=== PATIENT | female | born 1960 | race Caucasian/White ===

== ENCOUNTER → 2017-10-28 14:46 | Outpatient (CLI) | payer OTHER, SELFPAY ==
[2017-10-28 16:28] LABS: Amphetamine Urine VISTA NEGATIVE (<1000 ng/mL); Barbiturate Urine VISTA NEGATIVE (< 200 ng/mL); Benzodiazepine Urine VISTA POSITIVE (< 200 ng/mL); Cocaine Urine VISTA NEGATIVE (< 300 ng/mL); Ecstacy Urine VISTA NEGATIVE (< 500 ng/mL); Methadone Urine VISTA NEGATIVE (< 300 ng/mL); PCP Urine VISTA NEGATIVE (< 25 ng/mL); THC Urine VISTA NEGATIVE (< 50 ng/mL); Vista UDS pH Range 6
== END ==
PROVIDERS: Family Provider Family Medicine; PCP Family Medicine; Visit Provider Anesthesiology Pain Medicine
DX: F11.20 Opioid dependence, uncomplicated (principal)
CPT/HCPCS: 80307

== ENCOUNTER → 2017-12-11 11:01 | Outpatient (CLI) | payer OTHER, SELFPAY ==
[2017-12-11 11:47] LABS: Absolute Lymphocyte Count 2.85 X10^3/ul (0.83-4.51); Absolute Neutrophil Count 4.4 X10^3/uL (2.0-7.7); Basophil# 0.02 X10^3/uL; Basophil% 0.3 % (0-1); Eosinophil# 0.07 X10^3/uL; Eosinophils% 0.9 % (0-5); Hematocrit 42.9 % (37-47); Hemoglobin 13.2 g/dl (12.0-15.0); Lymphocyte # 2.85 X10^3/ul (4.0); Lymphocyte % 35.9 % (19-41); Mean Corp Hgb Conc 30.8 g/gl (32-36); Mean Corpuscular Hgb 29.9 pg (27.0-32.0); Mean Corpuscular Volume 97.3 fL (81-99); Mean Platelet Vol. 10.3 fl (6.2-12.0); Monocyte# 0.64 X10^3/uL; Monocyte% 8.1 % (0-10); Neutrophil # 4.36 X10^3/uL (2.7-7.7); Neutrophil % 54.8 % (47-70); Platelet Count 355 K/mm3 (150-450); RBC Distribution Width CV 13.3 % (11.6-14.6); Red Blood Count 4.41 M/mm3 (4.2-5.4); White Blood Count 7.9 K/mm3 (4.4-11.0)
[2017-12-11 11:48] LABS: POSITIVE COUNT NO; POSITIVE DIFFERENTIAL NO; POSITIVE MORPHOLOGY NO
[2017-12-11 12:17] LABS: ALB/GLOB Ratio 0.9 RATIO (0.9-2.4); AST(SGOT) 12 U/L (15-37); Alanine Aminotransfer ALT/SGPT 21 U/L (13-56); Albumin, Serum 3.7 g/dL (3.2-5.0); Alkaline Phosphatase 64 U/L (45-117); Anion Gap 6 (5-15); BUN 14 mg/dL (7-18); BUN/Creat Ratio 15.5 RATIO (10-20); Calcium,Total 8.8 mg/dL (8.5-10.1); Chloride 104 mmol/L (98-107); EST Glomerular Filtration Rate 68 mL/min (>60); Est Glom Filt Rate - Afr Amer 82 mL/min (>60); Globulin 3.9 g/dL (2.2-4.2); Glucose 112 mg/dL (74-106); Potassium 4.1 mmol/L (3.5-5.1); Protein, Total 7.6 g/dL (6.4-8.2); Sodium Level 140 mmol/L (136-145)
== END ==
PROVIDERS: Family Provider Family Medicine; PCP Family Medicine; Visit Provider Internal Medicine Rheumatology
DX: M06.4 Inflammatory polyarthropathy (principal); M79.7 Fibromyalgia; M17.0 Bilateral primary osteoarthritis of knee; M21.40 Flat foot [pes planus] (acquired), unspecified foot; I10 Essential (primary) hypertension; E78.5 Hyperlipidemia, unspecified; E11.9 Type 2 diabetes mellitus without complications; E03.9 Hypothyroidism, unspecified; Z79.899 Other long term (current) drug therapy
CPT/HCPCS: 36415; 80053; 85025

== ENCOUNTER 2018-01-26 10:53 | Day surgery (SDC) | payer OTHER, SELFPAY ==
[2018-01-20 12:48] LABS: Hematocrit 43.3 % (37-47); Hemoglobin 13.5 g/dl (12.0-15.0); Mean Corp Hgb Conc 31.2 g/gl (32-36); Mean Corpuscular Volume 96.2 fL (81-99); Mean Platelet Vol. 10.7 fl (6.2-12.0); Platelet Count 290 K/mm3 (150-450); RBC Distribution Width CV 13.4 % (11.6-14.6); White Blood Count 5.7 K/mm3 (4.4-11.0)
[2018-01-20 12:50] LABS: Prothrombin Time (Protime)PT. 13.4 SECONDS (11.7-14.9)
[2018-01-20 12:51] LABS: Partial Thromboplast Time 31.1 Seconds (24.1-36.2)
[2018-01-20 12:52] LABS: Scan Indicated on CBC? Y/N NO
[2018-01-26] VITALS (9 sets, daily range): BP systolic 115–135; BP diastolic 59–83; PULSE 64–95; RESP 14–16; TEMP 36.1–37.1; O2SAT 77–100; BMI 38.2
--- NOTE | 2018-01-26 | IMM_PTH ---
PATIENT: TRE SHEPPARD [place] [facility] [id number] AGE/SX: 57/F ROOM: RE01/26/[address]: Dr. She Luna MD : 1960 BED: DIS: 01/26/2018 SPEC #: [id number] RECD: 01/28/18 10:36 STATUS: SHERIN REQ #: [id number] NUNU: 01/26/18 00:[address]: She Luna DEPT: IMMUNOHISTOCHEMISTRY RECD BY: Tonja Stephen ENTERED: 01/28/18 10:37 SP TYPE: IMMUNO OTHR DR: Dr. Brandon Vela MD Tissues: Endometrium, NOS Procedures: SMA (add) DESMIN (add) P53 (add) SMM (add) Vimentin (initial) PHYSICIAN & INSTITUTION [place] [id number] SPECIMEN INFORMATION: Tissue Source: Endometrial curettings Clinical Info: Intrauterine synechiae, postmenopausal bleeding Specimen Number: [id number] CPT code: 11223, 86167 x4 METHODOLOGY: Deparaffinized sections of prefer/formalin-fixed tissue or PAP/DQ stained slides are incubated with monoclonal/polyclonal antibodies/oligonucleotide probes. Localization is made via biotin free immunoperoxidase method. Appropriate controls are performed and reacted as expected. Results on target cell population are indicated in the following table: RESULTS: ANTIBODY / CLONE RESULT Vimentin (V9) negative Actin (1A4) positive Myosin (simms1) positive Desmin (CE-R-11) positive P53 (DO-7) negative These tests were developed and their performance characteristics determined by [facility]. They may not have been cleared or approved by the U.S. Food and Drug Administration. The FDA has determined that such clearance or approval is not necessary. INTERPRETATION: Endometrial curettings: Smooth muscle tissue. AM:arnaud 01/28/18 Comment: A submucosal leiomyoma cannot be ruled out.
[2018-01-26 11:36] LABS: Bedside Glucose 108 mg/dL (70-110)
--- NOTE | 2018-01-26 12:40 | EMB_PTH ---
PATIENT: TRE SHEPPARD LOC: [facility] – [place] U#:[id number] AGE/SX: 57/F ROOM: RE01/26/[address]: Dr. She Luna MD : 1960 BED: DIS: 01/26/2018 SPEC #: [id number] RECD: 01/26/18 15:15 STATUS: SHERIN REUche #: [id number] NUNU: 01/26/18 12:[address]: She Luna DEPT: SURGICAL PATHOLOGY RECD BY: Paxton Stahl ENTERED: 01/27/18 08:20 SP TYPE: ENDOM BX/C OTHR DR: Dr. Brandon Vela MD Tissues: Endometrium, NOS Procedures: Surgery Specimen Level IV HEADER OPERATION: Hysteroscopy, dilation and curettage, Myosure PRE-OP DIAGNOSIS: Intrauterine synechiae, postmenopausal bleeding TISSUE SUBMITTED: Endometrial curettings MICROSCOPIC DIAGNOSIS Endometrium, curettings: Smooth muscle tissue, mature fibrofatty tissue with focal fat necrosis and blood clots. AM:arnaud 01/28/18 COMMENT Clinical correlation is necessary. This case was discussed with Dr. Luna 01/28/18 at 10:00 a.m. MICROSCOPIC DESCRIPTION Slides are reviewed. GROSS DESCRIPTION Received in fixative is one container labeled with the patient's name and designated endometrial curettings. The specimen consists of multiple irregular fragments of nunes-light yellow soft tissue that in aggregate measure 2.5 x 1 x 0.1 cm. The specimen is totally submitted in one cassette. / SJ:arnaud 01/27/18 TC:5 CPT: 82788
--- NOTE | 2018-01-26 13:20 | PCM.DC.D&C ---
Discharge Diet: No Restrictions Discharge Activity: May not drive while taking narcotic pain medications., May Shower, May Take a Tub Bath Return to work on:: 01/31/18 May resume sexual activity in: 1 week - when comfortable Call your doctor if you observe: Fever of 101 or Higher, Using more than one pad per hour, Calf discomfort, Uncontrolled pain Allergies/Adverse Reactions: Allergies Penicillins Allergy (Verified 01/19/18 13:17) Rash tramadol HCl [From Ultracet] Allergy (Verified 01/19/18 13:17) Hives codeine Adverse Reaction (Verified 01/19/18 13:17) Nausea VOLTAREN GEL Allergy (Uncoded 01/19/18 13:18) Hives Medications to take at Discharge Hydroxychloroquine [Plaquenil] 200 mg PO BIDCM 02/09/14 Lisinopril [Zestril] 40 mg PO DAILY 02/09/14 Pravastatin [Pravachol] 40 mg PO DAILY 02/09/14 Gabapentin [Neurontin] 300 mg PO TIDCM 05/27/16 baclofen 10 mg tablet 10 mg PO DAILY 12/26/17 diazepam 2 mg tablet 5 mg PO TID 12/26/17 escitalopram 20 mg tablet 30 mg PO DAILY 12/26/17 levothyroxine 125 mcg tablet 150 mcg PO DAILY 12/26/17 Empagliflozin/Metformin HCl [Synjardy 5-500 mg Tablet] 1 each PO DAILY 01/19/18 Multivitamin [Daily Multiple Vitamin] 1 each PO DAILY 01/19/18 Oxycodone CR [Oxycontin] 15 mg PO Q12H 01/19/18 Primary Care Physician: Brandon Vela MD [Primary Care Provider] - Please Follow Up With: She Luna MD - [phone] When: 1-2 wks for postop appointment Proposed Discharge Date: 01/26/18
--- NOTE | 2018-01-26 13:46 | PCM.IMDPSTOP ---
Immediate Post-Op Note Date of Procedure: 01/26/18 Primary Surgeon/Physician: She Luna laserist: Lizbeth Biggs Pre-Operative Diagnosis: postmenopausal bleeding, thickened endometrial stripe. RV RF uterus, with cervical stenosis Post-Operative Diagnosis: Same. Likely submucous fibroid, atrophic endometrium Surgery/Procedure Performed:: cervical dilatation. endometrial biopsy / polypectomy. No hysteroscopy. Description of Surgical Findings:: Dilation of cervix . Uterus RV, RF. Attempted hysteroscopy but midline anterior perforation of uterus noted. Hysteroscopy abandoned. No Myosure procedure performed. Endometrial polyp forceps advanced along posterior uterine wall to 11 cm depth, and several biopsies obtained of likely submucous fibroid. Pipelle used to sample endometrium at 11 cm depth along endometrial cavity with very minimal tissue noted. No active bleeding. Excellent hemostasis . Tenaculum puncture site at posterior cervix treated with AgNO3. Estimated Blood Loss: minimal Specimen's removed: fragments of likely submucous leiomyoma noted. minimal endometrium Drains: none Type of Anesthesia:: General - Admit VTE Documentation VTE Present on Admission: No VTE Mechan Device Prophylaxis: SCD's VTE Pharm Prophylaxis ordered?: No
--- NOTE | 2018-01-26 13:55 | OP.PN_ITS ---
Immediate Post-Op Note Date of Procedure: 01/26/18 Primary Surgeon/Physician: She Luna ear mold laboratory technician: Lizbeth Biggs Pre-Operative Diagnosis: postmenopausal bleeding, thickened endometrial stripe. RV RF uterus, with cervical stenosis Post-Operative Diagnosis: Same. Likely submucous fibroid, atrophic endometrium Surgery/Procedure Performed:: cervical dilatation. endometrial biopsy / polypectomy. No hysteroscopy. Description of Surgical Findings:: Dilation of cervix . Uterus RV, RF. Attempted hysteroscopy but midline anterior perforation of uterus noted. Hysteroscopy abandoned. No Myosure procedure performed. Endometrial polyp forceps advanced along posterior uterine wall to 11 cm depth , and several biopsies obtained of likely submucous fibroid. Pipelle used to sample endometrium at 11 cm depth along endometrial cavity with very minimal tissue noted. No active bleeding. Excellent hemostasis . Tenaculum puncture site at posterior cervix treated with AgNO3. Estimated Blood Loss: minimal Specimen's removed: fragments of likely submucous leiomyoma noted. minimal endometrium Drains: none Type of Anesthesia:: General - Admit VTE Documentation VTE Present on Admission: No VTE Mechan Device Prophylaxis: SCD's VTE Pharm Prophylaxis ordered?: No
[2018-01-26 15:15] LABS: Bedside Glucose 94 mg/dL (70-110)
--- NOTE | 2018-01-26 21:28 | OP.PCM_ITS ---
Operative Report Date of Procedure: 01/26/18 PROCEDURE: Dilation, endometrial biopsy, biopsy of likely submucous fibroid. Preoperative Diagnosis: Thickened endometrial stripe on pelvic ultrasound Cervical stenosis Retroverted Retroflexed uterus Postmenopausal bleeding Postop diagnosis: Thickened endometrial stripe on pelvic ultrasound Cervical stenosis Retroverted Retroflexed uterus Postmenopausal bleeding Anesthesia: General anesthesia, GRZEGORZ Cruz and Vicente Matos MD Surgeon: She Luna MD EBL: Minimal for case Drains: Red jasso, minimal clear yellow urine Complications: Uterine perforation, anterior midline (hemostatic by quick look with hysteroscope) Fluids: replacement Findings: Atrophic appearing cervix, stenotic Fragments of likely pedunculated submucous fibroid (biopsied). Scant endometrial curettings. Narrative account After the R,B,Alternatives of the procedure were reviewed with the patient and her , informed consent was obtained. The patient was taken to the operating room with an IV running and placed in dorsal supine position on the operating table. She was given general anesthesia and repositioned to the dorsal lithotomy position and prepped and draped in the usual sterile fashion. A graves speculum was placed into the vagina and the cervix was brought into view. The cervix was atrophic appearing and flush with the vaginal wall. It was grasped at the anterior lip. Cervical dilation was begun with small dilators, and initially this went smoothly but perforation was suspected at the anterior midline. The cervix was grasped at the posterior lip then with a single toothed tenaculum and dilators were again used, taking care to maintain retroverted orientation. The uterus was sounded and sounded to 11 cm ( consistent with prior ultrasound measurement) An attempt was made to introduce the hysteroscope into the endometrial cavity but hysteroscopy was immediately abandoned due to the perforation noted. There was no active bleeding noted at the perforation. The polyp forceps were then used to probe the posterior wall of the endometrial cavity and several pieces of an apparent submucous , pedunculated fibroid were removed but the mass within the endometrial cavity could not be removed with the polyp forceps. An endometrial biopsy was then performed with a Pipelle (taking care to remain closely approximated to the posterior endometrial cavity -- where the Pipelle sounded to 11 cm). The biopsy collected was set aside for later pathology review. At this point the procedure was terminated. The tenaculum was removed from the posterior cervix. There was some bleeding noted at the posterior cervix at the tenaculum puncture site on the L side (5:00 position). This was treated with AgNO3, and excellent hemostasis was then noted. A Ray Faraz gauze was used to remove any remaining tissue and blood from the upper vagina and cervix. The speculum was removed. The patient was returned to dorsal supine position and awakened from IV sedation and transferred to her recovery room bed in stable condition after tolerating the procedure well. Sponge, lap, needle and instrument counts were correct x two. For medications given intraoperatively, please see the anesthesia record.
== END 2018-01-26 15:38 | disposition home or self-care (01) ==
LOC: SDC 10:53 → AC 10:55
PROVIDERS: Family Provider Family Medicine; PCP Family Medicine; Visit Provider Obstetrics & Gynecology
PROC: 0UDB8ZZ Extraction of Endometrium, Via Natural or Artificial Opening Endoscopic (ICD-10-PCS; CPT 58558; principal; 2018-01-26 12:30)
DX: M48.02 Spinal stenosis, cervical region (principal); N95.0 Postmenopausal bleeding; N85.4 Malposition of uterus; N85.6 Intrauterine synechiae; N85.8 Other specified noninflammatory disorders of uterus; I10 Essential (primary) hypertension; Z87.891 Personal history of nicotine dependence; M79.7 Fibromyalgia; K21.9 Gastro-esophageal reflux disease without esophagitis; E11.9 Type 2 diabetes mellitus without complications; E03.9 Hypothyroidism, unspecified
CPT/HCPCS: 00940; 58120; 36415; 82962; 85027; 85610; 85730; 86850; 86900; 88305; 88341; 88342; J7120; J2405

== ENCOUNTER → 2018-01-28 14:21 | Outpatient (CLI) | payer OTHER, SELFPAY | PROVIDERS: Family Provider Family Medicine; PCP Family Medicine; Visit Provider Physician Assistant Surgical | DX: J02.9 Acute pharyngitis, unspecified (principal) | CPT/HCPCS: 87081 ==

== ENCOUNTER → 2018-03-08 12:03 | Outpatient (CLI) | payer OTHER, SELFPAY ==
[2018-03-08 14:16] LABS: Absolute Lymphocyte Count 1.69 X10^3/ul (0.83-4.51); Absolute Neutrophil Count 2.9 X10^3/uL (2.0-7.7); Basophil# 0.01 X10^3/uL; Basophil% 0.2 % (0-1); Eosinophil# 0.07 X10^3/uL; Eosinophils% 1.4 % (0-5); Hematocrit 42.8 % (37-47); Hemoglobin 13.6 g/dl (12.0-15.0); Lymphocyte # 1.69 X10^3/ul (4.0); Lymphocyte % 33.1 % (19-41); Mean Corp Hgb Conc 31.8 g/gl (32-36); Mean Corpuscular Hgb 30.6 pg (27.0-32.0); Mean Corpuscular Volume 96.4 fL (81-99); Mean Platelet Vol. 10.9 fl (6.2-12.0); Monocyte# 0.42 X10^3/uL; Monocyte% 8.2 % (0-10); Neutrophil % 56.9 % (47-70); Platelet Count 299 K/mm3 (150-450); RBC Distribution Width CV 13.2 % (11.6-14.6); RBC Distribution Width SD 45.7 fl (35.1-43.9); Red Blood Count 4.44 M/mm3 (4.2-5.4); White Blood Count 5.1 K/mm3 (4.4-11.0)
[2018-03-08 14:17] LABS: POSITIVE COUNT NO; POSITIVE DIFFERENTIAL NO; POSITIVE MORPHOLOGY NO
[2018-03-08 14:28] LABS: AST(SGOT) 15 U/L (15-37); Alanine Aminotransfer ALT/SGPT 24 U/L (13-56); Albumin, Serum 3.8 g/dL (3.2-5.0); Alkaline Phosphatase 63 U/L (45-117); Anion Gap 7 (5-15); BUN 10 mg/dL (7-18); BUN/Creat Ratio 11.6 RATIO (10-20); Calcium,Total 8.8 mg/dL (8.5-10.1); Chloride 105 mmol/L (98-107); Creatinine, Serum 0.86 mg/dL (0.55-1.02); EST Glomerular Filtration Rate 72 mL/min (>60); Est Glom Filt Rate - Afr Amer 87 mL/min (>60); Globulin 3.8 g/dL (2.2-4.2); Glucose 115 mg/dL (74-106); Potassium 4.5 mmol/L (3.5-5.1); Protein, Total 7.6 g/dL (6.4-8.2); Sodium Level 141 mmol/L (136-145)
== END ==
PROVIDERS: Family Provider Family Medicine; PCP Family Medicine; Visit Provider Internal Medicine Rheumatology
DX: M06.4 Inflammatory polyarthropathy (principal); M79.7 Fibromyalgia; M17.0 Bilateral primary osteoarthritis of knee; M21.40 Flat foot [pes planus] (acquired), unspecified foot; I10 Essential (primary) hypertension; E78.5 Hyperlipidemia, unspecified; E11.9 Type 2 diabetes mellitus without complications; E03.9 Hypothyroidism, unspecified; Z79.899 Other long term (current) drug therapy
CPT/HCPCS: 36415; 80053; 85025

== ENCOUNTER → 2018-04-12 12:24 | Outpatient (CLI) | payer OTHER, SELFPAY | PROVIDERS: Family Provider Family Medicine; PCP Family Medicine; Visit Provider Obstetrics & Gynecology | DX: Z12.31 Encounter for screening mammogram for malignant neoplasm of breast (principal) | CPT/HCPCS: 77063; 77067 ==

== ENCOUNTER → 2018-05-17 11:50 | Outpatient (CLI) | payer OTHER, SELFPAY ==
--- NOTE | 2018-05-17 11:54 | RAD_ITS ---
STUDY: X-RAY CHEST REASON FOR EXAM: Female, 58 years old. Cough and fever. TECHNIQUE: PA and lateral views of the chest. COMPARISON: None. FINDINGS: Scattered calcified granulomas. No acute infiltrate is seen. There is no demonstrated pleural abnormality. Normal size heart. Normal mediastinum and yanet. Normal visualized pulmonary arteries. Normal visualized aortic arch and descending thoracic aorta. There is demineralization of the osseous structures. Normal visualized ribs, clavicles, and shoulders. Small hiatal hernia. RAD/Chest PA and Lateral IMPRESSION: No acute abnormality is seen. Electronically Signed: Rufino Pryor MD at 12:26 EDT Tel [phone], Service support ,
== END ==
PROVIDERS: Family Provider Family Medicine; PCP Family Medicine; Visit Provider Physician Assistant Surgical
DX: R09.89 Other specified symptoms and signs involving the circulatory and respiratory systems (principal)
CPT/HCPCS: 71046

== ENCOUNTER → 2018-05-18 10:14 | Outpatient (CLI) | payer OTHER, SELFPAY | PROVIDERS: Family Provider Family Medicine; PCP Family Medicine; Visit Provider Physician Assistant Surgical | DX: J02.9 Acute pharyngitis, unspecified (principal) | CPT/HCPCS: 87081 ==

== ENCOUNTER → 2018-06-08 12:04 | Outpatient (CLI) | payer OTHER, SELFPAY ==
[2018-06-08 13:45] LABS: Amphetamine Urine VISTA NEGATIVE (<1000 ng/mL); Barbiturate Urine VISTA NEGATIVE (< 200 ng/mL); Benzodiazepine Urine VISTA POSITIVE (< 200 ng/mL); Cocaine Urine VISTA NEGATIVE (< 300 ng/mL); Ecstacy Urine VISTA NEGATIVE (< 500 ng/mL); Methadone Urine VISTA NEGATIVE (< 300 ng/mL); PCP Urine VISTA NEGATIVE (< 25 ng/mL); THC Urine VISTA NEGATIVE (< 50 ng/mL); Vista UDS pH Range 5
== END ==
PROVIDERS: Family Provider Family Medicine; PCP Family Medicine; Referring Provider Anesthesiology Pain Medicine; Visit Provider Anesthesiology Pain Medicine
DX: F11.20 Opioid dependence, uncomplicated (principal)
CPT/HCPCS: 80307

== ENCOUNTER → 2018-09-02 13:05 | Outpatient (CLI) | payer OTHER, SELFPAY ==
[2018-05-17 11:31] VITALS: BMI 38.2
[2018-09-02 14:35] LABS: AST(SGOT) 14 U/L (15-37); Alanine Aminotransfer ALT/SGPT 28 U/L (13-56); Albumin, Serum 3.5 g/dL (3.2-5.0); Alkaline Phosphatase 58 U/L (45-117); Anion Gap 9 (5-15); BUN 11 mg/dL (7-18); BUN/Creat Ratio 12.7 RATIO (10-20); Bilirubin, Direct 0.09 mg/dL (0.00-0.30); Calcium,Total 8.9 mg/dL (8.5-10.1); Chloride 107 mmol/L (98-107); Cholesterol 122 mg/dL (200); Creatinine, Serum 0.86 mg/dL (0.55-1.02); EST Glomerular Filtration Rate 71 mL/min (>60); Est Glom Filt Rate - Afr Amer 86 mL/min (>60); Free T3 2.6 pg/mL (2.18-3.98); Globulin 3.6 g/dL (2.2-4.2); Glucose 112 mg/dL (74-106); High Density Lipoprotein 41 mg/dL; Potassium 4.2 mmol/L (3.5-5.1); Protein, Total 7.1 g/dL (6.4-8.2); Sodium Level 143 mmol/L (136-145); T4 Total, Thyroxin 8.4 ug/dL (4.8-13.9); Thyroid Stim Hormone (TSH) 0.24 uIU/mL (0.358-3.74); Triglycerides 171 mg/dL; Very Low Density Lipoprotein 34 mg/dL (5-40)
[2018-09-02 14:40] LABS: Microalbumin,Random Urine 10.1 mg/L (NO RANGE EST.); Microalbumin:Creatinine Ratio 8.3 mg/g CRE (<30 mg/g CRE)
== END ==
PROVIDERS: Family Provider Family Medicine; PCP Family Medicine; Referring Provider Internal Medicine Rheumatology; Visit Provider Internal Medicine Rheumatology
DX: E11.9 Type 2 diabetes mellitus without complications (principal); E03.9 Hypothyroidism, unspecified
CPT/HCPCS: 36415; 80048; 80061; 80076; 82043; 82570; 84436; 84443; 84481

== ENCOUNTER 2018-09-10 04:16 | Emergency (ER) | payer OTHER, MEDICARE, SELFPAY ==
[2018-09-10 04:16] VITALS: BP 166/83; PULSE 108; RESP 18; TEMP 37.2; O2SAT 96; BMI 35.6
[2018-09-10 04:55] VITALS: BP 137/72; PULSE 91; RESP 21; O2SAT 96
[2018-09-10 05:13] LABS: Anion Gap 11 (5-15); BUN 11 mg/dL (7-18); BUN/Creat Ratio 12.5 RATIO (10-20); Chloride 105 mmol/L (98-107); Creatinine, Serum 0.88 mg/dL (0.55-1.02); EST Glomerular Filtration Rate 70 mL/min (>60); Est Glom Filt Rate - Afr Amer 84 mL/min (>60); Estimated Creatinine Clearance 54.44 ml/min; Glucose 104 mg/dL (74-106); Sodium Level 141 mmol/L (136-145)
[2018-09-10] MEDS: oxyCODONE 5 MG Tablet PO (05:27)
[2018-09-10] MEDS: Ondansetron 4 MG/2 ML Vial IV (05:27)
[2018-09-10 05:32] LABS: Absolute Lymphocyte Count 2.77 X10^3/ul (0.83-4.51); Absolute Neutrophil Count 4.6 X10^3/uL (2.0-7.7); Basophil# 0.02 X10^3/uL; Basophil% 0.2 % (0-1); Eosinophil# 0.09 X10^3/uL; Eosinophils% 1.1 % (0-5); Hematocrit 40.5 % (37-47); Hemoglobin 12.6 g/dl (12.0-15.0); Lymphocyte # 2.77 X10^3/ul (4.0); Lymphocyte % 34.4 % (19-41); Mean Corp Hgb Conc 31.1 g/gl (32-36); Mean Corpuscular Hgb 29.8 pg (27.0-32.0); Mean Corpuscular Volume 95.7 fL (81-99); Mean Platelet Vol. 10.1 fl (6.2-12.0); Monocyte# 0.57 X10^3/uL; Monocyte% 7.1 % (0-10); Neutrophil % 57.1 % (47-70); Platelet Count 298 K/mm3 (150-450); RBC Distribution Width CV 12.8 % (11.6-14.6); RBC Distribution Width SD 44.5 fl (35.1-43.9); Red Blood Count 4.23 M/mm3 (4.2-5.4); White Blood Count 8.1 K/mm3 (4.4-11.0)
[2018-09-10 05:33] LABS: Differential Indicated SCAN CRITERIA MET; POSITIVE COUNT NO; POSITIVE DIFFERENTIAL NO; POSITIVE MORPHOLOGY YES
[2018-09-10 05:38] LABS: Prothrombin Time (Protime)PT. 13.6 SECONDS (11.7-14.9)
[2018-09-10 05:39] LABS: Partial Thromboplast Time 32.2 Seconds (24.1-36.2)
--- NOTE | 2018-09-10 05:55 | ED.VISSUMM ---
- ER Visit Summary Date of Service: 09/10/18 Chief Complaint: GI bleeding History of Present Illness: The patient is a 58 F presenting for evaluation secondary to GI bleeding. Patient reports that she has had prior episodes in the past that have been associated with diverticulitis. Patient states that she is not on any sort of anticoagulants. Patient reports that tonight she had a sudden onset of some abdominal cramping. She had an episode of diarrhea. She an hour or 2 later started to have some more episodes of abdominal cramping and then had 2 episodes of bright red blood per rectum. Patient reports that it was a moderate amount. She had nausea with no vomiting. She denies any persistent abdominal pain or fevers associated with this. Patient denies any alcohol use or frequent NSAID use or any history of upper GI bleeds in the past. Review of systems otherwise negative. Physical Examination: Vital signs are within normal limits, patient is afebrile. General: Patient is well-nourished well-developed and in no acute distress. Head: Normocephalic, atraumatic Eyes: Pupils equal round and reactive bilaterally, extra occular motion intact bialterally ENT: Moist mucous membranes Neck: Supple, no lymphadenopathy, no JVD, no meningismus CVS: Heart regular rate and rhythm, no murmurs, rubs or gallops, radial pulses 2+ bilaterally Resp: Respirations nondistressed, lung sounds clear bilaterally Abdomen: Soft, minimal lower abdominal tenderness without localization guarding or rebound, nondistended, no palpable masses, normal bowel sounds, rectal exam shows some skin tags. It is nontender. There were some small streaks of blood on the glove and it was guaiac positive. Back: Nontender Extremities: Nontender, atraumatic, active full range of motion, no peripheral edema Skin: warm, no rashes, no petechia Neuro: Alert and oriented x 4, CN 2-12 intact, no lateralizing neurological defecits Psyc: Normal affect Test Results: CBC shows hemoglobin of 12.6 which is mildly decreased from the patient's prior hemoglobin in February 2013 0.6, chemistry and coags were negative. Emergency Department Course and Treatment: Patient presented secondary to reported GI bleeding. Patient has stable vital signs and the emergency department. She does show evidence of a mild drop in her hemoglobin, but she appears stable and on rectal exam she was not having a significant amount of gross bleeding. I do not believe that she requires admission at this point. I believe that she is a stable lower GI bleed that could be associated with diverticulosis or from a bleeding internal hemorrhoid. Patient understands signs and symptoms for which to return, she will follow-up with her GI physician. Disposition: Discharge Impression: 1. Stable lower GI bleed This note was generated with [employer] dictation software. It may contain incorrect words, spelling, and punctuation that were not noted in review of the chart prior to signing ED Disposition - Plan for ED Patient: Disposition: Home or Assisted Living Chief Complaint: GI Bleed Diagnosis: Lower GI bleed Instructions: ED Hematochezia Stable Referrals: Iban Vaz MD [NON-STAFF] - 1-2 Weeks
[2018-09-10 06:14] VITALS: BP 115/67; PULSE 79; RESP 16; TEMP 37.2; O2SAT 94
[2018-09-10 06:26] LABS: Platelet Estimate ADEQUATE (ADEQ)
[2018-09-10 06:27] LABS: Atypical Lymphocyte RARE %; Differential Comment SCANNED; Reactive Lymphocyte 1+
== END 2018-09-10 06:15 | disposition home or self-care (01) ==
PROVIDERS: Emergency Provider Emergency Medicine; Family Provider Family Medicine; PCP Family Medicine
DX: K92.2 Gastrointestinal hemorrhage, unspecified (principal); Z79.84 Long term (current) use of oral hypoglycemic drugs; Z79.891 Long term (current) use of opiate analgesic; Z79.899 Other long term (current) drug therapy
CPT/HCPCS: 80048; 82274; 85025; 85610; 85730; 86850; 86900; 96374; 99285; A4216; J2405

== ENCOUNTER → 2018-10-11 08:20 | Outpatient (CLI) | payer OTHER, SELFPAY ==
--- NOTE | 2018-10-11 08:25 | RAD_ITS ---
STUDY: X-RAY - ESOPHAGUS (BARIUM SWALLOW) WITH FLUOROSCOPY REASON FOR EXAM: Female, 58 years old. Dysphagia for solids. TECHNIQUE: 20 view(s) of the esophagus were obtained following swallowing of barium. FLUOROSCOPY TIME (if supplied): (0:48) minutes/seconds COMPARISON: None. FINDINGS: There is no demonstrated esophageal foreign body. There is no demonstrated stricture or mucosal abnormality. Moderate sized paraesophageal hernia. The patient ingested a 12 mm tablet of barium. The tablet is trapped at the gastroesophageal junction. Normal visualized aortic arch and descending thoracic aorta. Normal visualized pulmonary parenchyma. Normal visualized osseous structures of the thorax. RAD/Esophagus Only IMPRESSION: Moderate sized paraesophageal hernia. The 12 mm tablet of barium is trapped at the gastroesophageal junction. Electronically Signed: Rufino Pryor MD at 15:37 EST , Service support ,
== END ==
PROVIDERS: Family Provider Family Medicine; PCP Family Medicine; Referring Provider Internal Medicine Gastroenterology; Visit Provider Internal Medicine Gastroenterology
DX: R13.10 Dysphagia, unspecified (principal)
CPT/HCPCS: 74220

== ENCOUNTER → 2018-11-09 12:44 | Outpatient (CLI) | payer OTHER, SELFPAY ==
[2018-11-09 13:40] LABS: Amphetamine Urine VISTA NEGATIVE (<1000 ng/mL); Barbiturate Urine VISTA NEGATIVE (< 200 ng/mL); Benzodiazepine Urine VISTA POSITIVE (< 200 ng/mL); Cocaine Urine VISTA NEGATIVE (< 300 ng/mL); Ecstacy Urine VISTA NEGATIVE (< 500 ng/mL); Methadone Urine VISTA NEGATIVE (< 300 ng/mL); PCP Urine VISTA NEGATIVE (< 25 ng/mL); THC Urine VISTA NEGATIVE (< 50 ng/mL); Vista UDS pH Range 5
== END ==
PROVIDERS: Family Provider Family Medicine; PCP Family Medicine; Referring Provider Anesthesiology Pain Medicine; Visit Provider Anesthesiology Pain Medicine
DX: F11.20 Opioid dependence, uncomplicated (principal)
CPT/HCPCS: 80307

== ENCOUNTER → 2018-12-07 | Outpatient (CLI) | payer OTHER, SELFPAY ==
[2018-12-07 16:32] LABS: Hemoglobin A1c 6.2 % (4.2-6.3)
[2018-12-07 16:44] LABS: Anion Gap 8 (5-15); BUN 9 mg/dL (7-18); BUN/Creat Ratio 11.5 RATIO (10-20); Calcium,Total 8.8 mg/dL (8.5-10.1); Chloride 106 mmol/L (98-107); Cholesterol 132 mg/dL (200); Creatinine, Serum 0.78 mg/dL (0.55-1.02); EST Glomerular Filtration Rate 80 mL/min (>60); Est Glom Filt Rate - Afr Amer 97 mL/min (>60); Free T3 2.7 pg/mL (2.18-3.98); Glucose 108 mg/dL (74-106); High Density Lipoprotein 39 mg/dL; Potassium 4.4 mmol/L (3.5-5.1); Sodium Level 142 mmol/L (136-145); T4 Total, Thyroxin 9.1 ug/dL (4.8-13.9); Triglycerides 181 mg/dL; Very Low Density Lipoprotein 36 mg/dL (5-40)
== END | disposition home or self-care (01) ==
LOC: MFPLAB 11:17
PROVIDERS: Family Provider Family Medicine; PCP Family Medicine; Referring Provider Family Medicine; Visit Provider Family Medicine
DX: E03.9 Hypothyroidism, unspecified (principal); E11.9 Type 2 diabetes mellitus without complications
CPT/HCPCS: 36415; 80048; 80061; 83036; 84436; 84443; 84481

== ENCOUNTER → 2019-01-09 11:53 | Outpatient (CLI) | payer OTHER, SELFPAY ==
[2019-01-09 14:03] LABS: Absolute Neutrophil Count 3.3 X10^3/uL (2.0-7.7); Basophil# 0.02 X10^3/uL; Basophil% 0.3 % (0-1); Eosinophil# 0.11 X10^3/uL; Eosinophils% 1.9 % (0-5); Hematocrit 42.7 % (37-47); Hemoglobin 13.6 g/dl (12.0-15.0); Lymphocyte % 32.3 % (19-41); Mean Corp Hgb Conc 31.9 g/gl (32-36); Mean Corpuscular Hgb 29.8 pg (27.0-32.0); Mean Corpuscular Volume 93.6 fL (81-99); Mean Platelet Vol. 10.8 fl (6.2-12.0); Monocyte# 0.52 X10^3/uL; Monocyte% 8.8 % (0-10); Neutrophil # 3.33 X10^3/uL (2.7-7.7); Neutrophil % 56.5 % (47-70); POSITIVE COUNT NO; POSITIVE DIFFERENTIAL NO; POSITIVE MORPHOLOGY NO; Platelet Count 292 K/mm3 (150-450); RBC Distribution Width CV 13.3 % (11.6-14.6); RBC Distribution Width SD 44.3 fl (35.1-43.9); Red Blood Count 4.56 M/mm3 (4.2-5.4); White Blood Count 5.9 K/mm3 (4.4-11.0)
[2019-01-09 14:18] LABS: AST(SGOT) 16 U/L (15-37); Alanine Aminotransfer ALT/SGPT 24 U/L (13-56); Albumin, Serum 3.7 g/dL (3.2-5.0); Alkaline Phosphatase 65 U/L (45-117); Anion Gap 10 (5-15); BUN 12 mg/dL (7-18); BUN/Creat Ratio 14.5 RATIO (10-20); Calcium,Total 8.9 mg/dL (8.5-10.1); Chloride 107 mmol/L (98-107); Creatinine, Serum 0.83 mg/dL (0.55-1.02); EST Glomerular Filtration Rate 75 mL/min (>60); Est Glom Filt Rate - Afr Amer 90 mL/min (>60); Globulin 3.7 g/dL (2.2-4.2); Glucose 136 mg/dL (74-106); Potassium 3.9 mmol/L (3.5-5.1); Protein, Total 7.4 g/dL (6.4-8.2); Sodium Level 142 mmol/L (136-145)
== END ==
PROVIDERS: Family Provider Family Medicine; PCP Family Medicine; Referring Provider Internal Medicine Rheumatology; Visit Provider Internal Medicine Rheumatology
DX: M06.4 Inflammatory polyarthropathy (principal); M79.7 Fibromyalgia; M17.0 Bilateral primary osteoarthritis of knee; M21.40 Flat foot [pes planus] (acquired), unspecified foot; I10 Essential (primary) hypertension; E78.5 Hyperlipidemia, unspecified; E11.9 Type 2 diabetes mellitus without complications; E03.9 Hypothyroidism, unspecified; Z79.899 Other long term (current) drug therapy
CPT/HCPCS: 36415; 80053; 85025

== ENCOUNTER → 2019-04-08 11:35 | Outpatient (CLI) | payer OTHER, SELFPAY ==
[2019-04-08 12:09] LABS: Absolute Lymphocyte Count 2.69 X10^3/uL (0.83-4.51); Absolute Neutrophil Count 2.8 X10^3/uL (2.0-7.7); Basophil# 0.03 X10^3/uL; Basophil% 0.5 % (0-1); Eosinophils% 1.6 % (0-5); Hematocrit 42.9 % (37-47); Hemoglobin 13.2 g/dL (12.0-15.0); Lymphocyte # 2.69 X10^3/ul (4.0); Lymphocyte % 42.8 % (19-41); Mean Corp Hgb Conc 30.8 g/dL (32-36); Mean Corpuscular Hgb 30.1 pg (27.0-32.0); Mean Corpuscular Volume 97.9 fL (81-99); Mean Platelet Vol. 10.3 fl (6.2-12.0); Monocyte# 0.67 X10^3/uL; Monocyte% 10.7 % (0-10); NRBC Flagged by Analyzer 0 % (0-5); Neutrophil # 2.78 X10^3/uL (2.7-7.7); Neutrophil % 44.2 % (47-70); Platelet Count 292 K/mm3 (150-450); RBC Distribution Width CV 12.9 % (11.6-14.6); RBC Distribution Width SD 46.2 fl (35.1-43.9); Red Blood Count 4.38 M/mm3 (4.2-5.4); White Blood Count 6.3 K/mm3 (4.4-11.0)
[2019-04-08 13:03] LABS: ALB/GLOB Ratio 1.1 RATIO (0.9-2.4); AST(SGOT) 20 U/L (15-37); Alanine Aminotransfer ALT/SGPT 27 U/L (13-56); Albumin, Serum 3.6 g/dL (3.2-5.0); Alkaline Phosphatase 57 U/L (45-117); Anion Gap 7 (5-15); BUN 14 mg/dL (7-18); BUN/Creat Ratio 15.1 RATIO (10-20); Calcium,Total 8.8 mg/dL (8.5-10.1); Chloride 107 mmol/L (98-107); Creatinine, Serum 0.93 mg/dL (0.55-1.02); EST Glomerular Filtration Rate 66 mL/min (>60); Est Glom Filt Rate - Afr Amer 79 mL/min (>60); Globulin 3.4 g/dL (2.2-4.2); Glucose 99 mg/dL (74-106); Potassium 4.4 mmol/L (3.5-5.1); Sodium Level 143 mmol/L (136-145)
== END ==
PROVIDERS: Family Provider Family Medicine; PCP Family Medicine; Referring Provider Internal Medicine Rheumatology; Visit Provider Internal Medicine Rheumatology
DX: M06.4 Inflammatory polyarthropathy (principal); M79.7 Fibromyalgia; M17.0 Bilateral primary osteoarthritis of knee; M21.40 Flat foot [pes planus] (acquired), unspecified foot; I10 Essential (primary) hypertension; E78.5 Hyperlipidemia, unspecified; E11.9 Type 2 diabetes mellitus without complications; E03.9 Hypothyroidism, unspecified; Z79.899 Other long term (current) drug therapy
CPT/HCPCS: 36415; 80053; 85025

== ENCOUNTER → 2019-04-10 14:31 | Outpatient (CLI) | payer OTHER, SELFPAY ==
[2019-04-13 20:07] LABS: Red Blood Cell Count Test/G6PD 4.27 x10E6/uL (3.77-5.28)
[2019-04-14 12:28] LABS: G6PD Quant Test 316 (146-376)
== END ==
PROVIDERS: Family Provider Family Medicine; PCP Family Medicine; Referring Provider Internal Medicine Rheumatology; Visit Provider Internal Medicine Rheumatology
DX: M06.4 Inflammatory polyarthropathy (principal); M79.7 Fibromyalgia; M17.0 Bilateral primary osteoarthritis of knee; M21.40 Flat foot [pes planus] (acquired), unspecified foot; I10 Essential (primary) hypertension; E78.5 Hyperlipidemia, unspecified; E11.9 Type 2 diabetes mellitus without complications; E03.9 Hypothyroidism, unspecified; Z79.899 Other long term (current) drug therapy
CPT/HCPCS: 36415; 82955

== ENCOUNTER → 2019-06-15 | Outpatient (CLI) | payer OTHER, SELFPAY ==
[2019-06-15 17:59] LABS: Absolute Lymphocyte Count 2.59 X10^3/uL (0.83-4.51); Basophil# 0.03 X10^3/uL; Basophil% 0.5 % (0-1); Eosinophils% 1.6 % (0-5); Hematocrit 43.6 % (37-47); Hemoglobin 13.4 g/dL (12.0-15.0); Lymphocyte # 2.59 X10^3/ul (4.0); Lymphocyte % 41.2 % (19-41); Mean Corp Hgb Conc 30.7 g/dL (32-36); Mean Corpuscular Hgb 30.4 pg (27.0-32.0); Mean Corpuscular Volume 98.9 fL (81-99); Mean Platelet Vol. 10.7 fl (6.2-12.0); Monocyte# 0.57 X10^3/uL; Monocyte% 9.1 % (0-10); NRBC Flagged by Analyzer 0 % (0-5); Neutrophil # 2.99 X10^3/uL (2.7-7.7); Neutrophil % 47.4 % (47-70); Platelet Count 333 K/mm3 (150-450); RBC Distribution Width CV 13.5 % (11.6-14.6); RBC Distribution Width SD 49.1 fl (35.1-43.9); Red Blood Count 4.41 M/mm3 (4.2-5.4); White Blood Count 6.3 K/mm3 (4.4-11.0)
[2019-06-15 18:42] LABS: ALB/GLOB Ratio 0.9 RATIO (0.9-2.4); AST(SGOT) 18 U/L (15-37); Alanine Aminotransfer ALT/SGPT 26 U/L (13-56); Albumin, Serum 3.6 g/dL (3.2-5.0); Alkaline Phosphatase 64 U/L (45-117); Anion Gap 6 (5-15); BUN 13 mg/dL (7-18); BUN/Creat Ratio 14.1 RATIO (10-20); Calcium,Total 8.5 mg/dL (8.5-10.1); Chloride 105 mmol/L (98-107); Creatinine, Serum 0.92 mg/dL (0.55-1.02); EST Glomerular Filtration Rate 66 mL/min (>60); Est Glom Filt Rate - Afr Amer 80 mL/min (>60); Globulin 3.8 g/dL (2.2-4.2); Glucose 80 mg/dL (74-106); Protein, Total 7.4 g/dL (6.4-8.2); Sodium Level 140 mmol/L (136-145)
== END | disposition home or self-care (01) ==
LOC: MTLAB 15:02
PROVIDERS: Family Provider Family Medicine; PCP Family Medicine; Referring Provider Internal Medicine Rheumatology; Visit Provider Internal Medicine Rheumatology
DX: M06.4 Inflammatory polyarthropathy (principal); M79.7 Fibromyalgia; M17.0 Bilateral primary osteoarthritis of knee; M21.40 Flat foot [pes planus] (acquired), unspecified foot; I10 Essential (primary) hypertension; E78.5 Hyperlipidemia, unspecified; E11.9 Type 2 diabetes mellitus without complications; E03.9 Hypothyroidism, unspecified; Z79.899 Other long term (current) drug therapy
CPT/HCPCS: 36415; 80053; 85025

== ENCOUNTER → 2019-07-31 09:31 | Outpatient (CLI) | payer OTHER, SELFPAY ==
[2019-07-31 10:55] LABS: Amphetamine Urine VISTA NEGATIVE (<1000 ng/mL); Barbiturate Urine VISTA NEGATIVE (< 200 ng/mL); Benzodiazepine Urine VISTA POSITIVE (< 200 ng/mL); Cocaine Urine VISTA NEGATIVE (< 300 ng/mL); Ecstacy Urine VISTA NEGATIVE (< 500 ng/mL); Methadone Urine VISTA NEGATIVE (< 300 ng/mL); PCP Urine VISTA NEGATIVE (< 25 ng/mL); THC Urine VISTA NEGATIVE (< 50 ng/mL); Vista UDS pH Range 5
== END ==
PROVIDERS: Family Provider Family Medicine; PCP Family Medicine; Referring Provider Anesthesiology Pain Medicine; Visit Provider Anesthesiology Pain Medicine
DX: F11.20 Opioid dependence, uncomplicated (principal)
CPT/HCPCS: 80307

== ENCOUNTER 2019-09-03 13:57 | Emergency (ER) | payer OTHER, SELFPAY ==
[2019-09-03 13:58] VITALS: BP 158/87; PULSE 85; RESP 16; TEMP 36.9; O2SAT 95; BMI 36.2
--- NOTE | 2019-09-03 14:11 | CT_ITS ---
STUDY: CT ABDOMEN AND PELVIS WITH CONTRAST REASON FOR EXAM: Female, 59 years old. BRIGHT RED BLOOD IN STOOL WITH HISTORY OF DIVERTICULITIS. Prior right inguinal hernia repair RADIATION DOSAGE (If Supplied By Facility): CTDIvol = ( 16.98 ) mGy, DLP = ( 1180.20 ) mGycm TECHNIQUE: Transaxial images were obtained from the dome of the diaphragm to the symphysis pubis without oral contrast. IV 100mL Isovue-370 was administered. Sagittal and coronal images were reconstructed. Individualized dose optimization techniques were used for this CT. COMPARISON: December 14, 2016 FINDINGS: The visualized lung bases are unremarkable. The visualized portions of the heart are within normal limits. Normal liver. Normal gallbladder and extrahepatic biliary system. Normal spleen. Normal pancreas. Normal bilateral adrenal glands. Normal right kidney. There is a nonobstructing stable punctate left renal calculus. There is a small to moderate size hiatal hernia. Normal small intestine. There is circumferential wall thickening of the descending colon extending into the proximal sigmoid colon associated with pericolonic stranding. There are scattered diverticula throughout the colon. The appendix is visualized and appears normal. There is diffuse atherosclerotic calcification of the abdominal aorta, without a demonstrated aneurysm. Normal inferior vena cava. Normal retroperitoneum. Normal urinary bladder. There are postsurgical changes of the lower anterior abdominal wall. There are diffuse degenerative changes of the visualized lumbar spine. There is a stable sclerotic focus within the L2 vertebra. CT/Abdomen/Pelvis W IV Cont ONLY IMPRESSION: Circumferential wall thickening of the descending and proximal sigmoid colon with an appearance concerning for ischemic colitis, alternatively this may be secondary to infectious or inflammatory colitis. Colonic diverticulosis. Atherosclerosis. Hiatal hernia. Electronically Signed: May Lozada MD at 15:51 EST Tel , Service support ,
--- NOTE | 2019-09-03 14:12 | ED.VIS.GI ---
History of Present Illness Chief Complaint: Abd Pain Informant: Patient - Abdominal Pain/Flank Pain Onset: Yesterday Context: Gradual Onset Timing: Continuous Quality: Aching Location: - - lower abd Current Severity: Moderate Maximum Severity: Moderate Worsened by: Nothing Relieved by: Nothing - Nausea/Vomiting/Emesis GI Symptom: Nausea. Negative for: Vomiting - Diarrhea/Melena/Hematochezia GI Symptom: Diarrhea, Hematochezia Onset: Yesterday Severity: Moderate - now just blood, no stool Associated Symptoms: Negative for: Dysuria, Frequency, Hematuria, Urgency Narrative: Patient feels like she is having a diverticulitis attack. She is also having bleeding into the toilet. She was having diarrhea with blood but now it is just blood without any stool. She feels lightheaded and weak. No syncope. No thoracic symptoms. She has fibromyalgia and chronic low back and right knee pain for which she takes narcotics chronically. - Past Medical History (1) Type 2 diabetes mellitus Status: Chronic (2) Anxiety Status: Chronic (3) Fibromyalgia Status: Chronic (4) Chronic low back pain Status: Chronic (5) Depression Status: Chronic (6) HTN (hypertension) Status: Chronic (7) Diverticulosis Status: Chronic Past Medical History - Allergies and Home Meds Allergies/Adverse Reactions: Allergies Penicillins Allergy (Verified 09/03/19 13:58) Rash tramadol HCl [From Ultracet] Allergy (Verified 09/03/19 13:58) Hives codeine Adverse Reaction (Verified 09/03/19 13:58) Nausea VOLTAREN GEL Allergy (Uncoded 09/03/19 13:58) Hives Primary Care Physician: Brandon Vela MD [Primary Care Provider] - Surgical History: herniorrhaphy, total knee arthroplasty - right, - - Lives: Spouse/ Significant Other Smoking Status: Never smoker - Family History Maternal Family History: Reports: Diabetes Paternal Family History: Reports: - Review of Systems General: Reports: Malaise - and lightheadedness. Denies: Chills, Fever, Sweats Eyes: Denies: Visual changes - bilaterally, Diplopia ENT: Denies: Rhinorrhea, Sore throat Cardiovascular: Denies: Chest pain, Palpitations Respiratory: Denies: Dyspnea, Cough, Dyspnea on exertion Gastrointestinal: Reports: Abdominal pain, Nausea, Diarrhea, Hematochezia. Denies: Vomiting, Melena Genitourinary: Denies: Dysuria, Hematuria, Frequency Musculoskeletal: Reports: Back pain, Extremity Pain. Denies: Neck pain, Swelling Skin: Denies: Rash, Wounds Neurological: Denies: Headache, Weakness, Numbness Physical Exam Vital Signs/Narrative: Vital Signs Temp Pulse Resp BP Pulse Ox 09/03/19 13:58 98.4 F 85 16 158/87 H 95 Inital Vital Signs reviewed: Yes General: Well nourished, Well developed, Obese, No Acute Distress Head: Normocephalic, Atraumatic Eyes: Perrl, EOMI ENT: Moist mucous membranes, No rhinorrhea Neck: Supple, Nontender Cardiovascular: Regular rate, Regular rhythm, No murmurs Respiratory: No distress, CTA bilaterally, Chest nontender Abdomen: Soft, Nondistended, Normal bowel sounds, No masses, Tender - suprapubic > RLQ. otherwise, NT., Guarding - suprapubic. Negative for: Rebound tenderness, Pulsatile mass Back: Normal Inspection, CVA tenderness - mild right only. none on left, - - FROM Extremities: Nontender, No edema Skin: Normal color, No rash, No Trauma Neurological: Alert, Oriented x3, Cranial nerves II-XII grossly intact, Normal Strength, Normal Sensation, Normal Gait Psychological: Normal Mood, - - a little anxious Diagnostic/Tx/Re-eval Impressions Abdomen/Pelvis CT 09/03/19 14:11 IMPRESSION: Circumferential wall thickening of the descending and proximal sigmoid colon with an appearance concerning for ischemic colitis, alternatively this may be secondary to infectious or inflammatory colitis. Colonic diverticulosis. Atherosclerosis. Hiatal hernia. Electronically Signed: May Lozada MD at 15:51 EST Tel , Service support , 09/03/19 14:11 Abdomen/Pelvis W IV Cont ONLY [CT] Stat Laboratory Results 09/03/19 09/03/19 09/03/19 14:20 14:30 14:30 WBC 9.4 RBC 4.33 Hgb 13.4 Hct 42.0 MCV 97.0 MCH 30.9 MCHC 31.9 L RDW Std Deviation 46.4 H RDW Coeff of Nicholas 13.0 Plt Count 262 MPV 9.7 Immature Gran % (Auto) 0.200 Neut % (Auto) 60.3 Lymph % (Auto) 28.7 Faulkner % (Auto) 9.3 Eos % (Auto) 1.2 Baso % (Auto) 0.3 Absolute Neuts (auto) 5.7 Absolute Lymphs (auto) 2.70 Nucleated RBC % 0 Sodium 137 Potassium 3.7 Chloride 106 Carbon Dioxide 29.0 Anion Gap 2 L BUN 10 Creatinine 0.91 Estim Creat Clear Calc 52.00 Est GFR (MDRD) Af Amer 81 Est GFR (MDRD) Non-Af 67 BUN/Creatinine Ratio 11.0 Glucose 131 H Calcium 8.8 Urine Color Yellow Urine Clarity Sl. Cloudy Urine pH 6.0 Ur Specific [place] 1.025 Urine Protein 15 H Urine Glucose (UA) Normal Urine Ketones 5 H Urine Occult Blood 10 H Urine Nitrite Negative Urine Bilirubin Negative Urine Urobilinogen Normal Ur Leukocyte Esterase 100 H Urine RBC 0 SEEN Urine WBC 5-10 SEEN Ur Squamous Epith Cells 10-25 SEEN Urine Bacteria 0 SEEN Urine Mucus 0 SEEN Blood Type Antibody Screen 09/03/19 14:30 WBC RBC Hgb Hct MCV MCH MCHC RDW Std Deviation RDW Coeff of Nicholas Plt Count MPV Immature Gran % (Auto) Neut % (Auto) Lymph % (Auto) Faulkner % (Auto) Eos % (Auto) Baso % (Auto) Absolute Neuts (auto) Absolute Lymphs (auto) Nucleated RBC % Sodium Potassium Chloride Carbon Dioxide Anion Gap BUN Creatinine Estim Creat Clear Calc Est GFR (MDRD) Af Amer Est GFR (MDRD) Non-Af BUN/Creatinine Ratio Glucose Calcium Urine Color Urine Clarity Urine pH Ur Specific [place] Urine Protein Urine Glucose (UA) Urine Ketones Urine Occult Blood Urine Nitrite Urine Bilirubin Urine Urobilinogen Ur Leukocyte Esterase Urine RBC Urine WBC Ur Squamous Epith Cells Urine Bacteria Urine Mucus Blood Type A POSITIVE Antibody Screen NEGATIVE - Medical Decision Making Work-up shows colitis, however the differential is open as to whether this is ischemic, inflammatory, or infectious. The white blood count is at the high end of normal, and there is no leftward shift or bandemia, which really is not helpful in differentiating these. Given her history of diverticulitis, certainly that is possible and I am treating her empirically with antibiotics. Her pain is well controlled, she was hydrated, and I discussed with both the hospitalist Dr. Woodward and Dr. Schwartz with surgery, they both agree that if the patient's symptoms are under control and she has no life-threatening GI bleeding which she does not at this time and her hemoglobin is stable, that she may follow-up as an outpatient with empiric treatment which is reasonable. Patient is comfortable with that plan. ED Disposition - Plan for ED Patient: Disposition: Home or Assisted Living Diagnosis: Colitis, Lower GI bleeding Instructions: Ischemic Colitis, Diverticulitis Prescriptions: Ciprofloxacin [Cipro] 500 mg PO BID #20 tab Prescription Printed Metronidazole [Flagyl] 500 mg PO BID #20 tab Prescription Printed Referrals: Brandon Vela MD [Primary Care Provider] - Fadia Schwartz MD [STAFF PHYSICIAN] - 1 Week (call for follow-up appt)
[2019-09-03] MEDS: 0.9% Normal Saline 1,000 ML 1000 ML IV (14:38)
[2019-09-03] MEDS: Ondansetron 4 MG/2 ML Vial IV (14:39)
[2019-09-03] MEDS: Morphine 4 MG/ML Syringe IV (14:40)
[2019-09-03 14:41] LABS: Bacteria 0 SEEN /hpf (None Seen); Mucous, Urine 0 SEEN /hpf (<or=2+); Red Blood Cells-Urine 0 SEEN /hpf (0-5)
[2019-09-03 14:43] LABS: Color, Urine Yellow (Yellow); Glucose, Dipstick Normal (Normal); Ketone-Dipstick 5 mg/dl (Negative); Leukocyte Esterase-Dipstick 100 /ul (Negative); Nitrite-Dipstick Negative (Negative); Occult Blood-Urine 10 /ul (Negative); Protein-Dipstick 15 mg/dl (Negative); Specific Gravity, Urine 1.025 (1.002-1.030); Urine Bilirubin Dipstick Negative (Negative); Urine Clarity Sl. Cloudy (Clear); Urine Urobilinogen Normal (Normal)
[2019-09-03 14:46] LABS: Absolute Neutrophil Count 5.7 X10^3/uL (2.0-7.7); Basophil# 0.03 X10^3/uL; Basophil% 0.3 % (0-1); Eosinophil# 0.11 X10^3/uL; Eosinophils% 1.2 % (0-5); Hemoglobin 13.4 g/dL (12.0-15.0); Lymphocyte % 28.7 % (19-41); Mean Corp Hgb Conc 31.9 g/dL (32-36); Mean Corpuscular Hgb 30.9 pg (27.0-32.0); Mean Platelet Vol. 9.7 fl (6.2-12.0); Monocyte# 0.87 X10^3/uL; Monocyte% 9.3 % (0-10); NRBC Flagged by Analyzer 0 % (0-5); Neutrophil # 5.67 X10^3/uL (2.7-7.7); Neutrophil % 60.3 % (47-70); Platelet Count 262 K/mm3 (150-450); RBC Distribution Width SD 46.4 fl (35.1-43.9); Red Blood Count 4.33 M/mm3 (4.2-5.4); White Blood Count 9.4 K/mm3 (4.4-11.0)
[2019-09-03 14:48] LABS: Squamous Epithelial Cells - UA 10-25 SEEN /hpf (5-10); White Blood Cells 5-10 SEEN /hpf (0-5)
[2019-09-03 15:03] LABS: Anion Gap 2 (5-15); BUN 10 mg/dL (7-18); Calcium,Total 8.8 mg/dL (8.5-10.1); Chloride 106 mmol/L (98-107); Creatinine, Serum 0.91 mg/dL (0.55-1.02); EST Glomerular Filtration Rate 67 mL/min (>60); Est Glom Filt Rate - Afr Amer 81 mL/min (>60); Glucose 131 mg/dL (74-106); Potassium 3.7 mmol/L (3.5-5.1); Sodium Level 137 mmol/L (136-145)
[2019-09-03] MEDS: Ciprofloxacin 400 MG/200 ML BAG 200 MG IV (16:25)
[2019-09-03 16:38] LABS: Lactic Acid 0.8 mmol/L (0.4-1.9)
[2019-09-03 16:40] VITALS: BP 144/58; PULSE 68; RESP 16; O2SAT 94
[2019-09-03] MEDS: oxyCODONE 5 MG Tablet PO (17:10)
[2019-09-03] MEDS: metroNIDAZOLE 500 MG/100 ML BAG 100 MG IV (17:32)
[2019-09-03 18:00] VITALS: RESP 16
[2019-09-03 18:54] VITALS: BP 136/74; PULSE 71; RESP 16; O2SAT 97
== END 2019-09-03 18:55 | disposition home or self-care (01) ==
PROVIDERS: Emergency Provider Emergency Medicine; Family Provider Family Medicine; PCP Family Medicine
DX: K52.9 Noninfective gastroenteritis and colitis, unspecified (principal); K92.1 Melena; K57.30 Diverticulosis of large intestine without perforation or abscess without bleeding; K44.9 Diaphragmatic hernia without obstruction or gangrene; I10 Essential (primary) hypertension; E11.9 Type 2 diabetes mellitus without complications; M79.7 Fibromyalgia; F32.9 Major depressive disorder, single episode, unspecified; F41.9 Anxiety disorder, unspecified; M54.5 Low back pain; G89.29 Other chronic pain; E66.9 Obesity, unspecified; Z79.84 Long term (current) use of oral hypoglycemic drugs; Z79.891 Long term (current) use of opiate analgesic; Z79.899 Other long term (current) drug therapy
CPT/HCPCS: 74177; 80048; 81001; 83605; 85025; 86850; 86900; 86901; 96361; 96365; 96367; 96375; 99283; J7030; Q9967; A4216; J0744; J2405

== ENCOUNTER → 2019-11-01 16:10 | Outpatient (CLI) | payer OTHER, SELFPAY ==
[2019-11-01 17:55] LABS: Absolute Lymphocyte Count 2.12 X10^3/uL (0.83-4.51); Absolute Neutrophil Count 3.4 X10^3/uL (2.0-7.7); Basophil# 0.03 X10^3/uL; Basophil% 0.5 % (0-1); Eosinophil# 0.08 X10^3/uL; Eosinophils% 1.3 % (0-5); Hematocrit 44.3 % (37-47); Hemoglobin 13.7 g/dL (12.0-15.0); Lymphocyte # 2.12 X10^3/ul (4.0); Lymphocyte % 34.1 % (19-41); Mean Corp Hgb Conc 30.9 g/dL (32-36); Mean Corpuscular Hgb 30.4 pg (27.0-32.0); Mean Corpuscular Volume 98.4 fL (81-99); Mean Platelet Vol. 10.1 fl (6.2-12.0); Monocyte# 0.55 X10^3/uL; Monocyte% 8.9 % (0-10); NRBC Flagged by Analyzer 0 % (0-5); Neutrophil # 3.42 X10^3/uL (2.7-7.7); Platelet Count 292 K/mm3 (150-450); RBC Distribution Width SD 46.6 fl (35.1-43.9); White Blood Count 6.2 K/mm3 (4.4-11.0)
[2019-11-01 18:22] LABS: AST(SGOT) 22 U/L (15-37); Alanine Aminotransfer ALT/SGPT 30 U/L (13-56); Albumin, Serum 3.6 g/dL (3.2-5.0); Alkaline Phosphatase 59 U/L (45-117); Anion Gap 2 (5-15); BUN 8 mg/dL (7-18); BUN/Creat Ratio 8.9 RATIO (10-20); Calcium,Total 9.2 mg/dL (8.5-10.1); Chloride 105 mmol/L (98-107); EST Glomerular Filtration Rate 68 mL/min (>60); Est Glom Filt Rate - Afr Amer 82 mL/min (>60); Globulin 3.7 g/dL (2.2-4.2); Glucose 116 mg/dL (74-106); Potassium 4.5 mmol/L (3.5-5.1); Protein, Total 7.3 g/dL (6.4-8.2); Sodium Level 139 mmol/L (136-145)
== END ==
PROVIDERS: PCP Family Medicine; Referring Provider Internal Medicine Rheumatology; Visit Provider Internal Medicine Rheumatology
DX: M06.4 Inflammatory polyarthropathy (principal); M79.7 Fibromyalgia; M17.0 Bilateral primary osteoarthritis of knee; M21.40 Flat foot [pes planus] (acquired), unspecified foot; I10 Essential (primary) hypertension; E78.5 Hyperlipidemia, unspecified; E11.9 Type 2 diabetes mellitus without complications; E03.9 Hypothyroidism, unspecified; Z79.899 Other long term (current) drug therapy
CPT/HCPCS: 36415; 80053; 85025

== ENCOUNTER → 2019-11-06 14:20 | Outpatient (CLI) | payer OTHER, SELFPAY ==
[2019-11-06 18:35] LABS: Free T3 3.3 pg/mL (2.18-3.98); Thyroid Stim Hormone (TSH) 0.34 uIU/mL (0.358-3.74)
[2019-11-06 18:37] LABS: Hemoglobin A1c 6.3 % (4.2-6.3)
== END ==
LOC: MFPLAB 14:21
PROVIDERS: PCP Family Medicine; Referring Provider Family Medicine; Visit Provider Family Medicine
DX: E11.9 Type 2 diabetes mellitus without complications (principal); E03.9 Hypothyroidism, unspecified
CPT/HCPCS: 36415; 83036; 84436; 84443; 84481

== ENCOUNTER → 2020-02-12 12:45 | Outpatient (CLI) | payer OTHER, SELFPAY ==
[2020-02-12 13:47] LABS: Absolute Lymphocyte Count 2.26 X10^3/uL (0.83-4.51); Absolute Neutrophil Count 3.9 X10^3/uL (2.0-7.7); Basophil# 0.04 X10^3/uL; Basophil% 0.6 % (0-1); Eosinophil# 0.06 X10^3/uL; Eosinophils% 0.9 % (0-5); Hematocrit 45.8 % (37-47); Hemoglobin 14.3 g/dL (12.0-15.0); Lymphocyte # 2.26 X10^3/ul (4.0); Lymphocyte % 32.8 % (19-41); Mean Corp Hgb Conc 31.2 g/dL (32-36); Mean Corpuscular Hgb 31.6 pg (27.0-32.0); Mean Corpuscular Volume 101.3 fL (81-99); Mean Platelet Vol. 10.5 fl (6.2-12.0); Monocyte# 0.61 X10^3/uL; Monocyte% 8.9 % (0-10); NRBC Flagged by Analyzer 0 % (0-5); Neutrophil # 3.91 X10^3/uL (2.7-7.7); Neutrophil % 56.7 % (47-70); Platelet Count 332 K/mm3 (150-450); Red Blood Count 4.52 M/mm3 (4.2-5.4); White Blood Count 6.9 K/mm3 (4.4-11.0)
[2020-02-12 14:38] LABS: AST(SGOT) 18 U/L (15-37); Alanine Aminotransfer ALT/SGPT 25 U/L (13-56); Albumin, Serum 3.8 g/dL (3.2-5.0); Alkaline Phosphatase 65 U/L (45-117); Anion Gap 5 (5-15); BUN 10 mg/dL (7-18); BUN/Creat Ratio 11.5 RATIO (10-20); Calcium,Total 8.8 mg/dL (8.5-10.1); Chloride 105 mmol/L (98-107); Creatinine, Serum 0.87 mg/dL (0.55-1.02); EST Glomerular Filtration Rate 71 mL/min (>60); Est Glom Filt Rate - Afr Amer 86 mL/min (>60); Globulin 3.9 g/dL (2.2-4.2); Glucose 110 mg/dL (74-106); Potassium 4.7 mmol/L (3.5-5.1); Protein, Total 7.7 g/dL (6.4-8.2); Sodium Level 139 mmol/L (136-145)
== END ==
PROVIDERS: PCP Family Medicine; Referring Provider Internal Medicine Rheumatology; Visit Provider Internal Medicine Rheumatology
DX: M06.4 Inflammatory polyarthropathy (principal); Z79.899 Other long term (current) drug therapy; M79.7 Fibromyalgia; M17.0 Bilateral primary osteoarthritis of knee; M21.40 Flat foot [pes planus] (acquired), unspecified foot; I10 Essential (primary) hypertension; E78.5 Hyperlipidemia, unspecified; E11.9 Type 2 diabetes mellitus without complications; E03.9 Hypothyroidism, unspecified
CPT/HCPCS: 36415; 80053; 85025

== ENCOUNTER → 2020-03-07 12:40 | Outpatient (CLI) | payer OTHER, SELFPAY ==
[2020-03-07 13:26] LABS: Amphetamine Urine VISTA NEGATIVE (<1000 ng/mL); Barbiturate Urine VISTA NEGATIVE (< 200 ng/mL); Benzodiazepine Urine VISTA POSITIVE (< 200 ng/mL); Cocaine Urine VISTA NEGATIVE (< 300 ng/mL); Ecstacy Urine VISTA NEGATIVE (< 500 ng/mL); Methadone Urine VISTA NEGATIVE (< 300 ng/mL); PCP Urine VISTA NEGATIVE (< 25 ng/mL); THC Urine VISTA NEGATIVE (< 50 ng/mL); Vista UDS pH Range 5
== END ==
LOC: LAB 12:40
PROVIDERS: PCP Family Medicine; Referring Provider Anesthesiology Pain Medicine; Visit Provider Anesthesiology Pain Medicine
DX: F11.20 Opioid dependence, uncomplicated (principal)
CPT/HCPCS: 80307

== ENCOUNTER → 2020-05-10 11:32 | Outpatient (CLI) | payer OTHER, SELFPAY ==
[2020-05-10 15:37] LABS: Free T3 2.6 pg/mL (2.18-3.98); T4 Total, Thyroxin 8.8 ug/dL (4.8-13.9); Thyroid Stim Hormone (TSH) 1.61 uIU/mL (0.358-3.74)
== END ==
LOC: MFPLAB 11:33
PROVIDERS: PCP Family Medicine; Referring Provider Family Medicine; Visit Provider Family Medicine
DX: E03.9 Hypothyroidism, unspecified (principal)
CPT/HCPCS: 36415; 84436; 84443; 84481

== ENCOUNTER → 2020-08-09 11:47 | Outpatient (CLI) | payer OTHER, SELFPAY | PROVIDERS: PCP Family Medicine; Referring Provider Family Medicine; Visit Provider Family Medicine | DX: Z20.828 Contact with and (suspected) exposure to other viral communicable diseases (principal) | CPT/HCPCS: 87635; U0003 ==

== ENCOUNTER → 2020-09-26 12:16 | Outpatient (CLI) | payer OTHER, SELFPAY ==
[2020-09-26 12:52] LABS: Absolute Lymphocyte Count 2.21 X10^3/uL (0.83-4.51); Absolute Neutrophil Count 5.4 X10^3/uL (2.0-7.7); Basophil# 0.04 X10^3/uL; Basophil% 0.5 % (0-1); Eosinophil# 0.09 X10^3/uL; Eosinophils% 1.1 % (0-5); Hematocrit 45.4 % (37-47); Hemoglobin 14.2 g/dL (12.0-15.0); Lymphocyte # 2.21 X10^3/ul (4.0); Lymphocyte % 26.2 % (19-41); Mean Corp Hgb Conc 31.3 g/dL (32-36); Mean Corpuscular Volume 99.1 fL (81-99); Mean Platelet Vol. 9.9 fl (6.2-12.0); Monocyte# 0.73 X10^3/uL; Monocyte% 8.6 % (0-10); NRBC Flagged by Analyzer 0 % (0-5); Neutrophil # 5.35 X10^3/uL (2.7-7.7); Neutrophil % 63.2 % (47-70); Platelet Count 351 K/mm3 (150-450); RBC Distribution Width CV 12.6 % (11.6-14.6); RBC Distribution Width SD 46.6 fl (35.1-43.9); Red Blood Count 4.58 M/mm3 (4.2-5.4); White Blood Count 8.5 K/mm3 (4.4-11.0)
[2020-09-26 13:31] LABS: ALB/GLOB Ratio 0.9 RATIO (0.9-2.4); AST(SGOT) 16 U/L (15-37); Alanine Aminotransfer ALT/SGPT 23 U/L (13-56); Albumin, Serum 3.7 g/dL (3.2-5.0); Alkaline Phosphatase 72 U/L (45-117); Anion Gap 7 (5-15); BUN 12 mg/dL (7-18); BUN/Creat Ratio 12.2 RATIO (10-20); Calcium,Total 8.7 mg/dL (8.5-10.1); Chloride 106 mmol/L (98-107); Creatinine, Serum 0.99 mg/dL (0.55-1.02); EST Glomerular Filtration Rate 61 mL/min (>60); Est Glom Filt Rate - Afr Amer 74 mL/min (>60); Glucose 94 mg/dL (74-106); Potassium 4.5 mmol/L (3.5-5.1); Protein, Total 7.7 g/dL (6.4-8.2); Sodium Level 140 mmol/L (136-145)
== END ==
LOC: LAB 12:21
PROVIDERS: PCP Family Medicine; Referring Provider Internal Medicine Rheumatology; Visit Provider Internal Medicine Rheumatology
DX: M06.4 Inflammatory polyarthropathy (principal); M79.7 Fibromyalgia; M17.0 Bilateral primary osteoarthritis of knee; M21.40 Flat foot [pes planus] (acquired), unspecified foot; I10 Essential (primary) hypertension; E78.5 Hyperlipidemia, unspecified; E11.9 Type 2 diabetes mellitus without complications; E03.9 Hypothyroidism, unspecified; Z79.899 Other long term (current) drug therapy
CPT/HCPCS: 36415; 80053; 85025

== ENCOUNTER → 2020-10-29 14:35 | Outpatient (CLI) | payer OTHER, SELFPAY ==
[2020-10-29 17:16] LABS: Amphetamine Urine VISTA NEGATIVE (<1000 ng/mL); Barbiturate Urine VISTA NEGATIVE (< 200 ng/mL); Benzodiazepine Urine VISTA POSITIVE (< 200 ng/mL); Cocaine Urine VISTA NEGATIVE (< 300 ng/mL); Ecstacy Urine VISTA NEGATIVE (< 500 ng/mL); Methadone Urine VISTA NEGATIVE (< 300 ng/mL); PCP Urine VISTA NEGATIVE (< 25 ng/mL); THC Urine VISTA NEGATIVE (< 50 ng/mL); Vista UDS pH Range 6
== END ==
PROVIDERS: PCP Family Medicine; Referring Provider Anesthesiology Pain Medicine; Visit Provider Anesthesiology Pain Medicine
DX: F11.20 Opioid dependence, uncomplicated (principal)
CPT/HCPCS: 80307

== ENCOUNTER 2020-10-31 11:40 | Outpatient (RCR) | payer OTHER, SELFPAY ==
[2020-10-31] MEDS: COVID-19 VACC, MRNA(PFIZER)/PF 30 MCG/0.3 ML SYRINGE IM (12:22)
[2020-11-21] MEDS: COVID-19 VACC, MRNA(PFIZER)/PF 30 MCG/0.3 ML SYRINGE IM (12:21)
== END 2020-10-31 23:59 ==
LOC: IMMUN 11:40
PROVIDERS: PCP Family Medicine; Referring Provider Family Medicine; Visit Provider Family Medicine
DX: Z23 Encounter for immunization (principal)
CPT/HCPCS: 0001A; 0002A

== ENCOUNTER → 2020-11-18 15:33 | Outpatient (CLI) | payer OTHER, SELFPAY ==
[2020-11-18 18:03] LABS: Cholesterol 154 mg/dL (200); Free T3 2.4 pg/mL (2.18-3.98); High Density Lipoprotein 56 mg/dL; T4 Free Direct 1.09 ng/dL (0.76-1.46); Thyroid Stim Hormone (TSH) 0.52 uIU/mL (0.358-3.74); Triglycerides 231 mg/dL; Very Low Density Lipoprotein 46 mg/dL (5-40)
[2020-11-18 18:12] LABS: Microalbumin,Random Urine < 5.0 mg/L (NO RANGE EST.)
== END ==
LOC: MFPLAB 15:34
PROVIDERS: PCP Family Medicine; Visit Provider Family Medicine
DX: E78.5 Hyperlipidemia, unspecified (principal); E03.9 Hypothyroidism, unspecified; E11.9 Type 2 diabetes mellitus without complications
CPT/HCPCS: 36415; 80061; 82043; 82570; 84439; 84443; 84481

== ENCOUNTER → 2020-12-27 13:12 | Outpatient (CLI) | payer OTHER, SELFPAY ==
--- NOTE | 2020-12-27 13:18 | RAD_ITS ---
STUDY: X-RAY CHEST REASON FOR EXAM: Female, 60 years old. [facility] DRUG THERAPY TECHNIQUE: PA and lateral views of the chest. COMPARISON: 05/17/2018 FINDINGS: The lungs are clear and expanded. There is no demonstrated pleural abnormality. Normal size heart. Suspect small hiatal hernia. Normal visualized pulmonary arteries. Normal visualized aortic arch and descending thoracic aorta. Normal visualized thoracic spine. Normal visualized ribs, clavicles, and shoulders. There is no demonstrated abnormality of the visualized soft tissue structures of the upper abdomen. RAD/Chest PA and Lateral IMPRESSION: No active disease. Electronically Signed: Paxton Vallejo MD at 12:07 EDT Tel , Service support ,
[2020-12-31 08:08] LABS: QNTFERON TB Mitogen Value > 10.00 IU/mL (.); QNTFERON TB Nil Value 0.03 IU/mL (.); QNTFERON TB1+ Ag Value 0.06 IU/mL (.); QNTFERON TB2+ Ag Value 0.11 IU/mL (.)
[2020-12-31 10:50] LABS: QNTIFERON TB Positive Criteria Negative (Negative)
== END ==
PROVIDERS: PCP Family Medicine; Referring Provider Internal Medicine Rheumatology; Visit Provider Internal Medicine Rheumatology
DX: M06.09 Rheumatoid arthritis without rheumatoid factor, multiple sites (principal); M79.7 Fibromyalgia; M17.0 Bilateral primary osteoarthritis of knee; M21.40 Flat foot [pes planus] (acquired), unspecified foot; I10 Essential (primary) hypertension; E78.5 Hyperlipidemia, unspecified; E11.9 Type 2 diabetes mellitus without complications; E03.9 Hypothyroidism, unspecified; Z79.899 Other long term (current) drug therapy
CPT/HCPCS: 36415; 71046; 86480

== ENCOUNTER → 2021-04-23 13:17 | Outpatient (CLI) | payer OTHER, SELFPAY ==
[2021-04-23 14:53] LABS: Absolute Lymphocyte Count 2.34 X10^3/uL (0.83-4.51); Basophil# 0.03 X10^3/uL; Basophil% 0.5 % (0-1); Eosinophil# 0.08 X10^3/uL; Eosinophils% 1.3 % (0-5); Hematocrit 44.4 % (37-47); Hemoglobin 13.9 g/dL (12.0-15.0); Lymphocyte # 2.34 X10^3/ul (0.83-4.51); Lymphocyte % 39.2 % (19-41); Mean Corp Hgb Conc 31.3 g/dL (32-36); Mean Corpuscular Hgb 31.1 pg (27.0-32.0); Mean Corpuscular Volume 99.3 fL (81-99); Mean Platelet Vol. 10.3 fl (6.2-12.0); Monocyte# 0.49 X10^3/uL; Monocyte% 8.2 % (0-10); NRBC Flagged by Analyzer 0 % (0-5); Neutrophil # 3.02 X10^3/uL (2.7-7.7); Neutrophil % 50.6 % (47-70); Platelet Count 312 K/mm3 (150-450); RBC Distribution Width CV 12.8 % (11.6-14.6); RBC Distribution Width SD 47.5 fl (35.1-43.9); Red Blood Count 4.47 M/mm3 (4.2-5.4)
[2021-04-23 15:17] LABS: AST(SGOT) 18 U/L (15-37); Alanine Aminotransfer ALT/SGPT 29 U/L (13-56); Albumin, Serum 3.7 g/dL (3.2-5.0); Alkaline Phosphatase 54 U/L (45-117); Anion Gap 4 (5-15); BUN 10 mg/dL (7-18); BUN/Creat Ratio 11.4 RATIO (10-20); Calcium,Total 8.9 mg/dL (8.5-10.1); Chloride 107 mmol/L (98-107); Creatinine, Serum 0.88 mg/dL (0.55-1.02); EST Glomerular Filtration Rate 69 mL/min (>60); Est Glom Filt Rate - Afr Amer 84 mL/min (>60); Globulin 3.7 g/dL (2.2-4.2); Glucose 80 mg/dL (74-106); Potassium 4.1 mmol/L (3.5-5.1); Protein, Total 7.4 g/dL (6.4-8.2); Sodium Level 142 mmol/L (136-145)
== END ==
LOC: MTLAB 13:20
PROVIDERS: PCP Family Medicine; Referring Provider Internal Medicine Rheumatology; Visit Provider Internal Medicine Rheumatology
DX: M06.09 Rheumatoid arthritis without rheumatoid factor, multiple sites (principal); M79.7 Fibromyalgia; M17.0 Bilateral primary osteoarthritis of knee; M21.40 Flat foot [pes planus] (acquired), unspecified foot; I10 Essential (primary) hypertension; E78.5 Hyperlipidemia, unspecified; E11.9 Type 2 diabetes mellitus without complications; E03.9 Hypothyroidism, unspecified; Z79.899 Other long term (current) drug therapy
CPT/HCPCS: 36415; 80053; 85025

== ENCOUNTER → 2021-05-27 13:42 | Outpatient (CLI) | payer OTHER, SELFPAY | PROVIDERS: PCP Family Medicine; Referring Provider Family Medicine; Visit Provider Registered Nurse | DX: R10.9 Unspecified abdominal pain (principal) | CPT/HCPCS: 87086; 87088 ==

== ENCOUNTER → 2021-07-25 10:59 | Outpatient (CLI) | payer OTHER, SELFPAY ==
[2021-07-25 11:58] LABS: Absolute Lymphocyte Count 2.84 X10^3/uL (0.83-4.51); Absolute Neutrophil Count 2.7 X10^3/uL (2.0-7.7); Basophil# 0.04 X10^3/uL; Basophil% 0.6 % (0-1); Eosinophil# 0.18 X10^3/uL; Eosinophils% 2.8 % (0-5); Hematocrit 44.8 % (37-47); Hemoglobin 14.1 g/dL (12.0-15.0); Lymphocyte # 2.84 X10^3/ul (0.83-4.51); Lymphocyte % 43.8 % (19-41); Mean Corp Hgb Conc 31.5 g/dL (32-36); Mean Corpuscular Hgb 31.1 pg (27.0-32.0); Mean Corpuscular Volume 98.9 fL (81-99); Mean Platelet Vol. 9.8 fl (6.2-12.0); Monocyte# 0.73 X10^3/uL; Monocyte% 11.3 % (0-10); NRBC Flagged by Analyzer 0 % (0-5); Neutrophil # 2.67 X10^3/uL (2.7-7.7); Neutrophil % 41.2 % (47-70); Platelet Count 294 K/mm3 (150-450); RBC Distribution Width CV 12.7 % (11.6-14.6); RBC Distribution Width SD 45.8 fl (35.1-43.9); Red Blood Count 4.53 M/mm3 (4.2-5.4); White Blood Count 6.5 K/mm3 (4.4-11.0)
[2021-07-25 12:08] LABS: Erythrocyte Sedimentation Rate 16 mm/hr (0-30)
[2021-07-25 12:21] LABS: ALB/GLOB Ratio 0.9 RATIO (0.9-2.4); AST(SGOT) 22 U/L (15-37); Alanine Aminotransfer ALT/SGPT 34 U/L (13-56); Albumin, Serum 3.5 g/dL (3.2-5.0); Alkaline Phosphatase 54 U/L (45-117); Anion Gap 6 (5-15); BUN 14 mg/dL (7-18); BUN/Creat Ratio 14.6 RATIO (10-20); CRP < 2.90 mg/L (0.0-3.0); Calcium,Total 8.9 mg/dL (8.5-10.1); Chloride 105 mmol/L (98-107); Creatinine, Serum 0.96 mg/dL (0.55-1.02); EST Glomerular Filtration Rate 62 mL/min (>60); Est Glom Filt Rate - Afr Amer 76 mL/min (>60); Globulin 3.8 g/dL (2.2-4.2); Glucose 118 mg/dL (74-106); Potassium 4.1 mmol/L (3.5-5.1); Protein, Total 7.3 g/dL (6.4-8.2); Sodium Level 140 mmol/L (136-145)
== END ==
LOC: MTLAB 11:01
PROVIDERS: PCP Family Medicine; Referring Provider Internal Medicine Rheumatology; Visit Provider Internal Medicine Rheumatology
DX: M06.09 Rheumatoid arthritis without rheumatoid factor, multiple sites (principal); M79.7 Fibromyalgia; M17.0 Bilateral primary osteoarthritis of knee; M21.40 Flat foot [pes planus] (acquired), unspecified foot; I10 Essential (primary) hypertension; E78.5 Hyperlipidemia, unspecified; E11.9 Type 2 diabetes mellitus without complications; E03.9 Hypothyroidism, unspecified; Z79.899 Other long term (current) drug therapy
CPT/HCPCS: 36415; 80053; 85025; 85652; 86140

== ENCOUNTER → 2021-08-20 16:10 | Outpatient (CLI) | payer OTHER, SELFPAY ==
[2021-08-20 17:03] LABS: Amphetamine Urine VISTA NEGATIVE (<1000 ng/mL); Barbiturate Urine VISTA NEGATIVE (< 200 ng/mL); Benzodiazepine Urine VISTA POSITIVE (< 200 ng/mL); Cocaine Urine VISTA NEGATIVE (< 300 ng/mL); Ecstacy Urine VISTA NEGATIVE (< 500 ng/mL); Methadone Urine VISTA NEGATIVE (< 300 ng/mL); PCP Urine VISTA NEGATIVE (< 25 ng/mL); THC Urine VISTA NEGATIVE (< 50 ng/mL); Vista UDS pH Range 5
== END ==
LOC: LAB 16:11
PROVIDERS: PCP Family Medicine; Referring Provider Anesthesiology Pain Medicine; Visit Provider Anesthesiology Pain Medicine
DX: F11.20 Opioid dependence, uncomplicated (principal)
CPT/HCPCS: 80307

== ENCOUNTER 2021-09-10 17:12 | Outpatient (CLI) | payer OTHER, SELFPAY | END 2021-09-10 23:59 | disposition short-term general hospital (02) | PROVIDERS: PCP Family Medicine; Referring Provider Family Medicine; Visit Provider Family Medicine | DX: U07.1 COVID-19 (principal) | CPT/HCPCS: 87635; U0003; U0005 ==

== ENCOUNTER 2021-10-23 09:39 | Outpatient (CLI) | payer OTHER, SELFPAY ==
[2021-10-23 12:11] LABS: Absolute Lymphocyte Count 4.44 X10^3/uL (0.83-4.51); Basophil# 0.05 X10^3/uL; Basophil% 0.5 % (0-1); Eosinophil# 0.06 X10^3/uL; Eosinophils% 0.6 % (0-5); Hematocrit 45.7 % (37-47); Hemoglobin 14.3 g/dL (12.0-15.0); Lymphocyte # 4.44 X10^3/ul (0.83-4.51); Lymphocyte % 47.7 % (19-41); Mean Corp Hgb Conc 31.3 g/dL (32-36); Mean Corpuscular Volume 98.9 fL (81-99); Mean Platelet Vol. 10.6 fl (6.2-12.0); Monocyte# 0.74 X10^3/uL; Monocyte% 7.9 % (0-10); NRBC Flagged by Analyzer 0 % (0-5); Neutrophil % 43.1 % (47-70); Platelet Count 329 K/mm3 (150-450); Red Blood Count 4.62 M/mm3 (4.2-5.4); White Blood Count 9.3 K/mm3 (4.4-11.0)
[2021-10-23 12:38] LABS: AST(SGOT) 15 U/L (15-37); Alanine Aminotransfer ALT/SGPT 21 U/L (13-56); Albumin, Serum 3.8 g/dL (3.2-5.0); Alkaline Phosphatase 59 U/L (45-117); Anion Gap 5 (5-15); BUN 13 mg/dL (7-18); BUN/Creat Ratio 14.2 RATIO (10-20); Calcium,Total 9.3 mg/dL (8.5-10.1); Chloride 104 mmol/L (98-107); Creatinine, Serum 0.92 mg/dL (0.55-1.02); EST Glomerular Filtration Rate 66 mL/min (>60); Est Glom Filt Rate - Afr Amer 80 mL/min (>60); Globulin 3.7 g/dL (2.2-4.2); Glucose 113 mg/dL (74-106); Potassium 3.5 mmol/L (3.5-5.1); Protein, Total 7.5 g/dL (6.4-8.2); Sodium Level 139 mmol/L (136-145)
== END 2021-10-23 23:59 | disposition home or self-care (01) ==
LOC: MTLAB 09:41
PROVIDERS: PCP Family Medicine; Referring Provider Internal Medicine Rheumatology; Visit Provider Internal Medicine Rheumatology
DX: M06.09 Rheumatoid arthritis without rheumatoid factor, multiple sites (principal); E11.9 Type 2 diabetes mellitus without complications; M79.7 Fibromyalgia; M17.0 Bilateral primary osteoarthritis of knee; M21.40 Flat foot [pes planus] (acquired), unspecified foot; I10 Essential (primary) hypertension; E78.5 Hyperlipidemia, unspecified; E03.9 Hypothyroidism, unspecified; Z79.899 Other long term (current) drug therapy
CPT/HCPCS: 36415; 80053; 85025

== ENCOUNTER → 2022-01-22 | Outpatient (CLI) | payer OTHER, SELFPAY ==
[2022-01-22 15:05] LABS: Absolute Lymphocyte Count 2.26 X10^3/uL (0.83-4.51); Absolute Neutrophil Count 4.7 X10^3/uL (2.0-7.7); Basophil# 0.04 X10^3/uL; Basophil% 0.5 % (0-1); Eosinophil# 0.08 X10^3/uL; Hematocrit 43.7 % (37-47); Hemoglobin 13.8 g/dL (12.0-15.0); Lymphocyte # 2.26 X10^3/ul (0.83-4.51); Lymphocyte % 29.1 % (19-41); Mean Corp Hgb Conc 31.6 g/dL (32-36); Mean Corpuscular Hgb 31.4 pg (27.0-32.0); Mean Corpuscular Volume 99.5 fL (81-99); Mean Platelet Vol. 10.3 fl (6.2-12.0); Monocyte# 0.68 X10^3/uL; Monocyte% 8.8 % (0-10); NRBC Flagged by Analyzer 0 % (0-5); Neutrophil % 60.5 % (47-70); Platelet Count 322 K/mm3 (150-450); RBC Distribution Width CV 13.2 % (11.6-14.6); Red Blood Count 4.39 M/mm3 (4.2-5.4); White Blood Count 7.8 K/mm3 (4.4-11.0)
[2022-01-22 15:37] LABS: ALB/GLOB Ratio 0.9 RATIO (0.9-2.4); AST(SGOT) 15 U/L (15-37); Alanine Aminotransfer ALT/SGPT 23 U/L (13-56); Albumin, Serum 3.6 g/dL (3.2-5.0); Alkaline Phosphatase 55 U/L (45-117); Anion Gap 6 (5-15); BUN 15 mg/dL (7-18); BUN/Creat Ratio 14.6 RATIO (10-20); Calcium,Total 9.1 mg/dL (8.5-10.1); Chloride 105 mmol/L (98-107); Creatinine, Serum 1.03 mg/dL (0.55-1.02); EST Glomerular Filtration Rate 58 mL/min (>60); Est Glom Filt Rate - Afr Amer 70 mL/min (>60); Globulin 3.8 g/dL (2.2-4.2); Glucose 90 mg/dL (74-106); Potassium 4.5 mmol/L (3.5-5.1); Protein, Total 7.4 g/dL (6.4-8.2); Sodium Level 139 mmol/L (136-145)
== END | disposition home or self-care (01) ==
LOC: MTLAB 11:10
PROVIDERS: PCP Family Medicine; Referring Provider Internal Medicine Rheumatology; Visit Provider Internal Medicine Rheumatology
DX: M06.09 Rheumatoid arthritis without rheumatoid factor, multiple sites (principal); E11.9 Type 2 diabetes mellitus without complications; M79.7 Fibromyalgia; M17.0 Bilateral primary osteoarthritis of knee; M21.40 Flat foot [pes planus] (acquired), unspecified foot; I10 Essential (primary) hypertension; E78.5 Hyperlipidemia, unspecified; E03.9 Hypothyroidism, unspecified; Z79.899 Other long term (current) drug therapy
CPT/HCPCS: 36415; 80053; 85025

== ENCOUNTER → 2022-01-30 | Outpatient (CLI) | payer OTHER, SELFPAY ==
--- NOTE | 2022-01-30 13:42 | RAD_ITS ---
STUDY: X-RAY - SACRUM/COCCYX REASON FOR EXAM: Female, 61 years old. PAIN TECHNIQUE: 3 view(s) of the sacrum and coccyx were obtained. COMPARISON: None. FINDINGS: There is degenerative arthrosis of the bilateral sacroiliac joints. Normal visualized sacral ala and fused sacral bodies. Normal sacrococcygeal junction with a normal angulation. Normal coccygeal segments. Moderate amount of fecal material is seen in the colon. RAD/Sacrum-Coccyx min 2 Views IMPRESSION: Arthrosis of the sacroiliac joints bilaterally. Electronically Signed: Rufino Pryor MD at 16:21 EDT ,
== END | disposition home or self-care (01) ==
LOC: MTRAD 13:39
PROVIDERS: PCP Family Medicine; Referring Provider Anesthesiology Pain Medicine; Visit Provider Anesthesiology Pain Medicine
DX: M46.1 Sacroiliitis, not elsewhere classified (principal)
CPT/HCPCS: 72220

== ENCOUNTER → 2022-03-16 | Outpatient (CLI) | payer OTHER, SELFPAY ==
[2022-03-16 13:24] LABS: Absolute Lymphocyte Count 2.31 X10^3/uL (0.83-4.51); Absolute Neutrophil Count 3.3 X10^3/uL (2.0-7.7); Basophil# 0.03 X10^3/uL; Basophil% 0.5 % (0-1); Eosinophil# 0.06 X10^3/uL; Hematocrit 42.6 % (37-47); Hemoglobin 13.8 g/dL (12.0-15.0); Lymphocyte # 2.31 X10^3/ul (0.83-4.51); Lymphocyte % 37.7 % (19-41); Mean Corp Hgb Conc 32.4 g/dL (32-36); Mean Corpuscular Hgb 31.7 pg (27.0-32.0); Mean Corpuscular Volume 97.7 fL (81-99); Mean Platelet Vol. 9.9 fl (6.2-12.0); Monocyte# 0.43 X10^3/uL; NRBC Flagged by Analyzer 0 % (0-5); Neutrophil # 3.29 X10^3/uL (2.7-7.7); Neutrophil % 53.6 % (47-70); Platelet Count 304 K/mm3 (150-450); RBC Distribution Width CV 12.5 % (11.6-14.6); RBC Distribution Width SD 45.1 fl (35.1-43.9); Red Blood Count 4.36 M/mm3 (4.2-5.4); White Blood Count 6.1 K/mm3 (4.4-11.0)
[2022-03-16 13:55] LABS: AST(SGOT) 25 U/L (15-37); Alanine Aminotransfer ALT/SGPT 29 U/L (13-56); Albumin, Serum 3.6 g/dL (3.2-5.0); Alkaline Phosphatase 52 U/L (45-117); Anion Gap 5 (5-15); BUN 11 mg/dL (7-18); BUN/Creat Ratio 12.5 RATIO (10-20); Chloride 103 mmol/L (98-107); Cholesterol 155 mg/dL (200); Creatinine, Serum 0.88 mg/dL (0.55-1.02); EST Glomerular Filtration Rate 69 mL/min (>60); Est Glom Filt Rate - Afr Amer 83 mL/min (>60); Globulin 3.7 g/dL (2.2-4.2); Glucose 121 mg/dL (74-106); High Density Lipoprotein 58 mg/dL; Potassium 4.1 mmol/L (3.5-5.1); Protein, Total 7.3 g/dL (6.4-8.2); Sodium Level 139 mmol/L (136-145); Triglycerides 135 mg/dL; Very Low Density Lipoprotein 27 mg/dL (5-40)
[2022-03-19 10:08] LABS: QNTFERON TB Mitogen Value > 10.00 IU/mL (.); QNTFERON TB Nil Value 0.03 IU/mL (.); QNTFERON TB1+ Ag Value 0.04 IU/mL (.)
[2022-03-19 12:03] LABS: QNTIFERON TB Positive Criteria Negative (Negative)
== END | disposition home or self-care (01) ==
LOC: LAB 12:49
PROVIDERS: PCP Family Medicine; Referring Provider Internal Medicine Rheumatology; Visit Provider Internal Medicine Rheumatology
DX: M06.09 Rheumatoid arthritis without rheumatoid factor, multiple sites (principal); E11.9 Type 2 diabetes mellitus without complications; M79.7 Fibromyalgia; M17.0 Bilateral primary osteoarthritis of knee; M21.40 Flat foot [pes planus] (acquired), unspecified foot; I10 Essential (primary) hypertension; E78.5 Hyperlipidemia, unspecified; E03.9 Hypothyroidism, unspecified; Z79.899 Other long term (current) drug therapy
CPT/HCPCS: 36415; 80053; 80061; 85025; 86480

== ENCOUNTER → 2022-04-16 | Outpatient (CLI) | payer OTHER, SELFPAY ==
[2022-04-16 12:46] LABS: Free T3 2.6 pg/mL (2.18-3.98); T4 Free Direct 1.38 ng/dL (0.76-1.46); Thyroid Stim Hormone (TSH) 0.32 uIU/mL (0.358-3.74); Vitamin B12 385 pg/mL (211-911); Vitamin D,25 Hydroxy 21.3 ng/mL
[2022-04-16 12:48] LABS: Microalbumin,Random Urine < 5.0 mg/L (NO RANGE EST.)
== END | disposition home or self-care (01) ==
LOC: MFPLAB 10:01
PROVIDERS: PCP Family Medicine; Referring Provider Family Medicine; Visit Provider Family Medicine
DX: E03.9 Hypothyroidism, unspecified (principal); E11.9 Type 2 diabetes mellitus without complications; E55.9 Vitamin D deficiency, unspecified; E53.9 Vitamin B deficiency, unspecified
CPT/HCPCS: 36415; 82043; 82306; 82570; 82607; 84439; 84443; 84481

== ENCOUNTER → 2022-06-09 | Outpatient (CLI) | payer OTHER, SELFPAY ==
[2022-06-09 15:05] LABS: Absolute Lymphocyte Count 2.32 X10^3/uL (0.83-4.51); Basophil# 0.02 X10^3/uL; Basophil% 0.3 % (0-1); Eosinophil# 0.03 X10^3/uL; Eosinophils% 0.5 % (0-5); Hematocrit 43.8 % (37-47); Hemoglobin 13.9 g/dL (12.0-15.0); Lymphocyte # 2.32 X10^3/ul (0.83-4.51); Lymphocyte % 39.7 % (19-41); Mean Corp Hgb Conc 31.7 g/dL (32-36); Mean Corpuscular Volume 97.8 fL (81-99); Monocyte# 0.52 X10^3/uL; Monocyte% 8.9 % (0-10); NRBC Flagged by Analyzer 0 % (0-5); Neutrophil # 2.95 X10^3/uL (2.7-7.7); Neutrophil % 50.4 % (47-70); Platelet Count 343 K/mm3 (150-450); RBC Distribution Width CV 12.9 % (11.6-14.6); RBC Distribution Width SD 46.2 fl (35.1-43.9); Red Blood Count 4.48 M/mm3 (4.2-5.4); White Blood Count 5.9 K/mm3 (4.4-11.0)
[2022-06-09 15:34] LABS: AST(SGOT) 24 U/L (15-37); Alanine Aminotransfer ALT/SGPT 39 U/L (13-56); Albumin, Serum 3.7 g/dL (3.2-5.0); Alkaline Phosphatase 46 U/L (45-117); Anion Gap 6 (5-15); BUN 13 mg/dL (7-18); BUN/Creat Ratio 14.9 RATIO (10-20); Calcium,Total 9.1 mg/dL (8.5-10.1); Chloride 103 mmol/L (98-107); Cholesterol 167 mg/dL (200); Creatinine, Serum 0.87 mg/dL (0.55-1.02); EST Glomerular Filtration Rate 70 mL/min (>60); Est Glom Filt Rate - Afr Amer 85 mL/min (>60); Globulin 3.7 g/dL (2.2-4.2); Glucose 100 mg/dL (74-106); High Density Lipoprotein 62 mg/dL; Potassium 3.9 mmol/L (3.5-5.1); Protein, Total 7.4 g/dL (6.4-8.2); Sodium Level 138 mmol/L (136-145); Triglycerides 143 mg/dL; Very Low Density Lipoprotein 29 mg/dL (5-40)
== END | disposition home or self-care (01) ==
LOC: MTLAB 11:31
PROVIDERS: PCP Family Medicine; Referring Provider Internal Medicine Rheumatology; Visit Provider Internal Medicine Rheumatology
DX: M06.09 Rheumatoid arthritis without rheumatoid factor, multiple sites (principal); E11.9 Type 2 diabetes mellitus without complications; M79.7 Fibromyalgia; M17.0 Bilateral primary osteoarthritis of knee; M21.40 Flat foot [pes planus] (acquired), unspecified foot; I10 Essential (primary) hypertension; E78.5 Hyperlipidemia, unspecified; E03.9 Hypothyroidism, unspecified; Z79.899 Other long term (current) drug therapy
CPT/HCPCS: 36415; 80053; 80061; 85025

== ENCOUNTER → 2022-06-12 | Outpatient (CLI) | payer OTHER, SELFPAY ==
[2022-06-12 16:32] LABS: Free T3 2.9 pg/mL (2.18-3.98); T4 Free Direct 1.17 ng/dL (0.76-1.46); Thyroid Stim Hormone (TSH) 0.05 uIU/mL (0.358-3.74)
== END | disposition home or self-care (01) ==
LOC: MFPLAB 12:18
PROVIDERS: PCP Family Medicine; Referring Provider Family Medicine; Visit Provider Family Medicine
DX: E03.9 Hypothyroidism, unspecified (principal)
CPT/HCPCS: 36415; 84439; 84443; 84481

== ENCOUNTER → 2022-06-30 | Outpatient (CLI) | payer OTHER, SELFPAY ==
[2022-06-30 12:27] LABS: Amphetamine Urine VISTA NEGATIVE (<1000 ng/mL); Barbiturate Urine VISTA NEGATIVE (< 200 ng/mL); Benzodiazepine Urine VISTA POSITIVE (< 200 ng/mL); Cocaine Urine VISTA NEGATIVE (< 300 ng/mL); Ecstacy Urine VISTA NEGATIVE (< 500 ng/mL); Methadone Urine VISTA NEGATIVE (< 300 ng/mL); PCP Urine VISTA NEGATIVE (< 25 ng/mL); THC Urine VISTA NEGATIVE (< 50 ng/mL); Vista UDS pH Range 5
== END | disposition home or self-care (01) ==
PROVIDERS: PCP Family Medicine; Referring Provider Anesthesiology Pain Medicine; Visit Provider Anesthesiology Pain Medicine
DX: F11.20 Opioid dependence, uncomplicated (principal)
CPT/HCPCS: 80307

== ENCOUNTER → 2022-07-17 | Outpatient (CLI) | payer OTHER, SELFPAY | END | disposition home or self-care (01) | LOC: MTLAB 11:30 | PROVIDERS: PCP Family Medicine; Referring Provider Family Medicine; Visit Provider Family Medicine | DX: E03.9 Hypothyroidism, unspecified (principal) | CPT/HCPCS: 36415; 84443 ==

== ENCOUNTER → 2022-10-27 | Outpatient (CLI) | payer OTHER, SELFPAY ==
[2022-10-27 15:31] LABS: Absolute Lymphocyte Count 1.71 X10^3/uL (0.83-4.51); Absolute Neutrophil Count 5.1 X10^3/uL (2.0-7.7); Basophil# 0.03 X10^3/uL; Basophil% 0.4 % (0-1); Eosinophil# 0.08 X10^3/uL; Eosinophils% 1.1 % (0-5); Hematocrit 43.9 % (37-47); Hemoglobin 13.6 g/dL (12.0-15.0); Lymphocyte # 1.71 X10^3/ul (0.83-4.51); Lymphocyte % 23.1 % (19-41); Mean Corpuscular Hgb 30.6 pg (27.0-32.0); Mean Corpuscular Volume 98.9 fL (81-99); Mean Platelet Vol. 9.4 fl (6.2-12.0); Monocyte# 0.48 X10^3/uL; Monocyte% 6.5 % (0-10); NRBC Flagged by Analyzer 0 % (0-5); Neutrophil # 5.06 X10^3/uL (2.7-7.7); Neutrophil % 68.4 % (47-70); Platelet Count 376 K/mm3 (150-450); RBC Distribution Width CV 13.1 % (11.6-14.6); RBC Distribution Width SD 47.4 fl (35.1-43.9); Red Blood Count 4.44 M/mm3 (4.2-5.4); White Blood Count 7.4 K/mm3 (4.4-11.0)
[2022-10-27 16:27] LABS: Hemoglobin A1c 6.1 % (3.8-5.6)
[2022-10-27 16:30] LABS: ALB/GLOB Ratio 0.9 RATIO (0.9-2.4); AST(SGOT) 18 U/L (15-37); Alanine Aminotransfer ALT/SGPT 22 U/L (13-56); Albumin, Serum 3.7 g/dL (3.2-5.0); Alkaline Phosphatase 57 U/L (45-117); Anion Gap 7 (5-15); BUN 10 mg/dL (7-18); BUN/Creat Ratio 10.8 RATIO (10-20); Calcium,Total 9.6 mg/dL (8.5-10.1); Chloride 102 mmol/L (98-107); Cholesterol 150 mg/dL (200); Creatinine, Serum 0.92 mg/dL (0.55-1.02); EST Glomerular Filtration Rate 65 mL/min (>60); Est Glom Filt Rate - Afr Amer 79 mL/min (>60); Free T3 2.6 pg/mL (2.18-3.98); Globulin 4.3 g/dL (2.2-4.2); Glucose 145 mg/dL (74-106); High Density Lipoprotein 58 mg/dL; Potassium 4.2 mmol/L (3.5-5.1); Sodium Level 138 mmol/L (136-145); T4 Free Direct 1.28 ng/dL (0.76-1.46); Thyroid Stim Hormone (TSH) 0.63 uIU/mL (0.358-3.74); Triglycerides 170 mg/dL; Very Low Density Lipoprotein 34 mg/dL (5-40)
== END | disposition home or self-care (01) ==
LOC: MTLAB 14:16
PROVIDERS: PCP Family Medicine; Referring Provider Family Medicine; Visit Provider Family Medicine
DX: E11.9 Type 2 diabetes mellitus without complications (principal); M06.09 Rheumatoid arthritis without rheumatoid factor, multiple sites; E03.9 Hypothyroidism, unspecified; Z79.899 Other long term (current) drug therapy
CPT/HCPCS: 36415; 80053; 80061; 83036; 84439; 84443; 84481; 85025

== ENCOUNTER → 2022-11-19 | Outpatient (CLI) | payer OTHER, SELFPAY ==
[2022-11-21 15:07] LABS: QNTFERON TB Mitogen Value > 10.00 IU/mL (.); QNTFERON TB Nil Value 0.05 IU/mL (.); QNTFERON TB1+ Ag Value 0.06 IU/mL (.); QNTFERON TB2+ Ag Value 0.05 IU/mL (.)
[2022-11-21 16:07] LABS: QNTIFERON TB Positive Criteria Negative (Negative)
== END | disposition home or self-care (01) ==
LOC: MTLAB 13:43
PROVIDERS: PCP Family Medicine; Referring Provider Internal Medicine Rheumatology; Visit Provider Internal Medicine Rheumatology
DX: M06.09 Rheumatoid arthritis without rheumatoid factor, multiple sites (principal); E11.9 Type 2 diabetes mellitus without complications; M79.7 Fibromyalgia; M17.0 Bilateral primary osteoarthritis of knee; M21.40 Flat foot [pes planus] (acquired), unspecified foot; I10 Essential (primary) hypertension; E78.5 Hyperlipidemia, unspecified; E03.9 Hypothyroidism, unspecified; Z79.899 Other long term (current) drug therapy
CPT/HCPCS: 36415; 86480

== ENCOUNTER → 2023-04-23 | Outpatient (CLI) | payer OTHER, SELFPAY ==
[2023-04-23 15:21] LABS: Absolute Lymphocyte Count 1.45 X10^3/uL (0.83-4.51); Absolute Neutrophil Count 3.5 X10^3/uL (2.0-7.7); Basophil# 0.02 X10^3/uL; Basophil% 0.4 % (0-1); Eosinophil# 0.06 X10^3/uL; Eosinophils% 1.1 % (0-5); Hemoglobin 13.1 g/dL (12.0-15.0); Lymphocyte # 1.45 X10^3/ul (0.83-4.51); Lymphocyte % 26.2 % (19-41); Mean Corp Hgb Conc 30.5 g/dL (32-36); Mean Corpuscular Hgb 29.9 pg (27.0-32.0); Mean Corpuscular Volume 98.2 fL (81-99); Mean Platelet Vol. 10.1 fl (6.2-12.0); Monocyte# 0.46 X10^3/uL; Monocyte% 8.3 % (0-10); NRBC Flagged by Analyzer 0 % (0-5); Neutrophil # 3.54 X10^3/uL (2.7-7.7); Neutrophil % 63.8 % (47-70); Platelet Count 349 K/mm3 (150-450); RBC Distribution Width CV 12.8 % (11.6-14.6); RBC Distribution Width SD 46.2 fl (35.1-43.9); Red Blood Count 4.38 M/mm3 (4.2-5.4); White Blood Count 5.5 K/mm3 (4.4-11.0)
[2023-04-23 15:49] LABS: ALB/GLOB Ratio 0.9 RATIO (0.9-2.4); AST(SGOT) 14 U/L (15-37); Alanine Aminotransfer ALT/SGPT 21 U/L (13-56); Albumin, Serum 3.5 g/dL (3.2-5.0); Alkaline Phosphatase 61 U/L (45-117); Anion Gap 4 (5-15); BUN 11 mg/dL (7-18); BUN/Creat Ratio 11.4 RATIO (10-20); Calcium,Total 8.8 mg/dL (8.5-10.1); Chloride 102 mmol/L (98-107); Creatinine, Serum 0.96 mg/dL (0.55-1.02); EST Glomerular Filtration Rate 62 mL/min (>60); Est Glom Filt Rate - Afr Amer 75 mL/min (>60); Globulin 3.7 g/dL (2.2-4.2); Glucose 221 mg/dL (74-106); Potassium 4.1 mmol/L (3.5-5.1); Protein, Total 7.2 g/dL (6.4-8.2); Sodium Level 136 mmol/L (136-145)
== END | disposition home or self-care (01) ==
LOC: MTLAB 13:45
PROVIDERS: PCP Family Medicine; Referring Provider Internal Medicine Rheumatology; Visit Provider Internal Medicine Rheumatology
DX: M06.09 Rheumatoid arthritis without rheumatoid factor, multiple sites (principal); M79.7 Fibromyalgia; M17.0 Bilateral primary osteoarthritis of knee; Z79.899 Other long term (current) drug therapy
CPT/HCPCS: 36415; 80053; 85025

== ENCOUNTER → 2023-07-16 | Outpatient (CLI) | payer OTHER, SELFPAY ==
[2023-07-16 14:57] LABS: ALB/GLOB Ratio 0.9 RATIO (0.9-2.4); AST(SGOT) 15 U/L (15-37); Alanine Aminotransfer ALT/SGPT 21 U/L (13-56); Albumin, Serum 3.5 g/dL (3.2-5.0); Alkaline Phosphatase 63 U/L (45-117); Anion Gap 6 (5-15); BUN 9 mg/dL (7-18); BUN/Creat Ratio 8.7 RATIO (10-20); Chloride 105 mmol/L (98-107); Creatinine, Serum 1.04 mg/dL (0.55-1.02); EST Glomerular Filtration Rate 57 mL/min (>60); Est Glom Filt Rate - Afr Amer 69 mL/min (>60); Globulin 3.8 g/dL (2.2-4.2); Glucose 154 mg/dL (74-106); Potassium 4.1 mmol/L (3.5-5.1); Protein, Total 7.3 g/dL (6.4-8.2); Sodium Level 138 mmol/L (136-145)
== END | disposition home or self-care (01) ==
LOC: LAB 13:53
PROVIDERS: PCP Family Medicine; Referring Provider Internal Medicine Rheumatology; Visit Provider Internal Medicine Rheumatology
DX: M06.09 Rheumatoid arthritis without rheumatoid factor, multiple sites (principal); M79.7 Fibromyalgia; M17.0 Bilateral primary osteoarthritis of knee; Z79.899 Other long term (current) drug therapy
CPT/HCPCS: 36415; 80053

== ENCOUNTER → 2023-10-23 | Outpatient (CLI) | payer OTHER, SELFPAY ==
--- OUTSIDE RECORDS SUMMARY | 2023-10-23 10:49 | XMS RPT_ITS | CCD ---
Author Name Unknown Address [address] [facility] [address] [place] [address] Organization [facility] Care Team Providers Care Mustanger Name Role Phone Miladys Velazquez Unavailable Miladys Velazquez Unavailable Miladys Velazquez N Unavailable Tobias Monterroso Unavailable Miladys Velazquez Unavailable SANJUANITA ROMERO Primary Care Unavailable Allergies Allergy Classification Reported Allergen(s) Allergy Type Date of Onset Reaction(s) Facility (1 source) Diclofenac; Translations: [DICLOFENAC] Drug Allergy 7 [facility] Repository (1 source) Penicillins; Translations: [PENICILLINS] Propensity to adverse reactions to drug (disorder) 7 [facility] Repository (1 source) TRAMADOL-ACETAMI NOPHEN; Translations: [TRAMADOL-ACETAM INOPHEN] Propensity to adverse reactions to drug (disorder) 7 [facility] Repository Medications Completed/Discontinued Medications Medication Drug Class(es) Dates Sig (Normalized) Sig (Original) acetaminophen 325 mg / oxyCODONE hydrochloride 7.5 mg oral tablet (6 sources) Opioid Agonist Start: 6 PERCOCET 7.5-325 MG TABS four times a day OXYCODONE-ACETAMINOPH EN [id number] Tobias Monterroso aspirin 81 mg delayed release oral tablet (6 sources) Nonsteroidal Anti-inflammatory Drug Start: 6 ASPIRIN 81 MG TBEC daily ASPIRIN [id number] Tobias Monterroso cholecalciferol 38013 unt oral tablet (6 sources) Vitamin D Start: 6 VITAMIN D3 67058 UNIT TABS weekly CHOLECALCIFEROL [id number] Tobias Monterroso diazePAM 5 mg oral tablet (6 sources) Benzodiazepine Start: 6 VALIUM 5 MG TABS daily DIAZEPAM [id number] Tobias Monterroso escitalopram 20 mg oral tablet (6 sources) Serotonin Reuptake Inhibitor Start: 6 LEXAPRO 20 MG TABS ESCITALOPRAM OXALATE 37218414057 Tobias Monterroso hydroxychloroquine sulfate 200 mg oral tablet (6 sources) Antirheumatic Agent Start: 6 PLAQUENIL 200 MG TABS daily HYDROXYCHLOROQUINE SULFATE 75578653669 Tobias Monterroso lisinopril 40 mg oral tablet (6 sources) Angiotensin Converting Enzyme Inhibitor Start: 6 LISINOPRIL 40 MG TABS daily LISINOPRIL [id number] Tobias Cristian Monterroso 12 hr oxyCODONE 13.5 mg extended release oral capsule (6 sources) Opioid Agonist Start: 6 XTAMPZA ER 13.5 MG C12A OXYCODONE 55249060263 Safdar Iban Fischer pravastatin sodium 40 mg oral tablet (6 sources) HMG-CoA Reductase Inhibitor Start: 6 PRAVASTATIN SODIUM 40 MG TABS daily PRAVASTATIN SODIUM 24122679943 Tobias Monterroso levothyroxine sodium 0.175 mg oral tablet (6 sources) l-Thyroxine Start: 6 LEVOTHYROXINE SODIUM 175 MCG TABS daily LEVOTHYROXINE SODIUM [id number] Tobias Monterroso Problems Active Problems Problem Classification Problem Date Documented Date Episodic/Chronic Osteoarthritis (11 sources) Osteoarthritis of knee; Translations: [Localized, primary osteoarthritis] Onset: 01-22-2016 06-29-2017 Chronic Spondylosis; intervertebral disc disorders; other back problems (6 sources) Lumbosacral spondylosis with radiculopathy; Translations: [Other spondylosis with radiculopathy, lumbar region] Onset: 03-30-2016 03-30-2016 Chronic Unclassified (6 sources) Postoperative physical examination; Translations: [Encounter for other specified surgical aftercare] Onset: 06-15-2016 06-15-2016 Past or Other Problems Problem Classification Problem Date Documented Da te Episodic/Chronic Other non-traumatic joint disorders (11 sources) Pain in left knee; Translations: [Knee pain] Onset: 01-22-2016 06-29-2017 Episodic Spondylosis; intervertebral disc disorders; other back problems (2 sources) Backache; Translations: [Dorsalgia, unspecified] Onset: 07-27-2017 07-29-2017 Episodic Results Test Name Value Interpretation Reference Range Facil ity Vital Signs Date Time Vital Sign Value Performing Clinician Jeane ricksy 01-22-2016 13:56-0400 BMI (Body Mass Index) 37.31 kg/m2 [facility] Work Phone: 01-22-2016 13:56-0400 Height 157.48 cm [facility] Work Phone: 01-22-2016 13:56-0405 Weight 92.53 kg [facility] Work Phone: Encounters Encounter Date Encounter Type Care Provider Facility Start: 08-13-2023 End: 08-13-2023 ambulatory SANJUANITA ROMERO Facility:[facility] Procedures Date Procedure Procedure Detail Performing Clinician Start: 01-22-2016 End: 05-27-2016 Radiologic exam knee complete 4/more views Tobias Monterroso Work Phone: Plan of Treatment Date Care Activity Detail Author Start: 07-27-2017 End: 07-27-2017 Radex spine lumbscrl compl w/bending views min 6 X-Ray, Spine, Lumbar, complete with bending views [facility] Work Phone: Start: 07-27-2017 End: 07-27-2017 Appointment Appointment [facility] Work Phone: Start: 06-16-2017 End: 06-16-2017 Radiologic exam knee complete 4/more views X-Ray, Knee [facility] Work Phone: Start: 06-16-2017 End: 06-16-2017 Appointment Appointment [facility] Work Phone: Start: 11-27-2016 End: 11-27-2016 Radiologic exam knee complete 4/more views X-Ray, Knee [facility] Work Phone: Start: 09-02-2016 End: 09-02-2016 Physical Therapy General Physical Therapy [facility], [address] [place] [address], [id number] [facility] Work Phone: Start: 07-15-2016 End: 07-15-2016 Radiologic exam knee complete 4/more views X-Ray, Knee [facility] Work Phone: Start: 01-22-2016 End: 05-27-2016 Radiologic exam knee complete 4/more views X-Ray, Knee [facility] Work Phone: Patient Education JOINT%20REPLAC EMENT%20S URGERY [facility] Work Phone: Payers Date Payer Category Payer Unknown [id number] Progress note 08-13-2023 Note Date & Type Note Facility 08-13-2023 Note HNO ID: [id number] Author: Jailene Padron APRN.[employer] Service: ? Author Type: Nurse Practitioner Type: Progress Notes Filed: 08/13/2023 7:47 AM Note Text: Subjective HPI Tre Ames is a 63 year old female who presents with right hand middle finger painful and red and swollen for the past 5 days. She has a very small hangnail on the side of the finger. She states the area is very painful . Denies injury. Has been soaking in warm water with epsom salt. Review of Systems Constitutional: Negative for chills and fever. Musculoskeletal: Positive for joint pain. Negative for falls. See HPI Skin: Negative for itching and rash. BP 128/70 Pulse 110 Temp 36.8 ?C (98.3 ?F) Resp 21 Wt 95.8 kg (211 lb 3.2 oz) SpO2 99% PAST MEDICAL HISTORY Diagnosis Date Anxiety disorder in conditions classified elsewhere Diaphragmatic hernia without mention of obstruction or gangrene Diverticulosis of colon (without mention of hemorrhage) Dysphagia Esophagitis, unspecified Hiatal hernia Other and unspecified hyperlipidemia Unspecified hypothyroidism PAST SURGICAL HISTORY Procedure Laterality Date DELIVERY ONLY , low cervical COLONOSCOPY FLX DX W/COLLJ SPEC WHEN PFRMD 05/13/2012 Colonoscopy ESOPHAGOGASTRODUODENOSCOPY TRANSORAL DIAGNOSTIC EGD Dr. Seo, office ESOPHAGOGASTRODUODENOSCOPY TRANSORAL DIAGNOSTIC 1998 EGD [facility] ESOPHAGOGASTRODUODENOSCOPY TRANSORAL DIAGNOSTIC 05/13/2012 EGD HEMORRHOIDECTOMY INTERNAL RUBBER BAND LIGATIONS Hemorrhoidectomy RPR UMBILICAL HRNA 5 YRS/> REDUCIBLE ALLERGIES Penicillins, Ultracet [Tramadol-Acetaminophen], and Voltaren [Diclofenac] MEDICATIONS oxyCODONE-acetaminophen (PERCOCET) 5-325 mg tablet Take 1 tablet by mouth every 4 hours as needed. pravastatin (PRAVACHOL) 40 mg tablet Take 40 mg by mouth once daily. dapagliflozin-metformin 10-1,000 mg TBph Take 1 tablet by mouth once daily. hydroxychloroquine (PLAQUENIL) 200 mg tablet Take by mouth twice daily. gabapentin (NEURONTIN) 300 mg capsule Take 300 mg by mouth three times daily. aspirin, enteric coated (ECOTRIN LOW STRENGTH) 81 mg EC tablet Take 1 tablet by mouth once daily. lisinopril 20 mg ORAL tablet Take 1 tablet by mouth once daily. (Patient taking differently: Take 40 mg by mouth once daily.) escitalopram 10 mg ORAL tablet Take by mouth. blood sugar diagnostic (FREESTYLE LITE STRIPS) Misc test strip Check BS 3-4 times daily lancets(FREESTYLE LANCETS) Use as directed. amitriptyline (ELAVIL) 50 mg tablet amLODIPine (NORVASC) 5 mg tablet baclofen 10 mg tablet cephALEXin (KEFLEX) 500 mg capsule Take 1 capsule by mouth two times a day for 10 days. fentaNYL (DURAGESIC) 50 mcg/hr Apply 1 Patch as directed every 72 hours. (Patient not taking: Reported on 08/13/2023) Promethazine-DM (PHENERGAN-DM) 6.25-15 mg/5 mL syrup Take 5 mL by mouth four times daily as needed. (Patient not taking: Reported on 08/13/2023) diazepam (VALIUM) 5 mg tablet Take 5 mg by mouth twice daily. (Patient not taking: Reported on 08/13/2023) HYDROcodone-acetaminophen (NORCO) 5-325 mg per tablet Take 1 tablet by mouth three times daily as needed. (Patient not taking: Reported on 08/13/2023) buprenorphine 20 mcg/hour ptwk Apply 1 Patch as directed once each week. (Patient not taking: Reported on 08/13/2023) pantoprazole (PROTONIX) 40 mg tablet Take 1 tablet by mouth once daily. (may use generic) Benzonatate (TESSALON) 200 mg capsule Take 200 mg by mouth three times daily as needed for Cough. benzonatate 100 mg capsule Take 1 capsule by mouth three times daily as needed for Cough. rosuvastatin (CRESTOR) 20 mg ORAL tablet Take 1 tablet by mouth once daily. metFORMIN (GLUCOPHAGE) 500 mg ORAL tablet Take by mouth. Take two tablets at breakfast and supper and one at lunch levothyroxine (LEVOXYL) 112 mcg ORAL tablet Take 1 tablet by mouth once daily. (Patient taking differently: Take 150 mcg by mouth once daily.) hydrocodone bit/acetaminophen(VICODIN 5 MG-500 MG TAB) Take one tablet four times daily as needed lorazepam(ATIVAN 0.5 MG TAB) as necessary FAMILY HISTORY Problem Relation Age of Onset Diabetes Maternal Grandmother Heart Father kidney disease Social History Tobacco Use Smoking status: Former Packs/day: 0.50 Years: 15.00 Additional pack years: 0.00 Total pack years: 7.50 Types: Cigarettes Quit date: 12/28/2000 Years since quittin.6 Smokeless tobacco: Never Substance Use Topics Alcohol use: Yes Comment: socially Objective Physical Exam Vitals and nursing note reviewed. Constitutional: Appearance: Normal appearance. Musculoskeletal: General: Swelling and tenderness present. No signs of injury. Hands: Skin: General: Skin is warm and dry. Findings: Erythema present. No bruising or rash. Neurological: Mental Status: She is alert. Right middle finger was cleaned with Hibiclens and sterile water. (more content not included)... [facility] Summary Purpose Family History No Family History Records Found Advance Directives No Advanced Directives Records Found Additional Source Comments INFORMATION SOURCE (unrecogn ized section and content) FOR RECORDS PERTAINING TO PATIENTS WHO ARE OR HAVE BEEN ENROLLED IN A CHEMICAL DEPENDENCY/SUBSTANCEABUSE PROGRAM, SOME INFORMATION MAY BE OMITTED. This clinical summary was aggregated from multiple sources. Caution should be exercised in using it in the provision of clinical care. This summary normalizes information from multiple sources, and as a consequence, information in this document may materially change the coding, format and clinical context of patient data. In addition, data may be omitted in some cases. CLINICAL DECISIONS SHOULD BE BASED ON THE PRIMARY CLINICAL RECORDS. [facility] [employer], [facility]. provides no warranty or guarantee of the accuracy or completeness of information in this document.
[2023-10-23 11:42] LABS: Absolute Lymphocyte Count 2.39 X10^3/uL (0.83-4.51); Absolute Neutrophil Count 3.9 X10^3/uL (2.0-7.7); Basophil# 0.03 X10^3/uL; Basophil% 0.4 % (0-1); Eosinophil# 0.08 X10^3/uL; Eosinophils% 1.1 % (0-5); Hematocrit 43.9 % (37-47); Hemoglobin 13.5 g/dL (12.0-15.0); Lymphocyte # 2.39 X10^3/ul (0.83-4.51); Lymphocyte % 34.1 % (19-41); Mean Corp Hgb Conc 30.8 g/dL (32-36); Mean Corpuscular Hgb 30.1 pg (27.0-32.0); Mean Corpuscular Volume 97.8 fL (81-99); Mean Platelet Vol. 9.7 fl (6.2-12.0); Monocyte# 0.56 X10^3/uL; NRBC Flagged by Analyzer 0 % (0-5); Neutrophil # 3.93 X10^3/uL (2.7-7.7); Neutrophil % 56.3 % (47-70); Platelet Count 353 K/mm3 (150-450); RBC Distribution Width SD 46.6 fl (35.1-43.9); Red Blood Count 4.49 M/mm3 (4.2-5.4)
[2023-10-23 12:46] LABS: ALB/GLOB Ratio 0.9 RATIO (0.9-2.4); AST(SGOT) 15 U/L (15-37); Alanine Aminotransfer ALT/SGPT 17 U/L (13-56); Albumin, Serum 3.6 g/dL (3.2-5.0); Alkaline Phosphatase 67 U/L (45-117); Anion Gap 3 (5-15); BUN 11 mg/dL (7-18); BUN/Creat Ratio 12.4 RATIO (10-20); Calcium,Total 9.4 mg/dL (8.5-10.1); Chloride 104 mmol/L (98-107); Creatinine, Serum 0.89 mg/dL (0.55-1.02); EST Glomerular Filtration Rate 68 mL/min (>60); Est Glom Filt Rate - Afr Amer 82 mL/min (>60); Globulin 3.8 g/dL (2.2-4.2); Glucose 89 mg/dL (74-106); Potassium 4.1 mmol/L (3.5-5.1); Protein, Total 7.4 g/dL (6.4-8.2); Sodium Level 138 mmol/L (136-145)
== END | disposition home or self-care (01) ==
LOC: LAB 10:47
PROVIDERS: PCP Family Medicine; Referring Provider Internal Medicine Rheumatology; Visit Provider Internal Medicine Rheumatology
DX: M06.09 Rheumatoid arthritis without rheumatoid factor, multiple sites (principal); M79.7 Fibromyalgia; Z79.899 Other long term (current) drug therapy
CPT/HCPCS: 36415; 80053; 85025

== ENCOUNTER → 2023-10-30 | Outpatient (CLI) | payer OTHER, SELFPAY ==
--- OUTSIDE RECORDS SUMMARY | 2023-10-30 08:21 | XMS RPT_ITS | CCD ---
Author Name Unknown Address [email or web address] [facility] [id number] [place] [address] Organization [facility] Care Team Providers Care Production Pattern Maker Name Role Phone Miladys Velazquez Unavailable Miladys Velazquez Unavailable Miladys Velazquez Unavailable Tobias Monterroso Unavailable Miladys Velazquez Unavailable SANJUANITA ROMERO Primary Care Unavailable Allergies Allergy Classification Reported Allergen(s) Allergy Type Date of Onset Reaction(s) Facility (1 source) Diclofenac; Translations: [DICLOFENAC] Drug Allergy 7 [facility] Repository (1 source) Penicillins; Translations: [PENICILLINS] Propensity to adverse reactions to drug (disorder) 7 [facility] Repository (1 source) TRAMADOL-ACETAMI NOPHEN; Translations: [TRAMADOL-ACETAM INOPHEN] Propensity to adverse reactions to drug (disorder) 7 [facility] Repository Medications Completed/Discontinued Medications Medication Drug Class(es) Dates Sig (Normalized) Sig (Original) acetaminophen 325 mg / oxyCODONE hydrochloride 7.5 mg oral tablet (6 sources) Opioid Agonist Start: 6 PERCOCET 7.5-325 MG TABS four times a day OXYCODONE-ACETAMINOPH EN [id number] Tobias Monterroso aspirin 81 mg delayed release oral tablet (6 sources) Nonsteroidal Anti-inflammatory Drug Start: 6 ASPIRIN 81 MG TBEC daily ASPIRIN 84851027591 Tobias Monterroso cholecalciferol 17934 unt oral tablet (6 sources) Vitamin D Start: 6 VITAMIN D3 78925 UNIT TABS weekly CHOLECALCIFEROL [id number] Tobias Monterroso diazePAM 5 mg oral tablet (6 sources) Benzodiazepine Start: 6 VALIUM 5 MG TABS daily DIAZEPAM [id number] Tobias Monterroso escitalopram 20 mg oral tablet (6 sources) Serotonin Reuptake Inhibitor Start: 6 LEXAPRO 20 MG TABS ESCITALOPRAM OXALATE 73613081708 Tobias Monterroso hydroxychloroquine sulfate 200 mg oral tablet (6 sources) Antirheumatic Agent Start: 6 PLAQUENIL 200 MG TABS daily HYDROXYCHLOROQUINE SULFATE 62110494482 Tobias Monterroso lisinopril 40 mg oral tablet (6 sources) Angiotensin Converting Enzyme Inhibitor Start: 6 LISINOPRIL 40 MG TABS daily LISINOPRIL 22063158162 Tobais Cristian Monterroso 12 hr oxyCODONE 13.5 mg extended release oral capsule (6 sources) Opioid Agonist Start: 6 XTAMPZA ER 13.5 MG C12A OXYCODONE 34254522253 Safdar Iban Fischer pravastatin sodium 40 mg oral tablet (6 sources) HMG-CoA Reductase Inhibitor Start: 6 PRAVASTATIN SODIUM 40 MG TABS daily PRAVASTATIN SODIUM 00845309990 Tobias Monterroso levothyroxine sodium 0.175 mg oral tablet (6 sources) l-Thyroxine Start: 6 LEVOTHYROXINE SODIUM 175 MCG TABS daily LEVOTHYROXINE SODIUM 34182016114 Tobias Monterroso Problems Active Problems Problem Classification [...] 13:56-0400 BMI (Body Mass Index) 37.31 kg/m2 [facility] Work Phone: 01-22-2016 13:56-0400 Height 157.48 cm [facility] Work Phone: 01-22-2016 13:56-0406 Weight 92.53 kg [facility] Work Phone: Encounters Encounter Date Encounter Type Care Provider Facility Start: 08-13-2023 End: 08-13-2023 ambulatory SANJUANITA ROMERO Facility:[facility] Procedures Date Procedure Procedure Detail Performing Clinician Start: 01-22-2016 End: 05-27-2016 Radiologic exam knee complete 4/more views Tobias Monterroso Work Phone: Plan of Treatment Date Care Activity Detail Author Start: 07-27-2017 End: 07-27-2017 Radex spine lumbscrl compl w/bending views min 6 X-Ray, Spine, Lumbar, complete with bending views [facility] Work Phone: Start: 07-27-2017 End: 07-27-2017 Appointment Appointment [facility] Work Phone: Start: 06-16-2017 End: 06-16-2017 Radiologic exam knee complete 4/more views X-Ray, Knee [facility] Work Phone: Start: 06-16-2017 End: 06-16-2017 Appointment Appointment [facility] Work Phone: Start: 11-27-2016 End: 11-27-2016 Radiologic exam knee complete 4/more views X-Ray, Knee [facility] Work Phone: Start: 09-02-2016 End: 09-02-2016 Physical Therapy General Physical Therapy [facility], [address] [place] [address], [id number] [facility] Work Phone: Start: 07-15-2016 End: 07-15-2016 Radiologic exam knee complete 4/more views X-Ray, Knee [facility] Work Phone: Start: 01-22-2016 End: 05-27-2016 Radiologic exam knee complete 4/more views X-Ray, Knee [facility] Work Phone: Patient Education JOINT%20REPLAC EMENT%20S URGERY [facility] Work Phone: Payers Date Payer Category Payer Unknown [id number] Progress note 08-13-2023 Note Date & Type Note Facility 08-13-2023 Note HNO ID: [id number] Author: Jailene Padron APRN.SINGING MESSENGER Service: ? Author Type: Nurse Practitioner Type: [...] [place], office ESOPHAGOGASTRODUODENOSCOPY TRANSORAL DIAGNOSTIC 1998 EGD [facility] ESOPHAGOGASTRODUODENOSCOPY TRANSORAL DIAGNOSTIC 05/13/2012 EGD HEMORRHOIDECTOMY INTERNAL [...] and sterile water. (more content not included)... [facility] Summary Purpose Family History No Family History [...] BE BASED ON THE PRIMARY CLINICAL RECORDS. [facility] [employer], [facility]. provides no warranty or guarantee of the accuracy or completeness of information in this document.
[2023-10-30 10:11] LABS: Anion Gap 4 (5-15); BUN 11 mg/dL (7-18); Calcium,Total 9.2 mg/dL (8.5-10.1); Chloride 106 mmol/L (98-107); Cholesterol 147 mg/dL (200); Creatinine, Serum 0.92 mg/dL (0.55-1.02); EST Glomerular Filtration Rate 66 mL/min (>60); Est Glom Filt Rate - Afr Amer 79 mL/min (>60); Free T3 2.4 pg/mL (2.18-3.98); Glucose 127 mg/dL (74-106); High Density Lipoprotein 50 mg/dL; Potassium 4.2 mmol/L (3.5-5.1); Sodium Level 138 mmol/L (136-145); T4 Free Direct 0.93 ng/dL (0.76-1.46); Triglycerides 129 mg/dL; Very Low Density Lipoprotein 26 mg/dL (5-40)
== END | disposition home or self-care (01) ==
LOC: LAB 08:19
PROVIDERS: PCP Family Medicine; Referring Provider Family Medicine; Visit Provider Family Medicine
DX: E03.9 Hypothyroidism, unspecified (principal); E11.9 Type 2 diabetes mellitus without complications
CPT/HCPCS: 36415; 80048; 80061; 84439; 84443; 84481

== ENCOUNTER → 2023-12-06 | Outpatient (CLI) | payer OTHER, SELFPAY ==
[2023-12-06 14:09] LABS: Amphetamine Urine VISTA NEGATIVE (<1000 ng/mL); Barbiturate Urine VISTA NEGATIVE (< 200 ng/mL); Benzodiazepine Urine VISTA NEGATIVE (< 200 ng/mL); Cocaine Urine VISTA NEGATIVE (< 300 ng/mL); Ecstacy Urine VISTA NEGATIVE (< 500 ng/mL); Methadone Urine VISTA NEGATIVE (< 300 ng/mL); PCP Urine VISTA NEGATIVE (< 25 ng/mL); THC Urine VISTA NEGATIVE (< 50 ng/mL); Vista UDS pH Range 5
[2023-12-06 14:14] LABS: Color, Urine Yellow (Yellow); Glucose, Dipstick Normal (Normal); Ketone-Dipstick Negative (Negative); Leukocyte Esterase-Dipstick 25 /ul (Negative); Nitrite-Dipstick Negative (Negative); Occult Blood-Urine 50 /ul (Negative); Protein-Dipstick Negative (Negative); Specific Gravity, Urine 1.015 (1.002-1.030); Urine Bilirubin Dipstick Negative (Negative); Urine Clarity Clear (Clear); Urine Urobilinogen Normal (Normal)
== END | disposition home or self-care (01) ==
LOC: LAB 13:33
PROVIDERS: PCP Family Medicine; Referring Provider Anesthesiology Pain Medicine; Visit Provider Anesthesiology Pain Medicine
DX: F11.20 Opioid dependence, uncomplicated (principal)
CPT/HCPCS: 80307; 81002

== ENCOUNTER → 2024-03-08 | Outpatient (CLI) | payer OTHER, SELFPAY ==
[2024-03-08 21:08] LABS: Bacteria 0 SEEN /hpf (None Seen); Mucous, Urine 0 SEEN /hpf (<or=2+); Red Blood Cells-Urine 0 SEEN /hpf (0-5)
[2024-03-08 21:58] LABS: Color, Urine Yellow (Yellow); Glucose, Dipstick Normal (Normal); Ketone-Dipstick Negative (Negative); Leukocyte Esterase-Dipstick 25 /ul (Negative); Nitrite-Dipstick Negative (Negative); Occult Blood-Urine Negative /ul (Negative); Protein-Dipstick Negative (Negative); Specific Gravity, Urine 1.015 (1.002-1.030); Urine Bilirubin Dipstick Negative (Negative); Urine Clarity Clear (Clear); Urine Urobilinogen Normal (Normal)
[2024-03-08 22:20] LABS: Squamous Epithelial Cells - UA 0-5 SEEN /hpf (5-10); White Blood Cells 0-5 SEEN /hpf (0-5)
== END | disposition home or self-care (01) ==
PROVIDERS: PCP Family Medicine; Referring Provider Family Medicine; Visit Provider Family Medicine
DX: N39.0 Urinary tract infection, site not specified (principal)
CPT/HCPCS: 81001; 87086; 87088

== ENCOUNTER → 2024-04-26 | Outpatient (CLI) | payer OTHER, SELFPAY ==
--- NOTE | 2024-04-26 13:13 | US_ITS ---
STUDY: ULTRASOUND OF THE FEMALE PELVIS - LIMITED REASON FOR EXAM: Female, 64 years old PELVIC PRESSURE TECHNIQUE: Transabdominal and Transvaginal TECHNICAL QUALITY: Adequate. COMPARISON: Comparison is made with prior study dated October 16, 2011. FINDINGS: The uterus is anteverted and is tilted to the left side of the pelvis. The uterus measures 7.3; x 3.7 x 2.9 cm. Normal uterine cervix. The endometrium is thickened and measures 15.4 mm in thickness, and is heterogeneous (striated). There is no demonstrated endometrial mass. There is no demonstrated myometrial mass. The right ovary is not visualized. The left ovary is not visualized. There is no fluid in the cul-de-sac. US/Pelvic (Non ) IMPRESSION: Heterogeneous thickening of the endometrium. Clinical correlation recommended. Electronically Signed: Rufino Pryor MD at 15:26 EDT ,
== END | disposition home or self-care (01) ==
LOC: US 13:10
PROVIDERS: PCP Family Medicine; Referring Provider Urology; Visit Provider Urology
DX: R10.2 Pelvic and perineal pain (principal)
CPT/HCPCS: 76856

== ENCOUNTER → 2024-05-17 | Outpatient (CLI) | payer OTHER, SELFPAY ==
[2024-05-23 08:15] LABS: HPV APTIMA, High Risk Negative (Negative)
== END | disposition home or self-care (01) ==
LOC: LABSPEC 16:27
PROVIDERS: PCP Family Medicine; Referring Provider Nurse Practitioner Family; Visit Provider Nurse Practitioner Family
DX: Z78.0 Asymptomatic menopausal state (principal)
CPT/HCPCS: 87624; 88175; G0145

== ENCOUNTER → 2024-05-23 | Outpatient (CLI) | payer OTHER, SELFPAY ==
[2024-05-23 15:47] LABS: Absolute Lymphocyte Count 2.67 X10^3/uL (0.83-4.51); Basophil# 0.04 X10^3/uL; Basophil% 0.5 % (0-1); Eosinophil# 0.09 X10^3/uL; Eosinophils% 1.1 % (0-5); Hematocrit 42.4 % (37-47); Hemoglobin 13.2 g/dL (12.0-15.0); Lymphocyte # 2.67 X10^3/ul (0.83-4.51); Lymphocyte % 31.8 % (19-41); Mean Corp Hgb Conc 31.1 g/dL (32-36); Mean Corpuscular Hgb 30.7 pg (27.0-32.0); Mean Corpuscular Volume 98.6 fL (81-99); Mean Platelet Vol. 10.2 fl (6.2-12.0); Monocyte# 0.62 X10^3/uL; Monocyte% 7.4 % (0-10); NRBC Flagged by Analyzer 0 % (0-5); Neutrophil # 4.97 X10^3/uL (2.7-7.7); Neutrophil % 59.1 % (47-70); Platelet Count 341 K/mm3 (150-450); RBC Distribution Width CV 14.1 % (11.6-14.6); RBC Distribution Width SD 51.4 fl (35.1-43.9); White Blood Count 8.4 K/mm3 (4.4-11.0)
[2024-05-23 16:41] LABS: AST(SGOT) 13 U/L (15-37); Alanine Aminotransfer ALT/SGPT 16 U/L (13-56); Albumin, Serum 3.5 g/dL (3.2-5.0); Alkaline Phosphatase 51 U/L (45-117); Anion Gap 4 (5-15); BUN 12 mg/dL (7-18); BUN/Creat Ratio 12.3 RATIO (10-20); Calcium,Total 9.2 mg/dL (8.5-10.1); Chloride 106 mmol/L (98-107); Creatinine, Serum 0.97 mg/dL (0.55-1.02); EST Glomerular Filtration Rate 61 mL/min (>60); Est Glom Filt Rate - Afr Amer 74 mL/min (>60); Globulin 3.6 g/dL (2.2-4.2); Glucose 95 mg/dL (74-106); Potassium 4.2 mmol/L (3.5-5.1); Protein, Total 7.1 g/dL (6.4-8.2); Sodium Level 140 mmol/L (136-145)
== END | disposition home or self-care (01) ==
LOC: LAB 14:46
PROVIDERS: PCP Family Medicine; Referring Provider Internal Medicine Rheumatology; Visit Provider Internal Medicine Rheumatology
DX: M06.09 Rheumatoid arthritis without rheumatoid factor, multiple sites (principal); Z79.899 Other long term (current) drug therapy; M17.0 Bilateral primary osteoarthritis of knee
CPT/HCPCS: 36415; 80053; 85025

== ENCOUNTER → 2024-06-09 | Outpatient (CLI) | payer OTHER, SELFPAY ==
--- NOTE | 2024-06-09 15:00 | BI_ITS ---
MAMMOGRAPHY - BILATERAL SCREENING 3-D TOMOSYNTHESIS REASON FOR EXAM: Female, 64 years old. Screening PERTINENT HISTORY: No significant family history. TECHNIQUE: 2-D mammograms and 3-D Tomosynthesis of the breast (s) were performed. CAD was performed. COMPARISON: 04/12/2018 FINDINGS: The breast composition is composed of scattered fibroglandular density. Scattered benign calcifications are seen. No dense spiculated masses or suspicious microcalcifications are identified. No architectural distortion is identified. There is no skin thickening or retraction. There has been no significant change since the prior study. No change in the 3 cm oval circumscribed equal density mass in the upper outer quadrant left breast at mid depth. BI/SCRN MAMM (CAD)W/MICHAEL BILAT IMPRESSION: No mammographic signs of malignancy. Routine yearly mammograms recommended. ASSESSMENT CATEGORY: BIRADS Category 2: Benign. A letter regarding these results will be sent to the patient by the facility within 30 days. FOLLOW UP RECOMMENDATION: Yearly follow up mammogram recommended. (A) Approximately 10% of breast cancers are not detected by mammography. A normal mammogram should not delay biopsy of a clinically suspicious abnormality. Electronically Signed: Paxton Vallejo MD at 8:49 EDT ,
== END | disposition home or self-care (01) ==
LOC: OPBI 15:00
PROVIDERS: PCP Family Medicine; Referring Provider Nurse Practitioner Family; Visit Provider Nurse Practitioner Family
DX: Z12.31 Encounter for screening mammogram for malignant neoplasm of breast (principal)
CPT/HCPCS: 77063; 77067

== ENCOUNTER 2024-06-13 07:57 | Day surgery (SDC) | payer OTHER, SELFPAY ==
--- NOTE | 2024-06-12 08:43 | EKG12_ITS ---
Test Reason : PRE OP Blood Pressure : / mmHG Vent. Rate : 087 BPM Atrial Rate : 087 BPM P-R Int : 144 ms QRS Dur : 084 ms QT Int : 382 ms P-R-T Axes : 054 -33 031 degrees QTc Int : 459 ms Normal sinus rhythm Left axis deviation Abnormal ECG Confirmed by Tobias Estes ([id number]), graphics editor NATHALIA VALENCIA ([id number]) on 06/12/2024 1:30:38 PM Referred By: Arcelia Newman Confirmed By:Tobias Estes
[2024-06-12 09:27] LABS: Hemoglobin 13.7 g/dL (12.0-15.0); Mean Corp Hgb Conc 31.9 g/dL (32-36); Mean Corpuscular Hgb 31.2 pg (27.0-32.0); Mean Corpuscular Volume 97.9 fL (81-99); Platelet Count 342 K/mm3 (150-450); RBC Distribution Width CV 13.8 % (11.6-14.6); RBC Distribution Width SD 50.5 fl (35.1-43.9); Red Blood Count 4.39 M/mm3 (4.2-5.4); White Blood Count 7.3 K/mm3 (4.4-11.0)
[2024-06-12 09:59] LABS: Hemoglobin A1c 5.6 % (3.8-5.6)
[2024-06-12 10:15] LABS: AST(SGOT) 11 U/L (15-37); Alanine Aminotransfer ALT/SGPT 13 U/L (13-56); Albumin, Serum 3.6 g/dL (3.2-5.0); Alkaline Phosphatase 56 U/L (45-117); Anion Gap 5 (5-15); BUN 9 mg/dL (7-18); BUN/Creat Ratio 8.9 RATIO (10-20); Calcium,Total 9.3 mg/dL (8.5-10.1); Chloride 106 mmol/L (98-107); Creatinine, Serum 1.01 mg/dL (0.55-1.02); EST Glomerular Filtration Rate 58 mL/min (>60); Est Glom Filt Rate - Afr Amer 71 mL/min (>60); Globulin 3.6 g/dL (2.2-4.2); Glucose 97 mg/dL (74-106); Protein, Total 7.2 g/dL (6.4-8.2); Sodium Level 139 mmol/L (136-145)
[2024-06-12 10:26] LABS: Cholesterol 141 mg/dL (200); Free T3 2.3 pg/mL (2.18-3.98); High Density Lipoprotein 47 mg/dL; T4 Free Direct 1.07 ng/dL (0.76-1.46); Triglycerides 148 mg/dL; Very Low Density Lipoprotein 30 mg/dL (5-40)
[2024-06-13] VITALS (11 sets, daily range): BP systolic 104–146; BP diastolic 52–100; PULSE 62–87; RESP 14–18; TEMP 36.2–36.9; O2SAT 94–100; BMI 35.5
--- NOTE | 2024-06-13 08:06 | PRE.ANES_ITS ---
ASA Classification* ASA Classification ASA Classification: 2 Assessment & Plan Anesthesia* Anesthesia Assessment Anesthesia Assessment: Discussed sedation and/or anesthesia options, risks, benefits, and alternatives with patient/parents/legal guardian/POA. Questions invited. The patient/parents/legal guardian/POA seems to understand and agrees to proceed with anesthesia plan. Reviewed the physical assessment, medical history, allergy history and patient home medications list prior to surgery/procedure/anesthetic and documented any changes. Performed airway and anesthesia risk assessments. Anesthesia Type Anesthesia Type: MAC (see written pre anesthesia record for full assessment) Anesthesia Focused Assessment* Airway Assessment Mouth opens: >3 cm Mallampati Score: II Focused Labs Anesthesia Preop lab: CBC WBC 7.3 K/mm3 (4.4-11.0) 06/12/24 09:06 RBC 4.39 M/mm3 (4.2-5.4) 06/12/24 09:06 Hgb 13.7 g/dL (12.0-15.0) 06/12/24 09:06 Hct 43.0 % (37-47) 06/12/24 09:06 Plt Count 342 K/mm3 (150-450) 06/12/24 09:06 CHEMISTRY Potassium 4.0 mmol/L (3.5-5.1) 06/12/24 09:06 Sodium 139 mmol/L (136-145) 06/12/24 09:06 BUN 9 mg/dL (7-18) 06/12/24 09:06 Creatinine 1.01 mg/dL (0.55-1.02) 06/12/24 09:06 Glucose 97 mg/dL (74-106) 06/12/24 09:06 POC Glucose 94 mg/dL (70-110) 01/26/18 14:56 TSH 0.480 uIU/mL (0.358-3.740) 06/12/24 09:05 COAG PT 13.6 SECONDS (11.7-14.9) 09/10/18 05:20 Pre-Assessment Diagnosis/Proposed Procedure Planned Operative Procedure(s): Hysteroscopy,D&C Symphion Anesthesia History Anesthesia History - district manager primary care sales: Anesthesia History - district manager primary care sales Hx Hospitalization No 06/05/24 08:34 Any Problems With Anesthesia Yes: NAUSEA WITH REGLAN, PT 06/05/24 08:34 STATES SHE FELT VERY REMOVED AFTER C-SEC. Cholinesterase deficiency No 06/05/24 08:34 You/Your Family Experience No 06/05/24 08:34 fever (hyperthermia) with Relationship Recent Exposure to Contagious No 01/26/18 11:17 Disease Does patient have nerve No 06/05/24 08:34 stimulator Patient instructed to have device shut off --Does patient have Pacemaker or ICD? When Was Last Pacemaker Check QUESTION #4 FULL TEXT: You/Your Family Experience fever (hyperthermia) with Anesthesia Last Oral Intake Last Oral intake: Last Oral Intake NPO since Meds taken in AM with sips of water? Meds patient instructed to take am of surgery PONV PONV - district manager primary care sales: PONV - district manager primary care sales Female Yes 06/05/24 08:34 HX of Motion Sickness No 06/05/24 08:34 HX of N/V After Surgery No 06/05/24 08:34 Non-Smoker Yes 06/05/24 08:34 Duration of Surgery greater No 06/05/24 08:34 than 60 minutes Number of Risk Factors 2 06/05/24 08:34 PONV Score Moderate Risk 06/05/24 08:34 Height & Weight Height & Weight: Anesthesia: Height & Weight Height 5 ft 1 in 05/23/24 13:48 Respiratory Assessment Respiratory Assessment - district manager primary care sales: Respiratory Tract Infection Hx - district manager primary care sales Hx Respiratory Tract Infection No 06/05/24 08:34 STOP Sleep Apnea STOP Sleep Apnea - district manager primary care sales: STOP Sleep Apnea - district manager primary care sales Hx Hypertension Yes: CONTROLLED ON MEDS 06/05/24 08:34 Hx Sleep Apnea No 06/05/24 08:34 CPAP No 06/05/24 08:34 BIPAP No 06/05/24 08:34 Do you snore loudly (louder No 06/05/24 08:34 than talking or can be heard Do you often feel tired/ No 06/05/24 08:34 fatigued/ sleepy during daytime? Has anyone observed you stop No 06/05/24 08:34 breathing during sleep? STOP Results Negative 06/05/24 08:34 QUESTION #5 FULL TEXT : Do you snore loudly (louder than talking or can be heard through closed doors)? Tobacco Use History Tobacco Use History - district manager primary care sales: Tobacco Use History - district manager primary care sales Tobacco Use Smoking Status Current some day smoker 06/05/24 08:34 Hx Tobacco Use No 06/05/24 08:34 Years Smoking Packs Smoked per Day Smoking Cessation Date was No - quit smoking greater 06/05/24 08:34 within the last 15 years than 15 years ago Hx Smoking Cessation Date Hx Smoking Cessation Counseling Hematologic Medial History Hematologic Hx - district manager primary care sales: Hematologic Medical Hx - audio video technician Hx of Blood Transfusion No 06/05/24 08:34 Hx of Transfusion in last 3 No 06/05/24 08:34 Months Date of Last Transfusion (if within last 3 months) Ever experience any problems No 06/05/24 08:34 with transfusion(s)? Specify any problems Hx of Preganancy in last 3 No 06/05/24 08:34 Months Nurse Filling Out Transfusion VCHRISTIN 06/05/24 08:34 & Questions: Date: 06/05/24 06/05/24 08:34 Time: 08:36 06/05/24 08:34 Patient unable to answer at this time (ie. confused, unrespo /Reproduction History /Reproductive History - district manager primary care sales: /Reproductive Hx- district manager primary care sales Hx Now No 06/05/24 08:34 Gestational Age (in weeks): EDC: Hx Hx Para Hx Section SAB No 06/05/24 08:34 [facility] Medical History Wears glasses History of steroid therapy Back pain History of hiatal hernia History of diverticulitis Gastric reflux Former smoker History of endometrial biopsy Acute bronchitis, unspecified Acute conjunctivitis, left eye Acute frontal sinusitis, unspecified Contact with and (suspected) exposure to covid-19 Acute frontal sinusitis, unspecified Hx of one miscarriage Thyroid disease Knee pain Diabetes Arthritis HTN (hypertension) Home Medications ?Medication ?Instructions ?Recorded ?Last Taken ?Type hydroxychloroquine 200 mg tablet 200 mg PO BIDCM 02/09/14 Unknown History lisinopril 20 mg tablet 40 mg PO DAILY 02/09/14 01/26/18 06:30 History 40 MG pravastatin 40 mg tablet 40 mg PO DAILY 02/09/14 Unknown History gabapentin 300 mg capsule 300 mg PO .Q6HR 09/28/16 05/30/18 06:30 History 300 MG baclofen 10 mg tablet 10 mg PO BID 12/26/17 Unknown History levothyroxine 125 mcg tablet 125 mcg PO DAILY 12/26/17 01/26/18 06:30 History 150 MCG amitriptyline 25 mg tablet 25 mg PO QHS 04/20/22 Unknown History clindamycin HCl 300 mg capsule 300 mg PO TID PRN DENTAL PROCEDURES 04/20/22 Unknown History oxycodone 5 mg tablet 5 mg PO BID 04/20/22 Unknown History escitalopram oxalate 5 mg tablet 30 mg PO QDAY 05/17/24 Unknown History (Lexapro) morphine 15 mg tablet,extended 15 mg PO BID 05/17/24 Unknown History release semaglutide 0.25 mg or 0.5 mg (2 0.5 mg subcut QWEEK 05/17/24 06/05/24 History mg/3 mL) subcutaneous pen injector (Ozempic) misoprostol 200 mcg tablet 200 mcg PO .complex #2 tabs 05/23/24 Unknown Rx (Cytotec) vibegron 75 mg tablet (Gemtesa) 75 mg PO .QOD 05/23/24 Unknown History amlodipine 5 mg tablet 5 mg PO DAILY 06/05/24 Unknown History Allergy/AdvReac Type Severity Reaction Status Date / Time diclofenac (From Voltaren) Allergy Hives Verified 06/05/24 08:19 Penicillins Allergy Rash Verified 06/05/24 08:19 tramadol HCl (From Ultracet) Allergy Hives Verified 06/05/24 08:19 codeine AdvReac Nausea Verified 06/05/24 08:19 Family History Grandmother CVA (cerebral vascular accident) Mother Renal failure Surgical History History of total knee replacement (TKR) Hx of hernia repair Hx of section History of hemorrhoidectomy Social History adopted: No household members: spouse number of children: 1 current occupational status: retired sexually active: No Smoking Status: Current some day smoker tobacco type: cigarettes alcohol intake: never substance use type: does not use caffeine: Yes Type: carbonated beverages and coffee eating out: 1-3 times/week during the past year weight has: decreased > 10 lbs what type of physical activity do you participate in: none seatbelt use: always do you feel safe at home: Yes Review of Systems (Anesthesia) ROS Narrative System reviewed and no additional complaints, except as documented.
--- NOTE | 2024-06-13 08:18 | PCM.HP.BLA ---
History and Physical Intake Vital Signs 05/17/2413:37 05/23/2413:48 Height 5 ft 1 in 5 ft 1 in Weight: 192 lb BMI 36.2 BP 130/81 H Intake Visit Reasons: D&C Consult Projection Technician Required: No Is patient in pain?: Yes (pelvic pain when sitting) Allergies diclofenac (From Voltaren) Allergy (Verified 05/23/24 13:51) HivesPenicillins Allergy (Verified 05/23/24 13:51) Rashtramadol HCl (From Ultracet) Allergy (Verified 05/23/24 13:51) Hivescodeine Adverse Reaction (Verified 05/23/24 13:51) Nausea Medications ?Medication ?Instructions ?Recorded ?Confirmed ?Type hydroxychloroquine 200 mg tablet 200 mg PO BIDCM 02/09/14 05/23/24 History lisinopril 20 mg tablet 40 mg PO DAILY 02/09/14 05/23/24 History pravastatin 40 mg tablet 40 mg PO DAILY 02/09/14 05/23/24 History gabapentin 300 mg capsule 300 mg PO TIDCM 05/27/16 05/23/24 History baclofen 10 mg tablet 10 mg PO DAILY 12/26/17 05/23/24 History levothyroxine 125 mcg tablet 150 mcg PO DAILY 12/26/17 05/23/24 History amitriptyline 25 mg tablet 25 mg PO 04/20/22 05/23/24 History clindamycin HCl 300 mg capsule 300 mg PO TID PRN 04/20/22 05/23/24 History oxycodone 5 mg tablet 5 mg PO 04/20/22 05/23/24 History escitalopram oxalate 5 mg tablet 5 mg PO QDAY 05/17/24 05/23/24 History (Lexapro) morphine 15 mg tablet,extended 15 mg PO BID 05/17/24 05/23/24 History release semaglutide 0.25 mg or 0.5 mg (2 0.5 mg subcut QWEEK 05/17/24 05/23/24 History mg/3 mL) subcutaneous pen injector (Ozempic) misoprostol 200 mcg tablet 200 mcg PO .complex #2 tabs 05/23/24 05/23/24 Rx (Cytotec) vibegron 75 mg tablet (Gemtesa) 75 mg PO QDAY 05/23/24 05/23/24 History PFSH Medical History Acute bronchitis, unspecified Acute conjunctivitis, left eye Acute frontal sinusitis, unspecified Contact with and (suspected) exposure to covid-19 Acute frontal sinusitis, unspecified Hx of one miscarriage Thyroid disease Knee pain Diabetes Arthritis HTN (hypertension) Surgical History History of total knee replacement (TKR) Hx of hernia repair Hx of section History of hemorrhoidectomy Family History Grandmother CVA (cerebral vascular accident)Mother Renal failure Social History adopted: No household members: spouse number of children: 1 current occupational status: retired sexually active: No Smoking Status: Current some day smoker alcohol intake: never substance use type: does not use caffeine: Yes Type: carbonated beverages and coffee eating out: 1-3 times/week during the past year weight has: decreased > 10 lbs what type of physical activity do you participate in: none seatbelt use: always do you feel safe at home: Yes HPI D&C Consult Details: TRE SHEPPARD is a 64 year old who presents for thickened endometrium. she had PMB 3 years ago. she sees Dr De for prolapse and had an ultrasound done that showed the thickened lining and she is being treated for OAB with medication. she feels vaginal pressure and pain. she has a follow up scheduled with gayla, hasn't tried a pessary yet. Female Reproductive History Menopausal Symptoms: No night sweats History 4 Elective abortions Hx Para 1 Spontaneous abortions Hx # Term Pregnancies Ectopic pregnancies Hx # Pregnancies Multiple births # of living children 1 Past Pregnancies Del. Date Name GA/Weeks Outcome Route Bth Weight Infant Gen Labor Lgth Anesthesia Del Locatn Provider FOB 01/08/01 Donn Linares Constitutional: Denies fatigue, night sweats, weight gain or weight loss ENT ENT: Reports system reviewed and no additional complaints, except as documented Cardio Card: Denies chest pain Resp Resp: Denies cough or dyspnea GI GI: Reports as per HPI; Denies abdominal pain, constipation, nausea or vomiting : Denies nipple discharge, urinary frequency, urinary incontinence, urinary hesitancy, urinary urgency, vaginal discharge, vaginal dryness, vaginal odor or vaginal pruritus Musc Musc: Denies arthralgias, back pain or muscle weakness Skin Skin/Breast: Denies alopecia, change in hair, dry skin, breast mass, breast pain, breast skin changes or nipple discharge Neuro Neuro: Reports system reviewed and no additional complaints, except as documented Psych Psych: Reports system reviewed and no additional complaints, except as documented Endo Endo: Denies cold intolerance, excessive sweating, heat intolerance or polydipsia Armen/Lymph Hematologic/Lymphatic: Denies easy bleeding, Denies easy bruising and Denies lymphadenopathy Exam Const General: cooperative, healthy appearing, comfortable and no acute distress Orientation: alert HENMT Head: normal to inspection and normocephalic Ears: hearing grossly normal bilaterally and external ears normal Nose: external nose normal and nares normal Face and sinus: normal facial exam Neck Neck: normal visual inspection and no lymphadenopathy Thyroid: thyroid normal Chest Chest palpation & inspection: normal inspection of the chest Resp Effort & Inspection: normal respiratory effort Auscultation: clear to auscultation bilaterally Cardio Rate: regular rate Rhythm: regular rhythm Heart Sounds: S1 normal and S2 normal GI Inspection: normal to inspection and non-distended Palpation: soft and no hepatosplenomegaly Musc Other: gross motor intact no deficits, full bilateral strength Skin General: no rashes or lesions noted Neuro General: patient alert, patient awake, moves all extremities and no focal motor deficits Motor: muscle tone normal throughout Extrem General: normal to inspection and no pedal edema Psych Appearance: grossly normal Mental Status: mental status grossly normal Affect: normal affect Speech and Movement: speech and movement normal Coding Level of Care Code Off vis,est,level 4 Diagnoses Endometrial thickening on ultrasound R93.89 Assessment and Plan Assessment and Plan (1) Endometrial thickening on ultrasound: Status: Acute Comment: PMB 3 yrs ago; no work up completed at that time; Endometrial lining 15.4mm (04/26/24) US. recommend d and c hysterosocpy, cytotec preop Medications: New misoprostol (Cytotec) take the night before and two hours prior to the procedure 2 tabs 1RF Plan After discussing the patient's diagnosis and treatment plan options, patient wishes to proceed with surgical management. I have discussed with the patient the risks, benefits, and alternatives of the procedure which include but are not limited to risks of anesthesia, bleeding, infection, possible damage to bowel, bladder, or surrounding vasculature which could lead to additional surgery to evaluate any complications. Patient agrees to procedure and wishes to proceed. ACOG/uptodate references given for additional information regarding procedure. UPDATE- I have seen the patient and performed any clinically relevant updates to the history and physical exam. Arcelia Newman MD
[2024-06-13 08:47] LABS: Bedside Glucose 105 mg/dL (74-106)
--- NOTE | 2024-06-13 09:11 | DCINST_ITS ---
Discharge Instructions Diet Discharge Diet: No restrictions Activity Discharge Activity: Return to Normal Activity, May Shower and May Take a Tub Bath (after 1 week) May resume sexual activity in: 1-2 weeks Weight Bearing Status: Weight bearing as tolerated Lifting Restrictions: none Dressing / Incision Call your doctor if you observe: Fever of 101 or Higher, Using more than 1 pad per hour, Shortness of breath and Uncontrolled pain Follow Up Care Please Follow Up With: Arcelia Newman MD When: Call [phone] to schedule appointment. Test Results: Test results from this visit will be discussed in further detail at your follow- up appointment, if applicable. Discharge Plan Admission Attending Provider: Arcelia Newman Primary Care Provider: Brandon Vela Instructions Print Language: Icelandic Discharge Orders/Prescriptions Prescriptions: No Action baclofen 10 mg tablet 10 mg PO BID amitriptyline 25 mg tablet 25 mg PO QHS oxycodone 5 mg tablet 5 mg PO BID Patient Comments: TAKE 1 TABLET BY MOUTH 2CTIMES A DAY clindamycin HCl 300 mg capsule 300 mg PO TID PRN (Reason: DENTAL PROCEDURES) morphine 15 mg tablet extended release 15 mg PO BID Ozempic 0.25 mg or 0.5 mg (2 mg/3 mL) pen injector 0.5 mg subcut QWEEK Patient Comments: PT DIABETIC-LAST DOSE 06/05/2024 escitalopram oxalate [Lexapro] 5 mg tablet 30 mg PO QDAY Gemtesa 75 mg tablet 75 mg PO .QOD misoprostol [Cytotec] 200 mcg tablet 200 mcg PO .complex Qty: 2 1RF Rx Instructions: take the night before and two hours prior to the procedure pravastatin 40 MG tablet 40 mg PO DAILY Patient Comments: treat high cholesterol and triglyceride levels. lisinopril 20 MG tablet 40 mg PO DAILY Patient Comments: treat high blood pressure hydroxychloroquine 200 MG tablet 200 mg PO BIDCM Patient Comments: treat arthritis levothyroxine 125 mcg tablet 125 mcg PO DAILY Patient Comments: treat hypothyroidism gabapentin 300 MG capsule 300 mg PO .Q6HR Patient Comments: treat persistant pain and muscle pain amlodipine 5 mg tablet 5 mg PO DAILY Referrals / Follow Up: Brandon Vela MD [Primary Care Provider] - Disposition Disposition (needs filled in before D/C Order can be placed): Home, Self Care
--- NOTE | 2024-06-13 09:11 | PCM.OPRPT ---
Problems Associated Problem List Diagnoses (1) Endometrial thickening on ultrasound: Report of Operation Date of Procedure: 06/13/24 Pre-Operative Diagnosis: see problem list Post-Operative Diagnosis: same Surgery/Procedure Performed:: D&C hysteroscopy symphion polypectomy Description of Surgical Findings:: anterior uterine wall mass Surgeon: Arcelia Newman outsole skiver: None Type of Anesthesia: Local MAC Special Medications: none Specimen's removed: EMC Drains: none Estimated Blood Loss (mL): 50 Fluids Replaced: crystalloid Description of Procedure: Patient was prepped and draped in a normal sterile fashion under MAC anesthesia. A weighted speculum was placed in the vagina and the anterior lip of the cervix was grasped with a single-tooth tenaculum. A paracervical block was placed with 1% lidocaine. Cervix was progressively dilated to allow passage of a 5 mm hysteroscope. The lining was fully visualized and noted to have a thick polyp . Uterine sounded to 10 cm. Curettage was performed and unable to remove the lesion, therefore the symphion scope was used and the entire lining of the uterus was visualized and the polypoid mass was progressively remove dand noted to involve the entire anterior wall of the uterus. tissue was removed , sent to pathology. All instruments were removed from the vagina and excellent hemostasis was noted. Patient was awoken and taken to recovery in stable condition. Grafts/Implants Used: none Procedure Start Time: 09:28 Procedure Stop Time: 09:56 Complications none Admit VTE Documentation VTE Present on Admission: No VTE Mechan Device Prophylaxis: SCD's Multi Select Codes Urinary/Genital Urinary/Genital CPT Codes: 30373 Hysteroscopy,EMC, Polypectomy
[2024-06-13] MEDS: Lidocaine 1% (20 ml mdv) 20 ML Vial (09:51)
--- NOTE | 2024-06-13 10:00 | UTER_PTH ---
PATIENT: TRE SHEPPARD LOC: [facility] [place] U#:[id number] AGE/SX: 64/F ROOM: RE06/13/[address]: Dr. Arcelia Newman MD : 1960 BED: DIS: 06/13/2024 SPEC #: [id number] RECD: 06/13/24 11:29 STATUS: SHERIN ALEGRE #: [id number] NUNU: 06/13/24 10:[address]: Arcelia Newman DEPT: SURGICAL PATHOLOGY RECD BY: Ta Gtz ENTERED: 06/13/24 11:30 SP TYPE: UTERINE CO OTHR DR: Dr. Brandon Vela MD Tissues: Uterine cervix, NOS Procedures: Frozen Section (charge) Surgery Specimen Level IV HEADER OPERATION: Hysteroscopy, D&C, polyp PRE-OP DIAGNOSIS: Endometrial thickening on ultrasound TISSUE SUBMITTED: Endometrial lesion FROZEN SECTION DIAGNOSIS Endometrial lesion, biopsy and curettings: Simple cystic endometrial hyperplasia. Final pending permanent sections. 06/13/2024 MICROSCOPIC DIAGNOSIS Endometrial lesion, endometrial curettings: Simple cystic endometrial hyperplasia without atypia. See comment. 06/14/2024 COMMENT Many of the cystically dilated endometrial glands also show focal calcifications. Clinical correlation and appropriate follow up are necessary. MICROSCOPIC DESCRIPTION Slides are reviewed. GROSS DESCRIPTION Received fresh for frozen section diagnosis labeled with the patient's name is a specimen designated Endometrial lesion. The specimen consists of multiple fragments of nunes-pink soft tissue measuring in aggregate 3.0 x 3.0 x 0.5cm. The entire specimen is submitted in two cassettes for frozen section diagnosis. 06/13/2024 TC:5 CPT:41029,03570,42774
--- NOTE | 2024-06-13 10:20 | PCM.POST.ANE ---
Anesthesia: Postop Eval I Current Vital Signs Temperature: 97.1 F Pulse Rate: 62 Blood Pressure: 135/65 Respiratory Rate: 16 Pulse Ox: 98 Oxygen Delivery Method: Room Air Assessment Airway patent: Yes Spontaneous unlabored respirations: Yes Mental status: Awake and Calm nausea: No Vomiting: No Anesthesia Complication: No Fluid Hydration Crystalloid volume administer (ml): 50 Total IV fluid infused: 50 Progress Note Anesthesia document: Postop Eval 1 completed: Yes
[2024-06-13] MEDS: HYDROcodone Bitartrate/Apap 5/325 Tablet PO (11:49)
--- NOTE | 2024-06-13 16:52 | POSTOPAN2_ITS ---
Anesthesia Postop Eval I Sum Postop Eval Completion status Anesthesia document: Postop Eval 1 completed: Yes Anesthesia Postop Eval I Summary Anesthesia Postop Eval I Summary: Anesthesia Postop Eval I: Assessment Summary Airway patent Yes 06/13/24 10:20 [email or web address] Spontaneous unlabored Yes 06/13/24 10:20 [email or web address] respirations Mental status Awake,Calm 06/13/24 10:20 [email or web address] nausea No 06/13/24 10:20 [email or web address] Vomiting No 06/13/24 10:20 [email or web address] Anesthesia Postop Eval I: Fluid Summary Crystalloid volume administer 50 06/13/24 10:20 [email or web address] (ml) Colloids volume administered ( ml) Blood Product volume administered (ml) Total IV fluid infused 50 06/13/24 10:20 [email or web address] Anesthesia Postop Eval I: Summary Notes Anesthesia Complication No 06/13/24 10:20 [email or web address] Anesthesia Complication Comment: Post-operative progress note Anesthesia: Postop Eval II Evaluation Mental status: Awake and Calm Pain Level: 1 nausea: No Vomiting: No Complications Anesthesia Complication: No
--- NOTE | 2024-06-13 16:52 | PCM.POSTANE2 ---
Anesthesia Postop Eval I Sum Postop Eval Completion status Anesthesia document: Postop Eval 1 completed: Yes Anesthesia Postop Eval I Summary Anesthesia Postop Eval I Summary: Anesthesia Postop Eval I: Assessment Summary Airway patent Yes 06/13/24 10:20 [email or web address] Spontaneous unlabored Yes 06/13/24 10:20 [email or web address] respirations Mental status Awake,Calm 06/13/24 10:20 [email or web address] nausea No 06/13/24 10:20 [email or web address] Vomiting No 06/13/24 10:20 [email or web address] Anesthesia Postop Eval I: Fluid Summary Crystalloid volume administer 50 06/13/24 10:20 [email or web address] (ml) Colloids volume administered ( ml) Blood Product volume administered (ml) Total IV fluid infused 50 06/13/24 10:20 [email or web address] Anesthesia Postop Eval I: Summary Notes Anesthesia Complication No 06/13/24 10:20 [email or web address] Anesthesia Complication Comment: Post-operative progress note Anesthesia: Postop Eval II Evaluation Mental status: Awake and Calm Pain Level: 1 nausea: No Vomiting: No Complications Anesthesia Complication: No
== END 2024-06-13 12:08 | disposition home or self-care (01) ==
LOC: SDC 07:58 → AC 07:58
PROVIDERS: PCP Family Medicine; Referring Provider Obstetrics & Gynecology; Visit Provider Obstetrics & Gynecology
PROC: 0UB98ZZ Excision of Uterus, Via Natural or Artificial Opening Endoscopic (ICD-10-PCS; CPT 58558; principal; 2024-06-13 09:15)
DX: N85.01 Benign endometrial hyperplasia (principal); M06.9 Rheumatoid arthritis, unspecified; E11.9 Type 2 diabetes mellitus without complications; I10 Essential (primary) hypertension; E07.9 Disorder of thyroid, unspecified; F17.210 Nicotine dependence, cigarettes, uncomplicated; Z88.0 Allergy status to penicillin; Z79.899 Other long term (current) drug therapy; Z79.890 Hormone replacement therapy; Z96.659 Presence of unspecified artificial knee joint
CPT/HCPCS: 58558; 36415; 80053; 80061; 82962; 83036; 84439; 84443; 84481; 85027; 86850; 86900; 86901; 88305; 88331; 93005; A4216; J2405

== ENCOUNTER → 2024-07-05 | Outpatient (CLI) | payer OTHER, SELFPAY ==
--- NOTE | 2024-07-05 15:04 | CT_ITS ---
INDICATION: PELVIC PAIN EXAMINATION: CT ABDOMEN AND PELVIS WITH AND WITHOUT CONTRAST - CT Abdomen And Pelvis WO/W Contrast Injection TECHNIQUE: Helically acquired images were obtained of the abdomen and pelvis both before and after IV contrast. The protocol utilizes one or more of the following dose reduction techniques: automated exposure control, adjustment of mA and/or kV according to patient size,and/or use of iterative reconstruction technique. IV Contrast dosage and agent: 100 cc of Isovue-300 Oral contrast: None. RADIATION DOSAGE (If Supplied By Facility): CTDIvol = ( 21.67 ) mGy, DLP = ( 3307.04 ) mGycm COMPARISON: Prior study dated: 07/16/2017 FINDINGS: LOWER CHEST: Lung bases are clear. No cardiomegaly or pericardial effusion. LIVER: Homogeneous. No focal mass. GALLBLADDER AND BILIARY TREE: No calcified gallstones. No gallbladder distension or wall edema. Mild prominence of the common bile duct probably unchanged. PANCREAS: No focal cystic or solid mass. SPLEEN: Normal size without focal cystic or solid mass. ADRENAL GLANDS: No nodules. KIDNEYS AND URETERS: Normal renal size and position. No hydronephrosis. PERITONEUM: No ascites or free air. No other fluid collection. BOWEL: No evidence of acute appendicitis. Moderate size hiatal hernia. Number diverticulosis without evidence of acute diverticulitis. Nonspecific fluid-filled cecum and ascending colon. No focal inflammatory change. LYMPH NODES: No enlarged mesenteric or retroperitoneal lymph nodes. VESSELS: Aorta is non-dilated. URINARY BLADDER: Not well distended. REPRODUCTIVE ORGANS: No pelvic masses. ABDOMINAL WALL: Very small umbilical hernia containing fat. BONES: Sclerotic lesion in the vertebral body of L2 unchanged likely due to bone island. CT/CT Abd/Pelvis W/WO Contrast IMPRESSION: 1. Diverticulosis without evidence of acute diverticulitis. 2. Moderate size hiatal hernia. 3. Otherwise no focal acute inflammatory process. Electronically Signed: Remy Pardo MD at 13:42 EST ,
== END | disposition home or self-care (01) ==
LOC: CT 15:01
PROVIDERS: PCP Family Medicine; Referring Provider Urology; Visit Provider Urology
DX: R10.2 Pelvic and perineal pain (principal)
CPT/HCPCS: 74178; Q9967

== ENCOUNTER → 2024-09-07 | Outpatient (CLI) | payer OTHER, SELFPAY ==
--- NOTE | 2024-09-07 16:06 | RAD_ITS ---
STUDY: X-RAY - CERVICAL SPINE REASON FOR EXAM: Female, 64 years old. Neck pain. TECHNIQUE: 4 view(s) of the cervical spine were obtained. COMPARISON: None FINDINGS: Osteopenia. Normal anterior atlantoaxial articulation. Normal odontoid process. Reversal of the normal lordosis, likely positional. Diffuse mild uncovertebral and facet sclerosis. Intervertebral disc space narrowing at C4-5, C5-6 and C6-7. Osteophytes most marked at C5-6. Normal soft tissues. RAD/Cerv Spine 2 or 3 Views IMPRESSION: Reversal of the normal lordosis with mild lower cervical spondylosis. Electronically Signed: Saulo May MD at 16:23 EST ,
== END | disposition home or self-care (01) ==
LOC: RAD 16:02
PROVIDERS: PCP Family Medicine; Referring Provider Anesthesiology Pain Medicine; Visit Provider Anesthesiology Pain Medicine
DX: M47.812 Spondylosis without myelopathy or radiculopathy, cervical region (principal)
CPT/HCPCS: 72040

== ENCOUNTER → 2024-09-11 | Outpatient (CLI) | payer OTHER, SELFPAY ==
--- NOTE | 2024-09-11 | EMB_PTH ---
PATIENT: TRE SHEPPARD LOC: [facility] U#:[id number] AGE/SX: 64/F ROOM: RE09/11/[address]: Dr. Arcelia Newman MD : 1960 BED: DIS: 09/11/2024 SPEC #: [id number] RECD: 09/11/24 17:00 STATUS: SHERIN ALEGRE #: [id number] NUNU: 09/11/24 00:[address]: Arcelia Newman DEPT: SURGICAL PATHOLOGY RECD BY: Silvio Castle ENTERED: 09/12/24 07:57 SP TYPE: ENDOM BX/C RODRI DR: Dr. Brandon Vela MD Tissues: Endometrium, NOS Procedures: Surgery Specimen Level IV HEADER OPERATION: Endometrial biopsy PRE-OP DIAGNOSIS: Simple endometrial hyperplasia without atypia TISSUE SUBMITTED: Endometrial tissue MICROSCOPIC DIAGNOSIS Endometrium, biopsy: Scant fragments of benign endometrial epithelium and squamous epithelium. See comment. SJ.mr 09/13/2024 COMMENT Please make reference to previous specimen [id number] endometrial lesion, endometrial curettings with diagnosis of simple cystic endometrial hyperplasia without atypia. MICROSCOPIC DESCRIPTION Slides are reviewed. GROSS DESCRIPTION Received is one container labeled with the patient's name and not further designated. The specimen consists of a scant amount of soft tissue. The specimen is totally submitted for cell block preparation. 09/12/2024 TC:4 CPT:53470
== END | disposition home or self-care (01) ==
LOC: LABSPEC 17:26
PROVIDERS: PCP Family Medicine; Visit Provider Obstetrics & Gynecology
DX: N85.01 Benign endometrial hyperplasia (principal)
CPT/HCPCS: 88305

== ENCOUNTER → 2024-10-16 | Outpatient (CLI) | payer OTHER, SELFPAY | END | disposition home or self-care (01) | LOC: LAB 16:40 | PROVIDERS: PCP Family Medicine; Referring Provider Obstetrics & Gynecology; Visit Provider Obstetrics & Gynecology | DX: R31.9 Hematuria, unspecified (principal) ==

== ENCOUNTER → 2024-11-25 | Outpatient (CLI) | payer OTHER, SELFPAY ==
[2024-11-25 11:41] LABS: Absolute Lymphocyte Count 1.83 X10^3/uL (0.83-4.51); Absolute Neutrophil Count 4.9 X10^3/uL (2.0-7.7); Basophil# 0.04 X10^3/uL; Basophil% 0.5 % (0-1); Eosinophil# 0.11 X10^3/uL; Eosinophils% 1.5 % (0-5); Hematocrit 39.4 % (37-47); Hemoglobin 12.6 g/dL (12.0-15.0); Lymphocyte # 1.83 X10^3/ul (0.83-4.51); Lymphocyte % 24.5 % (19-41); Mean Corpuscular Hgb 31.6 pg (27.0-32.0); Mean Corpuscular Volume 98.7 fL (81-99); Mean Platelet Vol. 9.4 fl (6.2-12.0); Monocyte# 0.61 X10^3/uL; Monocyte% 8.2 % (0-10); NRBC Flagged by Analyzer 0 % (0-5); Neutrophil # 4.87 X10^3/uL (2.7-7.7); Platelet Count 315 K/mm3 (150-450); RBC Distribution Width CV 13.7 % (11.6-14.6); RBC Distribution Width SD 50.7 fl (35.1-43.9); Red Blood Count 3.99 M/mm3 (4.2-5.4); White Blood Count 7.5 K/mm3 (4.4-11.0)
[2024-11-25 13:00] LABS: ALB/GLOB Ratio 1.4 RATIO (0.9-2.4); AST(SGOT) 16 U/L (<=31); Alanine Aminotransfer ALT/SGPT 11 U/L (<=34); Albumin, Serum 3.9 g/dL (3.4-4.8); Alkaline Phosphatase 60 U/L (35-104); Anion Gap 11 (5-15); BUN 18 mg/dL (4-19); BUN/Creat Ratio 14.5 RATIO (10-20); Calcium,Total 9.1 mg/dL (7.6-11.0); Carbon Dioxide 22.8 mmol/L (21.0-32.0); Chloride 105 mmol/L (98-108); Creatinine, Serum 1.21 mg/dL (0.70-1.20); EST Glomerular Filtration Rate 50 (>60); Globulin 2.8 g/dL (2.2-4.2); Glucose 101 mg/dL (70-99); Potassium 4.4 mmol/L (3.3-5.1); Protein, Total 6.6 g/dL (5.9-8.4); Sodium Level 139 mmol/L (133-145); Total Bilirubin 0.18 mg/dL (0.00-1.30)
== END | disposition home or self-care (01) ==
LOC: LAB 11:05
PROVIDERS: PCP Family Medicine; Referring Provider Internal Medicine Rheumatology; Visit Provider Internal Medicine Rheumatology
DX: M06.09 Rheumatoid arthritis without rheumatoid factor, multiple sites (principal); Z79.899 Other long term (current) drug therapy; M79.7 Fibromyalgia; M17.0 Bilateral primary osteoarthritis of knee
CPT/HCPCS: 36415; 80053; 85025

== ENCOUNTER → 2024-12-06 | Outpatient (CLI) | payer OTHER, SELFPAY ==
[2024-12-06 20:24] LABS: Amphetamine Urine NEGATIVE (<1000 ng/mL); Barbiturate Urine NEGATIVE (< 200 ng/mL); Benzodiazepine Urine NEGATIVE (< 200 ng/mL); Buprenorphine Urine NEGATIVE (< 200 ng/mL); Cocaine Urine NEGATIVE (< 300 ng/mL); Fentanyl, Urine NEGATIVE; Methadone Urine NEGATIVE (< 300 ng/mL); Opiates Urine PRESUMPTIVE POSITIVE (< 300 ng/mL); Oxycodone, Urine PRESUMPTIVE POSITIVE (< 100 ng/mL); PCP Urine NEGATIVE (< 25 ng/mL); THC Urine NEGATIVE (< 50 ng/mL)
== END | disposition home or self-care (01) ==
LOC: LAB 15:50
PROVIDERS: PCP Family Medicine; Referring Provider Anesthesiology Pain Medicine; Visit Provider Anesthesiology Pain Medicine
DX: F11.20 Opioid dependence, uncomplicated (principal)
CPT/HCPCS: 80307

== ENCOUNTER → 2025-03-05 | Outpatient (CLI) | payer OTHER, SELFPAY ==
[2025-03-05 13:08] LABS: AST(SGOT) 16 U/L (<=31); Alanine Aminotransfer ALT/SGPT 14 U/L (<=34); Albumin, Serum 3.9 g/dL (3.4-4.8); Alkaline Phosphatase 60 U/L (35-104); Anion Gap 10 (5-15); BUN 12 mg/dL (4-19); BUN/Creat Ratio 10.7 RATIO (10-20); Calcium,Total 8.9 mg/dL (7.6-11.0); Carbon Dioxide 26.3 mmol/L (21.0-32.0); Chloride 103 mmol/L (98-108); Cholesterol 123 mg/dL (<=200); Globulin 2.7 g/dL (2.2-4.2); Glucose 87 mg/dL (70-99); Low Density Lipoprotein Calc. 60 mg/dL; Potassium 4.3 mmol/L (3.3-5.1); Triglycerides 95 mg/dL; Very Low Density Lipoprotein 19 mg/dL (5-40); cholesterol:hdl ratio screen 2.82
== END | disposition home or self-care (01) ==
LOC: MTLAB 09:21
PROVIDERS: PCP Family Medicine; Referring Provider Family Medicine; Visit Provider Family Medicine
DX: E11.9 Type 2 diabetes mellitus without complications (principal); E03.9 Hypothyroidism, unspecified
CPT/HCPCS: 36415; 80053; 80061; 83036; 84443

== ENCOUNTER → 2025-05-19 | Outpatient (CLI) | payer OTHER, SELFPAY ==
--- OUTSIDE RECORDS SUMMARY | 2025-05-19 08:33 | XMS RPT_ITS | CCD ---
Author Organization [facility]iniSyn[facility] Care Team Providers Care Breaker Layer Name Role Phone Miladys Velazquez N Unavailable Miladys Velazquez N Unavailable Velazquez Miladys N Unavailable Tobias Monterroso Unavailable Marcus Miladys N Unavailable Dr. Brandon Romero Primary Care Provider Dr. Brandon Romero Referring Provider MARCIN Cannon Attending Provider Dr. Luis Campa Attending Provider Dr. Jhonathan Mcakay Attending Provider Dr. Brandon Romero Primary Care Provider Dr. Brandon Romero Referring Provider MARCIN Cannon Attending Provider Dr. Luis Campa Attending Provider Dr. Jhonathan Mackay Attending Provider Dr. Brandon Romero Primary Care Provider Dr. Brandon Romero Referring Provider MARCIN Cannon Attending Provider Dr. Brandon Romero Primary Care Provider Dr. Brandon Romero Referring Provider MARCIN Cannon Attending Provider BRANDON ROMERO Primary Care Unavailable Dr. Brandon Romero MD Primary Care Provider Alfa CRANE, Dr. Boateng Attending Provider Alfa CRANE, Dr. Boateng Referring Provider Mirian CRANE, Dr. Taylor Referring Provider Roslyn CRANE, Dr. Paniagua Attending Provider Roslyn CRANE, Dr. Paniagua Referring Provider [phone] Austin CRANE, Dr. Butcher Attending Provider Austin CRANE, Dr. Butcher Referring Provider Roslyn CRANE, Dr. Paniagua Other Provider [phone] Patsy Barber Attending Unavailable Romero, Brandon Primary Care Unavailable Patsy Barber Referring Unavailable Romero, Brandon Referring Unavailable Romero, Brandon Attending Unavailable Romero, Brandon Primary Care Unavailable Romero, Brandon Referring Unavailable Marcanthony, Arcelia Attending Unavailable Romero, Brandon Primary Care Unavailable Marcanthony, Arcelia Referring Unavailable Marcanthony, Arcelai Attending Unavailable Romero, Brandon Primary Care Unavailable Barkturner, Patsy Attending Unavailable Romero, Brandon Primary Care Unavailable BarkPatsy tompkins Referring Unavailable Vellanki, Guadalupe Referring Unavailable Vellanki, Guadalupe Attending Unavailable Romero, Brandon Primary Care Unavailable Marcanthony, Arcelia Attending Unavailable Romero, Brandon Primary Care Unavailable Patsy Barber Attending Unavailable Romero, Brandon Referring Unavailable Romero, Brandon Primary Care Unavailable Wyneski, Penelope Referring Unavailable Wyneski, Penelope Attending Unavailable Romero, Brandon Primary Care Unavailable Marcanthony, Arcelia Attending Unavailable Marcanthony, Arcelia Referring Unavailable Romero, Brandon Primary Care Unavailable Marcanthony, Arcelia Consulting Unavailable Vellanki, Guadalupe Referring Unavailable Romero, Brandon Primary Care Unavailable Vellanki, Guadalupe Attending Unavailable BasaliKilo Referring Unavailable Basali, Kilo Attending Unavailable Romero, Brandon Primary Care Unavailable Romero, Brandon Referring Unavailable Romero, Brandon Attending Unavailable Romero, Brandon Primary Care Unavailable Marcanthony, Arcelia Referring Unavailable Estes, Tobias Attending Unavailable Romero, Brandon Primary Care Unavailable Marcanthony, Arcelia Consulting Unavailable Marcanthony, Arcelia Referring Unavailable Marcanthony, Arcelia Attending Unavailable Romero, Brandon Primary Care Unavailable Romero, Brandon Referring Unavailable Marcanthony, Arcelia Attending Unavailable Romero, Brandon Primary Care Unavailable Romero, Brandon Referring Unavailable Arcelia Newman Attending Unavailable Brandon Romero Primary Care Unavailable Penelope De Referring Unavailable Penelope De Attending Unavailable Brandon Romero Primary Care Unavailable Kilo Grimm Referring Unavailable Kilo Grimm Attending Unavailable Brandon Romero Primary Care Unavailable Mirian CRAEN, Dr. Taylor Primary Care Provider Dr. Kilo Grimm MD Attending Provider Alfa CRANE, Dr. Boateng Referring Provider Dr. Brandon Romero MD Attending Provider Mirian CRANE, Dr. Taylor Referring Provider [phone] Allergies Allergy Classification Reported Allergen(s) Allergy Type Date of Onset Reaction(s) Facility (16 sources) Codeine Drug Allergy 1 [facility] (2 sources) Diclofenac Drug Allergy 1 [facility] Work Phone: (18 sources) Penicillins; Translations: [PENICILLINS] Allergy to substance 7 [facility] (17 sources) traMADol; Translations: [tramadol HCl] Drug Allergy 1 [facility] (15 sources) Diclofenac; Translations: [DICLOFENAC] Drug Allergy 7 [facility] (1 source) TRAMADOL-ACETAMI NOPHEN; Translations: [TRAMADOL-ACETAM INOPHEN] Propensity to adverse reactions to drug (disorder) 7 [facility] (1 source) Codeine Drug Allergy 4 [facility] (1 source) Diclofenac Drug Allergy 4 [facility] Medications Current Medications Medication Drug Class(es) Dates Sig (Normalized) Sig (Original) amitriptyline hydrochloride 25 mg oral tablet (14 sources) Tricyclic Antidepressant Start: 04-20-2022 take 1 tablet by mouth at bedtime Amitriptyline 25 mg tablet Active 25 mg PO AT BEDTIME April 20, 2022 12:00am amLODIPine 5 mg oral tablet (3 sources) Dihydropyridine Calcium Channel Ning Start: 06-05-2024 take 1 tablet by mouth once daily Amlodipine 5 mg tablet Active 5 mg PO DAILY June 05, 2024 12:00am baclofen 10 mg oral tablet (16 sources) gamma-Aminobutyric Acid-ergic Agonist Start: 12-26-2017 take 1 tablet by mouth twice daily Baclofen 10 mg tablet Active 10 mg PO TWICE A DAY December 26, 2017 12:00am Start: 12-26-2017 take 10 mg by mouth once daily Baclofen Active 10 MG PO DAILY December 26, 2017 12:00am 24 hr buPROPion hydrochloride 150 mg extended release oral tablet (3 sources) Aminoketone Start: 09-11-2024 take 1 tablet by mouth once daily in the morning Bupropion Hcl (Wellbutrin Xl) 150 mg tablet extended release 24 hr Active 150 mg PO EVERY MORNING September 11, 2024 1:00am clindamycin 300 mg oral capsule (20 sources) Lincosamide Antibacterial Start: 02-26-2021 End: 04-20-2022 take 1 capsule by mouth three times daily as needed Clindamycin Hcl 300 mg capsule Active 300 mg PO THREE TIMES A DAY as needed for DENTAL PROCEDURES April 20, 2022 1:23pm escitalopram 5 mg oral tablet (20 sources) Serotonin Reuptake Inhibitor Start: 05-17-2024 Escitalopram Oxalate (Lexapro) 5 mg tablet Active 30 mg PO daily May 17, 2024 12:00am Start: 12-26-2017 End: 05-17-2024 Escitalopram Oxalate 20 mg t ablet Discontinued 30 mg PO DAILY December 26, 2017 11:45am May 17, 2024 1:29pm Start: 12-26-2017 take 30 mg by mouth once daily Escitalopram Oxalate Active 30 MG PO DAILY December 26, 2017 11:45am Start: 05-27-2016 End: 12-26-2017 take 1 tablet by mouth at bedtime Escitalopram Oxalate 10 MG tablet Discontinued 10 mg PO AT BEDTIME May 27, 2016 12:00am December 26, 2017 11:47am Start: 02-09-2014 End: 12-26-2017 take 1 tablet by mouth once daily Escitalopram Oxalate 20 MG tablet Discontinued 20 mg PO DAILY February 09, 2014 12:00am December 26, 2017 11:48am gabapentin 300 mg oral capsule (16 sources) Anti-epileptic Agent Start: 05-27-2016 take 1 capsule by mouth every six hours Gabapentin 300 MG capsule Active 300 mg PO .Q6HR May 27, 2016 12:00am Start: 05-27-2016 take 300 mg by mouth three times daily at mealtime Gabapentin Active 300 MG PO 3 TIMES DAILY WITH MEALS May 27, 2016 12:00am megestrol acetate 40 mg oral tablet (3 sources) Progestin Start: 06-29-2024 take 1 tablet by mouth once daily Megestrol 40 mg tablet Active 40 mg PO DAILY 30 June 29, 2024 12:00am morphine sulfate 15 mg extended release oral tablet (16 sources) Opioid Agonist Start: 05-17-2024 take 1 tablet by mouth twice daily Morphine 15 mg tablet extended release Active 15 mg PO TWICE A DAY 0 May 17, 2024 12:00am Start: 09-03-2019 take 15 mg by mouth twice dania y Morphine Active 15 MG PO TWICE A DAY September 03, 2019 1:00am Start: 09-03-2019 take 15 mg by mouth twice dania y Morphine Active 15 MG PO TWICE A DAY September 03, 2019 1:00am oxyCODONE hydrochloride 5 mg oral tablet (20 sources) Opioid Agonist Start: 04-20-2022 take 1 tablet by mouth twice daily Oxycodone 5 mg tablet Active 5 mg PO TWICE A DAY 0 April 20, 2022 12:00am Start: 01-19-2018 End: 04-20-2022 take 1 tablet by mouth every twelve hours Oxycodone 15 MG tablet Discontinued 15 mg PO Q12H January 19, 2018 12:00am April 20, 2022 1:22pm Start: 06-10-2016 End: 12-26-2017 take 3 tablets by mouth every six hours as needed for pain Oxycodone 5 MG tablet Discontinued 15 mg PO EVERY 6 HOURS NEEDED as needed for Severe Pain (6-06/08) 60 0 June 10, 2016 12:00am December 26, 2017 11:48am Start: 06-10-2016 End: 12-26-2017 take 15 mg by mouth every six hours as needed Oxycodone Discontinued 15 MG PO EVERY 6 HOURS NEEDED 60 June 10, 2016 12:00am December 26, 2017 11:48am Start: 03-30-2016 XTAMPZA ER 13. 5 MG C12A OXYCODONE [id number] Noni Fischer pravastatin sodium 40 mg oral tablet (20 sources) HMG-CoA Reductase Inhibitor Start: 02-09-2014 take 1 tablet by mouth once daily Pravastatin 40 MG tablet Active 40 mg PO DAILY February 09, 2014 12:00am Semaglutide (3 sources) Start: 05-17-2024 Semaglutide (Ozempic) 0.25 mg or 0.5 mg (2 mg/3 mL) pen injector Active 0.5 mg SC EVERY WEEK May 17, 2024 12:00am levothyroxine sodium 0.125 mg oral tablet (20 sources) l-Thyroxine Start: 12-26-2017 take 1 tablet by mouth once daily Levothyroxine 125 mcg tablet Active 125 ug PO DAILY December 26, 2017 11:44am Start: 01-22-2016 LEVOTHYROXINE SODIUM 175 MCG TABS daily LEVOTHYROXINE SODIUM [id number] Tobias Monterroso Start: 02-09-2014 End: 12-26-2017 Levothyroxine 125 MCG tablet Discontinued 150 ug PO DAILY February 09, 2014 12:00am December 26, 2017 11:48am Start: 02-09-2014 End: 12-26-2017 take 150 ug by mouth once daily Levothyroxine Active 150 MCG PO DAILY December 26, 2017 11:44am Completed/Discontinued Medications Medication Drug Class(es) Dates Sig (Normalized) Sig (Original) acetaminophen 325 mg / oxyCODONE hydrochloride 5 mg oral tablet (20 sources) Opioid Agonist Start: 06-04-2016 End: 06-10-2016 Oxycodone-Acetamino phen 1 TABLET tablet Discontinued 1 - 2 {tbl} PO EVERY 6 HOURS NEEDED as needed for Pain June 04, 2016 12:00am June 10, 2016 8:01am Start: 06-04-2016 End: 06-10-2016 take 1 tablet by mouth every six hours as needed Oxycodone-Acetaminophen Discontinued 1 - 2 TABLET PO EVERY 6 HOURS NEEDED June 04, 2016 12:00am June 10, 2016 8:01am Start: 01-22-2016 PERCOCET 7.5-3 25 MG TABS four times a day OXYCODONE-ACETAMINOPHEN [id number] Tobias Monterroso 0.4 ml adalimumab 100 mg/ml auto-injector (16 sources) Tumor Necrosis Factor Ning Start: 02-26-2021 End: 04-20-2022 Adalimumab (Humira(Cf) Pen) 40 mg/0.4 mL pen injector kit Discontinued 40 mg SC February 26, 2021 12:00am April 20, 2022 1:18pm amoxicillin 500 mg oral capsule (14 sources) Penicillin-class Antibacterial Start: 03-19-2022 End: 03-29-2022 take 2 capsules by mouth twice daily Amoxicillin 500 mg capsule Discontinued 1000 mg PO TWICE A DAY 40 10 March 19, 2022 12:00am March 28, 2022 12:00am March 29, 2022 12:04am Start: 03-19-2022 End: 03-29-2022 take 1000 mg by mouth twice daily Amoxicillin Discontinued 1000 MG PO TWICE A DAY 40 March 19, 2022 12:00am March 29, 2022 12:04am amoxicillin 875 mg / clavulanate 125 mg oral tablet (10 sources) Penicillin-class Antibacterial Start: 08-10-2022 End: 05-17-2024 Amoxicillin-Pot Clavulanate 875-125 mg tablet Discontinued 1 {tbl} PO TWICE A DAY 20 August 10, 2022 1:00am May 17, 2024 1:28pm Start: 08-10-2022 take 1 tablet by jayda twice daily Amoxicillin-Pot Clavulanate Active 1 TABLET PO TWICE A DAY August 10, 2022 1:00am ascorbic acid 500 mg oral tablet (16 sources) Vitamin C Start: 02-09-2014 End: 12-26-2017 take 1 tablet by mouth once daily Ascorbic Acid (Vitamin C) 500 MG tablet Discontinued 500 mg PO DAILY@08February 09, 2014 12:00am December 26, 2017 11:47am aspirin 81 mg delayed release oral tablet (20 sources) Nonsteroidal Anti-inflammatory Drug Start: 01-22-2016 ASPIRIN 81 MG TBEC daily ASPIRIN [id number] Tobias Monterroso Start: 02-09-2014 End: 12-26-2017 take 1 tablet by mouth once daily Aspirin 81 MG tablet,chewable Discontinued 81 mg PO DAILY@0800 February 09, 2014 12:00am December 26, 2017 11:47am busPIRone hydrochloride 7.5 mg oral tablet (14 sources) Start: 04-20-2022 End: 05-17-2024 Buspirone 7.5 mg tablet Discontinued 7.5 mg PO April 20, 2022 12:00am May 17, 2024 1:29pm cholecalciferol 10035 unt oral tablet (6 sources) Vitamin D Start: 01-22-2016 VITAMIN D3 77042 UNIT TABS weekly CHOLECALCIFEROL [id number] Tobias Monterroso ciprofloxacin 500 mg oral tablet (16 sources) Quinolone Antimicrobial Start: 09-03-2019 End: 02-26-2021 take 1 tablet by mouth twice daily Ciprofloxacin Hcl 500 MG tablet Discontinued 500 mg PO TWICE A DAY September 03, 2019 1:00am February 26, 2021 2:58pm diazePAM 2 mg oral tablet (20 sources) Benzodiazepine Start: 12-26-2017 End: 05-17-2024 take 5 mg by mouth three times daily as needed for anxiety Diazepam (Valium) 2 mg tablet Discontinued 5 mg PO THREE TIMES A DAY as needed for Anxiety December 26, 2017 12:00am May 17, 2024 1:29pm Start: 01-22-2016 VALIUM 5 MG TA BS daily DIAZEPAM [id number] Tobias Cristian Monterroso Start: 02-09-2014 End: 12-26-2017 take 1 tablet by mouth twice daily as needed for anxiety Diazepam 5 MG tablet Discontinued 5 mg PO TWICE DAILY NEEDED as needed for Anxiety February 09, 2014 12:00am December 26, 2017 11:47am docusate sodium 50 mg / sennosides, senior living 8.6 mg oral tablet (16 sources) Start: 06-10-2016 End: 12-26-2017 Sennosides-Docusate Sodium 1 TABLET tablet Discontinued 2 {tbl} PO DAILY 0 June 10, 2016 12:00am December 26, 2017 11:48am Start: 06-10-2016 End: 12-26-2017 take 2 tablets by mouth once daily Sennosides-Docusate Sodium Discontinued 2 TABLET PO DAILY June 10, 2016 12:00am December 26, 2017 11:48am doxycycline hyclate 100 mg oral capsule (16 sources) Tetracycline-class Drug Start: 05-17-2018 End: 05-27-2018 take 1 capsule by mouth twice daily Doxycycline Hyclate 100 mg capsule Discontinued 100 mg PO TWICE A DAY May 17, 2018 12:00am May 26, 2018 12:00am May 27, 2018 12:08am Acute sinusitis, unspecified empagliflozin 5 mg / metFORMIN hydrochloride 500 mg oral tablet (20 sources) Biguanide, Sodium-Glucose Cotransporter 2 Inhibitor Start: 01-19-2018 End: 05-17-2024 Empagliflozin-Met formin 5-500 mg tablet Discontinued 1 {tbl} PO DAILY February 26, 2021 2:58pm May 17, 2024 1:29pm Start: 01-19-2018 End: 02-26-2021 take 1 tablet by mouth once daily Empagliflozin-Metformin Active 1 TABLET PO DAILY February 26, 2021 2:58pm Start: 06-10-2016 End: 12-26-2017 Empagliflozin-Metformin 1 EA CH tablet Discontinued 1 NMA PO DAILY@0800 0 June 10, 2016 12:00am December 26, 2017 11:47am Start: 06-10-2016 End: 12-26-2017 Empagliflozin-Metformin Disc ontinued 1 EACH PO DAILY@0800 June 10, 2016 12:00am December 26, 2017 11:47am Start: 05-27-2016 End: 06-10-2016 take 10-1000 mg by mouth once daily Synjardy 10-1,000 Mg Tablet Discontinued 10 - 1000 MG PO DAILY May 27, 2016 9:06am June 10, 2016 7:57am Start: 05-27-2016 End: 06-10-2016 take 10-1000 mg by mouth once daily Synjardy 10-1,000 Mg Tablet Discontinued 10 - 1000 mg PO DAILY May 27, 2016 12:00am June 10, 2016 7:57am Start: 05-27-2016 End: 06-10-2016 take 10-1000 mg by mouth once daily Synjardy 10-1,000 Mg Tablet Discontinued 10 - 1000 MG PO DAILY May 26, 2016 11:00pm June 10, 2016 6:57am Start: 05-27-2016 End: 06-10-2016 take 10-1000 mg by mouth once daily Synjardy 10-1,000 Mg Tablet Discontinued 10 - 1000 MG PO DAILY May 27, 2016 12:00am June 10, 2016 7:57am 0.3 ml enoxaparin sodium 100 mg/ml prefilled syringe (20 sources) Low Molecular Weight Heparin Start: 06-04-2016 End: 12-26-2017 Enoxaparin 30 MG/0.3 ML syringe Discontinued 30 mg SC DAILY@0600 8 0 June 10, 2016 8:01am December 26, 2017 11:47am 72 hr fentaNYL 0.05 mg/hr transdermal system (16 sources) Opioid Agonist Start: 06-10-2016 End: 12-26-2017 Fentanyl 50 MCG patch Discontinued 50 ug TRANSDERM. Every 3 Days 3 0 June 10, 2016 12:00am December 26, 2017 11:47am hydroxychloroquine sulfate 200 mg oral tablet (20 sources) Antirheumatic Agent Start: 01-22-2016 PLAQUENIL 200 MG TABS daily HYDROXYCHLOROQUINE SULFATE [id number] Tobias Monterroso Start: 02-09-2014 take 1 tablet by jayda twice daily at mealtime Hydroxychloroquine 200 MG tablet Active 200 mg PO TWICE DAILY WITH MEALS February 09, 2014 12:00am lisinopril 40 mg oral tablet (20 sources) Angiotensin Converting Enzyme Inhibitor Start: 01-22-2016 LISINOPRIL 40 MG TAB S daily LISINOPRIL [id number] Tobias Monterroso Start: 02-09-2014 take 2 tablets by [facility] once daily Lisinopril 20 MG tablet Active 40 mg PO DAILY February 09, 2014 12:00am Start: 02-09-2014 take 40 mg by mouth once daily Lisinopril Active 40 MG PO DAILY February 09, 2014 12:00am melatonin 10 mg extended release oral tablet (16 sources) Start: 09-03-2019 End: 02-26-2021 take 1 tablet by mouth at bedtime Melatonin 10 MG tablet Discontinued 10 mg PO AT BEDTIME September 03, 2019 1:00am February 26, 2021 2:58pm metroNIDAZOLE 500 mg oral tablet (16 sources) Nitroimidazole Antimicrobial Start: 09-03-2019 End: 02-26-2021 take 1 tablet by mouth twice daily Metronidazole 500 MG tablet Discontinued 500 mg PO TWICE A DAY 20 0 September 03, 2019 1:00am February 26, 2021 2:57pm miSOPROStol 0.2 mg oral tablet (6 sources) Prostaglandin E1 Analog Start: 05-23-2024 End: 09-11-2024 Misoprostol (Cytotec) 200 mcg tablet Discontinued 200 ug PO .complex 2 1 June 29, 2024 12:00am September 11, 2024 4:00pm take the night before and two hours prior to the procedure Morphine 15 MG tablet,oral only,ext.rel.12 hr (3 sources) Start: 09-03-2019 End: 05-17-2024 take 1 tablet by mouth twice daily Morphine 15 MG tablet,oral only,ext.rel.12 hr Discontinued 15 mg PO TWICE A DAY September 03, 2019 1:00am May 17, 2024 1:29pm Multivitamin With Folic Acid (13 sources) Start: 02-09-2014 End: 12-26-2017 take 1 tablet by mouth once daily Multivitamin With Folic Acid Discontinued 1 TABLET PO DAILY February 09, 2014 2:28pm December 26, 2017 11:48am Start: 02-09-2014 End: 12-26-2017 take 1 tablet by mouth once daily Multivitamin With Folic Acid Discontinued 1 TABLET PO DAILY February 08, 2014 11:00pm December 26, 2017 10:48am Start: 02-09-2014 End: 12-26-2017 take 1 tablet by mouth once daily Multivitamin With Folic Acid Discontinued 1 TABLET PO DAILY February 09, 2014 12:00am December 26, 2017 11:48am Multivitamin With Folic Acid 1 TABLET tablet (3 sources) Start: 02-09-2014 End: 12-26-2017 take 1 tablet by mouth once daily Multivitamin With Folic Acid 1 TABLET tablet Discontinued 1 {tbl} PO DAILY February 09, 2014 12:00am December 26, 2017 11:48am oseltamivir 75 mg oral capsule (16 sources) Neuraminidase Inhibitor Start: 12-26-2017 End: 12-31-2017 take 1 capsule by mouth every twelve hours Oseltamivir (Tamiflu) 75 mg capsule Discontinued 75 mg PO Q12H 10 5 0 December 26, 2017 12:00am December 30, 2017 12:00am December 31, 2017 12:07am tobramycin 3 mg/ml ophthalmic solution (14 sources) Aminoglycoside Antibacterial Start: 03-19-2022 End: 04-20-2022 take 0.3 drop(s) into the eye(s) every two hours Tobramycin 0.3 % drops Discontinued 1 NMA OPHTHALMIC Q2H 5 0 March 19, 2022 12:00am April 20, 2022 1:23pm to left eye while awake for 5 days 24 hr upadacitinib 15 mg extended release oral tablet (14 sources) Start: 04-20-2022 End: 05-17-2024 take 1 tablet by mouth once daily Upadacitinib (Rinvoq) 15 mg tablet extended release 24 hr Discontinued 15 mg PO DAILY April 20, 2022 12:00am May 17, 2024 1:29pm Vibegron (3 sources) Start: 05-23-2024 End: 06-29-2024 take 1 tablet by mouth every other day Vibegron (Gemtesa) 75 mg tablet Discontinued 75 mg PO .QOD May 23, 2024 12:00am June 29, 2024 1:42pm Problems Active Problems Problem Classification Problem Date Documented Da te Episodic/Chronic Abdominal pain (4 sources) Pain in pelvis; Translations: [Pelvic and perineal pain] Onset: 4 05-18-2024 Episodic Acute bronchitis (20 sources) Acute bronchitis; Translations: [Acute bronchitis, unspecified] 05-17-2018 Episodic Anxiety disorders (16 sources) Anxiety; Translations: [Anxiety disorder, unspecified] 09-03-2019 Chronic Diabetes mellitus without complication (20 sources) Diabetes mellitus; Translations: [Type 2 diabetes mellitus without complications] Onset: 4 01-26-2018 Chronic Disorders of lipid metabolism (1 source) Hyperlipidemia, unspecified; Translations: [Hyperlipidemia, unspecified] Onset: 4 Chronic Diverticulosis and diverticulitis (16 sources) Diverticular disease; Translations: [Diverticulosis of intestine, part unspecified, without perforation or abscess without bleeding] 09-03-2019 Chronic Essential hypertension (16 sources) Hypertensive disorder; Translations: [Essential (primary) hypertension] 09-03-2019 Chronic Gastrointestinal hemorrhage (20 sources) Lower gastrointestinal hemorrhage; Translations: [Gastrointestinal hemorrhage, unspecified] 09-11-2018 Episodic Immunizations and screening for infectious disease (18 sources) Contact with or exposure to other viral diseases; Translations: [Contact with or suspected exposure to severe acute respiratory syndrome coronavirus 2] Episodic Inflammation; infection of eye (except that caused by tuberculosis or sexually transmitteddisease) (18 sources) Acute conjunctivitis; Translations: [Unspecified acute conjunctivitis, left eye] Episodic Mood disorders (16 sources) Depressive disorder; Translations: [Depression] 01-26-2018 Chronic Noninfectious gastroenteritis (16 sources) Colitis; Translations: [Noninfective gastroenteritis and colitis, unspecified] 09-04-2019 Episodic Osteoarthritis (11 sources) Osteoarthritis of knee; Translations: [Localized, primary osteoarthritis] Onset: 6 06-29-2017 Chronic Other circulatory disease (16 sources) Pulmonary congestion ; Translations: [Other specified symptoms and signs involving the circulatory and respiratory systems] 05-17-2018 Episodic Other connective tissue disease (20 sources) History of total knee arthroplasty; Translations: [Presence of right artificial knee joint] 01-26-2018 Chronic Other connective tissue disease (4 sources) Presence of unspecified artificial knee joint; Translations: [Knee joint replacement] Chronic Other connective tissue disease (16 sources) Fibromyalgia; Translations: [Fibromyalgia] 09-03-2019 Episodic Other female genital disorders (5 sources) Simple endometrial glandular hyperplasia without atypia; Translations: [Benign endometrial hyperplasia] 09-11-2024 Chronic Comment on above: plan 3 months of cosme rudy and then repeat biopsy, cytotec ordered, may need ativan. stop megace if resolved Other female genital disorders (1 source) Benign endometrial hyperplasia; Translations: [Benign endometrial hyperplasia] Onset: 5 Chronic Other nutritional; endocrine; and metabolic disorders (16 sources) Body mass index 40+ - severely obese; Translations: [Morbid (severe) obesity due to excess calories] 01-26-2018 Chronic Other screening for suspected conditions (not mental disorders or infectious disease) (4 sources) Endometrium thickened; Translations: [Abnormal findings on diagnostic imaging of other specified body structures] Onset: 4 06-29-2024 Chronic Comment on above: PMB 3 yrs ago; no wo rk up completed at that time; Endometrial lining 15.4mm (04/26/24) US. recommend d and c hysterosocpy, cytotec preop Other screening for suspected conditions (not mental disorders or infectious disease) (4 sources) Cancer cervix screening status; Translations: [Encounter for screening for malignant neoplasm of cervix] Onset: 4 05-18-2024 Episodic Other upper respiratory infections (20 sources) Acute frontal sinusitis; Translations: [Acute frontal sinusitis, unspecified] Episodic Rheumatoid arthritis and related disease (19 sources) Rheumatoid arthritis; Translations: [Rheumatoid arthritis, unspecified] Onset: 5 Chronic Spondylosis; intervertebral disc disorders; other back problems (7 sources) Lumbosacral spondylosis with radiculopathy; Translations: [Spondylosis without myelopathy or radiculopathy, cervical region] Onset: 6 03-30-2016 Chronic Spondylosis; intervertebral disc disorders; other back problems (18 sources) Backache; Translations: [Chronic low back pain] Onset: 7 07-29-2017 Episodic Substance-related disorders (1 source) Opioid dependence, uncomplicated; Translations: [Opioid dependence, uncomplicated] Onset: 5 Chronic Thyroid disorders (1 source) Hypothyroidism, unspecified; Translations: [Hypothyroidism, unspecified] Onset: 4 Chronic Unclassified (6 sources) Postoperative physical examination; Translations: [Encounter for other specified surgical aftercare] Onset: 6 06-15-2016 Past or Other Problems Problem Classification Problem Date Documented Da te Episodic/Chronic Genitourinary symptoms and ill-defined conditions (1 source) Hematuria, unspecified; Translations: [Hematuria, unspecified] Onset: 10-28-2024 Episodic Other non-traumatic joint disorders (11 sources) Pain in left knee; Translations: [Knee pain] Onset: 01-22-2016 06-29-2017 Episodic Residual codes; unclassified (1 source) Asymptomatic menopausal state; Translations: [Asymptomatic menopausal state] Onset: 06-07-2024 Episodic Urinary tract infections (1 source) Urinary tract infection, site not specified; Translations: [Urinary tract infection, site not specified] Onset: 03-24-2024 Episodic Results Test Name Value Interpretation Reference Range Facility Anion gap in Serum or Plasma Ordered By: Brandon Romero on 03-05-2025 Anion gap [Moles/Vol] 10 mmol/L 5-15 [facility] BUN/creatinine ratioOrdered By: Brandon Romero on 03-05-2025 Urea nitrogen/Creatinine [Mass ratio] 10.7 mg/mg 10-20 [facility] Bilirubin, totalOrdered By: Brandon Romero on 03-05-2025 Bilirubin [Mass/Vol] 0.32 mg/dL 0.00-1.30 [facility] Calculated very low density lipoprotein (VLDL) cholesterol measurementOrdered By: Brandon Romero on 03-05-2025 Calculated very low density lipoprotein (VLDL) cholesterol measurement 19 mg/dL 5-40 [facility] Carbon dioxide, total [Moles /volume] in Central venous bloodOrdered By: Brandon Romero on 03-05-2025 CO2 [Moles/Vol] 26.3 mmol/L 21.0-32.0 [facility] Chloride assayOrdered By: Marcin Romero on 03-05-2025 Chloride [Moles/Vol] 103 mmol/L 98-108 [facility] Comprehensive Metabolic Prof ilon 03-05-2025 Albumin [Mass/Vol] 3.9 g/dL Normal 3.4-4.8 [facility] Comment on above: Performed By: #### L 500.4050, L100.0500, BTSPAT #### [facility] [address] [place], [address] Albumin/Globulin [Mass ratio] 1.4 {ratio} Normal 0.9-2.4 [facility] Comment on above: Performed By: #### L 500.4050, L100.0500, BTSPAT #### [facility] [address] [place], [address] ALK PHOS 60 U/L Normal 35-104 [facility] Comment on above: Performed By: #### L 500.4050, L100.0500, BTSPAT #### [facility] [address] [place], [address] ALT [Catalytic activity/Vol] 14 U/L Normal <=34 [facility] Comment on above: Performed By: #### L 500.4050, L100.0500, BTSPAT #### [facility] [address] [place], [address] AST [Catalytic activity/Vol] 16 U/L Normal <=31 [facility] Comment on above: Performed By: #### L 500.4050, L100.0500, BTSPAT #### [facility] [address] [place], [address] Bilirubin [Mass/Vol] 0.32 mg/dL Normal 0.00-1.30 [facility] Comment on above: Performed By: #### L 500.4050, L100.0500, BTSPAT #### [facility] [address] [place], [address] BUN/CRE 10.7 RATIO Normal 10-20 [facility] Comment on above: Performed By: #### L 500.4050, L100.0500, BTSPAT #### [facility] [address] [place], [address] Calcium [Mass/Vol] 8.9 mg/dL Normal 7.6-11.0 [facility] Comment on above: Performed By: #### L 500.4050, L100.0500, BTSPAT #### [facility] [address] [place], [address] Chloride [Moles/Vol] 103 mmol/L Normal 98-108 [facility] Comment on above: Performed By: #### L 500.4050, L100.0500, BTSPAT #### [facility] [address] [place], [address] CO2 [Moles/Vol] 26.3 mmol/L Normal 21.0-32.0 [facility] Comment on above: Performed By: #### L 500.4050, L100.0500, BTSPAT #### [facility] [address] [place], [address] Creatinine [Mass/Vol] 1.09 mg/dL Normal 0.70-1.20 [facility] Comment on above: Performed By: #### L 500.4050, L100.0500, BTSPAT #### [facility] [address] [place], [address] GAP 10 Normal 5-15 [facility] Comment on above: Performed By: #### L 500.4050, L100.0500, BTSPAT #### [facility] [address] [place], [address] GFR/1.73 sq M.predicted among non-blacks MDRD (S/P/Bld) [Vol rate/Area] 56 mL/min/{1.73_m2} Low >60 [facility] Comment on above: Result Comment: mL/m in/1.73m2 CKD-EPI Creatinine Equation (2020) Performed By: #### L 500.4050, L100.0500, BTSPAT #### [facility] [address] [place], [address] Globulin (S) [Mass/Vol] 2.7 g/dL Normal 2.2-4.2 [facility] Comment on above: Performed By: #### L 500.4050, L100.0500, BTSPAT #### [facility] [address] [place], [address] Glucose [Mass/Vol] 87 mg/dL Normal 70-99 [facility] Comment on above: Performed By: #### L 500.4050, L100.0500, BTSPAT #### [facility] [address] [place], [address] Potassium [Moles/Vol] 4.3 mmol/L Normal 3.3-5.1 [facility] Comment on above: Performed By: #### L 500.4050, L100.0500, BTSPAT #### [facility] [address] [place], [address] Sodium [Moles/Vol] 139 mmol/L Normal 133-145 [facility] Comment on above: Performed By: #### L 500.4050, L100.0500, BTSPAT #### [facility] [address] [place], [address] T PROT 6.5 g/dL Normal 5.9-8.4 [facility] Comment on above: Performed By: #### L 500.4050, L100.0500, BTSPAT #### [facility] [address] [place], [address] Urea nitrogen [Mass/Vol] 12 mg/dL Normal 4-19 [facility] Comment on above: Performed By: #### L 500.4050, L100.0500, BTSPAT #### [facility] [address] [place], [address] Glomerular filtration rate ( GFR) estimation/1.73 sq m using serum, plasma, or whole bOrdered By: Brandon Romero on 03-05-2025 GFR/1.73 sq M.predicted among non-blacks MDRD (S/P/Bld) [Vol rate/Area] 56 mL/min/{1.73_m2} Low >60 [facility] Comment on above: mL/min/1.73m2 CKD-EP I Creatinine Equation (2020) Hemoglobin A1con 03-05-2025 HbA1c (Bld) [Mass fraction] 5.4 % Normal <=5.6 [facility] Comment on above: Result Comment: Norm al < 5.7 % Prediabetic 5.7 - 6.4 % Diabetic >or= 6.5 % Please note range changes. Performed By: #### L 500.4050, L100.0500, BTSPAT #### [facility] [address] [place], [address] Hemoglobin A1c percentageOrd ered By: Brandon Romero on 03-05-2025 HbA1c (Bld) [Mass fraction] 5.4 % <5.7 [facility] Comment on above: Normal < 5.7 % Predi abetic 5.7 - 6.4 % Diabetic >or= 6.5 % Please note range changes. LDL calc ser/plasOrdered By: Brandon Romero on 03-05-2025 Cholesterol in LDL [Mass/Vol] 60 mg/dL [facility] Comment on above: Cvscaxhwum=259-980 m g/dL & Higher Mqao=752 mg/dL or greater Laboratory - Chemistry and C hemistry - challengeOrdered By: Brandon Romero on 03-05-2025 AST [Catalytic activity/Vol] 16 U/L <32 [facility] Lipid Profileon 03-05-2025 CHOL:HDL 2.82 Normal [facility] Comment on above: Performed By: #### L 500.4050, L100.0500, BTSPAT #### [facility] [address] [place], [address] Cholesterol [Mass/Vol] 123 mg/dL Normal <=200 [facility] Comment on above: Result Comment: Chol esterol level, Desirable <200 mg/dL Borderline high cholesterol 200-239 mg/dL High cholesterol >=240 mg/dL Recommendations of the NCEP Adult Treatment Panel for the following risk-cutoff thresholds for the [place] population. Performed By: #### L 500.4050, L100.0500, BTSPAT #### [facility] [address] [place], [address] Cholesterol in HDL [Mass/Vol] 44 mg/dL Normal [facility] Comment on above: Result Comment: [place] onal Cholesterol Education Program (NCEP) guidelines: <40 mg/dL: Low HDL-cholesterol (major risk factor for CHD) >= 60 mg/dL: High HDL-cholesterol (negative risk factor for CHD) HDL-cholesterol is affected by a number of factors, e.g. smoking, exercise, hormones, sex and age. Performed By: #### L 500.4050, L100.0500, BTSPAT #### [facility] [address] [place], [address] Cholesterol in LDL [Mass/Vol] 60 mg/dL Normal [facility] Comment on above: Result Comment: Bord vdycfx=192-817 mg/dL Higher Khlt=340 mg/dL or greater Performed By: #### L 500.4050, L100.0500, BTSPAT #### [facility] [address] [place], [address] Cholesterol in VLDL [Mass/Vol] 19 mg/dL Normal 5-40 [facility] Comment on above: Performed By: #### L 500.4050, L100.0500, BTSPAT #### [facility] [address] [place], [address] Triglyceride [Mass/Vol] 95 mg/dL Normal [facility] Comment on above: Result Comment: The drugs N-Acetylcysteine and Metamizole may falsely depress this assay. Normal range: <150 mg/dL Borderline High: 150-199 mg/dL High: 200-499 mg/dL Very High: >500 mg/dL Performed By: #### L 500.4050, L100.0500, BTSPAT #### [facility] [address] [place], [address] Potassium measurement (mass/ volume)Ordered By: Brandon Romero on 03-05-2025 Potassium (Unsp spec) [Mass/Vol] 4.3 mmol/L 3.3-5.1 [facility] Screening total cholesterol/ high density lipoprotein (HDL) cholesterol ratioOrdered By: Brandon Romero on 03-05-2025 Cholesterol.total/Cho lesterol in HDL [Mass ratio] 2.82 {ratio} [facility] Serum creatinine measurement (mass/volume)Ordered By: Brandon Romero on 03-05-2025 Creatinine [Mass/Vol] 1.09 mg/dL 0.70-1.20 [facility] Serum globulin measurementOr dered By: Brandon Romero on 03-05-2025 Globulin (S) [Mass/Vol] 2.7 g/dL 2.2-4.2 [facility] Serum glucose measurement (m ass/volume)Ordered By: Brandon Romero on 03-05-2025 Glucose [Mass/Vol] 87 mg/dL 70-99 [facility] Serum or plasma alanine copeland otransferase (ALT) measurementOrdered By: Brandon Romero on 03-05-2025 ALT [Catalytic activity/Vol] 14 U/L <35 [facility] Serum or plasma albumin suraj urement (mass/volume)Ordered By: Brandon Romero on 03-05-2025 Albumin [Mass/Vol] 3.9 g/dL 3.4-4.8 [facility] Serum or plasma albumin/glob ulin mass ratioOrdered By: Brandon Romero on 03-05-2025 Albumin/Globulin [Mass ratio] 1.4 {ratio} 0.9-2.4 [facility] Serum or plasma alkaline heath sphatase measurementOrdered By: Brandon Romero on 03-05-2025 ALP [Catalytic activity/Vol] 60 U/L 35-104 [facility] Serum or plasma calcium suraj urement (mass/volume)Ordered By: Brandon Romero on 03-05-2025 Calcium [Mass/Vol] 8.9 mg/dL 7.6-11.0 [facility] Serum or plasma cholesterol in HDL measurement (mass/volume)Ordered By: Brandon Romero on 03-05-2025 Cholesterol in HDL [Mass/Vol] 44 mg/dL >40 [facility] Comment on above: National Cholesterol Education Program (NCEP) guidelines:<40 mg/dL: Low HDL-cholesterol (major risk factor for CHD)>= 60 mg/dL: High HDL-cholesterol (negative risk factor for CHD)HDL-cholesterol is affected by a number of factors, e.g. smoking, exercise, hormones, sex and age. Serum or plasma cholesterol measurement (mass/volume)Ordered By: Brandon Romero on 03-05-2025 Cholesterol [Mass/Vol] 123 mg/dL <201 [facility] Comment on above: Cholesterol level, D esirable <200 mg/dLBorderline high cholesterol 200-239 mg/dLHigh cholesterol >=240 mg/dLRecommendations of the NCEP Adult Treatment Panel for the following risk-cutoff thresholds for the [place] population. Serum or plasma urea nitroge n measurement (mass/volume)Ordered By: Brandon Romero on 03-05-2025 Urea nitrogen [Mass/Vol] 12 mg/dL 4-19 [facility] Sodium levelOrdered By: Brandon Romero on 03-05-2025 Sodium [Moles/Vol] 139 mmol/L 133-145 [facility] TSH DL <= 0.005 mIU/L QnOrde red By: Brandon Romero on 03-05-2025 TSH Qn 0.934 uIU/mL 0.300-4.20 0 [facility] Thyroid Stim Hormone (TSH)on 03-05-2025 TSH 0.934 uIU/mL Normal 0.300-4.20 0 [facility] Comment on above: Performed By: #### L 500.4050, L100.0500, BTSPAT #### [facility] [address] [place], [address] Total proteinOrdered By: Concepcion Romero on 03-05-2025 Protein [Mass/Vol] 6.5 g/dL 5.9-8.4 [facility] Triglycerides measurementOrd ered By: Brandon Romero on 03-05-2025 Triglyceride [Mass/Vol] 95 mg/dL <199 [facility] Comment on above: The drugs N-Acetylcy steine and Metamizole may falsely depress this assay. Normal range: <150 mg/dLBorderline High: 150-199 mg/dLHigh: 200-499 mg/dLVery High: >500 mg/dL [facility] Misc.on 12-08-2024 [facility] Misc. COMMENT Normal . [facility] Comment on above: Order Comment: TSH,A 1C,FT4,CMP,FT3, LIPID-ROSALIA OTHER TESTS-ROSLYN CMP DUPLICATE Surgery Date: 06/13/24 Reason for Laboratory Test PRE-OP 20240613 No N N S Hysteroscopy,D C Symphion Performed By: #### L 500.4050, L100.0500, BTSPAT #### [facility] [address] [place], [place], [address] Amphetamine detection with 1 000 ng/mL as cutoffOrdered By: Kilo Grimm on 12-06-2024 Amphetamines Screen method >1000 ng/mL Ql (U) Negative < 200 ng/mL [facility] Amphetamines Screen method > 1000 ng/mL Ql (U)Ordered By: Kilo Grimm on 12-06-2024 Amphetamines Ql (U) Negative <1000 ng/mL [facility] Urine Barbiturates Screen Negative < 200 ng/mL [facility] Methadone, urineOrdered By: Kilo Grimm on 12-06-2024 Urine Methadone Screen Negative < 300 ng/mL [facility] No Panel InformationOrdered By: Kilo Grimm on 12-06-2024 Urine Buprenorphine Qualitative Negative < 200 ng/mL [facility] Urine Oxycodone Screen Positive < 100 ng/mL [facility] Comment on above: If confirmation test ing is needed, a separate order will be required to send out testing to the reference laboratory. Quantitative urine opiates m easurementOrdered By: Kilo Grimm on 12-06-2024 Opiates Ql (U) Positive < 300 ng/mL [facility] Comment on above: If confirmation test ing is needed, a separate order will be required to send out testing to the reference laboratory. Screening urine fentanyl mirza surementOrdered By: Kilo Grimm on 12-06-2024 fentaNYL Screen Ql (U) Negative [facility] Urine Drug Screen (VISTA)on 12-06-2024 AMPHETAMINES Negative Normal <1000 ng/mL [facility] Comment on above: Order Comment: TSH,A 1C,FT4,CMP,FT3, LIPID-ROSALIA OTHER TESTS-MARCANTHONY CMP DUPLICATE Surgery Date: 06/13/24 Reason for Laboratory Test PRE-OP 20240613 No N N S Hysteroscopy,D C Symphion Performed By: #### L 500.4050, L100.0500, BTSPAT #### [facility] [address] [place], [address] BARBITIURATES Negative Normal < 200 ng/mL [facility] Comment on above: Order Comment: TSH,A 1C,FT4,CMP,FT3, LIPID-ROSALIA OTHER TESTS-MARCANTHONY CMP DUPLICATE Surgery Date: 06/13/24 Reason for Laboratory Test PRE-OP 20240613 No N N S Hysteroscopy,D C Symphion Performed By: #### L 500.4050, L100.0500, BTSPAT #### [facility] [address] [place], [place], [id number] BENZODIAZIPINE Negative Normal < 200 ng/mL [facility] Comment on above: Order Comment: TSH,A 1C,FT4,CMP,FT3, LIPID-ROSALIA OTHER TESTS-MARCANTHONY CMP DUPLICATE Surgery Date: 06/13/24 Reason for Laboratory Test PRE-OP 20240613 No N N S Hysteroscopy,D C Symphion Performed By: #### L 500.4050, L100.0500, BTSPAT #### [facility] [address] [place], [address] BUP Ur Drug Scr Negative Normal < 200 ng/mL [facility] Comment on above: Order Comment: TSH,A 1C,FT4,CMP,FT3, LIPID-ROSALIA OTHER TESTS-MARCANTHONY CMP DUPLICATE Surgery Date: 06/13/24 Reason for Laboratory Test PRE-OP 20240613 No N N S Hysteroscopy,D C Symphion Performed By: #### L 500.4050, L100.0500, BTSPAT #### [facility] [address] [place], [place], [id number] COCAINE Negative Normal < 300 ng/mL [facility] Comment on above: Order Comment: TSH,A 1C,FT4,CMP,FT3, LIPID-ROSALIA OTHER TESTS-MARCANTHONY CMP DUPLICATE Surgery Date: 06/13/24 Reason for Laboratory Test PRE-OP 20240613 No N N S Hysteroscopy,D C Symphion Performed By: #### L 500.4050, L100.0500, BTSPAT #### [facility] [address] [place], [place], [id number] Fentanyl Negative Normal [facility] Comment on above: Order Comment: TSH,A 1C,FT4,CMP,FT3, LIPID-ROSALIA OTHER TESTS-MARCANTHONY CMP DUPLICATE Surgery Date: 06/13/24 Reason for Laboratory Test PRE-OP 20240613 No N N S Hysteroscopy,D C Symphion Performed By: #### L 500.4050, L100.0500, BTSPAT #### [facility] [address] [place], [place], [id number] METHADONE Negative Normal < 300 ng/mL [facility] Comment on above: Order Comment: TSH,A 1C,FT4,CMP,FT3, LIPID-ROSALIA OTHER TESTS-MARCANTHONY CMP DUPLICATE Surgery Date: 06/13/24 Reason for Laboratory Test PRE-OP 20240613 No N N S Hysteroscopy,D C Symphion Performed By: #### L 500.4050, L100.0500, BTSPAT #### [facility] [address] [place], [place], [id number] OPIATES Positive Normal < 300 ng/mL [facility] Comment on above: Order Comment: TSH,A 1C,FT4,CMP,FT3, LIPID-ROSALIA OTHER TESTS-MARCANTHONY CMP DUPLICATE Surgery Date: 06/13/24 Reason for Laboratory Test PRE-OP 20240613 No N N S Hysteroscopy,D C Symphion Result Comment: If c onfirmation testing is needed, a separate order will be required to send out testing to the reference laboratory. Performed By: #### L 500.4050, L100.0500, BTSPAT #### [facility] [address] [place], [place], [id number] OXYCODONE Positive Normal < 100 ng/mL [facility] Comment on above: Order Comment: TSH,A 1C,FT4,CMP,FT3, LIPID-ROSALIA OTHER TESTS-MARCANTHONY CMP DUPLICATE Surgery Date: 06/13/24 Reason for Laboratory Test PRE-OP 20240613 No N N S Hysteroscopy,D C Symphion Result Comment: If c onfirmation testing is needed, a separate order will be required to send out testing to the reference laboratory. Performed By: #### L 500.4050, L100.0500, BTSPAT #### [facility] [address] [place], [place], [id number] PCP Negative Normal < 25 ng/mL [facility] Comment on above: Order Comment: TSH,A 1C,FT4,CMP,FT3, LIPID-ROSALIA OTHER TESTS-MARCANTHONY CMP DUPLICATE Surgery Date: 06/13/24 Reason for Laboratory Test PRE-OP 20240613 No N N S Hysteroscopy,D C Symphion Performed By: #### L 500.4050, L100.0500, BTSPAT #### [facility] [address] [place], [place], [address] THC Negative Normal < 50 ng/mL [facility] Comment on above: Order Comment: TSH,A 1C,FT4,CMP,FT3, LIPID-ROSALIA OTHER TESTS-ROSLYN CMP DUPLICATE Surgery Date: 06/13/24 Reason for Laboratory Test PRE-OP 20240613 No N N S Hysteroscopy,D C Symphion Performed By: #### L 500.4050, L100.0500, BTSPAT #### [facility] [address] [place], [place], [id number] Urine benzodiazepine levelOr dered By: Kilo Grimm on 12-06-2024 Benzodiazepines Ql (U) Negative < 200 ng/mL [facility] Urine cocaine levelOrdered B y: Kilo Grimm on 12-06-2024 Cocaine Ql (U) Negative < 300 ng/mL [facility] Urine [id number] abinol (THC) measurementOrdered By: Kilo Grimm on 12-06-2024 Cannabinoids Screen Ql (U) Negative < 50 ng/mL [facility] Urine phencyclidine (PCP) de tectionOrdered By: Kilo Grimm on 12-06-2024 Phencyclidine Ql (U) Negative < 25 ng/mL [facility] fentaNYL Screen Ql (U)Ordere d By: Kilo Grimm on 12-06-2024 Urine Fentanyl Screen Negative [facility] Absolute lymphocyte countOrd ered By: Guadalupe Avila on 11-25-2024 Lymphocytes Auto (Unsp spec) [#/Vol] 1.83 10*3/uL 0.83-4.51 [facility] Absolute neutrophil countOrd ered By: Guadalupe Avila on 11-25-2024 Neutrophils (Bld) [#/Vol] 4.9 10*3/uL 2.0-7.7 [facility] Anion gap in Serum or Plasma Ordered By: Guadalupe Avila on 11-25-2024 Anion gap [Moles/Vol] 11 mmol/L -15 [facility] Automated lymphocyte count a s percentage of total leukocytesOrdered By: Guadalupecristo Avila on 11-25-2024 Lymphocytes/100 WBC Auto (Unsp spec) 24.5 % 19- [facility] BUN/creatinine ratioOrdered By: Guadalupecristo Avila on 11-25-2024 Urea nitrogen/Creatinine [Mass ratio] 14.5 mg/mg 10-20 [facility] Basophil percentageOrdered B y: Guadalupe Avila on 11-25-2024 Basophils/100 WBC (Bld) 0.5 % 0-1 [facility] Bilirubin, totalOrdered By: Guadalupecristo Avila on 11-25-2024 Bilirubin [Mass/Vol] 0.18 mg/dL Normal 0.00-1.30 [facility] Comment on above: Performed By: #### L 500.4050, L100.0500, BTSPAT #### [facility] [address] [place], [address] CBC W/Diff, Automatedon 10-29 Absolute Lymph 1.83 X10 3/uL Normal 0.83-4.51 [facility] Comment on above: Performed By: #### L 500.4050, L100.0500, BTSPAT #### [facility] [address] [place], [address] Absolute Neut 4.9 X10 3/uL Normal 2.0-7.7 [facility] Comment on above: Performed By: #### L 500.4050, L100.0500, BTSPAT #### [facility] [address] [place], [address] Basophils/100 WBC (Bld) 0.5 % Normal 0-1 [facility] Comment on above: Performed By: #### L 500.4050, L100.0500, BTSPAT #### [facility] [address] [place], [address] Eosinophils/100 WBC (Bld) 1.5 % Normal 0-5 [facility] Comment on above: Performed By: #### L 500.4050, L100.0500, BTSPAT #### [facility] [address] [place], [address] Erythrocyte distribution width (RBC) [Ratio] 13.7 % Normal 11.6-14.6 [facility] Comment on above: Performed By: #### L 500.4050, L100.0500, BTSPAT #### [facility] [address] [place], [address] Hematocrit (Bld) [Volume fraction] 39.4 % Normal 37-47 [facility] Comment on above: Performed By: #### L 500.4050, L100.0500, BTSPAT #### [facility] [address] [place], [address] Hemoglobin (Bld) [Mass/Vol] 12.6 g/dL Normal 12.0-15.0 [facility] Comment on above: Performed By: #### L 500.4050, L100.0500, BTSPAT #### [facility] [address] [place], [address] IG% 0.300 Normal 0.0-0.9 [facility] Comment on above: Result Comment: IG% - Immature Granulocytes (promyelocytes, myelocytes and metamyelocytes) > 1% indicates that a LEFT SHIFT is Present. Performed By: #### L 500.4050, L100.0500, BTSPAT #### [facility] [address] [place], [address] Lymphocytes/100 WBC (Bld) 24.5 % Normal 19-41 [facility] Comment on above: Performed By: #### L 500.4050, L100.0500, BTSPAT #### [facility] [address] [place], [address] MCH (RBC) [Entitic mass] 31.6 pg Normal 27.0-32.0 [facility] Comment on above: Performed By: #### L 500.4050, L100.0500, BTSPAT #### [facility] [address] [place], [address] MCHC (RBC) [Mass/Vol] 32.0 g/dL Normal 32-36 [facility] Comment on above: Performed By: #### L 500.4050, L100.0500, BTSPAT #### [facility] [address] [place], [address] MCV (RBC) [Entitic vol] 98.7 fL Normal 81-99 [facility] Comment on above: Performed By: #### L 500.4050, L100.0500, BTSPAT #### [facility] [address] [place], [address] Monocytes/100 WBC (Bld) 8.2 % Normal 0-10 [facility] Comment on above: Performed By: #### L 500.4050, L100.0500, BTSPAT #### [facility] [address] [place], [address] Neutrophils/100 WBC (Bld) 65.0 % Normal 47-70 [facility] Comment on above: Performed By: #### L 500.4050, L100.0500, BTSPAT #### [facility] [address] [place], [address] Nucleated RBC (Bld) [#/Vol] 0 10*3/uL Normal 0-5 [facility] Comment on above: Performed By: #### L 500.4050, L100.0500, BTSPAT #### [facility] [address] [place], [address] Platelet mean volume (Bld) [Entitic vol] 9.4 fL Normal 6.2-12.0 [facility] Comment on above: Performed By: #### L 500.4050, L100.0500, BTSPAT #### [facility] [address] [place], [address] Platelets (Bld) [#/Vol] 315 10*3/uL Normal 150-450 [facility] Comment on above: Performed By: #### L 500.4050, L100.0500, BTSPAT #### [facility] [address] [place], [address] RBC (Bld) [#/Vol] 3.99 10*6/uL Low 4.2-5.4 [facility] Comment on above: Performed By: #### L 500.4050, L100.0500, BTSPAT #### [facility] [address] [place], [address] RDW SD 50.7 fl High 35.1-43.9 [facility] Comment on above: Performed By: #### L 500.4050, L100.0500, BTSPAT #### [facility] [address] [place], [address] WBC (Bld) [#/Vol] 7.5 10*3/uL Normal 4.4-11.0 [facility] Comment on above: Performed By: #### L 500.4050, L100.0500, BTSPAT #### [facility] [address] [place], [address] Carbon dioxide, total [Moles /volume] in Central venous bloodOrdered By: Guadalupe Avila on 11-25-2024 CO2 [Moles/Vol] 22.8 mmol/L Normal 21.0-32.0 [facility] Comment on above: Performed By: #### L 500.4050, L100.0500, BTSPAT #### [facility] [address] [place], [address] Chloride assayOrdered By: Marcin Avila on 11-25-2024 Chloride [Moles/Vol] 105 mmol/L Normal 98-108 [facility] Comment on above: Performed By: #### L 500.4050, L100.0500, BTSPAT #### [facility] [address] [place], [address] Comprehensive Metabolic Prof ilon 11-25-2024 ALK PHOS 60 U/L Normal 35-104 [facility] Comment on above: Performed By: #### L 500.4050, L100.0500, BTSPAT #### [facility] [address] [place], [address] BUN/CRE 14.5 RATIO Normal 10-20 [facility] Comment on above: Performed By: #### L 500.4050, L100.0500, BTSPAT #### [facility] [address] [place], [address] GAP 11 Normal 5-15 [facility] Comment on above: Performed By: #### L 500.4050, L100.0500, BTSPAT #### [facility] [address] [place], [address] T PROT 6.6 g/dL Normal 5.9-8.4 [facility] Comment on above: Performed By: #### L 500.4050, L100.0500, BTSPAT #### [facility] [address] [place], [address] Comprehensive Metabolic Prof ilOrdered By: Guadalupe Avila on 11-25-2024 AST [Catalytic activity/Vol] 16 U/L Normal <=31 [facility] Comment on above: Performed By: #### L 500.4050, L100.0500, BTSPAT #### [facility] [address] [place], [address] GFR/1.73 sq M.predicted among non-blacks MDRD (S/P/Bld) [Vol rate/Area] 50 mL/min/{1.73_m2} Low >60 [facility] Comment on above: Result Comment: mL/m in/1.73m2 CKD-EPI Creatinine Equation (2020) Performed By: #### L 500.4050, L100.0500, BTSPAT #### [facility] [address] [place], [address] mL/min/1.73m2 CKD-EP I Creatinine Equation (2020) Eosinophil percentageOrdered By: Guadalupe Avila on 11-25-2024 Eosinophils/100 WBC (Bld) 1.5 % 0-5 [facility] Erythrocyte distribution wid th ratioOrdered By: Guadalupe Avila on 11-25-2024 Erythrocyte distribution width (RBC) [Ratio] 13.7 % 11.6-14.6 [facility] Erythrocyte distribution wid th standard deviationOrdered By: Guadalupe Avila on 11-25-2024 Erythrocyte distribution width (RBC) [Entitic vol] 50.7 fL High 35.1-43.9 [facility] Erythrocyte distribution width (RBC) [Ratio] 50.7 fl High 35.1-43.9 [facility] GFR/1.73 sq M.predicted que g non-blacks MDRD (S/P/Bld) [Vol rate/Area]Ordered By: Guadalupe Avila on 11-25-2024 Estimated GFR (MDRD) Non-Af Amer 50 Low >60 [facility] Comment on above: mL/min/1.73m2 CKD-EP I Creatinine Equation (2020) Hematocrit Auto (Bld) [Volum e fraction]Ordered By: Guadalupe Avila on 11-25-2024 Hematocrit (Bld) [Volume fraction] 39.4 % 37-47 [facility] Hemoglobin measurementOrdere d By: Guadalupe Avila on 11-25-2024 Hemoglobin (Bld) [Mass/Vol] 12.6 g/dL 12.0-15.0 [facility] Immature granulocytes/100 WB C Auto (Bld)Ordered By: Guadalupe Avila on 11-25-2024 Immature granulocytes/100 WBC (Bld) 0.300 % 0.0-0.9 [facility] Comment on above: IG% - Immature Granu locytes (promyelocytes, myelocytes and metamyelocytes) > 1% indicates that a LEFT SHIFT is Present. Lymphocytes Auto (Unsp spec) [#/Vol]Ordered By: Guadalupe Avila on 11-25-2024 Lymphocytes (Bld) [#/Vol] 1.83 10*3/uL 0.83-4.51 [facility] Lymphocytes/100 WBC Auto (Un sp spec)Ordered By: Guadalupe Avila on 11-25-2024 Lymphocytes/100 WBC (Bld) 24.5 % 19-41 [facility] MCV (mean corpuscular volume ) determinationOrdered By: Guadalupe Avila on 11-25-2024 MCV (RBC) [Entitic vol] 98.7 fL 81-99 [facility] Mean corpuscular hemoglobin (MCH) determinationOrdered By: Guadalupe Avila on 11-25-2024 MCH (RBC) [Entitic mass] 31.6 pg 27.0-32.0 [facility] Mean corpuscular hemoglobin concentration (MCHC) determinationOrdered By: Guadalupe Avila on 11-25-2024 MCHC (RBC) [Mass/Vol] 32.0 g/dL 32-36 [facility] Mean platelet volume determi nationOrdered By: Guadalupe Avila on 11-25-2024 Platelet mean volume (Bld) [Entitic vol] 9.4 fL 6.2-12.0 [facility] Monocyte percentageOrdered B y: Guadalupe Avila on 11-25-2024 Monocytes/100 WBC (Bld) 8.2 % 0-10 [facility] Neutrophil percentageOrdered By: Guadalupe Avila on 11-25-2024 Neutrophils/100 WBC (Bld) 65.0 % 47-70 [facility] Nucleated red blood cell per centageOrdered By: Guadalupe Avila on 11-25-2024 Nucleated RBC/100 WBC (Bld) [Ratio] 0 % 0-5 [facility] Platelet countOrdered By: Marcin Avila on 11-25-2024 Platelets (Bld) [#/Vol] 315 10*3/uL 150-450 [facility] Potassium measurement (mass/ volume)Ordered By: Guadalupe Avila on 11-25-2024 Potassium (Unsp spec) [Mass/Vol] 4.4 mmol/L 3.3-5.1 [facility] Potassium [Moles/Vol] 4.4 mmol/L Normal 3.3-5.1 [facility] Comment on above: Performed By: #### L 500.4050, L100.0500, BTSPAT #### [facility] [address] [place], [address] RBC Auto (Bld) [#/Vol]Ordere d By: Guadalupe Avila on 11-25-2024 RBC (Bld) [#/Vol] 3.99 10*6/uL Low 4.2-5.4 [facility] Serum creatinine measurement (mass/volume)Ordered By: Guadalupe Avila on 11-25-2024 Creatinine [Mass/Vol] 1.21 mg/dL High 0.70-1.20 [facility] Comment on above: Performed By: #### L 500.4050, L100.0500, BTSPAT #### [facility] [address] [place], [address] Serum globulin measurementOr dered By: Guadalupe Avila on 11-25-2024 Globulin (S) [Mass/Vol] 2.8 g/dL Normal 2.2-4.2 [facility] Comment on above: Performed By: #### L 500.4050, L100.0500, BTSPAT #### [facility] [address] [place], [address] Serum glucose measurement (m ass/volume)Ordered By: Guadalupe Avila on 11-25-2024 Glucose [Mass/Vol] 101 mg/dL High 70-99 [facility] Comment on above: Performed By: #### L 500.4050, L100.0500, BTSPAT #### [facility] [address] [place], [address] Serum or plasma alanine copeland otransferase (ALT) measurementOrdered By: Guadalupe Avila on 11-25-2024 ALT [Catalytic activity/Vol] 11 U/L Normal <=34 [facility] Comment on above: Performed By: #### L 500.4050, L100.0500, BTSPAT #### [facility] [address] [place], [address] Serum or plasma albumin suraj urement (mass/volume)Ordered By: Guadalupe Avila on 11-25-2024 Albumin [Mass/Vol] 3.9 g/dL Normal 3.4-4.8 [facility] Comment on above: Performed By: #### L 500.4050, L100.0500, BTSPAT #### [facility] [address] [place], [address] Serum or plasma albumin/glob ulin mass ratioOrdered By: Guadalupe Avila on 11-25-2024 Albumin/Globulin [Mass ratio] 1.4 {ratio} Normal 0.9-2.4 [facility] Comment on above: Performed By: #### L 500.4050, L100.0500, BTSPAT #### [facility] [address] [place], [address] Serum or plasma alkaline heath sphatase measurementOrdered By: Guadalupe Avila on 11-25-2024 ALP [Catalytic activity/Vol] 60 U/L 35-104 [facility] Serum or plasma calcium suraj urement (mass/volume)Ordered By: Guadalupe Avila on 11-25-2024 Calcium [Mass/Vol] 9.1 mg/dL Normal 7.6-11.0 [facility] Comment on above: Performed By: #### L 500.4050, L100.0500, BTSPAT #### [facility] [address] [place], [address] Serum or plasma urea nitroge n measurement (mass/volume)Ordered By: Guadalupe Avila on 11-25-2024 Urea nitrogen [Mass/Vol] 18 mg/dL Normal 4-19 [facility] Comment on above: Performed By: #### L 500.4050, L100.0500, BTSPAT #### [facility] [address] [place], [place], [address] Sodium levelOrdered By: Ramesh Avila on 11-25-2024 Sodium [Moles/Vol] 139 mmol/L Normal 133-145 [facility] Comment on above: Performed By: #### L 500.4050, L100.0500, BTSPAT #### [facility] [address] [place], [place], [address] Total proteinOrdered By: Aftab Avila on 11-25-2024 Protein [Mass/Vol] 6.6 g/dL 5.9-8.4 [facility] White blood cell (WBC) count Ordered By: Guadalupe Avila on 11-25-2024 WBC (Bld) [#/Vol] 7.5 10*3/uL 4.4-11.0 [facility] Powertrain Calibration Engineer Office Visit Reporton 09-11-2024 Powertrain Calibration Engineer Office Visit Report [facility]'s [address], [address] [place] [address] OFFICE VISIT Date of Service: 09/11/24 MR#: [id number] Acct: [id number] Name: TRE SHEPPARD Rep #: [id number] : 1960 Provider: Dr. Arcelia jane MD Age/Sex: 64/F Location: [facility] Status: Signed Intake Vital Signs 06/29/24 13:39 09/11/24 14:58 Height 5 ft 1 in 5 ft 1 in Weight: 189 lb 183 lb 2 oz BMI 35.6 34.6 BP 123/77 H 128/79 H Intake Visit Reasons: EMB Histology Supervisor Required: No Is patient in pain?: No Allergies diclofenac (From Voltaren) Allergy (Verified 06/29/24 13:41) Hives Penicillins Allergy (Verified 06/29/24 13:41) Rash tramadol HCl (From Ultracet) Allergy (Verified 06/29/24 13:41) Hives codeine Adverse Reaction (Verified 06/29/24 13:41) Nausea Medications ???Medication ???Instructions ???Recorded ???Confirmed ???Type hydroxychloroquine 200 mg tablet 200 mg PO BIDCM 02/09/14 09/11/24 History lisinopril 20 mg tablet 40 mg PO DAILY 02/09/14 09/11/24 History pravastatin 40 mg tablet 40 mg PO DAILY 02/09/14 09/11/24 History gabapentin 300 mg capsule 300 mg PO .Q6HR 05/27/16 09/11/24 History baclofen 10 mg tablet 10 mg PO BID 12/26/17 09/11/24 History levothyroxine 125 mcg tablet 125 mcg PO DAILY 12/26/17 09/11/24 History amitriptyline 25 mg tablet 25 mg PO QHS 04/20/22 09/11/24 History clindamycin HCl 300 mg capsule 300 mg PO TID PRN DENTAL PROCEDURES 04/20/22 09/11/24 History oxycodone 5 mg tablet 5 mg PO BID 04/20/22 09/11/24 History escitalopram oxalate 5 mg tablet 30 mg PO QDAY 05/17/24 09/11/24 History (Lexapro) morphine 15 mg tablet,extended 15 mg PO BID 05/17/24 09/11/24 History release semaglutide 0.25 mg or 0.5 mg (2 0.5 mg subcut QWEEK 05/17/24 09/11/24 History mg/3 mL) subcutaneous pen injector (Ozempic) amlodipine 5 mg tablet 5 mg PO DAILY 06/05/24 09/11/24 History megestrol 40 mg tablet 40 mg PO DAILY #30 tabs 06/29/24 09/11/24 Rx bupropion HCl 150 mg 24 hr tablet, 150 mg PO QAM 09/11/24 09/11/24 History extended release (Wellbutrin XL) Is last menstrual period known: No Post menopausal: Yes Patient : No : No PFSH PFSH Medical History Wears glasses History of steroid therapy Back pain History of hiatal hernia History of diverticulitis Gastric reflux Former smoker History of endometrial biopsy Acute bronchitis, unspecified Acute conjunctivitis, left eye Acute frontal sinusitis, unspecified Contact with and (suspected) exposure to covid-19 Acute frontal sinusitis, unspecified Hx of one miscarriage Thyroid disease Knee pain Diabetes Arthritis HTN (hypertension) Surgical History History of total knee replacement (TKR) Hx of hernia repair Hx of section History of hemorrhoidectomy Family History Grandmother CVA (cerebral vascular accident) Mother Renal failure Social History adopted: No household members: spouse number of children: 1 current occupational status: retired sexually active: No Smoking Status: Current some day smoker tobacco type: cigarettes alcohol intake: never substance use type: does not use caffeine: Yes Type: carbonated beverages and coffee eating out: 1-3 times/week during the past year weight has: decreased > 10 lbs what type of physical activity do you participate in: none seatbelt use: always do you feel safe at home: Yes History 4 Elective abortions Hx Para 1 Spontaneous abortions Hx # Term Pregnancies Ectopic pregnancies Hx # Pregnancies Multiple births # of living children 1 Past Pregnancies Del. Date Name GA/Weeks Outcome Route Bth Weight Gen Labor Lgth Anesthesia [facility] Provider FOB 01/08/01 Donn [facility] EMB Details: TRE SHEPPARD is a 64 year old who presents for endometrial hyperplasia treated with megace. she is here for repeat biopsy. ROS Const Constitutional: Denies fatigue, fever(s), headache(s), increased appetite, poor appetite, weight gain or weight loss Cardio Card: Denies chest pain Resp Resp: Denies cough or dyspnea GI GI: Reports as per HPI; Denies abdominal pain, constipation, nausea or vomiting : Reports as per HPI; Denies difficulty voiding, dysuria, nipple discharge, urinary frequency, urinary incontinence, urinary hesitancy, urinary urgency, vaginal discharge, vaginal dryness, vaginal odor or vaginal pruritus Skin Skin/Breast: Denies change in hair, breast mass, breast pain, breast skin changes or nipple discharge Exam Const (more content not included)... Normal [facility] Surgery Specimen Level Shital 09-11-2024 Surgery Specimen Level IV Patient Age/Sex Location Account Attending Physician TRE SHEPPARD 64/F LABSPEC [id number] Dr. Arcelia Newman MD Specimen: [id number] Received: 09/11/24 Status: SHERIN Cochran Num: [id number] Spec Type: ENDOM BX/C Carmen Dr: Dr. Arcelia Newman MD HEADER OPERATION: Endometrial biopsy PRE-OP DIAGNOSIS: Simple endometrial hyperplasia without atypia TISSUE SUBMITTED: Endometrial tissue MICROSCOPIC DIAGNOSIS Endometrium, biopsy: Scant fragments of benign endometrial epithelium and squamous epithelium. See comment. SJ.mr 09/13/2024 COMMENT Please make reference to previous specimen [id number] endometrial lesion, endometrial curettings with diagnosis of simple cystic endometrial hyperplasia without atypia. MICROSCOPIC DESCRIPTION Slides are reviewed. GROSS DESCRIPTION Received is one container labeled with the patient's name and not further designated. The specimen consists of a scant amount of soft tissue. The specimen is totally submitted for cell block preparation. SJ.mr 09/12/2024 TC:4 CPT:97221 Patient Age/Sex Location Account Attending Physician TRE SHEPPARD 64/F LABSPEC [id number] Dr. Arcelia Newman MD Signed (signature on file) Dr. Mustapha Meneses MD 09/13/24 1226 Normal [facility] Comment on above: Performed By: #### P SUIV #### [facility] [address] [place], [place], [address] Cerv Spine 2 or 3 Viewson Cerv Spine 2 or 3 Views [facility] Imaging Services [address] [place], [place] [address] Cerv Spine 2 or 3 Views MR#: [id number] Acct: [id number] Name: TRE SHEPPARD Rep #: [id number] : 1960 F 64 From: Saulo May MD PCP: Dr. Brandon Romero MD Status: [facility] CLI Study: Cerv Spine 2 or 3 Views Date of Exam: 09/07/24 Exam# [id number] Ordering Dr: Kilo Grimm MD [id number] STUDY: X-RAY - CERVICAL SPINE REASON FOR EXAM: Female, 64 years old. Neck pain. TECHNIQUE: 4 view(s) of the cervical spine were obtained. COMPARISON: None FINDINGS: Osteopenia. Normal anterior atlantoaxial articulation. Normal odontoid process. Reversal of the normal lordosis, likely positional. Diffuse mild uncovertebral and facet sclerosis. Intervertebral disc space narrowing at C4-5, C5-6 and C6-7. Osteophytes most marked at C5-6. Normal soft tissues. RAD/Cerv Spine 2 or 3 Views IMPRESSION: Reversal of the normal lordosis with mild lower cervical spondylosis. Electronically Signed: Saulo May MD at 16:23 EST Reading Location ID and State: [address] [place] [address] , Service support , CC: Dr. Kilo Grimm MD; Dr. Brandon Romero MD Higher Level Teaching Assistant: Signed Normal [facility] CT Abd/Pelvis W/WO Contrasto n 07-05-2024 CT Abd/Pelvis W/WO Contrast [facility] Imaging Services [address] [place] [address] CT Abd/Pelvis W/WO Contrast MR#: [id number] Acct: [id number] Name: TRE SHEPPARD Rep #: [id number] : 1960 F 64 From: Remy Stevens PCP: Dr. Brandon Romero MD Status: REG CLI Study: CT Abd/Pelvis W/WO Contrast Date of Exam: 02/20 Exam# [id number] Ordering Dr: Penelope De MD [id number] INDICATION: PELVIC PAIN EXAMINATION: CT ABDOMEN AND PELVIS WITH AND WITHOUT CONTRAST - CT Abdomen And Pelvis WO/W Contrast Injection TECHNIQUE: Helically acquired images were obtained of the abdomen and pelvis both before and after IV contrast. The protocol utilizes one or more of the following dose reduction techniques: automated exposure control, adjustment of mA and/or kV according to patient size,and/or use of iterative reconstruction technique. IV Contrast dosage and agent: 100 cc of Isovue-300 Oral contrast: None. RADIATION DOSAGE (If Supplied By Facility): CTDIvol = ( 21.67 ) mGy, DLP = ( 3307.04 ) mGycm COMPARISON: Prior study dated: 07/16/2017 FINDINGS: LOWER CHEST: Lung bases are clear. No cardiomegaly or pericardial effusion. LIVER: Homogeneous. No focal mass. GALLBLADDER AND BILIARY TREE: No calcified gallstones. No gallbladder distension or wall edema. Mild prominence of the common bile duct probably unchanged. PANCREAS: No focal cystic or solid mass. SPLEEN: Normal size without focal cystic or solid mass. ADRENAL GLANDS: No nodules. KIDNEYS AND URETERS: Normal renal size and position. No hydronephrosis. PERITONEUM: No ascites or free air. No other fluid collection. BOWEL: No evidence of acute appendicitis. Moderate size hiatal hernia. Number diverticulosis without evidence of acute diverticulitis. Nonspecific fluid-filled cecum and ascending colon. No focal inflammatory change. LYMPH NODES: No enlarged mesenteric or retroperitoneal lymph nodes. VESSELS: Aorta is non-dilated. URINARY BLADDER: Not well distended. REPRODUCTIVE ORGANS: No pelvic masses. ABDOMINAL WALL: Very small umbilical hernia containing fat. BONES: Sclerotic lesion in the vertebral body of L2 unchanged likely due to bone island. CT/CT Abd/Pelvis W/WO Contrast IMPRESSION: 1. Diverticulosis without evidence of acute diverticulitis. 2. Moderate size hiatal hernia. 3. Otherwise no focal acute inflammatory process. Electronically Signed: Remy Pardo MD at 13:42 EST , CC: Dr. Penelope De MD; Dr. Brandon Romero MD Higher Level Teaching Assistant: Signed Normal [facility] Powertrain Calibration Engineer Office Visit Reporton 06-29-2024 Powertrain Calibration Engineer Office Visit Report [facility] [address], [address] [place] [address] OFFICE VISIT Date of Service: 06/29/24 MR#: [id number] Acct: [id number] Name: TRE SHEPPARD Rep #: [id number] : 1960 Provider: Dr. Arcelia jane MD Age/Sex: 64/F Location: [facility] Status: Signed Intake Vital Signs 05/23/24 13:48 06/13/24 08:18 06/29/24 13:39 Height 5 ft 1 in 5 ft 1 in 5 ft 1 in Weight: 189 lb BMI 35.6 BP 123/77 H Intake Visit Reasons: 2 wk D C Symphion Histology Supervisor Required: No Is patient in pain?: No Allergies diclofenac (From Voltaren) Allergy (Verified 06/29/24 13:41) Hives Penicillins Allergy (Verified 06/29/24 13:41) Rash tramadol HCl (From Ultracet) Allergy (Verified 06/29/24 13:41) Hives codeine Adverse Reaction (Verified 06/29/24 13:41) Nausea Medications ???Medication ???Instructions ???Recorded ???Confirmed ???Type hydroxychloroquine 200 mg tablet 200 mg PO BIDCM 02/09/14 06/05/24 History lisinopril 20 mg tablet 40 mg PO DAILY 02/09/14 06/05/24 History pravastatin 40 mg tablet 40 mg PO DAILY 02/09/14 06/05/24 History gabapentin 300 mg capsule 300 mg PO .Q6HR 05/27/16 06/13/24 History baclofen 10 mg tablet 10 mg PO BID 12/26/17 06/05/24 History levothyroxine 125 mcg tablet 125 mcg PO DAILY 12/26/17 06/13/24 History amitriptyline 25 mg tablet 25 mg PO QHS 04/20/22 06/05/24 History clindamycin HCl 300 mg capsule 300 mg PO TID PRN DENTAL PROCEDURES 04/20/22 06/05/24 History oxycodone 5 mg tablet 5 mg PO BID 04/20/22 06/05/24 History escitalopram oxalate 5 mg tablet 30 mg PO QDAY 05/17/24 06/05/24 History (Lexapro) morphine 15 mg tablet,extended 15 mg PO BID 05/17/24 06/13/24 History release semaglutide 0.25 mg or 0.5 mg (2 0.5 mg subcut QWEEK 05/17/24 06/05/24 History mg/3 mL) subcutaneous pen injector (Ozempic) misoprostol 200 mcg tablet 200 mcg PO .complex #2 tabs 05/23/24 06/05/24 Rx (Cytotec) amlodipine 5 mg tablet 5 mg PO DAILY 06/05/24 06/05/24 History megestrol 40 mg tablet 40 mg PO DAILY #30 tabs 06/29/24 06/29/24 Rx misoprostol 200 mcg tablet 200 mcg PO .complex #2 tabs 06/29/24 06/29/24 Rx (Cytotec) Is last menstrual period known: No Post menopausal: Yes Patient : No : No PFSH Medical History Wears glasses History of steroid therapy Back pain History of hiatal hernia History of diverticulitis Gastric reflux Former smoker History of endometrial biopsy Acute bronchitis, unspecified Acute conjunctivitis, left eye Acute frontal sinusitis, unspecified Contact with and (suspected) exposure to covid-19 Acute frontal sinusitis, unspecified Hx of one miscarriage Thyroid disease Knee pain Diabetes Arthritis HTN (hypertension) Surgical History History of total knee replacement (TKR) Hx of hernia repair Hx of section History of hemorrhoidectomy Family History Grandmother CVA (cerebral vascular accident) Mother Renal failure Social History adopted: No household members: spouse number of children: 1 current occupational status: retired sexually active: No Smoking Status: Current some day smoker tobacco type: cigarettes alcohol intake: never substance use type: does not use caffeine: Yes Type: carbonated beverages and coffee eating out: 1-3 times/week during the past year weight has: decreased > 10 lbs what type of physical activity do you participate in: none seatbelt use: always do you feel safe at home: Yes HPI 2 wk D C Symphion Details: TRE SHEPPARD is a 64 year old who presents for postop visit. doing well no complaints no bleeding or cramping. n ofevers. History 4 Elective abortions Hx Para 1 Spontaneous abortions Hx # Term Pregnancies Ectopic pregnancies Hx # Pregnancies Multiple births # of living children 1 Past Pregnancies Del. Date Name GA/Weeks Outcome Route Bth Weight Infant Gen Labor Lgth Anesthesia Del Locatn Provider FOB 01/08/01 Donn Linares Constitutional: Denies fatigue, fever(s), headache(s), increased appetite, poor appetite, weight gain or weight loss GI GI: Reports as per HPI; Denies abdominal pain, constipation, nausea or vomiting : Reports as per HPI; Denies difficulty voiding, dysuria, hematuria, pelvic pain, urinary frequency, urinary incontinence, urinary hesitancy, urinary urgency, vaginal discharge, vaginal dryness, vaginal odor, vaginal pruritus or other Exam Const General: cooperative, healthy appearing, comfortable, no acute distress and we (more content not included)... Normal [facility] Bedside Glucoseon 06-13-2024 FINGERSTICK GLU 105 mg/dL Normal 74-106 [facility] Comment on above: Result Comment: SYL DUNCAN OF PATIENT CARE PER NURSING PROTOCOL Performed By: #### L 501.32499, L501.9520, L506.0400 #### [facility] [address] [place], [address] Discharge Instructionon 05-30 Discharge Instruction [facility] Medical Records Department [address] [facility] [place] [address] Instructions for Home/Discharge Instructions 06/13/24 0911 MR#: [id number] Acct: [id number] Name: TRE SHEPPARD Rep #: [id number] : 1960 64 From: Arcelia Newman MD PCP: Dr. Brandon Romero MD Status:DEP [facility] Discharge Instructions Diet Discharge Diet: No restrictions Activity Discharge Activity: Return to Normal Activity, May Shower and May Take a Tub Bath (after 1 week) May resume sexual activity in: 1-2 weeks Weight Bearing Status: Weight bearing as tolerated Lifting Restrictions: none Dressing / Incision Call your doctor if you observe: Fever of 101 or Higher, Using more than 1 pad per hour, Shortness of breath and Uncontrolled pain Follow Up Care Please Follow Up With: Arcelia Newman MD When: Call [phone] to schedule appointment. Test Results: Test results from this visit will be discussed in further detail at your follow-up appointment, if applicable. Discharge Plan Admission Attending Provider: Arcelia Newman Primary Care Provider: Brandon Romero Instructions Print Language: Mongolian Discharge Orders/Prescriptions Prescriptions: No Action baclofen 10 mg tablet 10 mg PO BID amitriptyline 25 mg tablet 25 mg PO QHS oxycodone 5 mg tablet 5 mg PO BID Patient Comments: TAKE 1 TABLET BY MOUTH 2CTIMES A DAY clindamycin HCl 300 mg capsule 300 mg PO TID PRN (Reason: DENTAL PROCEDURES) morphine 15 mg tablet extended release 15 mg PO BID Ozempic 0.25 mg or 0.5 mg (2 mg/3 mL) pen injector 0.5 mg subcut QWEEK Patient Comments: PT DIABETIC-LAST DOSE 06/05/2024 escitalopram oxalate [Lexapro] 5 mg tablet 30 mg PO QDAY Gemtesa 75 mg tablet 75 mg PO .QOD misoprostol [Cytotec] 200 mcg tablet 200 mcg PO .complex Qty: 2 1RF Rx Instructions: take the night before and two hours prior to the procedure pravastatin 40 MG tablet 40 mg PO DAILY Patient Comments: treat high cholesterol and triglyceride levels. lisinopril 20 MG tablet 40 mg PO DAILY Patient Comments: treat high blood pressure hydroxychloroquine 200 MG tablet 200 mg PO BIDCM Patient Comments: treat arthritis levothyroxine 125 mcg tablet 125 mcg PO DAILY Patient Comments: treat hypothyroidism gabapentin 300 MG capsule 300 mg PO .Q6HR Patient Comments: treat persistant pain and muscle pain amlodipine 5 mg tablet 5 mg PO DAILY Referrals / Follow Up: Brandon Romero MD [Primary Care Provider] - Disposition Disposition (needs filled in before D/C Order can be placed): Home, Self Care 06/13/24 9305 Arcelia Newman MD CC: Dr. Brandon Romero MD Signed Normal [facility] Frozen Section (charge)on Frozen Section (charge) Patient Age/Sex Location Account Attending Physician TRE SHEPPARD/F [facility] [id number] Dr. Arcelia Newman MD Specimen: [id number] Received: 06/13/24 Status: SHERIN Cochran Num: [id number] Spec Type: UTERINE CO Subm Dr: Dr. Arcelia Newman MD HEADER OPERATION: Hysteroscopy, D C, polyp PRE-OP DIAGNOSIS: Endometrial thickening on ultrasound TISSUE SUBMITTED: Endometrial lesion FROZEN SECTION DIAGNOSIS Endometrial lesion, biopsy and curettings: Simple cystic endometrial hyperplasia. Final pending permanent sections. 06/13/2024 MICROSCOPIC DIAGNOSIS Endometrial lesion, endometrial curettings: Simple cystic endometrial hyperplasia without atypia. See comment. Manuel 06/14/2024 COMMENT Many of the cystically dilated endometrial glands also show focal calcifications. Clinical correlation and appropriate follow up are necessary. MICROSCOPIC DESCRIPTION Slides are reviewed. GROSS DESCRIPTION Received fresh for frozen section diagnosis labeled with the patient's name is a specimen designated Endometrial lesion. The specimen consists of multiple fragments of nunes-pink soft tissue measuring in aggregate 3.0 x 3.0 x 0.5cm. The entire specimen is submitted in two cassettes for frozen section diagnosis. 06/13/2024 TC:5 CPT:44439,85990,90661 Patient Age/Sex Location Account Attending Physician TRE SHEPPARD 64/F [facility] [id number] Dr. Arcelia Newman MD Signed (signature on file) Dr. Mustapha Meneses MD 06/14/24 1044 Normal [facility] Comment on above: Performed By: #### P FSC #### [facility] [address] [facility] [place], [place], [id number] MR/POSTOP.Karsten 06-13-2024 MR/POSTOP.[facility] Medical Records Department [address] [place] [address] Anesthesia Postop Eval I 06/13/24 1020 MR#: [id number] Acct: [id number] Name: TRE SHEPPARD Rep #: [id number] : 1960 64 From: Gabe May CRNA PCP: Dr. Brandon Romero MD Status:[facility] Y Race: C Location: [place] [address] Anesthesia: Postop Eval I Current Vital Signs Temperature: 97.1 F Pulse Rate: 62 Blood Pressure: 135/65 Respiratory Rate: 16 Pulse Ox: 98 Oxygen Delivery Method: Room Air Assessment Airway patent: Yes Spontaneous unlabored respirations: Yes Mental status: Awake and Calm nausea: No Vomiting: No Anesthesia Complication: No Fluid Hydration Crystalloid volume administer (ml): 50 Total IV fluid infused: 50 Progress Note Anesthesia document: Postop Eval 1 completed: Yes 06/13/24 1020 Date Gabe May TRACTOR DRIVER TEAMSTER Cosigner Signature: Date CC: Signed Normal [facility] MR/[id number] 06-13-2024 MR/POSTOPAN2 [facility] Medical Records Department [address] [place] [address] Anesthesia Postop Eval II 06/13/24 1652 MR#: [id number] Acct: [id number] Name: TRE SHEPPARD Rep #: [id number] : 1960 64 From: Mikael Maria MD PCP: Dr. Brandon Romero MD Status:[facility] Y Race: C Location: [facility] Anesthesia Postop Eval I Sum Postop Eval Completion status Anesthesia document: Postop Eval 1 completed: Yes Anesthesia Postop Eval I Summary Anesthesia Postop Eval I Summary: Anesthesia Postop Eval I: Assessment Summary Airway patent Yes 06/13/24 10:20 TRACTOR DRIVER [email or web address] Spontaneous unlabored Yes 06/13/24 10:20 TRACTOR DRIVER [email or web address] respirations Mental status Awake,Calm 06/13/24 10:20 TRACTOR DRIVER [email or web address] nausea No 06/13/24 10:20 TRACTOR DRIVER [email or web address].[email or web address] Vomiting No 06/13/24 10:20 TRACTOR DRIVER [email or web address].[email or web address] Anesthesia Postop Eval I: Fluid Summary Crystalloid volume administer 50 06/13/24 10:20 TRACTOR DRIVER [email or web address] (ml) Colloids volume administered ( ml) Blood Product volume administered (ml) Total IV fluid infused 50 06/13/24 10:20 TRACTOR DRIVER [email or web address] Anesthesia Postop Eval I: Summary Notes Anesthesia Complication No 06/13/24 10:20 TRACTOR DRIVER [email or web address].[email or web address] Anesthesia Complication Comment: Post-operative progress note Anesthesia: Postop Eval II Evaluation Mental status: Awake and Calm Pain Level: 1 nausea: No Vomiting: No Complications Anesthesia Complication: No 06/13/24 1653 Date Mikael Maria MD Cosigner Signature: Date CC: Signed Normal [facility] Operative Reporton [address] [facility] Medical Records Department [address] [place] [address] Operative Report 06/13/24 0911 MR#: [id number] Acct: [id number] Name: TRE SHEPPARD Rep #: [id number] : 1960 64 From: Arcelia Newman MD PCP: Dr. Brandon Romero MD Status:[facility] Location: [facility] Problems Associated Problem List Diagnoses (1) Endometrial thickening on ultrasound: Report of Operation Date of Procedure: 06/13/24 Pre-Operative Diagnosis: see problem list Post-Operative Diagnosis: same Surgery/Procedure Performed:: D C hysteroscopy symphion polypectomy Description of Surgical Findings:: anterior uterine wall mass Surgeon: Arcelia Newman overedge machine operator: None Type of Anesthesia: Local MAC Special Medications: none Specimen's removed: EMC Drains: none Estimated Blood Loss (mL): 50 Fluids Replaced: crystalloid Description of Procedure: Patient was prepped and draped in a normal sterile fashion under MAC anesthesia. A weighted speculum was placed in the vagina and the anterior lip of the cervix was grasped with a single-tooth tenaculum. A paracervical block was placed with 1% lidocaine. Cervix was progressively dilated to allow passage of a 5 mm hysteroscope. The lining was fully visualized and noted to have a thick polyp . Uterine sounded to 10 cm. Curettage was performed and unable to remove the lesion, therefore the symphion scope was used and the entire lining of the uterus was visualized and the polypoid mass was progressively remove dand noted to involve the entire anterior wall of the uterus. tissue was removed , sent to pathology. All instruments were removed from the vagina and excellent hemostasis was noted. Patient was awoken and taken to recovery in stable condition. Grafts/Implants Used: none Procedure Start Time: 09:28 Procedure Stop Time: 09:56 Complications none Admit VTE Documentation VTE Present on Admission: No VTE Mechan Device Prophylaxis: SCD's Multi Select Codes Urinary/Genital Urinary/Genital CPT Codes: 28844 Hysteroscopy,EMC, Polypectomy 06/13/24 1409 Cosigner Signature (if applicable): CC: Dr. Brandon Romero MD; Dr. Arcelia Newman MD Signed Normal [facility] 12 Lead EKGon 06-12-2024 12 Lead EKG [facility] Cardiovascular Services [address] [place] [address] 12 Lead EKG 06/12/24 0851 MR#: [id number] Acct: [id number] Name: TRE SHEPPARD Rep #: [id number] : 1960 64 From: Tobias Estes MD Attending Dr: Dr. Arcelia Newman MD Status: PRE [facility] Ordering Dr: Arcelia Newman MD Date: 06/12/24 Location: [facility] Sex: F C Admitted: Test Reason : PRE OP Blood Pressure : / mmHG Vent. Rate : 087 BPM Atrial Rate : 087 BPM P-R Int : 144 ms QRS Dur : 084 ms QT Int : 382 ms P-R-T Axes : 054 -33 031 degrees QTc Int : 459 ms Normal sinus rhythm Left axis deviation Abnormal ECG Confirmed by Tobias Estes ([id number]), news video editor NATHALIA VALENCIA ([id number]) on 06/12/2024 1:30:38 PM Referred By: Arcelia Newman Confirmed By:Tobias Estes 06/12/24 1330 Date Tobias Estes MD CC: Dr. Brandon Romero MD; Dr. Arcelia Newman MD Signed Normal [facility] CBC-Complete Blood Cnt No Di ffon 06-12-2024 Erythrocyte distribution width (RBC) [Ratio] 13.8 % Normal 11.6-14.6 [facility] Comment on above: Order Comment: TSH,A 1C,FT4,CMP,FT3, LIPID-ROSALIA OTHER TESTS-MARCANTHONY CMP DUPLICATE Performed By: #### L 500.4050, L100.0500, BTSPAT #### [facility] [address] [place], [address] Hematocrit (Bld) [Volume fraction] 43.0 % Normal 37-47 [facility] Comment on above: Order Comment: TSH,A 1C,FT4,CMP,FT3, LIPID-ROSALIA OTHER TESTS-MARCANTHONY CMP DUPLICATE Performed By: #### L 500.4050, L100.0500, BTSPAT #### [facility] [address] [place], [address] Hemoglobin (Bld) [Mass/Vol] 13.7 g/dL Normal 12.0-15.0 [facility] Comment on above: Order Comment: TSH,A 1C,FT4,CMP,FT3, LIPID-ROSALIA OTHER TESTS-MARCANTHONY CMP DUPLICATE Performed By: #### L 500.4050, L100.0500, BTSPAT #### [facility] [address] [place], [address] MCH (RBC) [Entitic mass] 31.2 pg Normal 27.0-32.0 [facility] Comment on above: Order Comment: TSH,A 1C,FT4,CMP,FT3, LIPID-ROSALIA OTHER TESTS-MARCANTHONY CMP DUPLICATE Performed By: #### L 500.4050, L100.0500, BTSPAT #### [facility] [address] [place], [address] MCHC (RBC) [Mass/Vol] 31.9 g/dL Low 32-36 [facility] Comment on above: Order Comment: TSH,A 1C,FT4,CMP,FT3, LIPID-ROSALIA OTHER TESTS-MARCANTHONY CMP DUPLICATE Performed By: #### L 500.4050, L100.0500, BTSPAT #### [facility] [address] [place], [address] MCV (RBC) [Entitic vol] 97.9 fL Normal 81-99 [facility] Comment on above: Order Comment: TSH,A 1C,FT4,CMP,FT3, LIPID-ROSALIA OTHER TESTS-MARCANTHONY CMP DUPLICATE Performed By: #### L 500.4050, L100.0500, BTSPAT #### [facility] [address] [place], [address] Platelet mean volume (Bld) [Entitic vol] 10.0 fL Normal 6.2-12.0 [facility] Comment on above: Order Comment: TSH,A 1C,FT4,CMP,FT3, LIPID-ROSALIA OTHER TESTS-MARCANTHONY CMP DUPLICATE Performed By: #### L 500.4050, L100.0500, BTSPAT #### [facility] [address] [place], [address] Platelets (Bld) [#/Vol] 342 10*3/uL Normal 150-450 [facility] Comment on above: Order Comment: TSH,A 1C,FT4,CMP,FT3, LIPID-ROSALIA OTHER TESTS-MARCANTHONY CMP DUPLICATE Performed By: #### L 500.4050, L100.0500, BTSPAT #### [facility] [address] [place], [address] RBC (Bld) [#/Vol] 4.39 10*6/uL Normal 4.2-5.4 [facility] Comment on above: Order Comment: TSH,A 1C,FT4,CMP,FT3, LIPID-ROSALIA OTHER TESTS-MARCANTHONY CMP DUPLICATE Performed By: #### L 500.4050, L100.0500, BTSPAT #### [facility] [address] [place], [address] RDW SD 50.5 fl High 35.1-43.9 [facility] Comment on above: Order Comment: TSH,A 1C,FT4,CMP,FT3, LIPID-ROSALIA OTHER TESTS-MARCANTHONY CMP DUPLICATE Performed By: #### L 500.4050, L100.0500, BTSPAT #### [facility] [address] [place], [address] WBC (Bld) [#/Vol] 7.3 10*3/uL Normal 4.4-11.0 [facility] Comment on above: Order Comment: TSH,A 1C,FT4,CMP,FT3, LIPID-ROSALIA OTHER TESTS-MARCANTHONY CMP DUPLICATE Performed By: #### L 500.4050, L100.0500, BTSPAT #### [facility] [address] [place], [address] Comprehensive Metabolic Prof ilon 06-12-2024 Albumin [Mass/Vol] 3.6 g/dL Normal 3.2-5.0 [facility] Comment on above: Order Comment: TSH,A 1C,FT4,CMP,FT3, LIPID-ROSALIA OTHER TESTS-MARCANTHONY CMP DUPLICATE Performed By: #### L 500.4050, L100.0500, BTSPAT #### [facility] [address] [place], [address] Albumin/Globulin [Mass ratio] 1.0 {ratio} Normal 0.9-2.4 [facility] Comment on above: Order Comment: TSH,A 1C,FT4,CMP,FT3, LIPID-ROSALIA OTHER TESTS-MARCANTHONY CMP DUPLICATE Performed By: #### L 500.4050, L100.0500, BTSPAT #### [facility] [address] [place], [address] ALK P 56 U/L Normal 45-117 [facility] Comment on above: Order Comment: TSH,A 1C,FT4,CMP,FT3, LIPID-ROSALIA OTHER TESTS-MARCANTHONY CMP DUPLICATE Performed By: #### L 500.4050, L100.0500, BTSPAT #### [facility] [address] [place], [address] ALT [Catalytic activity/Vol] 13 U/L Normal 13-56 [facility] Comment on above: Order Comment: TSH,A 1C,FT4,CMP,FT3, LIPID-ROSALIA OTHER TESTS-MARCANTHONY CMP DUPLICATE Performed By: #### L 500.4050, L100.0500, BTSPAT #### [facility] [address] [place], [address] AST [Catalytic activity/Vol] 11 U/L Low 15-37 [facility] Comment on above: Order Comment: TSH,A 1C,FT4,CMP,FT3, LIPID-ROSALIA OTHER TESTS-MARCANTHONY CMP DUPLICATE Performed By: #### L 500.4050, L100.0500, BTSPAT #### [facility] [address] [place], [address] Bilirubin [Mass/Vol] 0.40 mg/dL Normal 0.20-1.00 [facility] Comment on above: Order Comment: TSH,A 1C,FT4,CMP,FT3, LIPID-ROSALIA OTHER TESTS-MARCANTHONY CMP DUPLICATE Result Comment: For patients on eltrombopag therapy, use of Dimension [place] TBIL is not recommended. Performed By: #### L 500.4050, L100.0500, BTSPAT #### [facility] [address] [place], [address] BUN/CRE 8.9 RATIO Low 10-20 [facility] Comment on above: Order Comment: TSH,A 1C,FT4,CMP,FT3, LIPID-ROSALIA OTHER TESTS-MARCANTHONY CMP DUPLICATE Performed By: #### L 500.4050, L100.0500, BTSPAT #### [facility] [address] [place], [address] CA,Total 9.3 mg/dL Normal 8.5-10.1 [facility] Comment on above: Order Comment: TSH,A 1C,FT4,CMP,FT3, LIPID-ROSALIA OTHER TESTS-MARCANTHONY CMP DUPLICATE Performed By: #### L 500.4050, L100.0500, BTSPAT #### [facility] [address] [place], [address] Chloride [Moles/Vol] 106 mmol/L Normal 98-107 [facility] Comment on above: Order Comment: TSH,A 1C,FT4,CMP,FT3, LIPID-ROSALIA OTHER TESTS-MARCANTHONY CMP DUPLICATE Performed By: #### L 500.4050, L100.0500, BTSPAT #### [facility] [address] [place], [address] CO2 [Moles/Vol] 29.0 mmol/L Normal 21.0-32.0 [facility] Comment on above: Order Comment: TSH,A 1C,FT4,CMP,FT3, LIPID-ROSALIA OTHER TESTS-MARCANTHONY CMP DUPLICATE Performed By: #### L 500.4050, L100.0500, BTSPAT #### [facility] [address] [place], [address] Creatinine [Mass/Vol] 1.01 mg/dL Normal 0.55-1.02 [facility] Comment on above: Order Comment: TSH,A 1C,FT4,CMP,FT3, LIPID-ROSALIA OTHER TESTS-MARCANTHONY CMP DUPLICATE Result Comment: The validity of the calculated GFR GFRAA in patients over 70 years has not been determined. Clinical correlation is essential. Performed By: #### L 500.4050, L100.0500, BTSPAT #### [facility] [address] [place], [address] EST GFR - AA 71 mL/min Normal >60 [facility] Comment on above: Order Comment: TSH,A 1C,FT4,CMP,FT3, LIPID-ROSALIA OTHER TESTS-MARCANTHONY CMP DUPLICATE Result Comment: Afri can [facility] GFR Calc Performed By: #### L 500.4050, L100.0500, BTSPAT #### [facility] [address] [place], [address] GAP 5 Normal 5-15 [facility] Comment on above: Order Comment: TSH,A 1C,FT4,CMP,FT3, LIPID-ROSALIA OTHER TESTS-MARCANTHONY CMP DUPLICATE Performed By: #### L 500.4050, L100.0500, BTSPAT #### [facility] [address] [place], [address] GFR/1.73 sq M.predicted among non-blacks MDRD (S/P/Bld) [Vol rate/Area] 58 mL/min/{1.73_m2} Low >60 [facility] Comment on above: Order Comment: TSH,A 1C,FT4,CMP,FT3, LIPID-ROSALIA OTHER TESTS-MARCANTHONY CMP DUPLICATE Result Comment: Non- GFR Calc Performed By: #### L 500.4050, L100.0500, BTSPAT #### [facility] [address] [place], [address] Globulin (S) [Mass/Vol] 3.6 g/dL Normal 2.2-4.2 [facility] Comment on above: Order Comment: TSH,A 1C,FT4,CMP,FT3, LIPID-ROSALIA OTHER TESTS-MARCANTHONY CMP DUPLICATE Performed By: #### L 500.4050, L100.0500, BTSPAT #### [facility] [address] [place], [address] Glucose [Mass/Vol] 97 mg/dL Normal 74-106 [facility] Comment on above: Order Comment: TSH,A 1C,FT4,CMP,FT3, LIPID-ROSALIA OTHER TESTS-MARCANTHONY CMP DUPLICATE Performed By: #### L 500.4050, L100.0500, BTSPAT #### [facility] [address] [place], [address] Potassium [Moles/Vol] 4.0 mmol/L Normal 3.5-5.1 [facility] Comment on above: Order Comment: TSH,A 1C,FT4,CMP,FT3, LIPID-ROSALIA OTHER TESTS-MARCANTHONY CMP DUPLICATE Performed By: #### L 500.4050, L100.0500, BTSPAT #### [facility] [address] [place], [address] Sodium [Moles/Vol] 139 mmol/L Normal 136-145 [facility] Comment on above: Order Comment: TSH,A 1C,FT4,CMP,FT3, LIPID-ROSALIA OTHER TESTS-MARCANTHONY CMP DUPLICATE Performed By: #### L 500.4050, L100.0500, BTSPAT #### [facility] [address] [place], [address] T PROT 7.2 g/dL Normal 6.4-8.2 [facility] Comment on above: Order Comment: TSH,A 1C,FT4,CMP,FT3, LIPID-ROSALIA OTHER TESTS-MARCANTHONY CMP DUPLICATE Performed By: #### L 500.4050, L100.0500, BTSPAT #### [facility] [address] [place], [address] Urea nitrogen [Mass/Vol] 9 mg/dL Normal 7-18 [facility] Comment on above: Order Comment: TSH,A 1C,FT4,CMP,FT3, LIPID-ROSALIA OTHER TESTS-ROSLYN CMP DUPLICATE Performed By: #### L 500.4050, L100.0500, BTSPAT #### [facility] [address] [place], [place], [address] Free T3on 06-12-2024 Free T3 [Mass/Vol] 2.3 pg/mL Normal 2.18-3.98 [facility] Comment on above: Order Comment: TSH,A 1C,FT4,CMP,FT3, LIPID-ROSALIA OTHER TESTS-TERRIEONY CMP DUPLICATE Order Date: 03/01/24 Order Info: [id number] - BMP Order Info: [id number] - LIPID Performed By: #### L 501.53546, L578.9520, L506.0400 #### [facility] [address] [place], [place], [address] Hemoglobin A1con 06-12-2024 HbA1c (Bld) [Mass fraction] 5.6 % Normal 3.8-5.6 [facility] Comment on above: Order Comment: TSH,A 1C,FT4,CMP,FT3, LIPID-ROSALIA OTHER TESTS-TERRIEONY CMP DUPLICATE Order Date: 03/01/24 Order Info: [id number] - BMP Order Info: [id number] - LIPID Result Comment: Norm al < 5.7 % Prediabetic 5.7 - 6.4 % Diabetic >or= 6.5 % Please note range changes. Performed By: #### L 501.94054, L501.9520, L506.0400 #### [facility] [address] [place], [place], [id number] Lipid Profileon 06-12-2024 Cholesterol [Mass/Vol] 141 mg/dL Normal 200 [facility] Comment on above: Order Comment: TSH,A 1C,FT4,CMP,FT3, LIPID-ROSALIA OTHER TESTS-TERRIEONY CMP DUPLICATE Order Date: 03/01/24 Order Info: 0667-1 - BMP Order Info: [id number] - LIPID Result Comment: <200 mg/dL Desirable 200-240 mg/dL Borderline >240 mg/dL High Risk Performed By: #### L 501.50704, L501.9520, L506.0400 #### [facility] [address] [place], [address] Cholesterol in HDL [Mass/Vol] 47 mg/dL Normal [facility] Comment on above: Order Comment: TSH,A 1C,FT4,CMP,FT3, LIPID-ROSALIA OTHER TESTS-MARCANTHONY CMP DUPLICATE Order Date: 03/01/24 Order Info: 666-08 - [facility] Order Info: [id number] - LIPID Result Comment: The drugs N-Acetylcysteine and Metamizole may falsely depress this assay. Reference Range HDL <40 mg/dL Low HDL Cholesterol HDL >or= 60 mg/dL High HDL Cholesterol Performed By: #### L 501.93340, L501.9520, L506.0400 #### [facility] [address] [place], [address] Cholesterol in LDL [Mass/Vol] 64 mg/dL Normal 0-130 [facility] Comment on above: Order Comment: TSH,A 1C,FT4,CMP,FT3, LIPID-ROSALIA OTHER TESTS-MARCANTHONY CMP DUPLICATE Order Date: 03/01/24 Order Info: 06 - [facility] Order Info: [id number] - LIPID Performed By: #### L 501.22518, L501.9520, L506.0400 #### [facility] [address] [place], [address] Cholesterol in VLDL [Mass/Vol] 30 mg/dL Normal 5-40 [facility] Comment on above: Order Comment: TSH,A 1C,FT4,CMP,FT3, LIPID-ROSALIA OTHER TESTS-MARCANTHONY CMP DUPLICATE Order Date: 03/01/24 Order Info: [id number]- - [facility] Order Info: [id number] - LIPID Performed By: #### L 501.08595, L501.9520, L506.0400 #### [facility] [address] [place], [place], [address] Triglyceride [Mass/Vol] 148 mg/dL Normal [facility] Comment on above: Order Comment: TSH,A 1C,FT4,CMP,FT3, LIPID-ROSALIA OTHER TESTS-MARCANTHONY CMP DUPLICATE Order Date: 03/01/24 Order Info: 666-08 - [facility] Order Info: [id number] - LIPID Result Comment: The drugs N-Acetylcysteine and Metamizole may falsely depress this assay. Serum Triglycerides Reference Interval Normal <150 mg/dL Borderline high 150 - 199 mg/dL High 200 - 499 mg/dL Very High > or = 500 mg/dL Performed By: #### L 501.12867, L501.9520, L506.0400 #### [facility] [address] [place], [place], [address] T4 Free Directon 06-12-2024 T4 FREE DIRECT 1.07 ng/dL Normal 0.76-1.46 [facility] Comment on above: Order Comment: TSH,A 1C,FT4,CMP,FT3, LIPID-ROSALIA OTHER TESTS-MARCANTHONY CMP DUPLICATE Order Date: 03/01/24 Order Info: 666-08 - [facility] Order Info: [id number] - LIPID Performed By: #### L 501.08312, L501.9520, L506.0400 #### [facility] [address] [place], [place], [address] Thyroid Stim Hormone (TSH)on 06-12-2024 TSH 0.480 uIU/mL Normal 0.358-3.74 0 [facility] Comment on above: Order Comment: TSH,A 1C,FT4,CMP,FT3, LIPID-ROSALIA OTHER TESTS-MARCANTHONY CMP DUPLICATE Order Date: 03/01/24 Order Info: 666-08 - [facility] Order Info: [id number] - LIPID Performed By: #### L 501.67589, L501.9520, L506.0400 #### [facility] [address] [place], [place], [address] Type AND Screen - PAT ONLYon 06-12-2024 ABO and Rh group Nom (Bld) Blood group A Rh(D) positive Normal [facility] Comment on above: Order Comment: TSH,A 1C,FT4,CMP,FT3, LIPID-ROSALIA OTHER TESTS-ROSLYN CMP DUPLICATE Surgery Date: 06/13/24 Reason for Laboratory Test PRE-OP [id number] No N N S Hysteroscopy,D C Symphion Performed By: #### L 500.4050, L100.0500, BTSPAT #### [facility] [address] [place], [place], [id number] SCRN MAMM (CAD)W/MICHAEL BILATo n 06-09-2024 SCRN MAMM (CAD)W/MICHAEL BILAT [facility] Imaging Services [address] [place], [place] [address] SCRN MAMM (CAD)W/MICHAEL BILAT MR#: [id number] Acct: [id number] Name: TRE SHEPPARD Rep #: [id number] : 1960 F 64 From: Paxton Vallejo MD PCP: Dr. Brandon Romero MD Status: REG CL Study: SCRN MAMM (CAD)W/MICHAEL BILAT Date of Exam: 05/30 09/22 Exam# [id number] Ordering Dr: Patsy Barber [employer]-C [id number] MAMMOGRAPHY - BILATERAL SCREENING 3-D TOMOSYNTHESIS REASON FOR EXAM: Female, 64 years old. Screening PERTINENT HISTORY: No significant family history. TECHNIQUE: 2-D mammograms and 3-D Tomosynthesis of the breast (s) were performed. CAD was performed. COMPARISON: 04/12/2018 FINDINGS: The breast composition is composed of scattered fibroglandular density. Scattered benign calcifications are seen. No dense spiculated masses or suspicious microcalcifications are identified. No architectural distortion is identified. There is no skin thickening or retraction. There has been no significant change since the prior study. No change in the 3 cm oval circumscribed equal density mass in the upper outer quadrant left breast at mid depth. BI/SCRN MAMM (CAD)W/MICHAEL BILAT IMPRESSION: No mammographic signs of malignancy. Routine yearly mammograms recommended. ASSESSMENT CATEGORY: BIRADS Category 2: Benign. A letter regarding these results will be sent to the patient by the facility within 30 days. FOLLOW UP RECOMMENDATION: Yearly follow up mammogram recommended. (A) Approximately 10% of breast cancers are not detected by mammography. A normal mammogram should not delay biopsy of a clinically suspicious abnormality. Electronically Signed: Paxton Vallejo MD at 8:49 EDT , CC: EMRE Barber; Dr. Brandon Romero MD Higher Level Teaching Assistant: Signed Normal [facility] CBC W/Diff, Automatedon - Absolute Lymph 2.67 X10 3/uL Normal 0.83-4.51 [facility] Comment on above: Performed By: #### L 501.76229, L501.9520, L506.0400 #### [facility] [address] [place], [address] Absolute Neut 5.0 X10 3/uL Normal 2.0-7.7 [facility] Comment on above: Performed By: #### L 501.48110, L501.9520, L506.0400 #### [facility] [address] [place], [address] Basophils/100 WBC (Bld) 0.5 % Normal 0-1 [facility] Comment on above: Performed By: #### L 501.22053, L501.9520, L506.0400 #### [facility] [address] [place], [address] Eosinophils/100 WBC (Bld) 1.1 % Normal 0-5 [facility] Comment on above: Performed By: #### L 501.92749, L501.9520, L506.0400 #### [facility] [address] [place], [address] Erythrocyte distribution width (RBC) [Ratio] 14.1 % Normal 11.6-14.6 [facility] Comment on above: Performed By: #### L 501.80773, L501.9520, L506.0400 #### [facility] [address] [place], [address] Hematocrit (Bld) [Volume fraction] 42.4 % Normal 37-47 [facility] Comment on above: Performed By: #### L 501.89756, L501.9520, L506.0400 #### [facility] [address] [place], [address] Hemoglobin (Bld) [Mass/Vol] 13.2 g/dL Normal 12.0-15.0 [facility] Comment on above: Performed By: #### L 501.75743, L501.9520, L506.0400 #### [facility] [address] [place], [address] IG% 0.100 Normal 0.0-0.9 [facility] Comment on above: Result Comment: IG% - Immature Granulocytes (promyelocytes, myelocytes and metamyelocytes) > 1% indicates that a LEFT SHIFT is Present. Performed By: #### L 501.16659, L501.9520, L506.0400 #### [facility] [address] [place], [address] Lymphocytes/100 WBC (Bld) 31.8 % Normal 19-41 [facility] Comment on above: Performed By: #### L 501.50101, L501.9520, L506.0400 #### [facility] [address] [place], [address] MCH (RBC) [Entitic mass] 30.7 pg Normal 27.0-32.0 [facility] Comment on above: Performed By: #### L 501.37878, L501.9520, L506.0400 #### [facility] [address] [place], [address] MCHC (RBC) [Mass/Vol] 31.1 g/dL Low 32-36 [facility] Comment on above: Performed By: #### L 501.44500, L501.9520, L506.0400 #### [facility] [address] [place], [address] MCV (RBC) [Entitic vol] 98.6 fL Normal 81-99 [facility] Comment on above: Performed By: #### L 501.62933, L501.9520, L506.0400 #### [facility] [address] [place], [address] Monocytes/100 WBC (Bld) 7.4 % Normal 0-10 [facility] Comment on above: Performed By: #### L 501.96706, L501.9520, L506.0400 #### [facility] [address] [place], [address] Neutrophils/100 WBC (Bld) 59.1 % Normal 47-70 [facility] Comment on above: Performed By: #### L 501.54263, L501.9520, L506.0400 #### [facility] [address] [place], [address] Nucleated RBC (Bld) [#/Vol] 0 10*3/uL Normal 0-5 [facility] Comment on above: Performed By: #### L 501.80452, L501.9520, L506.0400 #### [facility] [address] [place], [address] Platelet mean volume (Bld) [Entitic vol] 10.2 fL Normal 6.2-12.0 [facility] Comment on above: Performed By: #### L 501.95104, L501.9520, L506.0400 #### [facility] [address] [place], [address] Platelets (Bld) [#/Vol] 341 10*3/uL Normal 150-450 [facility] Comment on above: Performed By: #### L 501.75896, L501.9520, L506.0400 #### [facility] [address] [place], [address] RBC (Bld) [#/Vol] 4.30 10*6/uL Normal 4.2-5.4 [facility] Comment on above: Performed By: #### L 501.59719, L501.9520, L506.0400 #### [facility] [address] [place], [address] RDW SD 51.4 fl High 35.1-43.9 [facility] Comment on above: Performed By: #### L 501.91736, L501.9520, L506.0400 #### [facility] [address] [place], [address] WBC (Bld) [#/Vol] 8.4 10*3/uL Normal 4.4-11.0 [facility] Comment on above: Performed By: #### L 501.60911, L501.9520, L506.0400 #### [facility] [address] [place], [address] Comprehensive Metabolic Prof angelita 05-23-2024 Albumin [Mass/Vol] 3.5 g/dL Normal 3.2-5.0 [facility] Comment on above: Order Comment: TSH,A 1C,FT4,CMP,FT3, LIPID-ROSALIA OTHER TESTS-ROSLYN CMP DUPLICATE Order Date: 03/01/24 Order Info: [id number] - BMP Order Info: [id number] - LIPID Performed By: #### L 501.11479, L501.9520, L506.0400 #### [facility] [address] [place], [place], [address] Albumin/Globulin [Mass ratio] 1.0 {ratio} Normal 0.9-2.4 [facility] Comment on above: Order Comment: TSH,A 1C,FT4,CMP,FT3, LIPID-ROSALIA OTHER TESTS-MARCANTHONY CMP DUPLICATE Order Date: 03/01/24 Order Info: [id number] - BMP Order Info: [id number] - LIPID Performed By: #### L 501.16879, L501.9520, L506.0400 #### [facility] [address] [place], [place], [address] ALK P 51 U/L Normal 45-117 [facility] Comment on above: Order Comment: TSH,A 1C,FT4,CMP,FT3, LIPID-ROSALIA OTHER TESTS-MARCANTHONY CMP DUPLICATE Order Date: 03/01/24 Order Info: [id number] - [facility] Order Info: [id number] - LIPID Performed By: #### L 501.73024, L501.9520, L506.0400 #### [facility] [address] [place], [place], [address] ALT [Catalytic activity/Vol] 16 U/L Normal 13-56 [facility] Comment on above: Order Comment: TSH,A 1C,FT4,CMP,FT3, LIPID-ROSALIA OTHER TESTS-MARCANTHONY CMP DUPLICATE Order Date: 03/01/24 Order Info: [id number] - [facility] Order Info: [id number] - LIPID Performed By: #### L 501.93642, L501.9520, L506.0400 #### [facility] [address] [place], [place], [address] AST [Catalytic activity/Vol] 13 U/L Low 15-37 [facility] Comment on above: Order Comment: TSH,A 1C,FT4,CMP,FT3, LIPID-ROSALIA OTHER TESTS-MARCANTHONY CMP DUPLICATE Order Date: 03/01/24 Order Info: 666-08 - [facility] Order Info: [id number] - LIPID Performed By: #### L 501.35531, L501.9520, L506.0400 #### [facility] [address] [place], [place], [address] Bilirubin [Mass/Vol] 0.30 mg/dL Normal 0.20-1.00 [facility] Comment on above: Order Comment: TSH,A 1C,FT4,CMP,FT3, LIPID-ROSALIA OTHER TESTS-TERRIEONY CMP DUPLICATE Order Date: 03/01/24 Order Info: 666-08 - [facility] Order Info: [id number] - LIPID Result Comment: For patients on eltrombopag therapy, use of Dimension [place] TBIL is not recommended. Performed By: #### L 501.28164, L501.9520, L506.0400 #### [facility] [address] [place], [place], [address] BUN/CRE 12.3 RATIO Normal 10-20 [facility] Comment on above: Order Comment: TSH,A 1C,FT4,CMP,FT3, LIPID-ROSALIA OTHER TESTS-ROSLYN CMP DUPLICATE Order Date: 03/01/24 Order Info: 666-08 - [facility] Order Info: [id number] - LIPID Performed By: #### L 501.37584, L501.9520, L506.0400 #### [facility] [address] [place], [address] CA,Total 9.2 mg/dL Normal 8.5-10.1 [facility] Comment on above: Order Comment: TSH,A 1C,FT4,CMP,FT3, LIPID-ROSALIA OTHER TESTS-TERRIEONY CMP DUPLICATE Order Date: 03/01/24 Order Info: 666-08 - [facility] Order Info: [id number] - LIPID Performed By: #### L 501.54137, L501.9520, L506.0400 #### [facility] [address] [place], [place], [address] Chloride [Moles/Vol] 106 mmol/L Normal 98-107 [facility] Comment on above: Order Comment: TSH,A 1C,FT4,CMP,FT3, LIPID-ROSALIA OTHER TESTS-MARCANTHONY CMP DUPLICATE Order Date: 03/01/24 Order Info: 06 - [facility] Order Info: [id number] - LIPID Performed By: #### L 501.89996, L501.9520, L506.0400 #### [facility] [address] [place], [place], [address] CO2 [Moles/Vol] 30.0 mmol/L Normal 21.0-32.0 [facility] Comment on above: Order Comment: TSH,A 1C,FT4,CMP,FT3, LIPID-ROSALIA OTHER TESTS-MARCANTHONY CMP DUPLICATE Order Date: 03/01/24 Order Info: 666-08 - [facility] Order Info: [id number] - LIPID Performed By: #### L 501.27046, L501.9520, L506.0400 #### [facility] [address] [place], [place], [address] Creatinine [Mass/Vol] 0.97 mg/dL Normal 0.55-1.02 [facility] Comment on above: Order Comment: TSH,A 1C,FT4,CMP,FT3, LIPID-ROSALIA OTHER TESTS-MARCANTHONY CMP DUPLICATE Order Date: 03/01/24 Order Info: 666-08 - [facility] Order Info: [id number] - LIPID Result Comment: The validity of the calculated GFR GFRAA in patients over 70 years has not been determined. Clinical correlation is essential. Performed By: #### L 501.01759, L501.9520, L506.0400 #### [facility] [address] [place], [place], [address] EST GFR - AA 74 mL/min Normal >60 [facility] Comment on above: Order Comment: TSH,A 1C,FT4,CMP,FT3, LIPID-ROSALIA OTHER TESTS-MARCANTHONY CMP DUPLICATE Order Date: 03/01/24 Order Info: 666-08 - [facility] Order Info: [id number] - LIPID Result Comment: Afri can [facility] GFR Calc Performed By: #### L 501.27278, L501.9520, L506.0400 #### [facility] [address] [place], [place], [address] GAP 4 Low 5-15 [facility] Comment on above: Order Comment: TSH,A 1C,FT4,CMP,FT3, LIPID-ROSALIA OTHER TESTS-TERRIEONY CMP DUPLICATE Order Date: 03/01/24 Order Info: 666-08 - [facility] Order Info: [id number] - LIPID Performed By: #### L 501.02618, L501.9520, L506.0400 #### [facility] [address] [place], [place], [address] GFR/1.73 sq M.predicted among non-blacks MDRD (S/P/Bld) [Vol rate/Area] 61 mL/min/{1.73_m2} Normal >60 [facility] Comment on above: Order Comment: TSH,A 1C,FT4,CMP,FT3, LIPID-ROSALIA OTHER TESTS-TERRIEONY CMP DUPLICATE Order Date: 03/01/24 Order Info: 666-08 - [facility] Order Info: [id number] - LIPID Result Comment: Non- GFR Calc Performed By: #### L 501.76636, L501.9520, L506.0400 #### [facility] [address] [place], [place], [address] Globulin (S) [Mass/Vol] 3.6 g/dL Normal 2.2-4.2 [facility] Comment on above: Order Comment: TSH,A 1C,FT4,CMP,FT3, LIPID-ROSALIA OTHER TESTS-TERRIEONY CMP DUPLICATE Order Date: 03/01/24 Order Info: 666-08 - [facility] Order Info: [id number] - LIPID Performed By: #### L 501.86071, L501.9520, L506.0400 #### [facility] [address] [place], [address] Glucose [Mass/Vol] 95 mg/dL Normal 74-106 [facility] Comment on above: Order Comment: TSH,A 1C,FT4,CMP,FT3, LIPID-ROSALIA OTHER TESTS-MARCRAMIROONY CMP DUPLICATE Order Date: 03/01/24 Order Info: 06 - [facility] Order Info: [id number] - LIPID Performed By: #### L 501.21191, L501.9520, L506.0400 #### [facility] [address] [place], [address] Potassium [Moles/Vol] 4.2 mmol/L Normal 3.5-5.1 [facility] Comment on above: Order Comment: TSH,A 1C,FT4,CMP,FT3, LIPID-ROSALIA OTHER TESTS-MARCANTHONY CMP DUPLICATE Order Date: 03/01/24 Order Info: 666-08 - [facility] Order Info: [id number] - LIPID Performed By: #### L 501.44030, L501.9520, L506.0400 #### [facility] [address], [address] Sodium [Moles/Vol] 140 mmol/L Normal 136-145 [facility] Comment on above: Order Comment: TSH,A 1C,FT4,CMP,FT3, LIPID-ROSALIA OTHER TESTS-MARCANTHONY CMP DUPLICATE Order Date: 03/01/24 Order Info: 06 - [facility] Order Info: [id number] - LIPID Performed By: #### L 501.79647, L501.9520, L506.0400 #### [facility] [address] [place], [place], [address] T PROT 7.1 g/dL Normal 6.4-8.2 [facility] Comment on above: Order Comment: TSH,A 1C,FT4,CMP,FT3, LIPID-ROSALIA OTHER TESTS-MARCANTHONY CMP DUPLICATE Order Date: 03/01/24 Order Info: [id number] - BMP Order Info: [id number] - LIPID Performed By: #### L 501.62528, L501.9520, L506.0400 #### [facility] [address] [place], [address] Urea nitrogen [Mass/Vol] 12 mg/dL Normal 7-18 [facility] Comment on above: Order Comment: TSH,A 1C,FT4,CMP,FT3, LIPID-ROSALIA OTHER TESTS-ROSLYN CANTU DUPLICATE Order Date: 03/01/24 Order Info: [id number] - BMP Order Info: [id number] - LIPID Performed By: #### L 501.06493, L501.9520, L506.0400 #### [facility] [address] [place], [place], [address] Powertrain Calibration Engineer Office Visit Reporton 05-23-2024 Powertrain Calibration Engineer Office Visit Report [facility] [address], [address] [place] [address] OFFICE VISIT Date of Service: 05/23/24 MR#: [id number] Acct: [id number] Name: TRE SHEPPARD Rep #: [id number] : 1960 Provider: Dr. Arcelia jane MD Age/Sex: 64/F Location: [facility] Status: Signed Intake Vital Signs 05/17/24 13:37 05/23/24 13:48 Height 5 ft 1 in 5 ft 1 in Weight: 192 lb BMI 36.2 BP 130/81 H Intake Visit Reasons: D C Consult Histology Supervisor Required: No Is patient in pain?: Yes (pelvic pain when sitting) Allergies diclofenac (From Voltaren) Allergy (Verified 05/23/24 13:51) Hives Penicillins Allergy (Verified 05/23/24 13:51) Rash tramadol HCl (From Ultracet) Allergy (Verified 05/23/24 13:51) Hives codeine Adverse Reaction (Verified 05/23/24 13:51) Nausea Medications ???Medication ???Instructions ???Recorded ???Confirmed ???Type hydroxychloroquine 200 mg tablet 200 mg PO BIDCM 06/13/14 09/24/24 History lisinopril 20 mg tablet 40 mg PO DAILY 02/09/14 05/23/24 History pravastatin 40 mg tablet 40 mg PO DAILY 02/09/14 05/23/24 History gabapentin 300 mg capsule 300 mg PO TIDCM 05/27/16 05/23/24 History baclofen 10 mg tablet 10 mg PO DAILY 12/26/17 05/23/24 History levothyroxine 125 mcg tablet 150 mcg PO DAILY 12/26/17 05/23/24 History amitriptyline 25 mg tablet 25 mg PO 04/20/22 05/23/24 History clindamycin HCl 300 mg capsule 300 mg PO TID PRN 04/20/22 05/23/24 History oxycodone 5 mg tablet 5 mg PO 04/20/22 05/23/24 History escitalopram oxalate 5 mg tablet 5 mg PO QDAY 05/17/24 05/23/24 History (Lexapro) morphine 15 mg tablet,extended 15 mg PO BID 05/17/24 05/23/24 History release semaglutide 0.25 mg or 0.5 mg (2 0.5 mg subcut QWEEK 05/17/24 05/23/24 History mg/3 mL) subcutaneous pen injector (Ozempic) misoprostol 200 mcg tablet 200 mcg PO .complex #2 tabs 05/23/24 05/23/24 Rx (Cytotec) vibegron 75 mg tablet (Gemtesa) 75 mg PO QDAY 05/23/24 05/23/24 History PFSH Medical History Acute bronchitis, unspecified Acute conjunctivitis, left eye Acute frontal sinusitis, unspecified Contact with and (suspected) exposure to covid-19 Acute frontal sinusitis, unspecified Hx of one miscarriage Thyroid disease Knee pain Diabetes Arthritis HTN (hypertension) Surgical History History of total knee replacement (TKR) Hx of hernia repair Hx of section History of hemorrhoidectomy Family History Grandmother CVA (cerebral vascular accident) Mother Renal failure Social History adopted: No household members: spouse number of children: 1 current occupational status: retired sexually active: No Smoking Status: Current some day smoker alcohol intake: never substance use type: does not use caffeine: Yes Type: carbonated beverages and coffee eating out: 1-3 times/week during the past year weight has: decreased > 10 lbs what type of physical activity do you participate in: none seatbelt use: always do you feel safe at home: Yes HPI D C Consult Details: TRE SHEPPARD is a 64 year old who presents for thickened endometrium. she had PMB 3 years ago[address] sees Dr De for prolapse and had an ultrasound done that showed the thickened lining and she is being treated for OAB with medication. she feels vaginal pressure and pain. she has a follow up scheduled with gayla, hasn't tried a pessary yet. Female Reproductive History Menopausal Symptoms: No night sweats History 4 Elective abortions Hx Para 1 Spontaneous abortions Hx # Term Pregnancies Ectopic pregnancies Hx # Pregnancies Multiple births # of living children 1 Past Pregnancies Del. Date Name GA/Weeks Outcome Route Bth Weight Infant Gen Labor Lgth Anesthesia Del Locatn Provider FOB 01/08/01 Donn Linares Constitutional: Denies fatigue, night sweats, weight gain or weight loss ENT ENT: Reports system reviewed and no additional complaints, except as documented Cardio Card: Denies chest pain Resp Resp: Denies cough or dyspnea GI GI: Reports as per HPI; Denies abdominal pain, constipation, nausea or vomiting : Denies nipple discharge, urinary frequency, urinary incontinence, urinary hesitancy, urinary urgency, vaginal discharge, vaginal dryness, vaginal odor or vaginal pruritus Musc Musc: Denies arthralgias, back pain or muscle weakness Skin Skin/Breast: Denies alopecia, change in hair, dry skin, breast mass, breast pain, breast skin changes or nipple discharge Neuro Neuro: Reports system reviewed and no (more content not included)... Normal [facility] PAP IG HPV APTIMA 16/18,45on 05-23-2024 ADEQ Comment Normal . [facility] Comment on above: Order Comment: TSH,A 1C,FT4,CMP,FT3, LIPID-ROSALIA OTHER TESTS-ROSLYN CANTU DUPLICATE Order Date: 03/01/24 Order Info: 666-08 - BMP Order Info: [id number] - LIPID Result Comment: Sati sfactory for evaluation. No endocervical component is identified. Performed By: #### L [id number], [id number], L506.0400 #### [facility] [address] [place], [place], [id number] COMM . Normal . [facility] Comment on above: Order Comment: TSH,A 1C,FT4,CMP,FT3, LIPID-ROSALIA OTHER TESTS-MARCANTHONY CMP DUPLICATE Order Date: 03/01/24 Order Info: 666-08 - BMP Order Info: [id number] - LIPID Performed By: #### L [id number], [id number], [id number] #### [facility] [address] [place], [place], [id number] COMMENT Comment Normal . [facility] Comment on above: Order Comment: TSH,A 1C,FT4,CMP,FT3, LIPID-ROSALIA OTHER TESTS-MARCANTHONY CMP DUPLICATE Order Date: 03/01/24 Order Info: 666-08 - BMP Order Info: [id number] - LIPID Result Comment: This liquid based ThinPrep(R) pap test was screened with the use of an image guided system. Performed By: #### L [id number], [id number], L506.0400 #### [facility] [address] [place], [place], [id number] DIAG Comment Normal . [facility] Comment on above: Order Comment: TSH,A 1C,FT4,CMP,FT3, LIPID-ROSALIA OTHER TESTS-MARCANTHONY CMP DUPLICATE Order Date: 03/01/24 Order Info: 666-08 - BMP Order Info: [id number] - LIPID Result Comment: NEGA TIVE FOR INTRAEPITHELIAL LESION OR MALIGNANCY. Performed By: #### L [id number], [id number], [id number] #### [facility] [address] [place], [address] HPV APTIMA, HR Negative Normal Negative [facility] Comment on above: Order Comment: TSH,A 1C,FT4,CMP,FT3, LIPID-ROSALIA OTHER TESTS-MARCANTHONY CMP DUPLICATE Order Date: 03/01/24 Order Info: 666-08 - BMP Order Info: - LIPID Result Comment: This nucleic acid amplification test detects fourteen high- risk HPV types (16,18,31,33,35,39,45,51,52,56,58,59,66,68) without differentiation. Performed By: #### L [id number], [id number], L506.0400 #### [facility] [address] [place], [address] HPV Carolina Rfx Comment Normal . [facility] Comment on above: Order Comment: TSH,A 1C,FT4,CMP,FT3, LIPID-ROSALIA OTHER TESTS-MARCANTHONY CMP DUPLICATE Order Date: 03/01/24 Order Info: 666-08 - [facility] Order Info: - LIPID Result Comment: Crit eria not met, HPV Genotype not performed. Performed at: - [facility] [id number] Bottle And Glass Inspector: Roz Messina MD, Phone: [phone] Performed at: = - [facility] [address] [id number] Bottle And Glass Inspector: Roz Messina MD, Phone: [phone] Performed By: #### L [id number], [id number], L506.0400 #### [facility] [address] [place], [place], [id number] PAPSMR Comment Normal . [facility] Comment on above: Order Comment: TSH,A 1C,FT4,CMP,FT3, LIPID-ROSALIA OTHER TESTS-MARCANTHONY CMP DUPLICATE Order Date: 03/01/24 Order Info: 666-08 - BMP Order Info: - LIPID Result Comment: The Pap smear is a screening test designed to aid in the detection of premalignant and malignant conditions of the uterine cervix. It is not a diagnostic procedure and should not be used as the sole means of detecting cervical cancer. Both false-positive and false-negative reports do occur. Performed By: #### L [id number], [id number], L506.0400 #### [facility] [address] [place], [address] PERFORM Comment Normal . [facility] Comment on above: Order Comment: TSH,A 1C,FT4,CMP,FT3, LIPID-ROSALIA OTHER TESTS-ROSLYN CMP DUPLICATE Order Date: 03/01/24 Order Info: [id number] - BMP Order Info: [id number] - LIPID Result Comment: Xander Hope, Steward/Stewardess Room (ASCP) Performed By: #### L [id number], [id number], L506.0400 #### [facility] [address] [place], [place], [id number] Powertrain Calibration Engineer Office Visit Reporton 05-17-2024 Powertrain Calibration Engineer Office Visit Report [facility] [address], [address] [place] [address] OFFICE VISIT Date of Service: 05/17/24 MR#: [id number] Acct: [id number] Name: TRE SHEPPARD Rep #: [id number] : 1960 Provider: EMRE Hernandez Age/Sex: 64/F Location: [facility] Status: Signed Intake Vital Signs 04/20/22 13:12 05/17/24 13:36 05/17/24 13:37 Height 5 ft 1 in 5 ft 1 in 5 ft 1 in Weight: 192 lb BMI 36.2 BP 101/70 Intake Visit Reasons: Prolapse uterus (gayla) Chief Complaint: prolapsed uterus Is patient in pain?: No Allergies diclofenac (From Voltaren) Allergy (Verified 05/17/24 13:27) Hives Penicillins Allergy (Verified 05/17/24 13:27) Rash tramadol HCl (From Ultracet) Allergy (Verified 05/17/24 13:27) Hives codeine Adverse Reaction (Verified 05/17/24 13:27) Nausea Medications ???Medication ???Instructions ???Recorded ???Confirmed ???Type hydroxychloroquine 200 mg tablet 200 mg PO BIDCM 02/09/14 05/17/24 History lisinopril 20 mg tablet 40 mg PO DAILY 02/09/14 05/17/24 History pravastatin 40 mg tablet 40 mg PO DAILY 02/09/14 05/17/24 History gabapentin 300 mg capsule 300 mg PO TIDCM 05/27/16 05/17/24 History baclofen 10 mg tablet 10 mg PO DAILY 12/26/17 05/17/24 History levothyroxine 125 mcg tablet 150 mcg PO DAILY 12/26/17 05/17/24 History amitriptyline 25 mg tablet 25 mg PO 04/20/22 05/17/24 History clindamycin HCl 300 mg capsule 300 mg PO TID PRN 04/20/22 05/17/24 History oxycodone 5 mg tablet 5 mg PO 04/20/22 05/17/24 History escitalopram oxalate 5 mg tablet 5 mg PO QDAY 05/17/24 05/17/24 History (Lexapro) morphine 15 mg tablet,extended 15 mg PO BID 05/17/24 05/17/24 History release semaglutide 0.25 mg or 0.5 mg (2 0.5 mg subcut QWEEK 05/17/24 05/17/24 History mg/3 mL) subcutaneous pen injector (Ozempic) Is last menstrual period known: No Post menopausal: Yes Patient : No : No Control Method: menopause PFSH Medical History Acute bronchitis, unspecified Acute conjunctivitis, left eye Acute frontal sinusitis, unspecified Contact with and (suspected) exposure to covid-19 Acute frontal sinusitis, unspecified Hx of one miscarriage Thyroid disease Knee pain Diabetes Arthritis HTN (hypertension) Surgical History History of total knee replacement (TKR) Hx of hernia repair Hx of section History of hemorrhoidectomy Family History (Updated 05/17/24 @ 13:32 by Magaly Amezcua) Grandmother CVA (cerebral vascular accident) Mother Renal failure Social History (Updated 05/17/24 @ 13:35 by Magaly Amezcua) adopted: No household members: spouse number of children: 1 current occupational status: retired sexually active: No Smoking Status: Current some day smoker alcohol intake: never substance use type: does not use caffeine: Yes Type: carbonated beverages and coffee eating out: 1-3 times/week during the past year weight has: decreased > 10 lbs what type of physical activity do you participate in: none seatbelt use: always do you feel safe at home: Yes HPI Prolapse uterus (gayla) Details: TRE SHEPPARD is a 64 year old who presents for uterine prolapse. She reports she initially went to Dr. De with complaint of pelvic pressure. Per patient she had work up completed for UTI-antibiotic treatment with no improvement, bladder prolapse that was negative. She states she was told she had a uterine prolapse. She was started on medication for OAB. She reports she did have episodes of vaginal bleeding 3 years ago; she reports this was while getting steroid injections and it was assumed at that time it was from these injections. She reports she has not had vaginal bleeding since but also did not seek work up or treatment at that time. Her main complaint today is the pelvic pressure. She reports when she sits down she is in so much discomfort. She denies symptoms of dysuria, hematuria, fever, chills. Does have urinary incontinence. Not new to this acute issue. Has been losing weight, yet intentional with Ozempic through PCP. Female Reproductive History Questions: sexually active: No and dyspareunia: No Menopausal Symptoms: No hot flashes and No night sweats History 4 Elective abortions Hx Para 1 Spontaneous abortions Hx # Term Pregnancies Ectopic pregnancies Hx # Pregnancies Multiple births # of living children 1 Past Pregnancies Del. Date Name GA/Weeks Outcome Route Bth Weight Infant Gen Labor Lgth Anesthesia Del Locatn Provider FOB 01/08/01 Donn Linares Constitutional: Denies chills, fatigue, fever(s), headache(s), malaise or night (more content not included)... Normal [facility] Pelvic (Non )on 03-31 Pelvic (Non ) [facility] Imaging Services [address] [place], [place] [id number] Pelvic (Non ) MR#: [id number] Acct: [id number] Name: TRE SHEPPARD Rep #: [id number] : 1960 F 64 From: Rufino cisse MD PCP: Dr. Brandon Romero MD Status: REG CLI Study: Pelvic (Non ) Date of Exam: 04/26/24 Exam# [id number] Ordering Dr: Penelope De MD [id number] STUDY: ULTRASOUND OF THE FEMALE PELVIS - LIMITED REASON FOR EXAM: Female, 64 years old PELVIC PRESSURE TECHNIQUE: Transabdominal and Transvaginal TECHNICAL QUALITY: Adequate. COMPARISON: Comparison is made with prior study dated October 16, 2011. FINDINGS: The uterus is anteverted and is tilted to the left side of the pelvis. The uterus measures 7.3; x 3.7 x 2.9 cm. Normal uterine cervix. The endometrium is thickened and measures 15.4 mm in thickness, and is heterogeneous (striated). There is no demonstrated endometrial mass. There is no demonstrated myometrial mass. The right ovary is not visualized. The left ovary is not visualized. There is no fluid in the cul-de-sac. US/Pelvic (Non ) IMPRESSION: Heterogeneous thickening of the endometrium. Clinical correlation recommended. Electronically Signed: Rufino Pryor MD at 15:26 EDT , CC: Dr. Penelope De MD; Dr. Brandon Romero MD Higher Level Teaching Assistant: Signed Normal [facility] Bilirubin Test strip Ql (U)O rdered By: Kilo Grimm on 12-06-2023 Bilirubin Ql (U) Negative Negative [facility] Ketones Test strip Ql (U)Ord ered By: Kilo Grimm on 12-06-2023 Ketones Ql (U) Negative Negative [facility] - Drug toxicology Ordered By: Kilo Grimm on 12-06-2023 Amphetamines Ql (U) Negative <1000 ng/mL [facility] Benzodiazepines Ql (U) Negative < 200 ng/mL [facility] Cannabinoids Screen Ql (U) Negative < 50 ng/mL [facility] Cocaine Ql (U) Negative < 300 ng/mL [facility] Opiates Ql (U) Positive < 300 ng/mL [facility] Nitrite Test strip Ql (U)Ord ered By: Kilo Grimm on 12-06-2023 Nitrite Ql (U) Negative Negative [facility] No Panel InformationOrdered By: Kilo Grimm on 12-06-2023 MDMA (Ecstasy) Screen Negative < 500 ng/mL [facility] Urine Barbiturates Screen Negative < 200 ng/mL [facility] Urine Drug Screen Comment [facility] Comment on above: CONFIRMATORY TESTING FOR ALL POSITIVE URINE DRUG SCREENRESULTS WILL ONLY BE SENT OUT UPON PHYSICIAN ORDER. VISTA Urine Drug Screen methods provide only preliminaryanalytical test results. A more specific alternate chemicalmethod must be used in order to obtain a confirmedanalytical result. Gas chromatography/mass spectrometery(GC/MS) is the preferred confirmatory method. Clinicalconsideration and professional judgement should be appliedto any drug of abuse test result, particularly whenpreliminary positive results are used. URINE TCA TESTING MUST BE ORDERED SEPARATELY. USE TESTMNEMONIC: [facility] Urine Methadone Screen Negative < 300 ng/mL [facility] Protein Test strip Ql (U)Ord ered By: Kilo Grimm on 12-06-2023 Protein Ql (U) Negative Negative [facility] Urine blood detectionOrdered By: Kilo Grimm on 12-06-2023 RBC Ql (U) 50 /ul Negative [facility] Urine clarityOrdered By: Zonia Grimm on 12-06-2023 Clarity (U) Clear Clear [facility] Urine color determinationOrd ered By: Kilo Grimm on 12-06-2023 Color (U) Yellow Yellow [facility] Urine glucose detectionOrder ed By: Kilo Grimm on 12-06-2023 Glucose Ql (U) Normal mg/dl Normal [facility] Urine leukocyte esterase det ection by dipstickOrdered By: Kilo Grimm on 12-06-2023 Leukocyte esterase Test strip Ql (U) 25 /ul Negative [facility] Urine pHOrdered By: Kilo damon on 12-06-2023 pH (U) 6.0 [pH] 5.0 - 8.0 [facility] Urine phencyclidine (PCP) de tectionOrdered By: Kilo Grimm on 12-06-2023 Phencyclidine Ql (U) Negative < 25 ng/mL [facility] Urine specific gravity measu rementOrdered By: Kilo Grimm on 12-06-2023 Specific gravity (U) [Rel density] 1.015 1.002-1.03 0 [facility] Urine urobilinogen measureme ntOrdered By: Kilo Grimm on 12-06-2023 Urobilinogen Ql (U) Normal mg/dl Normal [facility] Basophil percentageOrdered B y: Brandon Romero on 10-30-2023 Chloride [Moles/Vol] 106 mmol/L 98-107 [facility] Cholesterol [Mass/Vol] 147 mg/dL <200 [facility] Comment on above: <200 mg/dL Desirable 200-240 mg/dL Borderline >240 mg/dL High Risk Glucose [Mass/Vol] 127 mg/dL 74-106 [facility] Comment on above: Fasting Glucose resu lt greater than or equal to 126 mg/dL suggests DIABETES MELLITUS per A.D.A. criteria. Potassium [Moles/Vol] 4.2 mmol/L 3.5-5.1 [facility] Sodium [Moles/Vol] 138 mmol/L 136-145 [facility] Triglyceride [Mass/Vol] 129 mg/dL <199 [facility] Comment on above: The drugs N-Acetylcy steine and Metamizole may falsely depress this assay.Serum Triglycerides Reference Interval Normal <150 mg/dL Borderline high 150 - 199 mg/dL High 200 - 499 mg/dL Very High > or = 500 mg/dL Laboratory - Chemistry and C hemistry - challengeOrdered By: Brandon Romero on 10-30-2023 Cholesterol in HDL [Mass/Vol] 50 mg/dL >40 [facility] Comment on above: The drugs N-Acetylcy steine and Metamizole may falsely depress this assay. Reference Range HDL <40 mg/dL Low HDL Cholesterol HDL >or= 60 mg/dL High HDL Cholesterol Cholesterol in LDL [Mass/Vol] 71 mg/dL 0-130 [facility] CO2 [Moles/Vol] 28.0 mmol/L 21.0-32.0 [facility] Urea nitrogen/Creatinine [Mass ratio] 12.0 mg/mg 10-20 [facility] No Panel InformationOrdered By: Brandon Romero on 10-30-2023 Estimated GFR (MDRD) Amer 79 mL/min >60 [facility] Comment on above: GFR Calc Estimated GFR (MDRD) Non-Af Amer 66 mL/min >60 [facility] Comment on above: Non- GFR Calc Free Triiodothyronine (T3) pg/dL 2.4 pg/mL 2.18-3.98 [facility] VLDL Cholesterol 26 mg/dL 5-40 [facility] Serum or plasma calcium suraj urement (mass/volume)Ordered By: Brandon Romero on 10-30-2023 Calcium [Mass/Vol] 9.2 mg/dL 8.5-10.1 [facility] Serum or plasma creatinine m easurement (mass/volume)Ordered By: Brandon Romero on 10-30-2023 Creatinine [Mass/Vol] 0.92 mg/dL 0.55-1.02 [facility] Comment on above: The validity of the calculated GFR & GFRAA in patients over 70 years has not been determined. Clinical correlation is essential. Serum or plasma thyroid stim ulating hormone (TSH) measurement (units/volume)Ordered By: Brandon Romero on 10-30-2023 TSH Qn 1.70 uIU/mL 0.358-3.74 [facility] Serum or plasma urea nitroge n measurement (mass/volume)Ordered By: Brandon Romero on 10-30-2023 Urea nitrogen [Mass/Vol] 11 mg/dL 7-18 [facility] Thin prep Papanicolaou smear with manual screeningOrdered By: Brandon Romero on 10-30-2023 Thin prep Papanicolaou smear with manual screening 4 5-15 [facility] Thin prep Papanicolaou smear with manual screening 0.93 ng/dL 0.76-1.46 [facility] Absolute lymphocyte countOrd ered By: Guadalupe Avila on 10-23-2023 Lymphocytes Auto (Unsp spec) [#/Vol] 2.39 10*3/uL 0.83-4.51 [facility] Automated lymphocyte count a s percentage of total leukocytesOrdered By: Guadalupe Avila on 10-23-2023 Lymphocytes/100 WBC Auto (Unsp spec) 34.1 % 19-41 [facility] Basophil percentageOrdered B y: Guadalupe Avila on 10-23-2023 Basophils/100 WBC (Bld) 0.4 % 0-1 [facility] Bilirubin [Mass/Vol] 0.30 mg/dL 0.20-1.00 [facility] Comment on above: For patients on eltr ombopag therapy, use of Dimension [place] TBIL is not recommended. Chloride [Moles/Vol] 104 mmol/L 98-107 [facility] Eosinophils/100 WBC (Bld) 1.1 % 0-5 [facility] Glucose [Mass/Vol] 89 mg/dL 74-106 [facility] Hemoglobin (Bld) [Mass/Vol] 13.5 g/dL 12.0-15.0 [facility] Monocytes/100 WBC (Bld) 8.0 % 0-10 [facility] Neutrophils (Bld) [#/Vol] 3.9 10*3/uL 2.0-7.7 [facility] Neutrophils/100 WBC (Bld) 56.3 % 47-70 [facility] Potassium [Moles/Vol] 4.1 mmol/L 3.5-5.1 [facility] Protein [Mass/Vol] 7.4 g/dL 6.4-8.2 [facility] Sodium [Moles/Vol] 138 mmol/L 136-145 [facility] WBC (Bld) [#/Vol] 7.0 10*3/uL 4.4-11.0 [facility] Determination of erythrocyte mean corpuscular volume (MCV)Ordered By: Guadalupe Avila on 10-23-2023 MCV (RBC) [Entitic vol] 97.8 fL 81-99 [facility] Erythrocyte distribution wid th ratioOrdered By: Guadalupe Avila on 10-23-2023 Erythrocyte distribution width (RBC) [Ratio] 13.0 % 11.6-14.6 [facility] Erythrocyte distribution wid th standard deviationOrdered By: Guadalupe Avila on 10-23-2023 Erythrocyte distribution width (RBC) [Entitic vol] 46.6 fL 35.1-43.9 [facility] Hematocrit Auto (Bld) [Volum e fraction]Ordered By: Guadalupe Avila on 10-23-2023 Hematocrit (Bld) [Volume fraction] 43.9 % 37-47 [facility] Immature granulocytes/100 WB C Auto (Bld)Ordered By: [facility] [place] on 10-23-2023 Immature granulocytes/100 WBC (Bld) 0.100 % 0.0-0.9 [facility] Comment on above: IG% - Immature Granu locytes (promyelocytes, myelocytes and metamyelocytes) > 1% indicates that a LEFT SHIFT is Present. Laboratory - Chemistry and C hemistry - challengeOrdered By: Guadalupecristo Avila on 10-23-2023 Albumin/Globulin [Mass ratio] 0.9 {ratio} 0.9-2.4 [facility] ALP [Catalytic activity/Vol] 67 U/L 45-117 [facility] ALT [Catalytic activity/Vol] 17 U/L 13-56 [facility] CO2 [Moles/Vol] 31.0 mmol/L 21.0-32.0 [facility] Globulin (S) [Mass/Vol] 3.8 g/dL 2.2-4.2 [facility] Urea nitrogen/Creatinine [Mass ratio] 12.4 mg/mg 10-20 [facility] - Hematology and Cell countsOrdered By: Guadalupecristo Avila on 10-23-2023 MCH (RBC) [Entitic mass] 30.1 pg 27.0-32.0 [facility] MCHC (RBC) [Mass/Vol] 30.8 g/dL 32-36 [facility] Nucleated RBC/100 WBC (Bld) [Ratio] 0 % 0-5 [facility] Platelet mean volume (Bld) [Entitic vol] 9.7 fL 6.2-12.0 [facility] Platelets (Bld) [#/Vol] 353 10*3/uL 150-450 [facility] No Panel InformationOrdered By: Guadalupe Avila on 10-23-2023 Estimated GFR (MDRD) Amer 82 mL/min >60 [facility] Comment on above: GFR Calc Estimated GFR (MDRD) Non-Af Amer 68 mL/min >60 [facility] Comment on above: Non- GFR Calc RBC Auto (Bld) [#/Vol]Ordere d By: Guadalupe Avila on 10-23-2023 RBC (Bld) [#/Vol] 4.49 10*6/uL 4.2-5.4 [facility] Serum or plasma calcium suraj urement (mass/volume)Ordered By: Guadalupe Avila on 10-23-2023 Calcium [Mass/Vol] 9.4 mg/dL 8.5-10.1 [facility] Serum or plasma creatinine m easurement (mass/volume)Ordered By: Guadalupe Avila on 10-23-2023 Creatinine [Mass/Vol] 0.89 mg/dL 0.55-1.02 [facility] Comment on above: The validity of the calculated GFR & GFRAA in patients over 70 years has not been determined. Clinical correlation is essential. Serum or plasma urea nitroge n measurement (mass/volume)Ordered By: Guadalupe Avila on 10-23-2023 Urea nitrogen [Mass/Vol] 11 mg/dL 7-18 [facility] Thin prep Papanicolaou smear with manual screeningOrdered By: Guadalupe Avila on 10-23-2023 Thin prep Papanicolaou smear with manual screening 3.6 g/dL 3.2-5.0 [facility] Thin prep Papanicolaou smear with manual screening 15 U/L 15-37 [facility] Thin prep Papanicolaou smear with manual screening 3 5-15 [facility] CNOVon 08-13-2023 CNOV Office Visit ([facility] ) -- TRE SHEPPARD ([id number]) 1960 F Date Time Provider Department 08/13/23 7:15 AM JAILENE PADRON [facility] During your visit today, we recorded the following information about you: Temperature Pulse Respiration Blood pressure 98.3 degrees 110/minute 21/minute 128/70 Weight 95.8 kg Jailene Padron APRN.CNP 08/13/2023 7:43 AM Signed ASSESSMENT/PLAN: 1. Paronychia of finger of right hand - ICD9: 681.02, ICD10: L03.011 - Begin treatment with Cephalaxin (Keflex) - warm water and epsom salt soaks 2-3 times daily. - CEPHALEXIN 500 MG CAPSULE - Follow-up with your PCP in 3-5 days if symptoms have not improved or sooner if symptoms worsen - Discussed red flags and need for immediate medical evaluation if any occur. - Discussed supportive care treatment with analgesia. - Discussed expected course of illness Jailene Padron APRN.CNP What is paronychia? -- Paronychia is a skin infection that happens around the fingernails or toenails. You are more likely to get to get this infection if you: ?Push down or trim the skin at the base of the nail (called the cuticle) ?Bite your nails ?Suck your thumb or finger People who have jobs that make them keep their hands in water a lot are also more likely to get paronychia. What are the symptoms of paronychia? -- Symptoms include: ?A painful, swollen area around the nail ?Pus-filled blisters near the nail Is there a test for paronychia? -- No. There is no test. But your doctor or nurse should be able to tell if you have it by learning about your symptoms and doing an exam. Is there anything I can do on my own to feel better? -- Yes. Some people feel better if they: ?Soak the affected finger or toe in warm water with epsom salts for 20 minutes, 3 times a day. ?Put triple antibiotic ointment (sample brand names: Neosporin, Triple Antibiotic) on the infected area after soaking it. How is paronychia treated? -- If the treatments you have tried on your own don't help, your doctor might give you antibiotics to treat the infection. If you have a pus-filled blister, they might give you a shot to numb your finger or toe and use a needle or sharp tool to open and drain the blister. You will need to soak your finger or toe and take antibiotics after this procedure. Your doctor might also prescribe other medicines, such as steroids or anti-fungal medicines. Can paronychia be prevented? -- You can reduce your chances of getting paronychia if you: ?Push your cuticles down gently and do not trim or cut them ?Wear rubber gloves if you need to put your hands in water Jailene Padron APRN.[employer] 08/13/2023 7:47 AM Signed Subjective HPI Tre Sheppard is a 63 year old female who presents with right hand middle finger painful and red and swollen for the past 5 days. She has a very small hangnail on the side of the finger. She states the area is very painful. Denies injury. Has been soaking in warm [...] [place], office ESOPHAGOGASTRODUODENOSCOPY TRANSORAL DIAGNOSTIC 1998 EGD [facility] ESOPHAGOGASTRODUODENOSCOPY TRANSORAL DIAGNOSTIC 05/13/2012 EGD HEMORRHOIDECTOMY INTERNAL [...] 40 mg by mouth once daily.) escitalopram (more content not included)... Normal [facility] Basophil percentageOrdered B y: Guadalupe Avila on 07-16-2023 Bilirubin [Mass/Vol] 0.30 mg/dL 0.20-1.00 [facility] Comment on above: For patients on eltr ombopag therapy, use of Dimension [place] TBIL is not recommended. Chloride [Moles/Vol] 105 mmol/L 98-107 [facility] [facility] Glucose [Mass/Vol] 154 mg/dL 74-106 [facility] Comment on above: Fasting Glucose resu lt greater than or equal to 126 mg/dL suggests DIABETES MELLITUS per A.D.A. criteria. Potassium [Moles/Vol] 4.1 mmol/L 3.5-5.1 [facility] Protein [Mass/Vol] 7.3 g/dL 6.4-8.2 [facility] Sodium [Moles/Vol] 138 mmol/L 136-145 [facility] Laboratory - Chemistry and C hemistry - challengeOrdered By: Guadalupe Avila on 07-16-2023 ALP [Catalytic activity/Vol] 63 U/L 45-117 [facility] ALT [Catalytic activity/Vol] 21 U/L 13-56 [facility] CO2 [Moles/Vol] 27.0 mmol/L 21.0-32.0 [facility] Globulin (S) [Mass/Vol] 3.8 g/dL 2.2-4.2 [facility] Urea nitrogen/Creatinine [Mass ratio] 8.7 mg/mg 10-20 [facility] No Panel InformationOrdered By: Guadalupe Avila on 07-16-2023 Estimated GFR (MDRD) Amer 69 mL/min >60 [facility] Comment on above: GFR Calc Estimated GFR (MDRD) Non-Af Amer 57 mL/min >60 [facility] Comment on above: Non- GFR Calc Serum or plasma albumin suraj urement (mass/volume)Ordered By: Guadalupe Avila on 07-16-2023 Albumin [Mass/Vol] 3.5 g/dL 3.2-5.0 [facility] Serum or plasma albumin/glob ulin mass ratioOrdered By: Guadalupecristo Avila on 07-16-2023 Albumin/Globulin [Mass ratio] 0.9 {ratio} 0.9-2.4 [facility] Serum or plasma calcium suraj urement (mass/volume)Ordered By: Guadalupecristo Avila on 07-16-2023 Calcium [Mass/Vol] 9.0 mg/dL 8.5-10.1 [facility] Serum or plasma creatinine m easurement (mass/volume)Ordered By: Guadalupe Avila on 07-16-2023 Creatinine [Mass/Vol] 1.04 mg/dL 0.55-1.02 [facility] Comment on above: The validity of the calculated GFR & GFRAA in patients over 70 years has not been determined. Clinical correlation is essential. Serum or plasma urea nitroge n measurement (mass/volume)Ordered By: Guadalupe Avila on 07-16-2023 Urea nitrogen [Mass/Vol] 9 mg/dL 7-18 [facility] Thin prep Papanicolaou smear with manual screeningOrdered By: Guadalupe Avila on 07-16-2023 Thin prep Papanicolaou smear with manual screening 15 U/L 15-37 [facility] Thin prep Papanicolaou smear with manual screening 6 5-15 [facility] Absolute lymphocyte countOrd ered By: Guadalupe Avila on 04-23-2023 Lymphocytes Auto (Unsp spec) [#/Vol] 1.45 10*3/uL 0.83-4.51 [facility] Basophil percentageOrdered B y: Guadalupe Avila on 04-23-2023 Basophils/100 WBC (Bld) 0.4 % 0-1 [facility] Bilirubin [Mass/Vol] 0.30 mg/dL 0.20-1.00 [facility] Comment on above: For patients on eltr ombopag therapy, use of Dimension [place] TBIL is not recommended. Chloride [Moles/Vol] 102 mmol/L 98-107 [facility] Eosinophils/100 WBC (Bld) 1.1 % 0-5 [facility] Glucose [Mass/Vol] 221 mg/dL 74-106 [facility] Comment on above: Glucose result great er than or equal to 200 mg/dLsuggests DIABETES MELLITUS per A.D.A. criteria. Neutrophils (Bld) [#/Vol] 3.5 10*3/uL 2.0-7.7 [facility] Neutrophils/100 WBC (Bld) 63.8 % 47-70 [facility] Potassium [Moles/Vol] 4.1 mmol/L 3.5-5.1 [facility] Protein [Mass/Vol] 7.2 g/dL 6.4-8.2 [facility] Sodium [Moles/Vol] 136 mmol/L 136-145 [facility] WBC (Bld) [#/Vol] 5.5 10*3/uL 4.4-11.0 [facility] Blood erythrocytes count (nu mber/volume)Ordered By: Guadalupe Avila on 04-23-2023 RBC (Bld) [#/Vol] 4.38 10*6/uL 4.2-5.4 [facility] Blood hemoglobin measurement (mass/volume)Ordered By: Guadalupe Avila on 04-23-2023 Hemoglobin (Bld) [Mass/Vol] 13.1 g/dL 12.0-15.0 [facility] Blood lymphocytes/100 leukoc ytesOrdered By: Guadalupe Avila on 04-23-2023 Lymphocytes/100 WBC (Bld) 26.2 % 19-41 [facility] Blood monocytes/100 leukocyt esOrdered By: Guadalupe Avila on 04-23-2023 Monocytes/100 WBC (Bld) 8.3 % 0-10 [facility] Blood platelet mean volumeOr dered By: Guadalupe Avila on 04-23-2023 Platelet mean volume (Bld) [Entitic vol] 10.1 fL 6.2-12.0 [facility] Determination of erythrocyte mean corpuscular volume (MCV)Ordered By: Guadalupe Avila on 04-23-2023 MCV (RBC) [Entitic vol] 98.2 fL 81-99 [facility] Hematocrit Auto (Bld) [Volum e fraction]Ordered By: Guadalupe Avila on 04-23-2023 Hematocrit (Bld) [Volume fraction] 43.0 % 37-47 [facility] Laboratory - Chemistry and C hemistry - challengeOrdered By: Guadalupecristo Avila on 04-23-2023 ALP [Catalytic activity/Vol] 61 U/L 45-117 [facility] ALT [Catalytic activity/Vol] 21 U/L 13-56 [facility] CO2 [Moles/Vol] 30.0 mmol/L 21.0-32.0 [facility] Globulin (S) [Mass/Vol] 3.7 g/dL 2.2-4.2 [facility] Urea nitrogen/Creatinine [Mass ratio] 11.4 mg/mg 10-20 [facility] Laboratory - Hematology and Cell countsOrdered By: Guadalupecristo Avila on 04-23-2023 Erythrocyte distribution width (RBC) [Entitic vol] 46.2 fL 35.1-43.9 [facility] Erythrocyte distribution width (RBC) [Ratio] 12.8 % 11.6-14.6 [facility] Immature granulocytes/100 WBC (Bld) 0.200 % 0.0-0.9 [facility] Comment on above: IG% - Immature Granu locytes (promyelocytes, myelocytes and metamyelocytes) > 1% indicates that a LEFT SHIFT is Present. MCH (RBC) [Entitic mass] 29.9 pg 27.0-32.0 [facility] Nucleated RBC/100 WBC (Bld) [Ratio] 0 % 0-5 [facility] MCHC Auto (RBC) [Mass/Vol]Or dered By: Guadalupe Avila on 04-23-2023 MCHC (RBC) [Mass/Vol] 30.5 g/dL 32-36 [facility] No Panel InformationOrdered By: Guadalupe Avila on 04-23-2023 Estimated GFR (MDRD) Amer 75 mL/min >60 [facility] Comment on above: GFR Calc Estimated GFR (MDRD) Non-Af Amer 62 mL/min >60 [facility] Comment on above: Non- GFR Calc Platelets bldOrdered By: Aftab Avila on 04-23-2023 Platelets (Bld) [#/Vol] 349 10*3/uL 150-450 [facility] Serum or plasma albumin suraj urement (mass/volume)Ordered By: Guadalupe Avila on 04-23-2023 Albumin [Mass/Vol] 3.5 g/dL 3.2-5.0 [facility] Serum or plasma albumin/glob ulin mass ratioOrdered By: Guadalupe Avila on 04-23-2023 Albumin/Globulin [Mass ratio] 0.9 {ratio} 0.9-2.4 [facility] Serum or plasma calcium suraj urement (mass/volume)Ordered By: Guadalupe Avila on 04-23-2023 Calcium [Mass/Vol] 8.8 mg/dL 8.5-10.1 [facility] Serum or plasma creatinine m easurement (mass/volume)Ordered By: Guadalupe Avila on 04-23-2023 Creatinine [Mass/Vol] 0.96 mg/dL 0.55-1.02 [facility] Comment on above: The validity of the calculated GFR & GFRAA in patients over 70 years has not been determined. Clinical correlation is essential. Serum or plasma urea nitroge n measurement (mass/volume)Ordered By: Guadalupe Avila on 04-23-2023 Urea nitrogen [Mass/Vol] 11 mg/dL 7-18 [facility] Thin prep Papanicolaou smear with manual screeningOrdered By: Guadalupe Avila on 04-23-2023 Thin prep Papanicolaou smear with manual screening 14 U/L 15-37 [facility] Thin prep Papanicolaou smear with manual screening 4 5-15 [facility] Qualitative QuantiFERON-TB g old in tube testOrdered By: Dr. Avila on 11-19-2022 M. tuberculosis tuberculin stim IFN-g Ql (Bld) 0.06 IU/mL . [facility] Thin prep Papanicolaou smear with manual screeningOrdered By: Dr. Avila on 11-19-2022 Thin prep Papanicolaou smear with manual screening Comment . [facility] Comment on above: QuantiFERON-TB Gold Plus is a qualitative indirect test forM tuberculosis infection (including disease) and isintended for use in conjunction with risk assessment,radiography, and other medical and diagnostic evaluations.The QuantiFERON-TB Gold Plus result is determined bysubtracting the Nil value from either TB antigen (Ag)value. The Mitogen tube serves as a control for the test. Thin prep Papanicolaou smear with manual screening 0.05 IU/mL . [facility] Thin prep Papanicolaou smear with manual screening > 10.00 IU/mL . [facility] Thin prep Papanicolaou smear with manual screening Negative Negative [facility] Comment on above: No response to M tub erculosis antigens detected.Infection with M tuberculosis is unlikely, but high riskindividuals should be considered for additional testing(ATS/IDSA/CDC Clinical Practice Guidelines, 2017). Thereference range is an Antigen minus Nil result of <0.35IU/mL.The specimen received for QuantiFERON testing was incubatedby the ordering institution. Specific procedures outlinedin our Directory of Services and in the package insert forthe QuantiFERON Gold (In Tube) test must be followed toenable for proper stimulation of cells for the productionof interferon gamma. Chemiluminescence immunoassaymethodologyPerformed at: [facility] [id number] Director: Iban Ellis PhD, Phone: [phone] Absolute lymphocyte countOrd ered By: Dr. Romero on 10-27-2022 Lymphocytes Auto (Unsp spec) [#/Vol] 1.71 10*3/uL 0.83-4.51 [facility] Basophil percentageOrdered B y: Dr. Romero on 10-27-2022 Basophils/100 WBC (Bld) 0.4 % 0-1 [facility] Bilirubin [Mass/Vol] 0.50 mg/dL 0.20-1.00 [facility] Comment on above: For patients on eltr ombopag therapy, use of Dimension [place] TBIL is not recommended. Chloride [Moles/Vol] 102 mmol/L 98-107 [facility] Cholesterol [Mass/Vol] 150 mg/dL <200 [facility] Comment on above: <200 mg/dL Desirable 200-240 mg/dL Borderline >240 mg/dL High Risk Eosinophils/100 WBC (Bld) 1.1 % 0-5 [facility] Glucose [Mass/Vol] 145 mg/dL 74-106 [facility] Comment on above: Fasting Glucose resu lt greater than or equal to 126 mg/dL suggests DIABETES MELLITUS per A.D.A. criteria. Neutrophils (Bld) [#/Vol] 5.1 10*3/uL 2.0-7.7 [facility] Neutrophils/100 WBC (Bld) 68.4 % 47-70 [facility] Potassium [Moles/Vol] 4.2 mmol/L 3.5-5.1 [facility] Protein [Mass/Vol] 8.0 g/dL 6.4-8.2 [facility] Sodium [Moles/Vol] 138 mmol/L 136-145 [facility] Triglyceride [Mass/Vol] 170 mg/dL <199 [facility] Comment on above: The drugs N-Acetylcy steine and Metamizole may falsely depress this assay.Serum Triglycerides Reference Interval Normal <150 mg/dL Borderline high 150 - 199 mg/dL High 200 - 499 mg/dL Very High > or = 500 mg/dL WBC (Bld) [#/Vol] 7.4 10*3/uL 4.4-11.0 [facility] Blood erythrocytes count (nu mber/volume)Ordered By: Dr. Romero on 10-27-2022 RBC (Bld) [#/Vol] 4.44 10*6/uL 4.2-5.4 [facility] Blood hemoglobin measurement (mass/volume)Ordered By: Dr. Romero on 10-27-2022 Hemoglobin (Bld) [Mass/Vol] 13.6 g/dL 12.0-15.0 [facility] Blood lymphocytes/100 leukoc ytesOrdered By: Dr. Romero on 10-27-2022 Lymphocytes/100 WBC (Bld) 23.1 % 19-41 [facility] Blood monocytes/100 leukocyt esOrdered By: Dr. Romero on 02-28-2023 Monocytes/100 WBC (Bld) 6.5 % 0-10 [facility] Blood platelet mean volumeOr dered By: Dr. Romero on 10-27-2022 Platelet mean volume (Bld) [Entitic vol] 9.4 fL 6.2-12.0 [facility] Determination of erythrocyte mean corpuscular volume (MCV)Ordered By: Dr. Romero on 10-27-2022 MCV (RBC) [Entitic vol] 98.9 fL 81-99 [facility] Hematocrit Auto (Bld) [Volum e fraction]Ordered By: Dr. Romero on 10-27-2022 Hematocrit (Bld) [Volume fraction] 43.9 % 37-47 [facility] Laboratory - Chemistry and C hemistry - challengeOrdered By: Dr. Romero on 10-27-2022 ALP [Catalytic activity/Vol] 57 U/L 45-117 [facility] ALT [Catalytic activity/Vol] 22 U/L 13-56 [facility] CO2 [Moles/Vol] 29.0 mmol/L 21.0-32.0 [facility] Free T4 [Mass/Vol] 1.28 ng/dL 0.76-1.46 [facility] Globulin (S) [Mass/Vol] 4.3 g/dL 2.2-4.2 [facility] Urea nitrogen/Creatinine [Mass ratio] 10.8 mg/mg 10-20 [facility] Laboratory - Hematology and Cell countsOrdered By: Dr. Romero on 10-27-2022 Erythrocyte distribution width (RBC) [Entitic vol] 47.4 fL 35.1-43.9 [facility] Erythrocyte distribution width (RBC) [Ratio] 13.1 % 11.6-14.6 [facility] Immature granulocytes/100 WBC (Bld) 0.500 % 0.0-0.9 [facility] Comment on above: IG% - Immature Granu locytes (promyelocytes, myelocytes and metamyelocytes) > 1% indicates that a LEFT SHIFT is Present. MCH (RBC) [Entitic mass] 30.6 pg 27.0-32.0 [facility] Nucleated RBC/100 WBC (Bld) [Ratio] 0 % 0-5 [facility] MCHC Auto (RBC) [Mass/Vol]Or dered By: Dr. Romero on 10-27-2022 MCHC (RBC) [Mass/Vol] 31.0 g/dL 32-36 [facility] No Panel InformationOrdered By: Dr. Romero on 10-27-2022 Estimated GFR (MDRD) Amer 79 mL/min >60 [facility] Comment on above: GFR Calc Estimated GFR (MDRD) Non-Af Amer 65 mL/min >60 [facility] Comment on above: Non- GFR Calc Free Triiodothyronine (T3) pg/dL 2.6 pg/mL 2.18-3.98 [facility] Thyroid Stimulating Hormone (TSH) 0.63 uIU/mL 0.358-3.74 [facility] Platelets bldOrdered By: Dr. Romero on 10-27-2022 Platelets (Bld) [#/Vol] 376 10*3/uL 150-450 [facility] Serum or plasma albumin suraj urement (mass/volume)Ordered By: Dr. Romero on 10-27-2022 Albumin [Mass/Vol] 3.7 g/dL 3.2-5.0 [facility] Serum or plasma albumin/glob ulin mass ratioOrdered By: Dr. Romero on 10-27-2022 Albumin/Globulin [Mass ratio] 0.9 {ratio} 0.9-2.4 [facility] Serum or plasma calcium suraj urement (mass/volume)Ordered By: Dr. Romero on 10-27-2022 Calcium [Mass/Vol] 9.6 mg/dL 8.5-10.1 [facility] Serum or plasma cholesterol in HDL measurement (mass/volume)Ordered By: Dr. Romero on 10-27-2022 Cholesterol in HDL [Mass/Vol] 58 mg/dL >40 [facility] Comment on above: The drugs N-Acetylcy steine and Metamizole may falsely depress this assay. Reference Range HDL <40 mg/dL Low HDL Cholesterol HDL >or= 60 mg/dL High HDL Cholesterol Serum or plasma cholesterol in VLDL measurement (mass/volume)Ordered By: Dr. Romero on 10-27-2022 Cholesterol in VLDL [Mass/Vol] 34 mg/dL 5-40 [facility] Serum or plasma creatinine m easurement (mass/volume)Ordered By: Dr. Romero on 10-27-2022 Creatinine [Mass/Vol] 0.92 mg/dL 0.55-1.02 [facility] Comment on above: The validity of the calculated GFR & GFRAA in patients over 70 years has not been determined. Clinical correlation is essential. Serum or plasma low density lipoprotein (LDL) cholesterol measurement (mass/volume)Ordered By: Dr. Romero on 10-27-2022 Cholesterol in LDL [Mass/Vol] 58 mg/dL 0-130 [facility] Serum or plasma urea nitroge n measurement (mass/volume)Ordered By: Dr. Romero on 10-27-2022 Urea nitrogen [Mass/Vol] 10 mg/dL 7-18 [facility] Thin prep Papanicolaou smear with manual screeningOrdered By: Dr. Romero on 10-27-2022 Thin prep Papanicolaou smear with manual screening 18 U/L 15-37 [facility] Thin prep Papanicolaou smear with manual screening 7 5-15 [facility] Whole blood hemoglobin A1c/t otal hemoglobin ratio (mass fraction)Ordered By: Dr. Romero on 10-27-2022 HbA1c (Bld) [Mass fraction] 6.1 % 3.8-5.6 [facility] Comment on above: Normal < 5.7 % Predi abetic 5.7 - 6.4 % Diabetic >or= 6.5 % Please note range changes. No Panel Informationon 08-10 Influenza Types A,B Rapid (Clinic) Negative [facility] No Panel InformationOrdered By: Dr. Romero on 07-17-2022 Thyroid Stimulating Hormone (TSH) 0.20 uIU/mL 0.358-3.74 [facility] Laboratory - Drug toxicology on 06-30-2022 Amphetamines Ql (U) Negative <1000 ng/mL [facility] Work Phone: Benzodiazepines Ql (U) Positive < 200 ng/mL [facility] Work Phone: Cannabinoids Screen Ql (U) Negative < 50 ng/mL [facility] Work Phone: Cocaine Ql (U) Negative < 300 ng/mL [facility] Work Phone: Opiates Ql (U) Positive < 300 ng/mL [facility] Work Phone: No Panel Informationon 06-30 MDMA (Ecstasy) Screen Negative < 500 ng/mL [facility] Work Phone: Urine Barbiturates Screen Negative < 200 ng/mL [facility] Work Phone: Urine Drug Screen Comment [facility] Work Phone: Comment on above: CONFIRMATORY TESTING FOR ALL POSITIVE URINE DRUG SCREENRESULTS WILL ONLY BE SENT OUT UPON PHYSICIAN ORDER. VISTA Urine Drug Screen methods provide only preliminaryanalytical test results. A more specific alternate chemicalmethod must be used in order to obtain a confirmedanalytical result. Gas chromatography/mass spectrometery(GC/MS) is the preferred confirmatory method. Clinicalconsideration and professional judgement should be appliedto any drug of abuse test result, particularly whenpreliminary positive results are used. URINE TCA TESTING MUST BE ORDERED SEPARATELY. USE TESTMNEMONIC: [facility] Urine Methadone Screen Negative < 300 ng/mL [facility] Work Phone: Urine phencyclidine (PCP) de tectionon 06-30-2022 Phencyclidine Ql (U) Negative < 25 ng/mL [facility] Work Phone: Laboratory - Chemistry and C hemistry - challengeon 06-12-2022 Free T4 [Mass/Vol] 1.17 ng/dL 0.76-1.46 [facility] Work Phone: No Panel Informationon 06-12 Free Triiodothyronine (T3) pg/dL 2.9 pg/mL 2.18-3.98 [facility] Work Phone: Thyroid Stimulating Hormone (TSH) 0.05 uIU/mL 0.358-3.74 [facility] Work Phone: Absolute lymphocyte counton 06-09-2022 Lymphocytes Auto (Unsp spec) [#/Vol] 2.32 10*3/uL 0.83-4.51 [facility] Work Phone: Basophil percentageon 2021 Basophils/100 WBC (Bld) 0.3 % 0-1 [facility] Work Phone: Bilirubin [Mass/Vol] 0.40 mg/dL 0.20-1.00 [facility] Work Phone: Comment on above: For patients on eltr ombopag therapy, use of Dimension [place] TBIL is not recommended. Chloride [Moles/Vol] 103 mmol/L 98-107 [facility] Work Phone: Cholesterol [Mass/Vol] 167 mg/dL <200 [facility] Work Phone: Comment on above: <200 mg/dL Desirable 200-240 mg/dL Borderline >240 mg/dL High Risk Eosinophils/100 WBC (Bld) 0.5 % 0-5 [facility] Work Phone: Glucose [Mass/Vol] 100 mg/dL 74-106 [facility] Work Phone: Comment on above: Fasting Glucose resu lt from 100 to 125 mg/dL suggests IMPAIRED HOMEOSTASIS per A.D.A. criteria. Neutrophils (Bld) [#/Vol] 3.0 10*3/uL 2.0-7.7 [facility] Work Phone: Neutrophils/100 WBC (Bld) 50.4 % 47-70 [facility] Work Phone: Potassium [Moles/Vol] 3.9 mmol/L 3.5-5.1 [facility] Work Phone: Protein [Mass/Vol] 7.4 g/dL 6.4-8.2 [facility] Work Phone: Sodium [Moles/Vol] 138 mmol/L 136-145 [facility] Work Phone: Triglyceride [Mass/Vol] 143 mg/dL <199 [facility] Work Phone: Comment on above: The drugs N-Acetylcy steine and Metamizole may falsely depress this assay.Serum Triglycerides Reference Interval Normal <150 mg/dL Borderline high 150 - 199 mg/dL High 200 - 499 mg/dL Very High > or = 500 mg/dL WBC (Bld) [#/Vol] 5.9 10*3/uL 4.4-11.0 [facility] Work Phone: Blood erythrocytes count (nu mber/volume)on 06-09-2022 RBC (Bld) [#/Vol] 4.48 10*6/uL 4.2-5.4 [facility] Work Phone: Blood hemoglobin measurement (mass/volume)on 06-09-2022 Hemoglobin (Bld) [Mass/Vol] 13.9 g/dL 12.0-15.0 [facility] Work Phone: Blood lymphocytes/100 leukoc yteson 06-09-2022 Lymphocytes/100 WBC (Bld) 39.7 % 19-41 [facility] Work Phone: Blood monocytes/100 leukocyt eson 06-09-2022 Monocytes/100 WBC (Bld) 8.9 % 0-10 [facility] Work Phone: Blood platelet mean volumeon 06-09-2022 Platelet mean volume (Bld) [Entitic vol] 10.0 fL 6.2-12.0 [facility] Work Phone: Determination of erythrocyte mean corpuscular volume (MCV)on 06-09-2022 MCV (RBC) [Entitic vol] 97.8 fL 81-99 [facility] Work Phone: Hematocrit Auto (Bld) [Volum e fraction]on 06-09-2022 Hematocrit (Bld) [Volume fraction] 43.8 % 37-47 [facility] Work Phone: Laboratory - Chemistry and C hemistry - challengeon 06-09-2022 ALP [Catalytic activity/Vol] 46 U/L 45-117 [facility] Work Phone: ALT [Catalytic activity/Vol] 39 U/L 13-56 [facility] Work Phone: CO2 [Moles/Vol] 29.0 mmol/L 21.0-32.0 [facility] Work Phone: Globulin (S) [Mass/Vol] 3.7 g/dL 2.2-4.2 [facility] Work Phone: Urea nitrogen/Creatinine [Mass ratio] 14.9 mg/mg 10-20 [facility] Work Phone: Laboratory - Hematology and Cell countson 06-09-2022 Erythrocyte distribution width (RBC) [Entitic vol] 46.2 fL 35.1-43.9 [facility] Work Phone: Erythrocyte distribution width (RBC) [Ratio] 12.9 % 11.6-14.6 [facility] Work Phone: Immature granulocytes/100 WBC (Bld) 0.200 % 0.0-0.9 [facility] Work Phone: Comment on above: IG% - Immature Granu locytes (promyelocytes, myelocytes and metamyelocytes) > 1% indicates that a LEFT SHIFT is Present. MCH (RBC) [Entitic mass] 31.0 pg 27.0-32.0 [facility] Work Phone: Nucleated RBC/100 WBC (Bld) [Ratio] 0 % 0-5 [facility] Work Phone: MCHC Auto (RBC) [Mass/Vol]on 06-09-2022 MCHC (RBC) [Mass/Vol] 31.7 g/dL 32-36 [facility] Work Phone: No Panel Informationon 06-09 Estimated GFR (MDRD) Amer 85 mL/min >60 [facility] Work Phone: Comment on above: GFR Calc Estimated GFR (MDRD) Non-Af Amer 70 mL/min >60 [facility] Work Phone: Comment on above: Non- GFR Calc Platelets bldon 06-09-2022 Platelets (Bld) [#/Vol] 343 10*3/uL 150-450 [facility] Work Phone: Serum or plasma albumin suraj urement (mass/volume)on 06-09-2022 Albumin [Mass/Vol] 3.7 g/dL 3.2-5.0 [facility] Work Phone: Serum or plasma albumin/glob ulin mass ratioon 06-09-2022 Albumin/Globulin [Mass ratio] 1.0 {ratio} 0.9-2.4 [facility] Work Phone: Serum or plasma calcium suraj urement (mass/volume)on 06-09-2022 Calcium [Mass/Vol] 9.1 mg/dL 8.5-10.1 [facility] Work Phone: Serum or plasma cholesterol in HDL measurement (mass/volume)on 06-09-2022 Cholesterol in HDL [Mass/Vol] 62 mg/dL >40 [facility] Work Phone: Comment on above: The drugs N-Acetylcy steine and Metamizole may falsely depress this assay. Reference Range HDL <40 mg/dL Low HDL Cholesterol HDL >or= 60 mg/dL High HDL Cholesterol Serum or plasma cholesterol in VLDL measurement (mass/volume)on 06-09-2022 Cholesterol in VLDL [Mass/Vol] 29 mg/dL 5-40 [facility] Work Phone: Serum or plasma creatinine m easurement (mass/volume)on 06-09-2022 Creatinine [Mass/Vol] 0.87 mg/dL 0.55-1.02 [facility] Work Phone: Comment on above: The validity of the calculated GFR & GFRAA in patients over 70 years has not been determined. Clinical correlation is essential. Serum or plasma low density lipoprotein (LDL) cholesterol measurement (mass/volume)on 06-09-2022 Cholesterol in LDL [Mass/Vol] 76 mg/dL 0-130 [facility] Work Phone: Serum or plasma urea nitroge n measurement (mass/volume)on 06-09-2022 Urea nitrogen [Mass/Vol] 13 mg/dL 7-18 [facility] Work Phone: Thin prep Papanicolaou smear with manual screeningon 06-09-2022 Thin prep Papanicolaou smear with manual screening 24 U/L 15-37 [facility] Work Phone: Thin prep Papanicolaou smear with manual screening 6 5-15 [facility] Work Phone: Laboratory - Chemistry and C hemistry - challengeon 04-16-2022 Cobalamin (Vitamin B12) [Mass/Vol] 385 pg/mL 211-911 [facility] Work Phone: Free T4 [Mass/Vol] 1.38 ng/dL 0.76-1.46 [facility] Work Phone: No Panel Informationon 04-16 Free Triiodothyronine (T3) pg/dL 2.6 pg/mL 2.18-3.98 [facility] Work Phone: Thyroid Stimulating Hormone (TSH) 0.32 uIU/mL 0.358-3.74 [facility] Work Phone: Urine Microalbumin/Creatini ne Ratio TNP [facility] Work Phone: Comment on above: Test not performed Vitamin D 25-Hydroxy 21.3 ng/mL [facility] Work Phone: Comment on above: Vitamin D 25(OH) Sta tus Range Deficiency <20 ng/mL (50nmol/L) Insufficiency 20 - 30 ng/mL (50 - 75 nmol/L) Sufficiency 30 - 100 ng/mL (75 - 250 nmol/L) Toxicity >100 ng/mL (>250 nmol/L) Thin prep Papanicolaou smear with manual screeningon 04-16-2022 Thin prep Papanicolaou smear with manual screening < 5.0 mg/L NO RANGE EST. [facility] Work Phone: Urine creatinine measurement (mass/volume)on 04-16-2022 Creatinine (U) [Mass/Vol] 110.00 mg/dL NO RANGE EST. [facility] Work Phone: Laboratory - Microbiology an d Antimicrobial susceptibilityon 03-19-2022 SARS-CoV-2 (COVID-19) RNA NILO+probe Ql (Unsp spec) Not detected [facility] Work Phone: No Panel Informationon 03-19 Influenza Types A,B Rapid (Clinic) Not detected [facility] Work Phone: Absolute lymphocyte counton 03-16-2022 Lymphocytes Auto (Unsp spec) [#/Vol] 2.31 10*3/uL 0.83-4.51 [facility] Work Phone: Basophil percentageon 2021 Basophils/100 WBC (Bld) 0.5 % 0-1 [facility] Work Phone: Bilirubin [Mass/Vol] 0.40 mg/dL 0.20-1.00 [facility] Work Phone: Comment on above: For patients on eltr ombopag therapy, use of Dimension [place] TBIL is not recommended. Chloride [Moles/Vol] 103 mmol/L 98-107 [facility] Work Phone: Cholesterol [Mass/Vol] 155 mg/dL <200 [facility] Work Phone: Comment on above: <200 mg/dL Desirable 200-240 mg/dL Borderline >240 mg/dL High Risk Eosinophils/100 WBC (Bld) 1.0 % 0-5 [facility] Work Phone: Glucose [Mass/Vol] 121 mg/dL 74-106 [facility] Work Phone: Comment on above: Fasting Glucose resu lt from 100 to 125 mg/dL suggests IMPAIRED HOMEOSTASIS per A.D.A. criteria. Neutrophils (Bld) [#/Vol] 3.3 10*3/uL 2.0-7.7 [facility] Work Phone: Neutrophils/100 WBC (Bld) 53.6 % 47-70 [facility] Work Phone: Potassium [Moles/Vol] 4.1 mmol/L 3.5-5.1 [facility]: Protein [Mass/Vol] 7.3 g/dL 6.4-8.2 [facility] Work Phone: Sodium [Moles/Vol] 139 mmol/L 136-145 [facility] Work Phone: Triglyceride [Mass/Vol] 135 mg/dL <199 [facility] Work Phone: Comment on above: The drugs N-Acetylcy steine and Metamizole may falsely depress this assay.Serum Triglycerides Reference Interval Normal <150 mg/dL Borderline high 150 - 199 mg/dL High 200 - 499 mg/dL Very High > or = 500 mg/dL WBC (Bld) [#/Vol] 6.1 10*3/uL 4.4-11.0 [facility] Work Phone: Blood erythrocytes count (nu mber/volume)on 03-16-2022 RBC (Bld) [#/Vol] 4.36 10*6/uL 4.2-5.4 [facility] Work Phone: Blood hemoglobin measurement (mass/volume)on 03-16-2022 Hemoglobin (Bld) [Mass/Vol] 13.8 g/dL 12.0-15.0 [facility] Work Phone: Blood lymphocytes/100 leukoc yteson 03-16-2022 Lymphocytes/100 WBC (Bld) 37.7 % 19-41 [facility] Work Phone: Blood monocytes/100 leukocyt eson 03-16-2022 Monocytes/100 WBC (Bld) 7.0 % 0-10 [facility] Work Phone: Blood platelet mean volumeon 03-16-2022 Platelet mean volume (Bld) [Entitic vol] 9.9 fL 6.2-12.0 [facility] Work Phone: Determination of erythrocyte mean corpuscular volume (MCV)on 03-16-2022 MCV (RBC) [Entitic vol] 97.7 fL 81-99 [facility] Work Phone: Hematocrit Auto (Bld) [Volum e fraction]on 03-16-2022 Hematocrit (Bld) [Volume fraction] 42.6 % 37-47 [facility] Work Phone: Laboratory - Chemistry and C hemistry - challengeon 03-16-2022 ALP [Catalytic activity/Vol] 52 U/L 45-117 [facility] Work Phone: ALT [Catalytic activity/Vol] 29 U/L 13-56 [facility] Work Phone: CO2 [Moles/Vol] 31.0 mmol/L 21.0-32.0 [facility] Work Phone: Globulin (S) [Mass/Vol] 3.7 g/dL 2.2-4.2 [facility] Work Phone: Urea nitrogen/Creatinine [Mass ratio] 12.5 mg/mg 10-20 [facility] Work Phone: Laboratory - Hematology and Cell countson 03-16-2022 Erythrocyte distribution width (RBC) [Entitic vol] 45.1 fL 35.1-43.9 [facility] Work Phone: Erythrocyte distribution width (RBC) [Ratio] 12.5 % 11.6-14.6 [facility] Work Phone: Immature granulocytes/100 WBC (Bld) 0.200 % 0.0-0.9 [facility] Work Phone: Comment on above: IG% - Immature Granu locytes (promyelocytes, myelocytes and metamyelocytes) > 1% indicates that a LEFT SHIFT is Present. MCH (RBC) [Entitic mass] 31.7 pg 27.0-32.0 [facility] Work Phone: Nucleated RBC/100 WBC (Bld) [Ratio] 0 % 0-5 [facility] Work Phone: MCHC Auto (RBC) [Mass/Vol]on 03-16-2022 MCHC (RBC) [Mass/Vol] 32.4 g/dL 32-36 [facility] Work Phone: No Panel Informationon 03-16 Estimated GFR (MDRD) Amer 83 mL/min >60 [facility] Work Phone: Comment on above: GFR Calc Estimated GFR (MDRD) Non-Af Amer 69 mL/min >60 [facility] Work Phone: Comment on above: Non- GFR Calc Platelets bldon 03-16-2022 Platelets (Bld) [#/Vol] 304 10*3/uL 150-450 [facility] Work Phone: Qualitative QuantiFERON-TB g old in tube teston 03-16-2022 M. tuberculosis tuberculin stim IFN-g Ql (Bld) 0.04 IU/mL . [facility] Work Phone: Serum or plasma albumin suraj urement (mass/volume)on 03-16-2022 Albumin [Mass/Vol] 3.6 g/dL 3.2-5.0 [facility] Work Phone: Serum or plasma albumin/glob ulin mass ratioon 03-16-2022 Albumin/Globulin [Mass ratio] 1.0 {ratio} 0.9-2.4 [facility] Work Phone: Serum or plasma calcium suraj urement (mass/volume)on 03-16-2022 Calcium [Mass/Vol] 9.0 mg/dL 8.5-10.1 [facility] Work Phone: Serum or plasma cholesterol in HDL measurement (mass/volume)on 03-16-2022 Cholesterol in HDL [Mass/Vol] 58 mg/dL >40 [facility] Work Phone: Comment on above: The drugs N-Acetylcy steine and Metamizole may falsely depress this assay. Reference Range HDL <40 mg/dL Low HDL Cholesterol HDL >or= 60 mg/dL High HDL Cholesterol Serum or plasma cholesterol in VLDL measurement (mass/volume)on 03-16-2022 Cholesterol in VLDL [Mass/Vol] 27 mg/dL 5-40 [facility] Work Phone: Serum or plasma creatinine m easurement (mass/volume)on 03-16-2022 Creatinine [Mass/Vol] 0.88 mg/dL 0.55-1.02 [facility] Work Phone: Comment on above: The validity of the calculated GFR & GFRAA in patients over 70 years has not been determined. Clinical correlation is essential. Serum or plasma low density lipoprotein (LDL) cholesterol measurement (mass/volume)on 03-16-2022 Cholesterol in LDL [Mass/Vol] 70 mg/dL 0-130 [facility] Work Phone: Serum or plasma urea nitroge n measurement (mass/volume)on 03-16-2022 Urea nitrogen [Mass/Vol] 11 mg/dL 7-18 [facility] Work Phone: Thin prep Papanicolaou smear with manual screeningon 03-16-2022 Thin prep Papanicolaou smear with manual screening 25 U/L 15-37 [facility] Work Phone: Thin prep Papanicolaou smear with manual screening 5 5-15 [facility] Work Phone: Thin prep Papanicolaou smear with manual screening Comment . [facility] Work Phone: Comment on above: QuantiFERON-TB Gold Plus is a qualitative indirect test forM tuberculosis infection (including disease) and isintended for use in conjunction with risk assessment,radiography, and other medical and diagnostic evaluations.The QuantiFERON-TB Gold Plus result is determined bysubtracting the Nil value from either TB antigen (Ag)value. The Mitogen tube serves as a control for the test. Thin prep Papanicolaou smear with manual screening 0.10 IU/mL . [facility] Work Phone: Thin prep Papanicolaou smear with manual screening 0.03 IU/mL . [facility] Work Phone: Thin prep Papanicolaou smear with manual screening > 10.00 IU/mL . [facility] Work Phone: Thin prep Papanicolaou smear with manual screening Negative Negative [facility] Work Phone: Comment on above: No response to M tub erculosis antigens detected.Infection with M tuberculosis is unlikely, but high riskindividuals should be considered for additional testing(ATS/IDSA/CDC Clinical Practice Guidelines, 2017). Thereference range is an Antigen minus Nil result of <0.35IU/mL.The specimen received for QuantiFERON testing was incubatedby the ordering institution. Specific procedures outlinedin our Directory of Services and in the package insert forthe QuantiFERON Gold (In Tube) test must be followed toenable for proper stimulation of cells for the productionof interferon gamma. Chemiluminescence immunoassaymethodologyPerformed at: [employer] [id number] Director: Iban Ellis PhD, Phone: [phone] Absolute lymphocyte counton 01-22-2022 Lymphocytes Auto (Unsp spec) [#/Vol] 2.26 10*3/uL 0.83-4.51 [facility] Work Phone: Basophil percentageon 2021 Basophils/100 WBC (Bld) 0.5 % 0-1 [facility] Work Phone: Bilirubin [Mass/Vol] 0.40 mg/dL 0.20-1.00 [facility] Work Phone: Comment on above: For patients on eltr ombopag therapy, use of Dimension [place] TBIL is not recommended. Chloride [Moles/Vol] 105 mmol/L 98-107 [facility] Work Phone: Eosinophils/100 WBC (Bld) 1.0 % 0-5 [facility] Work Phone: Glucose [Mass/Vol] 90 mg/dL 74-106 [facility] Work Phone: Neutrophils (Bld) [#/Vol] 4.7 10*3/uL 2.0-7.7 [facility] Work Phone: Neutrophils/100 WBC (Bld) 60.5 % 47-70 [facility] Work Phone: [phone] Potassium [Moles/Vol] 4.5 mmol/L 3.5-5.1 [facility] Work Phone: Protein [Mass/Vol] 7.4 g/dL 6.4-8.2 [facility] Work Phone: Sodium [Moles/Vol] 139 mmol/L 136-145 [facility] Work Phone: WBC (Bld) [#/Vol] 7.8 10*3/uL 4.4-11.0 [facility] Work Phone: Blood erythrocytes count (nu mber/volume)on 01-22-2022 RBC (Bld) [#/Vol] 4.39 10*6/uL 4.2-5.4 [facility] Work Phone: Blood hemoglobin measurement (mass/volume)on 01-22-2022 Hemoglobin (Bld) [Mass/Vol] 13.8 g/dL 12.0-15.0 [facility] Work Phone: Blood lymphocytes/100 leukoc yteson 01-22-2022 Lymphocytes/100 WBC (Bld) 29.1 % 19-41 [facility] Work Phone: Blood monocytes/100 leukocyt eson 01-22-2022 Monocytes/100 WBC (Bld) 8.8 % 0-10 [facility] Work Phone: Blood platelet mean volumeon 01-22-2022 Platelet mean volume (Bld) [Entitic vol] 10.3 fL 6.2-12.0 [facility] Work Phone: Determination of erythrocyte mean corpuscular volume (MCV)on 01-22-2022 MCV (RBC) [Entitic vol] 99.5 fL 81-99 [facility] Work Phone: Hematocrit Auto (Bld) [Volum e fraction]on 01-22-2022 Hematocrit (Bld) [Volume fraction] 43.7 % 37-47 [facility] Work Phone: Laboratory - Chemistry and C hemistry - challengeon 01-22-2022 ALP [Catalytic activity/Vol] 55 U/L 45-117 [facility] Work Phone: ALT [Catalytic activity/Vol] 23 U/L 13-56 [facility] Work Phone: CO2 [Moles/Vol] 28.0 mmol/L 21.0-32.0 [facility] Work Phone: Globulin (S) [Mass/Vol] 3.8 g/dL 2.2-4.2 [facility] Work Phone: Urea nitrogen/Creatinine [Mass ratio] 14.6 mg/mg 10-20 [facility] Work Phone: Laboratory - Hematology and Cell countson 01-22-2022 Erythrocyte distribution width (RBC) [Entitic vol] 48.0 fL 35.1-43.9 [facility] Work Phone: Erythrocyte distribution width (RBC) [Ratio] 13.2 % 11.6-14.6 [facility] Work Phone: Immature granulocytes/100 WBC (Bld) 0.100 % 0.0-0.9 [facility] Work Phone: Comment on above: IG% - Immature Granu locytes (promyelocytes, myelocytes and metamyelocytes) > 1% indicates that a LEFT SHIFT is Present. MCH (RBC) [Entitic mass] 31.4 pg 27.0-32.0 [facility] Work Phone: Nucleated RBC/100 WBC (Bld) [Ratio] 0 % 0-5 [facility] Work Phone: MCHC Auto (RBC) [Mass/Vol]on 01-22-2022 MCHC (RBC) [Mass/Vol] 31.6 g/dL 32-36 [facility] Work Phone: No Panel Informationon 01-22 Estimated GFR (MDRD) Amer 70 mL/min >60 [facility] Work Phone: Comment on above: GFR Calc Estimated GFR (MDRD) Non-Af Amer 58 mL/min >60 [facility] Work Phone: Comment on above: Non- GFR Calc Platelets bldon 01-22-2022 Platelets (Bld) [#/Vol] 322 10*3/uL 150-450 [facility] Work Phone: Serum or plasma albumin suraj urement (mass/volume)on 01-22-2022 Albumin [Mass/Vol] 3.6 g/dL 3.2-5.0 [facility] Work Phone: Serum or plasma albumin/glob ulin mass ratioon 01-22-2022 Albumin/Globulin [Mass ratio] 0.9 {ratio} 0.9-2.4 [facility] Work Phone: Serum or plasma calcium suraj urement (mass/volume)on 01-22-2022 Calcium [Mass/Vol] 9.1 mg/dL 8.5-10.1 [facility] Work Phone: Serum or plasma creatinine m easurement (mass/volume)on 01-22-2022 Creatinine [Mass/Vol] 1.03 mg/dL 0.55-1.02 [facility] Work Phone: Comment on above: The validity of the calculated GFR & GFRAA in patients over 70 years has not been determined. Clinical correlation is essential. Serum or plasma urea nitroge n measurement (mass/volume)on 01-22-2022 Urea nitrogen [Mass/Vol] 15 mg/dL 7-18 [facility] Work Phone: Thin prep Papanicolaou smear with manual screeningon 01-22-2022 Thin prep Papanicolaou smear with manual screening 15 U/L 15-37 [facility] Work Phone: Thin prep Papanicolaou smear with manual screening 6 5-15 [facility] Work Phone: Absolute lymphocyte counton 10-23-2021 Lymphocytes Auto (Unsp spec) [#/Vol] 4.44 10*3/uL 0.83-4.51 [facility] Work Phone: Basophil percentageon 2021 Basophils/100 WBC (Bld) 0.5 % 0-1 [facility] Work Phone: Bilirubin [Mass/Vol] 0.70 mg/dL 0.20-1.00 [facility] Work Phone: Comment on above: For patients on eltr ombopag therapy, use of Dimension [place] TBIL is not recommended. Chloride [Moles/Vol] 104 mmol/L 98-107 [facility] Work Phone: Eosinophils/100 WBC (Bld) 0.6 % 0-5 [facility] Work Phone: Glucose [Mass/Vol] 113 mg/dL 74-106 [facility] Work Phone: Comment on above: Fasting Glucose resu lt from 100 to 125 mg/dL suggests IMPAIRED HOMEOSTASIS per A.D.A. criteria. Neutrophils (Bld) [#/Vol] 4.0 10*3/uL 2.0-7.7 [facility] Work Phone: Neutrophils/100 WBC (Bld) 43.1 % 47-70 [facility] Work Phone: Potassium [Moles/Vol] 3.5 mmol/L 3.5-5.1 [facility] Work Phone: Protein [Mass/Vol] 7.5 g/dL 6.4-8.2 [facility] Work Phone: Sodium [Moles/Vol] 139 mmol/L 136-145 [facility] Work Phone: WBC (Bld) [#/Vol] 9.3 10*3/uL 4.4-11.0 [facility]: Blood erythrocytes count (nu mber/volume)on 10-23-2021 RBC (Bld) [#/Vol] 4.62 10*6/uL 4.2-5.4 [facility] Work Phone: Blood hemoglobin measurement (mass/volume)on 10-23-2021 Hemoglobin (Bld) [Mass/Vol] 14.3 g/dL 12.0-15.0 [facility] Work Phone: Blood lymphocytes/100 leukoc yteson 10-23-2021 Lymphocytes/100 WBC (Bld) 47.7 % 19-41 [facility] Work Phone: Blood monocytes/100 leukocyt eson 10-23-2021 Monocytes/100 WBC (Bld) 7.9 % 0-10 [facility] Work Phone: Blood platelet mean volumeon 10-23-2021 Platelet mean volume (Bld) [Entitic vol] 10.6 fL 6.2-12.0 [facility] Work Phone: Determination of erythrocyte mean corpuscular volume (MCV)on 10-23-2021 MCV (RBC) [Entitic vol] 98.9 fL 81-99 [facility] Work Phone: Hematocrit Auto (Bld) [Volum e fraction]on 10-23-2021 Hematocrit (Bld) [Volume fraction] 45.7 % 37-47 [facility] Work Phone: Laboratory - Chemistry and C hemistry - challengeon 10-23-2021 ALP [Catalytic activity/Vol] 59 U/L 45-117 [facility] Work Phone: ALT [Catalytic activity/Vol] 21 U/L 13-56 [facility] Work Phone: CO2 [Moles/Vol] 30.0 mmol/L 21.0-32.0 [facility] Work Phone: Globulin (S) [Mass/Vol] 3.7 g/dL 2.2-4.2 [facility] Work Phone: Urea nitrogen/Creatinine [Mass ratio] 14.2 mg/mg 10-20 [facility] Work Phone: Laboratory - Hematology and Cell countson 10-23-2021 Erythrocyte distribution width (RBC) [Entitic vol] 47.0 fL 35.1-43.9 [facility] Work Phone: Erythrocyte distribution width (RBC) [Ratio] 13.0 % 11.6-14.6 [facility] Work Phone: Immature granulocytes/100 WBC (Bld) 0.200 % 0.0-0.9 [facility] Work Phone: Comment on above: IG% - Immature Granu locytes (promyelocytes, myelocytes and metamyelocytes) > 1% indicates that a LEFT SHIFT is Present. MCH (RBC) [Entitic mass] 31.0 pg 27.0-32.0 [facility] Work Phone: Nucleated RBC/100 WBC (Bld) [Ratio] 0 % 0-5 [facility] Work Phone: MCHC Auto (RBC) [Mass/Vol]on 10-23-2021 MCHC (RBC) [Mass/Vol] 31.3 g/dL 32-36 [facility] Work Phone: No Panel Informationon 10-23 Estimated GFR (MDRD) Amer 80 mL/min >60 [facility] Work Phone: Comment on above: GFR Calc Estimated GFR (MDRD) Non-Af Amer 66 mL/min >60 [facility] Work Phone: Comment on above: Non- GFR Calc Platelets bldon 10-23-2021 Platelets (Bld) [#/Vol] 329 10*3/uL 150-450 [facility] Work Phone: Serum or plasma albumin suraj urement (mass/volume)on 10-23-2021 Albumin [Mass/Vol] 3.8 g/dL 3.2-5.0 [facility] Work Phone: Serum or plasma albumin/glob ulin mass ratioon 10-23-2021 Albumin/Globulin [Mass ratio] 1.0 {ratio} 0.9-2.4 [facility] Work Phone: Serum or plasma calcium suraj urement (mass/volume)on 10-23-2021 Calcium [Mass/Vol] 9.3 mg/dL 8.5-10.1 [facility] Work Phone: Serum or plasma creatinine m easurement (mass/volume)on 10-23-2021 Creatinine [Mass/Vol] 0.92 mg/dL 0.55-1.02 [facility] Work Phone: Comment on above: The validity of the calculated GFR & GFRAA in patients over 70 years has not been determined. Clinical correlation is essential. Serum or plasma urea nitroge n measurement (mass/volume)on 10-23-2021 Urea nitrogen [Mass/Vol] 13 mg/dL 7-18 [facility] Work Phone: Thin prep Papanicolaou smear with manual screeningon 10-23-2021 Thin prep Papanicolaou smear with manual screening 15 U/L 15-37 [facility] Work Phone: Thin prep Papanicolaou smear with manual screening 5 5-15 [facility] Work Phone: Office Visit: Spine Visiton 07-27-2017 Documentation of current medications (procedure) Done Invalid Interpretation Code [facility] Work Phone: Tobacco smoking status NHIS Tobacco smoking status NHIS Invalid Interpretation Code [facility] Work Phone: Tobacco use [facility] Former smoker Invalid Interpretation Code [facility] Work Phone: Office Visiton 06-16-2017 Documentation of current medications (procedure) Done Invalid Interpretation Code [facility] Work Phone: Tobacco use [facility] Former smoker Invalid Interpretation Code [facility] Work Phone: [phone] Office Visiton 11-27-2016 Documentation of current medications (procedure) Done Invalid Interpretation Code [facility] Work Phone: [phone] Tobacco use [facility] Former smoker Invalid Interpretation Code [facility] Work Phone: [phone] Lab Report: Basic Metabolic Profile (BMP)on 06-04-2016 Anion gap 8 mmol/L Invalid Interpretation Code 5-15 [facility] Work Phone: [phone] BUN/Creatinine Ratio 12.6 RATIO Invalid Interpretation Code 10-20 [facility] Work Phone: [phone] Calcium 8.5 mg/dL Invalid Interpretation Code 8.5-10.1 [facility] Work Phone: [phone] Chloride 103 mmol/L Invalid Interpretation Code 98-107 [facility] Work Phone: [phone] CO2 26.0 mmol/L Invalid Interpretation Code 21.0-32.0 [facility] Work Phone: [phone] Creatinine 0.64 mg/dL Invalid Interpretation Code 0.55-1.20 [facility] Work Phone: [phone] Creatinine 76.70 mL/min Invalid Interpretation Code [facility] Work Phone: [phone] eGFR (non-black) 103 mL/min/{1.73_m2} Invalid Interpretation Code >60 [facility] Work Phone: [phone] eGFR (non-black) 124 mL/min/{1.73_m2} Invalid Interpretation Code >60 [facility] Work Phone: [phone] Glucose mass conc 111 mg/dL High 70-110 [facility] Work Phone: [phone] Potassium molar conc 4.0 mmol/L Invalid Interpretation Code 3.5-5.1 [facility] Work Phone: [phone] Sodium 137 mmol/L Invalid Interpretation Code 136-145 [facility] Work Phone: 1() 0 Urea nitrogen 8 mg/dL Invalid Interpretation Code 7-18 [facility] Work Phone: 1() 0 Lab Report: CBC-Complete Blo od Cnt No Diffon 06-04-2016 Erythrocyte distribution width Auto Ratio (RBC) 12.7 % Invalid Interpretation Code 11.6-14.6 [facility] Work Phone: [phone] Erythrocytes (RBC) 3.65 10*6/uL Low 4.2-5.4 [facility] Work Phone: 1() 0 Hematocrit (HCT) 35.7 % Low 37-47 [facility] Work Phone: 1() 0 Hemoglobin mass conc (Bld) 11.3 g/dL Low 12.0-15.0 [facility] Work Phone: 1() 0 MCH 31.0 pg Invalid Interpretation Code 27.0-32.0 [facility] Work Phone: 1() 0 MCHC mass conc (RBC) 31.7 G/GL Low 32-36 [facility] Work Phone: 1() 0 MCV 97.8 fL Invalid Interpretation Code 81-99 [facility] Work Phone: 1() 0 Platelets 222 10*3/mm3 Invalid Interpretation Code 150-450 [facility] Work Phone: 1() 0 PMV by [place] 10.7 fL Invalid Interpretation Code 6.2-12.0 [facility] [facility] Work Phone: 1() [phone] RDW SD 43.5 fL Invalid Interpretation Code 35.1-43.9 [facility] Work Phone: [phone] WBC (Leukocytes) 11.7 10*3/uL High 4.4-11.0 [facility] Work Phone: [phone] Lab Report: Bedside Glucoseo n 06-02-2016 Glucose mass conc 90 mg/dL Invalid Interpretation Code 70-110 [facility] Work Phone: [phone] Microbiology: MRSA/SAID SCRE ENon 05-28-2016 MRSA+SAID SCRN . Invalid Interpretation Code [facility] Work Phone: [phone] Lab Report: Hemoglobin A1con 05-27-2016 Hemoglobin A1c/Hemoglobin.total mass fraction (Bld) 6.1 % Invalid Interpretation Code 4.2-6.3 [facility] Work Phone: [phone] Lab Report: Urinalysis, Rout ine (Dipstick)on 05-27-2016 Bilirubin Ql (U) Negative Invalid Interpretation Code Negative [facility] Work Phone: [phone] NITRITE UR Negative Invalid Interpretation Code Negative [facility] Work Phone: [phone] OCCULT BLOOD-UR Negative Invalid Interpretation Code Negative [facility] Work Phone: [phone] specific gravity, urine 1.020 Invalid Interpretation Code 1.002-1.03 0 [facility] Work Phone: [phone] Urine, clarity Clear Invalid Interpretation Code Clear [facility] Work Phone: [phone] Urine, color Yellow Invalid Interpretation Code Yellow [facility] Work Phone: [phone] Urine, glucose presence 1000 mg/dL High Normal [facility] Work Phone: [phone] Urine, ketones presence Negative Invalid Interpretation Code Negative [facility] Work Phone: [phone] Urine, leukocyte esterase presence 25 High Negative [facility] Work Phone: [phone] Urine, pH 5.0 [pH] Invalid Interpretation Code 5.0 - 8.0 [facility] Work Phone: [phone] Urine, protein Negative Invalid Interpretation Code Negative [facility] Work Phone: UROBILI Normal mg/dl Invalid Interpretation Code Normal [facility] Work Phone: [phone] Vital Signs Date Time Vital Sign Value Performing Clinician Facility 09-11-2024 14:58-0500 Body height 154.[address] Brandon Romero MD Work Phone: [facility] 09-11-2024 14:58-0500 Body mass index (BMI) [Ratio] 34.6 kg/m2 Dr. Brandon Romero MD Work Phone: [facility] 09-11-2024 14:58-0500 Body weight 83.[address] Brandon Romero MD Work Phone: [facility] 09-11-2024 14:58-0500 Diastolic blood pressure 79 mm[Hg] Dr. Brandon Romero MD Work Phone: [facility] 09-11-2024 14:58-0500 Systolic blood pressure 128 mm[Hg] Dr. Brandon Romero MD Work Phone: [facility] 08-10-2022 17:42-0500 Body temperature 101.6 [degF] Dr. Brandon Romero Work Phone: [facility] 08-10-2022 17:42-0500 Diastolic blood pressure 70 mm[Hg] Dr. Brandon Romero Work Phone: [facility] 08-10-2022 17:42-0500 Heart rate 129 /min Dr. Brandon Romero Work Phone: [facility] 08-10-2022 17:42-0500 Respiratory rate 16 /min Dr. Brandon Romero Work Phone: [facility] 08-10-2022 17:42-0500 SaO2% (BldA) [Mass fraction] 96 % Dr. Brandon Romero Work Phone: [facility] 08-10-2022 17:42-0500 Systolic blood pressure 110 mm[Hg] Dr. Brandon Romero Work Phone: [facility] 04-20-2022 13:12-0400 Body height 154.[address] Brandon Romero Work Phone: [facility] Work Phone: 04-20-2022 13:12-0400 Body mass index (BMI) [Ratio] 39.4 kg/m2 Dr. Brandon Romero Work Phone: [facility] Work Phone: 04-20-2022 13:12-0400 Body weight 94.[address] Brandon Romero Work Phone: [facility] Work Phone: 03-19-2022 15:08-0400 Body temperature 97.5 [degF] Dr. Brandon Romero Work Phone: [facility] Work Phone: 03-19-2022 15:08-0400 Diastolic blood pressure 82 mm[Hg] Dr. Brandon Romero Work Phone: [facility] Work Phone: 03-19-2022 15:08-0400 Heart rate 97 /min Dr. Brandon Romero Work Phone: [facility] Work Phone: 03-19-2022 15:08-0400 Respiratory rate 16 /min Dr. Brandon Romero Work Phone: [facility] Work Phone: 03-19-2022 15:08-0400 SaO2% (BldA) [Mass fraction] 98 % Dr. Brandon Romero Work Phone: [facility] Work Phone: 03-19-2022 15:08-0400 Systolic blood pressure 138 mm[Hg] Dr. Brandon Romero Work Phone: [facility] Work Phone: 01-22-2016 13:56-0400 BMI (Body Mass Index) 37.31 kg/m2 [facility] Work Phone: 01-22-2016 13:56-0400 Height 157.48 cm iMladys Velazquez [facility] Work Phone: 01-22-2016 13:56-0400 Weight 92.53 kg Miladys Velazquez [facility] Work Phone: Encounters Encounter Date Encounter Type Care Provider Facility Start: 03-05-2025 End: 03-05-[address] Brandon Romero MD Work Phone: -[facility] [place] Start: 03-05-2025 End: 03-05-[address] Brandon Romero MD -[facility] [place] Work Phone: Start: 03-05-2025 End: 03-05-2025 ambulatory Brandon Romero Facility:[facility] Start: 12-06-2024 End: 12-06-[address] Brandon Romero MD Work Phone: [facility] Work Phone: Start: 12-06-2024 End: 12-06-[address] Kilo Grimm MD -Laboratory Work Phone: Start: 12-06-2024 End: 12-06-2024 ambulatory Kilo Grimm Facility:[facility] Start: 11-25-2024 End: 11-25-[address] Brandon Romero MD Work Phone: [facility] Work Phone: Start: 11-25-2024 End: 11-25-[address] Guadalupe Avila MD -Laboratory Work Phone: Start: 11-25-2024 End: 11-25-2024 ambulatory Arcelia Newman Facility:[facility] Start: 10-16-2024 End: 10-16-[address] Arcelia Newman MD -Laboratory Work Phone: Start: 10-16-2024 End: 10-16-2024 ambulatory Arcelia Newman Facility:[facility] Start: 09-11-2024 End: 09-11-[address] Arcelia Newman MD -Laboratory, Specimen Work Phone: Start: 09-11-2024 End: 09-11-[address] Arcelia Newman MD -[facility] Work Phone: Start: 09-11-2024 End: 09-11-2024 ambulatory Brandon Romero Facility:[facility] Start: 09-11-2024 End: 09-11-2024 ambulatory Arcelia Newman Facility:[facility] Start: 09-07-2024 End: 09-07-[address] Kilo Grimm MD -Radiology, [facility] Work Phone: Start: 09-07-2024 End: 09-07-2024 ambulatory Kilo Grimm Facility:[facility] Start: 07-06-2024 Encounter for other preprocedural examination Arcelia Newman [facility] Start: 07-05-2024 End: 07-05-2024 [facility] Start: 06-29-2024 End: 06-29-2024 ambulatory Brandon Romero Facility:[facility] Start: 06-13-2024 End: 06-13-2024 ambulatory Arcelia Newman Facility:[facility] Start: 06-12-2024 End: 06-12-2024 ambulatory Arcelia Newman Facility:[facility] Start: 06-09-2024 End: 06-09-2024 ambulatory Patsy Bannerturner Facility:[facility] Start: 05-23-2024 End: 05-23-2024 ambulatory Brandon Romero Facility:[facility] Start: 05-23-2024 End: 05-23-2024 ambulatory Guadalupe Avila Facility:[facility] Start: 05-17-2024 End: 05-17-2024 ambulatory Patsy Barber Facility:[facility] Start: 05-17-2024 End: 05-17-2024 ambulatory Patsy Barber Facility:[facility] Start: 04-26-2024 End: 04-26-2024 ambulatory Penelope De Facility:[facility] Start: 03-08-2024 End: 03-08-2024 ambulatory Brandon Romero Facility:[facility] Start: 12-06-2023 End: 12-06-2023 ambulatory [facility] Work Phone: Start: 12-06-2023 End: 12-06-2023 Patient encounter procedure [facility] Work Phone: Start: 10-30-2023 End: 10-30-2023 ambulatory [facility] Work Phone: Start: 10-30-2023 End: 10-30-2023 Patient encounter procedure [facility] Work Phone: Start: 10-23-2023 End: 10-23-2023 ambulatory [facility] Work Phone: Start: 10-23-2023 End: 10-23-2023 Patient encounter procedure [facility] Work Phone: Start: 08-13-2023 End: 08-13-2023 ambulatory BRANDON ROMERO Facility:[facility] Start: 07-16-2023 End: 07-16-2023 ambulatory [facility] Work Phone: Start: 07-16-2023 End: 07-16-2023 [facility] Start: 04-23-2023 End: 04-23-2023 ambulatory [facility] Work Phone: Start: 04-23-2023 End: 04-23-2023 Patient encounter procedure [facility] Work Phone: Start: 11-19-2022 End: 11-19-[address] Brandon Romero Work Phone: [facility] Work Phone: Start: 11-19-2022 End: 11-19-[address] Brandon Romero Work Phone: [facility] Start: 10-27-2022 End: 10-27-[address] Brandon Romero Work Phone: [facility] Work Phone: Start: 10-27-2022 End: 10-27-[address] Brandon Romero Work Phone: [facility] Start: 08-10-2022 End: 08-10-[address] Brandon Romero Work Phone: [facility] Start: 07-17-2022 End: 07-17-[address] Brandon Romero Work Phone: [facility] Start: 06-30-2022 End: 06-30-[address] Brandon Romero Work Phone: [facility] Work Phone: Start: 06-30-2022 End: 06-30-[address] Brandon Romero Work Phone: [facility] Start: 06-12-2022 End: 06-12-[address] Brandon Romero Work Phone: [facility] Work Phone: Start: 06-12-2022 End: 06-12-[address] Brandon Romero Work Phone: [facility] Start: 06-09-2022 End: 06-09-[address] Brandon Romero Work Phone: [facility] Work Phone: Start: 06-09-2022 End: 06-09-[address] Brandon Romero Work Phone: [facility] Start: 04-20-2022 End: 04-20-[address] Brandon Romero Work Phone: [facility] Start: 04-16-2022 End: 04-16-[address] Brandon Romero Work Phone: [facility] Work Phone: Start: 04-16-2022 End: 04-16-[address] Brandon Romero Work Phone: [facility] Start: 03-19-2022 End: 03-19-[address] Brandon Romero Work Phone: [facility] Start: 03-16-2022 End: 03-16-2022 [facility] Start: 01-30-2022 End: 01-30-2022 Patient encounter procedure [facility] Start: 01-22-2022 End: 01-22-2022 [facility] Start: 10-23-2021 End: 10-23-2021 Patient encounter procedure [facility] Procedures Date Procedure Procedure Detail Performing Clinician Start: 12-06-2024 Methadone measuremen t, urine Dr. Brandon Romero MD Work Phone: Start: 10-16-[address] Brandon Romero MD Work Phone: Start: 09-07-2024 X-ray of cervical spine Dr. Brandon Romero MD Work Phone: Start: 04-20-2022 Radiologic examinati on of knee Dr. Brandon Romero Work Phone: Start: 01-30-2022 Radiography of sacrococcygeal spine Start: 01-22-2016 End: 05-27-2016 Radiologic exam knee complete 4/more views Tobias Monterroso Work Phone: Plan of Treatment Date Care Activity Detail Author Start: 12-06-2023 Procedure [facility] Start: 06-30-2022 Procedure [facility] Work Phone: Start: 07-27-2017 End: 07-27-2017 Radex spine lumbscrl compl w/bending views min 6 X-Ray, Spine, Lumbar, complete with bending views [facility] Work Phone: Start: 07-27-2017 End: 07-27-2017 Appointment Appointment [facility] Work Phone: Start: 06-16-2017 End: 06-16-2017 Radiologic exam knee complete 4/more views X-Ray, Knee [facility] Work Phone: Start: 06-16-2017 End: 06-16-2017 Appointment Appointment [facility] Work Phone: Start: 11-27-2016 End: 11-27-2016 Radiologic exam knee complete 4/more views X-Ray, Knee [facility] Work Phone: Start: 09-02-2016 End: 09-02-2016 Physical Therapy [facility] Work Phone: Start: 07-15-2016 End: 07-15-2016 Radiologic exam knee complete 4/more views X-Ray, Knee [facility] Work Phone: Start: 01-22-2016 End: 05-27-2016 Radiologic exam knee complete 4/more views X-Ray, Knee [facility] Work Phone: In-vitro immunologic test [facility] Work Phone: Mycobacterium tuberculosis tuberculin stimulated gamma interferon [Presence] in Blood [facility] Work Phone: Patient Education JOINT%20REPLAC EMENT%20 SURGERY [facility] Work Phone: Procedure [facility] Work Phone: Immunizations Immunization Date Immunization Notes Care Provider Fa cility 11-21-2020 Covid (Pfizer) [facility] 10-31-2020 Covid (Pfizer) [facility] 06-04-2016 influenza, injectabl e, quadrivalent, preservative free [facility] 06-04-2016 influenza, seasonal, injectable [facility] Payers Date Payer Category Payer Self-pay [id number] 2018 Unknown [id number] 2016 Private Health Insurance [id number] Medicare [id number] Unknown [id number] 2.16.8 [id number] Unknown [id number] 2.16.8 [id number] Unknown [id number] 2.16.8 [id number] Unknown [id number] 2.16.8 [id number] Unknown [id number] 2.16.8 [id number] Unknown [id number] 2.16.8 [id number] Unknown [id number] 2.16.8 40.1.664275.3.579.2.462 Unknown [id number] 2.16.8 40.1.107001.3.579.2.462 Unknown [id number] 2.16.8 40.1.462164.3.579.2.462 Unknown [id number] 2.16.8 40.1.475850.3.579.2.462 Unknown [id number] 2.16.8 40.1.793389.3.579.2.462 Unknown [id number] 2.16.8 40.1.539530.3.579.2.462 Unknown [id number] 2.16.8 40.1.966793.3.579.2.462 Unknown [id number] 2.16.8 40.1.852243.3.579.2.462 Unknown [id number] 2.16.8 40.1.769076.3.579.2.462 Unknown [id number] 2.16.8 40.1.912256.3.579.2.462 Unknown [id number] 2.16.8 40.1.542794.3.579.2.462 Unknown [id number] 2.16.8 [id number] Unknown [id number] 2.16.8 [id number] Social History Date Type Detail Facility Start: 02-26-2021 End: 08-10-2022 Tobacco smoking status NHIS Unknown if ever smoked [facility] Start: 09-03-2019 Spouse/ Signif icant Other [facility] Start: 1960 Sex Assigned At Female W [facility] Start: 06-05-2016 None [facility] Start: 06-05-2016 Cigarettes [facility] Start: 06-05-2024 Tobacco smoking status NHIS Current some day smoker [facility] Start: 11-28-2024 End: 12-11-2024 Sex Female (finding) [facility] Evaluation note 09-11-2024 Note Date & Type Note Facility 09-11-2024 Evaluation note Diagnosis Onset Date Resolution Simple endometrial hyperplasia without atypia acute September 11 2:51pm [facility] Work Phone: Clinical Note 06-13-2024 Note Date & Type Note Facility 06-13-[address] [facility] Medical Records Department [address] [place] [address] History Physical Exam 06/13/24817 MR#: [id number] Acct: [id number] Name: TRE SHEPPARD Rep #: [id number] : 1960 64 From: Arcelia Newman MD PCP: Dr. Brandon Romero MD Status:[facility] Location: [place] [address] History and Physical Intake Vital Signs 05/17/2413:37 05/23/2413:48 Height 5 ft 1 in 5 ft 1 in Weight: 192 lb BMI 36.2 BP 130/81 H Intake Visit Reasons: D C Consult Histology Supervisor Required: No Is patient in pain?: Yes (pelvic pain when sitting) Allergies diclofenac (From Voltaren) Allergy (Verified 05/23/24 13:51) HivesPenicillins Allergy (Verified 05/23/24 13:51) Rashtramadol HCl (From Ultracet) Allergy (Verified 05/23/24 13:51) Hivescodeine Adverse Reaction (Verified 05/23/24 13:51) Nausea Medications ???Medication ???Instructions ???Recorded ???Confirmed ???Type hydroxychloroquine 200 mg tablet 200 mg PO BIDCM 02/09/14 05/23/24 History lisinopril 20 mg tablet 40 mg PO DAILY 02/09/14 05/23/24 History pravastatin 40 mg tablet 40 mg PO DAILY 02/09/14 05/23/24 History gabapentin 300 mg capsule 300 mg PO TIDCM 05/27/16 05/23/24 History baclofen 10 mg tablet 10 mg PO DAILY 12/26/17 05/23/24 History levothyroxine 125 mcg tablet 150 mcg PO DAILY 12/26/17 05/23/24 History amitriptyline 25 mg tablet 25 mg PO 04/20/22 05/23/24 History clindamycin HCl 300 mg capsule 300 mg PO TID PRN 04/20/22 05/23/24 History oxycodone 5 mg tablet 5 mg PO 04/20/22 05/23/24 History escitalopram oxalate 5 mg tablet 5 mg PO QDAY 05/17/24 05/23/24 History (Lexapro) morphine 15 mg tablet,extended 15 mg PO BID 05/17/24 05/23/24 History release semaglutide 0.25 mg or 0.5 mg (2 0.5 mg subcut QWEEK 05/17/24 05/23/24 History mg/3 mL) subcutaneous pen injector (Ozempic) misoprostol 200 mcg tablet 200 mcg PO .complex #2 tabs 05/23/24 05/23/24 Rx (Cytotec) vibegron 75 mg tablet (Gemtesa) 75 mg PO QDAY 05/23/24 05/23/24 History PFSH Medical History Acute bronchitis, unspecified Acute conjunctivitis, left eye Acute frontal sinusitis, unspecified Contact with and (suspected) exposure to covid-19 Acute frontal sinusitis, unspecified Hx of one miscarriage Thyroid disease Knee pain Diabetes Arthritis HTN (hypertension) Surgical History History of total knee replacement (TKR) Hx of hernia repair Hx of section History of hemorrhoidectomy Family History Grandmother CVA (cerebral vascular accident)Mother Renal failure Social History adopted: No household members: spouse number of children: 1 current occupational status: retired sexually active: No Smoking Status: Current some day smoker alcohol intake: never substance use type: does not use caffeine: Yes Type: carbonated beverages and coffee eating out: 1-3 times/week during the past year weight has: decreased > 10 lbs what type of physical activity do you participate in: none seatbelt use: always do you feel safe at home: Yes HPI D C Consult Details: TRE SHEPPARD is a 64 year old who presents for thickened endometrium. she had PMB 3 years ago[address] she sees Dr De for prolapse and had an ultrasound done that showed the thickened lining and she is being treated for OAB with medication. she feels vaginal pressure and pain. she has a follow up scheduled with gayla, hasn't tried a pessary yet. Female Reproductive History Menopausal Symptoms: No night sweats History 4 Elective abortions Hx Para 1 Spontaneous abortions Hx # Term Pregnancies Ectopic pregnancies Hx # Pregnancies Multiple births # of living children 1 Past Pregnancies Del. Date Name GA/Weeks Outcome Route Bth Weight Infant Gen Labor Lgth Anesthesia Del Locatn Provider FOB 01/08/01 Donn Linares Constitutional: Denies fatigue, night sweats, weight gain or weight loss ENT ENT: Reports system reviewed and no additional complaints, except as documented Cardio Card: Denies chest pain Resp Resp: Denies cough or dyspnea GI GI: Reports as per HPI; Denies abdominal pain, constipation, nausea or vomiting : Denies nipple discharge, urinary frequency, urinary incontinence, urinary hesitancy, urinary urgency, vaginal discharge, vaginal dryness, vaginal odor or vaginal pruritus Musc Musc: Denies arthralgias, back pain or muscle weakness Skin Skin/Breast: Denies alopecia, change in hair, dry skin, breast mass, breast pain, breast skin changes or nipple discharge Neuro Neuro: Reports system reviewed and no additi (more content not included)... [facility] Progress note 08-13-2023 Note Date & Type Note Facility 08-13-2023 Note HNO ID: [id number] Author: Jailene Padron APRN.[employer] Service: ? Author Type: Nurse Practitioner Type: Progress Notes Filed: 08/13/2023 7:47 AM Note Text: Subjective HPI Tre Sheppard is a 63 year old female who presents with right hand middle finger painful and red and swollen for the past 5 days. She has a very small hangnail on the side of the finger. She states the area is very painful. Denies injury. Has been soaking in warm [...] Seo, office ESOPHAGOGASTRODUODENOSCOPY TRANSORAL DIAGNOSTIC 1998 EGD [facility] ESOPHAGOGASTRODUODENOSCOPY TRANSORAL DIAGNOSTIC 05/13/2012 EGD HEMORRHOIDECTOMY INTERNAL [...] and sterile water. (more content not included)... [facility] Evaluation note Note Date & Type Note Facility Evaluation note No assessment information availa [facility] Work Phone: Evaluation note Note Date & Type Note Facility Evaluation note Diagnosis Onset Date Acute conjunctivitis, left eye acute Acute frontal sinusitis, unspecified acute Contact with and (suspected) exposure to covid-19 acute Hx of total knee replacement acute Rheumatoid arthritis acute [facility] Work Phone: Evaluation note Note Date & Type Note Facility Evaluation note Diagnosis Onset Date Acute bronchitis, unspecified acute [facility] Work Phone: Reason for referral (narrative) Note Date & Type Note Facility Reason for referral (narrative) No reason for referral information available [facility] Work Phone: Family History Relationship Condition Age at Onset Recorded Date/T lorenzo Unknown Family History?- Unknown January 19, 2 018 1:27pm Family History?Diabetes Unknown 2015 10:16am Family History?Diabetes Unknown January 19, 2018 1:27pm Relationship Condition Age at Onset Recorded Date/T lorenzo Unknown Family History?- Unknown January 19, 018 12:27pm Family History?Diabetes Unknown 2015 9:16am Family History?Diabetes Unknown January 19, 2018 12:27pm Relationship Condition Age at Onset Recorded Date/T lorenzo grandmother Cerebrovascular accident (CVA) Unknown mother Renal failure Unknown Advance Directives Advance Directive Response Recorded Date/ Time Advance Directives No June 05, 2016 4:52pm Living Will No September 03 0 3:16pm Power of Publications Writer No September 03 2 020 3:16pm Advance Directive Response Recorded Date/ Time Advance Directives No June 05, 2016 3:52pm Living Will No September 03 0 2:16pm Power of Publications Writer No September 03 020 2:16pm Advance Directive Response Recorded Date/ Time Living Will No June 05 4 8:34am Do you have a Healthcare Power of Publications Writer? No June 05, 2024 8:34am Advance Directives No June 05, 2016 4:52pm Advance Directive Response Recorded Date/ Time Advance Directives No June 05, 2016 4:52pm Chief Complaint and Reason for Visit Chief Complaint PINK EYE/COVID TEST? RIGHT KNEE right knee pain Reason for Visit Acute conjunctivitis , left eye Acute frontal sinusitis, unspecified Contact with and (suspected) exposure to covid-19 Hx of total knee replacement Rheumatoid arthritis Chief Complaint PINK EYE/COVID TEST? RIGHT KNEE right knee pain PAIN- COPY PCP Reason for Visit Acute conjunctivitis , left eye Acute frontal sinusitis, unspecified Contact with and (suspected) exposure to covid-19 Hx of total knee replacement Rheumatoid arthritis Chief Complaint AYERS/FEVER/SORE THROAT /COUGH 2DRS- 2 ORDERS- COPY EACH DR Reason for Visit Acute bronchitis, un specified Chief Complaint AYERS/FEVER/SORE THROAT /COUGH 2DRS- 2 ORDERS- COPY EACH DR PAIN- COPY PCP Reason for Visit Acute bronchitis, un specified Chief Complaint PAIN- COPY PCP Chief Complaint Admit Date EMB September 11, 2024 2 :51pm EORDER October 16, 2024 4:37pm Fibromyalgia November 25, 2024 11: 00am Reason for Visit Admit Date Simple endometrial hyperplasia without a typia September 11, 2024 2:51pm Chief Complaint Admit Date Fibromyalgia November 25, 2024 11: 00am Summary Purpose Additional Source Comments Goals (unrecognized section and content) Goals may be documented in a n alternate sectionGoals may be documented in an alternate sectionGoals may be documented in an alternate sectionGoals may be documented in an alternate sectionGoals may be documented in an alternate sectionGoals may be documented in an alternate sectionGoals may be documented in an alternate sectionGoals may be documented in an alternate sectionGoals may be documented in an alternate sectionGoals may be documented in an alternate sectionGoals may be documented in an alternate sectionGoals may be documented in an alternate sectionGoals may be documented in an alternate sectionGoals may be documented in an alternate sectionGoals may be documented in an alternate sectionGoals may be documented in an alternate section Care Teams (unrecognized sec tion and content) Team Status: Active Member Role Status Dates Dr. Brandon Romero MD Family Provider Active Dr. Brandon Romero MD Primary Care Provider Active Team Status: Inactive Member Role Status Dates Dr. Brandon Romero MD Primary Care Provider, Referring Provider Active Babatunde BURCH, [place] Attending Provider Active Team Status: Inactive Member Role Status Dates Dr. Brandon Romero MD Primary Care Provi lowell, Attending Provider, Referring Provider Active Team Status: Inactive Member Role Status Dates Dr. Brandon Romero MD Primary Care Provi lowell, Attending Provider, Referring Provider Active Dr. Guadalupe Avila MD Other Provider Active Team Status: Inactive Member Role Status Dates Dr. Brandon Romero MD Primary Care Provider Active Dr. Guadalupe Avila MD Attending Provider, Referring Provider Active Team Status: Inactive Member Role Status Dates Dr. Brandon Romero MD Primary Care Provider Active Dr. Kilo Grimm MD Attending Provider, Referring Pr ovider Active Team Status: Inactive Member Role Status Dates Dr. Brandon Romero MD Primary Care Provider Active Start: September 07, 2024 End: September 07, 2024 Dr. Kilo Grimm MD Attending Provider Active Start: September 07, 2024 End: September 07, 2024 Dr. Kilo Grimm MD Referring Provider Active Start: September 07, 2024 End: September 07, 2024 Team Status: Inactive Member Role Status Dates Dr. Brandon Romero MD Primary Care Provider Active Start: September 11, 2024 End: September 11, 2024 Dr. Brandon Romero MD Referring Provider Active Start: September 11, 2024 End: September 11, 2024 Dr. Arcelia Newman MD Attending Provider Active Start: September 11, 2024 End: September 11, 2024 Team Status: Inactive Member Role Status Dates Dr. Brandon Romero MD Primary Care Provider Active Start: September 11, 2024 End: September 11, 2024 Dr. Arcelia Nemwan MD Attending Provider Active Start: September 11, 2024 End: September 11, 2024 Team Status: Inactive Member Role Status Dates Dr. Brandon Romero MD Primary Care Provider Active Start: October 16, 2024 End: October 16, 2024 Dr. Arcelia Newman MD Attending Provider Active Start: October 16, 2024 End: October 16, 2024 Dr. Arcelia Newman MD Referring Provider Active Start: October 16, 2024 End: October 16, 2024 Team Status: Inactive Member Role Status Dates Dr. Brandon Romero MD Primary Care Provider Active Start: November 25, 2024 End: November 25, 2024 Dr. Guadalupe Avila MD Attending Provider Active Start: November 25, 2024 End: November 25, 2024 Dr. Guadalupe Avila MD Referring Provider Active Start: November 25, 2024 End: November 25, 2024 Dr. Arcelia Newman MD Other Provider Active Start: November 25, 2024 End: November 25, 2024 Team Status: Inactive Member Role Status Dates Dr. Brandon Romero MD Primary Care Provider Active Start: December 06, 2024 End: December 06, 2024 Dr. Kilo Grimm MD Attending Provider Active Start: December 06, 2024 End: December 06, 2024 Dr. Kilo Grimm MD Referring Provider Active Start: December 06, 2024 End: December 06, 2024 Team Status: Active Member Role/Relationship Status Dates Dr. Brandon Romero MD Family Provider Active Dr. Brandon Romero MD Primary Care Provider Active Team Status: Inactive Member Role/Relationship Status Dates Dr. Brandon Romero MD Primary Care Provider Active Start: November 25, 2024 End: November 25, 2024 Dr. Guadalupe Avila MD Attending Provider Active Start: November 25, 2024 End: November 25, 2024 Dr. Guadalupe Avila MD Referring Provider Active Start: November 25, 2024 End: November 25, 2024 Dr. Arcelia Newman MD Other Provider Active Start: November 25, 2024 End: November 25, 2024 Team Status: Inactive Member Role/Relationship Status Dates Dr. Brandon Romero MD Primary Care Provider Active Start: December 06, 2024 End: December 06, 2024 Dr. Kilo Grimm MD Attending Provider Active Start: December 06, 2024 End: December 06, 2024 Dr. Kilo Grimm MD Referring Provider Active Start: December 06, 2024 End: December 06, 2024 Team Status: Inactive Member Role/Relationship Status Dates Dr. Brandon Romero MD Primary Care Provider Active Start: March 05, 2025 End: March 05, 2025 Dr. Brandon Romero MD Attending Provider Active Start: March 05, 2025 End: March 05, 2025 Dr. Brandon Romero MD Referring Provider Active Start: March 05, 2025 End: March 05, 2025 INFORMATION SOURCE (unrecogn ized section and content) DATE CREATED AUTHOR 08/15/2023 [facility] DATE CREATED AUTHOR AUTHOR'S ORGANIZ ATION 03/08/2025 [facility] FOR RECORDS PERTAINING TO PATIENTS WHO ARE [...] BE BASED ON THE PRIMARY CLINICAL RECORDS. [employer] provides no warranty or guarantee of the accuracy or completeness of information in this document.
[2025-05-19 09:25] LABS: Hematocrit 41.0 % (37-47); Hemoglobin 13.1 g/dL (12.0-15.0); Immature Granulocytes Count 0.030 X10^3/uL (0.0-0.0); Mean Corp Hgb Conc 32.0 g/dL (32-36); Mean Corpuscular Volume 97.6 fL (81-99); Mean Platelet Vol. 9.7 fl (6.2-12.0); NRBC Flagged by Analyzer 0 % (0-5); Platelet Count 314 K/mm3 (150-450); RBC Distribution Width CV 13.9 % (11.6-14.6); RBC Distribution Width SD 49.9 fl (35.1-43.9); Red Blood Count 4.20 M/mm3 (4.2-5.4); White Blood Count 7.9 K/mm3 (4.4-11.0)
[2025-05-19 10:30] LABS: AST(SGOT) 17 U/L (<=31); Alanine Aminotransfer ALT/SGPT 13 U/L (<=34); Albumin, Serum 4.0 g/dL (3.4-4.8); Alkaline Phosphatase 59 U/L (35-104); Anion Gap 11 (5-15); BUN 16 mg/dL (4-19); BUN/Creat Ratio 15.0 RATIO (10-20); Calcium,Total 9.0 mg/dL (7.6-11.0); Carbon Dioxide 25.7 mmol/L (21.0-32.0); Chloride 101 mmol/L (98-108); Globulin 2.7 g/dL (2.2-4.2); Glucose 89 mg/dL (70-99); Potassium 4.5 mmol/L (3.3-5.1)
== END | disposition home or self-care (01) ==
LOC: LAB 08:30
PROVIDERS: PCP Family Medicine; Referring Provider Internal Medicine Rheumatology; Visit Provider Internal Medicine Rheumatology
DX: M06.09 Rheumatoid arthritis without rheumatoid factor, multiple sites (principal); Z79.899 Other long term (current) drug therapy; M79.7 Fibromyalgia; M17.0 Bilateral primary osteoarthritis of knee; M21.40 Flat foot [pes planus] (acquired), unspecified foot
CPT/HCPCS: 36415; 80053; 85025